=== PATIENT | male | born 1955 | race American Indian/Alaskan Native ===

== ENCOUNTER 2016-09-12 18:36 | Emergency (ER) | payer MEDICARE, OTHER ==
[2016-09-12 20:46] VITALS: BP 147/94
[2016-09-12] MEDS: DUONEB 0.5 MG-3 MG/3 ML SOLN IH ONE (21:17)
[2016-09-12] MEDS: PROVENTIL IH ONE (21:42)
[2016-09-12] MEDS: ATROVENT IH ONE (21:42)
--- NOTE | 2016-09-13 07:15 | ED Elopement Review ---
ED Pt Elopement review - Call Back decision Pt Call Back Decision: Call pt to return to ED [facility] (HR [id number])
== END 2016-09-13 02:39 | disposition left against medical advice (07) ==
LOC: ED 18:36
DX: J45.909 Unspecified asthma, uncomplicated (principal); Z53.21 Procedure and treatment not carried out due to patient leaving prior to being seen by health care provider
CPT/HCPCS: 96372; J2930

== ENCOUNTER 2016-09-21 17:20 | Emergency (ER) | payer MEDICARE, OTHER ==
[2016-09-21] MEDS ORDERED: MAGNESIUM SULFATE 2GM/50ML 2 GM/50 ML BAG IV ONE (18:38)
[2016-09-21] MEDS ORDERED: PROVENTIL IH ONE (18:38)
[2016-09-21] MEDS ORDERED: ATROVENT IH ONE (18:38)
--- NOTE | 2016-09-21 18:38 | Emergency Department Report ---
HPI - General Chief Complaint: Adult Asthma Time Seen by Provider: 09/21/16 18:36 - HPI HPI: This is a 60-year-old male who presents the emergency department with complaint of wheezing, dry cough, shortness of breath that he believes this is asthma that started around 12:30 this afternoon. The patient says that the "wind hit my face and started everything." He tried his inhaler and nebulized treatments without much relief. He took his daily 30 mg of prednisone as well. He does not have a primary care doctor but his sales and leasing agent is Dr. Mayer. He has a significant history of asthma and has been intubated in the past for it. He denies any chest pain, fever or any back pain. No recent travel or sick contacts at home. He denies tobacco or illicit drug use or abuse. ED Past Medical Hx - Past Medical History Hx Hypertension: Yes Hx Heart Attack/AMI: No Hx Congestive Heart Failure: No Hx Diabetes: Yes Hx Liver Disease: No Hx Renal Disease: No Hx Seizures: No Hx Asthma: Yes (intubation) Hx COPD: No Hx HIV: No - Surgical History Additional Surgical History: back surgery x4. Hernia repair 04/20 - Social History Smoking Status: Never Smoker - Medications Home Medications: Home Medications Medication Instructions Recorded Confirmed Last Taken Type Montelukast [Singulair] 10 mg PO BID 08/31/13 10/24/14 10/18/14 History ALBUTEROL NEB's [Proventil 0.083% 2.5 mg IH TID PRN #1 box 12/02/13 10/24/14 Unknown Rx NEBS] Tiotropium [Spiriva] 18 mcg IH QDAY 01/04/14 10/24/14 10/17/14 History glipiZIDE [glipiZIDE XL] 5 mg PO QDAY 04/21/14 10/24/14 10/18/14 History Aspirin EC [Aspirin Enteric Coated 325 mg PO DAILY 04/22/14 10/24/14 10/17/14 History TAB] Budesonide/Formoterol Fumarate 1 puff INHALATION PRN PRN 04/22/14 10/24/1410/18 History [Symbicort 160-4.5 Mcg Inhaler] metFORMIN [Glucophage] 500 mg PO BID 07/02/14 10/24/14 10/18/14 History ALBUTEROL Inhaler [ProAir HFA 2 puff IH QID PRN #1 inha 07/03/14 10/24/14 Rx Inhaler] Fluticasone/Salmeterol [Advair 1 puff IH BID #1 disk.w.dev 10/22/14 10/24/14 Unknown Rx Diskus 250-50 mcg] Prednisone 10 mg PO 4XD #40 day 10/22/14 10/24/14 Unknown Rx Albuterol *Only Ed* [Proventil 2.5 mg IH Q6HRT nebu 10/28/14 Unknown Rx 0.5% NEBS] Arformoterol Nebu [Brovana Nebu] 15 mcg IH Q12HRT ml 10/28/14 Unknown Rx Aspirin EC [Aspirin Enteric Coated 325 mg PO DAILY tablet 10/28/14 Unknown Rx TAB] Budesonide [Pulmicort Respules] 1 mg IH Q12HRT nebu 10/28/14 Unknown Rx Insulin Glulisine [Apidra] 0 units SUB-Q ACHS units 10/28/14 Unknown Rx Montelukast [Singulair] 10 mg PO BID tablet 10/28/14 Unknown Rx Sulfamethoxazole/Trimethoprim 1 each PO BID #20 tablet 10/28/14 Unknown Rx [Bactrim Ds] glipiZIDE XL [Glucotrol Xl] 5 mg PO DAILY@0800 tablet 10/28/14 Unknown Rx predniSONE [Deltasone] 20 mg PO BID #10 tab 09/21/16 Unknown Rx ED Review of Systems ROS: Stated complaint: ASTHMA Other details as noted in HPI Comment: All other systems reviewed and negative Constitutional: denies: chills, fever Eyes: denies: eye pain, eye discharge, vision change ENT: denies: ear pain, throat pain Respiratory: cough, shortness of breath, wheezing Cardiovascular: denies: chest pain, palpitations Gastrointestinal: denies: abdominal pain, nausea, diarrhea Genitourinary: denies: urgency, dysuria Musculoskeletal: denies: back pain, joint swelling, arthralgia Skin: denies: rash, lesions Neurological: denies: headache, weakness, paresthesias Physical Exam - Physical Exam Vital Signs: Vital Signs 09/21/16 18:15 Temperature 98.5 F Pulse Rate 121 H Respiratory 24 Rate Blood Pressure 146/99 O2 Sat by Pulse 92 Oximetry Physical Exam: GENERAL: The patient is well-developed well-nourished. HEENT: Normocephalic. Atraumatic. Extraocular motions are intact. Patient has moist mucous membranes. Pupils equal reactive to light bilaterally. NECK: Supple. Trachea is midline. CHEST/LUNGS: Mild to moderate wheezing throughout the chest. There is tachypnea but no accessory muscle use. No conversational dyspnea. There is no respiratory distress noted. HEART/CARDIOVASCULAR: Regular. There is very mild tachycardia. There is no gallop rub or murmur. ABDOMEN: Abdomen is soft, nontender. Patient has normal bowel sounds. There is no abdominal distention. SKIN: There is no rash. There is no edema. There is no diaphoresis. NEURO: The patient is awake, alert, and oriented. The patient is cooperative. The patient has no focal neurologic deficits. The patient has normal speech. MUSCULOSKELETAL: There is no tenderness or deformity. There is no limitation range of motion. There is no evidence of acute injury. Cap refill less than 2 seconds. ED Course Vital Signs 09/21/16 18:15 Temperature 98.5 F Pulse Rate 121 H Respiratory 24 Rate Blood Pressure 146/99 O2 Sat by Pulse 92 Oximetry ED Medical Decision Making - Lab Data Result diagrams: 09/21/16 18:43 09/21/16 18:43 - Radiology Data Radiology results: image reviewed interpreted by me: Chest x-ray did not show any acute process. Heart is normal shape and size. No effusions. No pneumothorax. No signs of pneumonia seen. - Medical Decision Making 60-year-old male who is a known asthmatic presents with some wheezing, shortness of breath and coughing. Patient's labs did not show any leukocytosis , electrolyte abnormalities, renal insufficiency or significant glucose abnormalities. The patient was given Solu-Medrol, magnesium and breathing treatments and upon reevaluation the patient is feeling much better. His wheezing is now mild and the patient says he feels great. He is asking for discharge home. He says he has enough albuterol inhaler and nebulized treatments at home but will need some steroids. Patient will be encouraged to follow-up with his primary care doctor but will be given a prescription for steroids. He'll return to the ER with any worsening of symptoms or any acute distress. - Differential Diagnosis asthma, bronchitis, COPD, pneumonia Critical Care Time: No Critical care attestation.: If time is entered above; I have spent that time in minutes in the direct care of this critically ill patient, excluding procedure time. ED Disposition Clinical Impression: Shortness of breath, Bronchospasm, Asthma exacerbation Disposition: DISCHARGED TO HOME OR SELFCARE Is pt being admited?: No Condition: Stable Instructions: Asthma (ED), Bronchospasm (ED) Additional Instructions: Please follow-up with your primary care doctor and/or sales and leasing agent. Return to the emergency department with any worsening of your symptoms or any acute distress. Prescriptions: predniSONE [Deltasone] 20 mg PO BID #10 tab Referrals: PRIMARY CARE, [Primary Care Provider] - 3-5 Days Time of Disposition: 21:55
[2016-09-21 19:06] LABS: Eosinophils % (Auto) 8.6 % (0.0-4.3); Hematocrit 43.9 % (35.5-45.6); Hemoglobin 14.5 gm/dl (11.8-15.2); Mean Corpuscular HGB Conc 33 % (32-34); Mean Corpuscular Hemoglobin 27 pg (28-32); Mean Corpuscular Volume 81 fl (84-94); Platelet Count 283 K/mm3 (140-440); Red Blood Count 5.45 M/mm3 (3.65-5.03); Red Cell Distribution Width 13.1 % (13.2-15.2); White Blood Count 8.9 K/mm3 (4.5-11.0)
[2016-09-21 19:18] LABS: Anion Gap 17 mmol/L; Blood Urea Nitrogen 9 mg/dL (9-20); Calcium 8.8 mg/dL (8.4-10.2); Carbon Dioxide 26 mmol/L (22-30); Chloride 101.6 mmol/L (98-107); Glucose 219 mg/dL (75-100); Potassium 4.1 mmol/L (3.6-5.0); Sodium 140 mmol/L (137-145)
[2016-09-21 22:04] VITALS: BP 135/82
--- NOTE | 2016-09-22 07:52 | XRay Report ---
CHEST ONE VIEW INDICATION: Shortness of breath. COMPARISON: 05/19/2015. FINDINGS: Portable, single, frontal chest radiograph demonstrates normal cardiomediastinal silhouette and slightly crowded lung markings, given the inspiration. No focal consolidation, pleural effusions or CHF. Stable bony degenerative changes. CONCLUSION: No acute disease in the chest. Thank you for the opportunity to participate in this patient's care.
== END 2016-09-21 22:04 | disposition home or self-care (01) ==
LOC: ED 17:20
DX: J45.901 Unspecified asthma with (acute) exacerbation (principal); R06.02 Shortness of breath; I10 Essential (primary) hypertension; E11.9 Type 2 diabetes mellitus without complications; Z79.82 Long term (current) use of aspirin; Z79.4 Long term (current) use of insulin
CPT/HCPCS: 36415; 71010; 80048; 85025; 94640; 96365; 96375; 99284; J2930; J3475

== ENCOUNTER 2016-09-26 17:50 | Emergency (ER) | payer OTHER ==
[2016-09-26] MEDS ORDERED: MAGNESIUM SULFATE 2GM/50ML 2 GM/50 ML BAG IV ONE (19:04)
[2016-09-26] MEDS ORDERED: ATROVENT IH ONE (19:04)
[2016-09-26] MEDS ORDERED: XOPENEX IH ONE (19:04)
--- NOTE | 2016-09-26 20:14 | Emergency Department Report ---
ED Shortness of Breath HPI - General Chief Complaint: Dyspnea/Respdistress Stated Complaint: ASTHMA/SAMIA Time Seen by Provider: 09/26/16 18:57 Source: patient Mode of arrival: Ambulatory Limitations: No Limitations - History of Present Illness Initial Comments: 60-year-old male with past medical history of asthma, diabetes, and hypertension presents to the hospital with complaints of shortness of breath today. Patient thinks the pollen count was high causing his exacerbation and he forgot to wear his mask outside today. He used a home nebulizer without improvement. Previous history of multiple intubations. Positive complaints of chest tightness to her shortness of breath episode. Chronic dry cough without fever. Patient states he takes prednisone 40 mg daily reports that he only has 4 tablets left. He did not have his dose today. All Source Intelligence Technician: Dr. Mayer - Related Data Home Medications Medication Instructions Recorded Confirmed Last Taken Montelukast [Singulair] 10 mg PO BID 08/31/13 10/24/14 10/18/14 Tiotropium [Spiriva] 18 mcg IH QDAY 01/04/14 10/24/14 10/17/14 glipiZIDE [glipiZIDE XL] 5 mg PO QDAY 04/21/14 10/24/14 10/18/14 Aspirin EC [Aspirin Enteric Coated 325 mg PO DAILY 04/22/14 10/24/14 10/17/14 TAB] Budesonide/Formoterol Fumarate 1 puff INHALATION PRN PRN 04/22/14 10/24/1410/18 [Symbicort 160-4.5 Mcg Inhaler] metFORMIN [Glucophage] 500 mg PO BID 07/02/14 10/24/14 10/18/14 Previous Rx's Medication Instructions Recorded Last Taken Type ALBUTEROL NEB's [Proventil 0.083% 2.5 mg IH TID PRN #1 box 12/02/13 Unknown Rx NEBS] ALBUTEROL Inhaler [ProAir HFA 2 puff IH QID PRN #1 inha 07/03/14 10/18/14 Rx Inhaler] Fluticasone/Salmeterol [Advair 1 puff IH BID #1 disk.w.dev 10/22/14 Unknown Rx Diskus 250-50 mcg] Prednisone 10 mg PO 4XD #40 day 10/22/14 Unknown Rx Albuterol *Only Ed* [Proventil 2.5 mg IH Q6HRT nebu 10/28/14 Unknown Rx 0.5% NEBS] Arformoterol Nebu [Brovana Nebu] 15 mcg IH Q12HRT ml 10/28/14 Unknown Rx Aspirin EC [Aspirin Enteric Coated 325 mg PO DAILY tablet 10/28/14 Unknown Rx TAB] Budesonide [Pulmicort Respules] 1 mg IH Q12HRT nebu 10/28/14 Unknown Rx Insulin Glulisine [Apidra] 0 units SUB-Q ACHS units 10/28/14 Unknown Rx Montelukast [Singulair] 10 mg PO BID tablet 10/28/14 Unknown Rx Sulfamethoxazole/Trimethoprim 1 each PO BID #20 tablet 10/28/14 Unknown Rx [Bactrim Ds] glipiZIDE XL [Glucotrol Xl] 5 mg PO DAILY@0800 tablet 10/28/14 Unknown Rx predniSONE [Deltasone] 20 mg PO BID #10 tab 09/21/16 Unknown Rx predniSONE [Deltasone] 40 mg PO QDAY #10 tab 09/26/16 Unknown Rx Allergies Allergy/AdvReac Type Severity Reaction Status Date / Time seafood Allergy Shortness Uncoded 04/22/14 06:45 of Breath shrimp Allergy Shortness Uncoded 05/08/14 20:37 of Breath ED Review of Systems ROS: Stated complaint: ASTHMA/SAMIA Other details as noted in HPI Comment: All other systems reviewed and negative Other: Constitutional: No fevers chills Eyes: No eye pain visual changes ENT: No ear pain or throat pain Neck: Denies pain Respiratory: As per HPI Cardiovascular: Denies palpitations, syncope GI: Denies abdominal pain, nausea, vomiting, diarrhea : Denies dysuria, Musculoskeletal: Denies back pain Skin: Denies rash, lesions, erythema Neurologic: Denies headache, numbness, weakness Psychiatric: Denies suicidal ideation, hallucinations ED Past Medical Hx - Past Medical History Previous Medical History?: Yes Hx Hypertension: Yes Hx Heart Attack/AMI: No Hx Congestive Heart Failure: No Hx Diabetes: Yes Hx Liver Disease: No Hx Renal Disease: No Hx Seizures: No Hx Asthma: Yes (intubation) Hx COPD: No Hx HIV: No - Surgical History Past Surgical History?: Yes Additional Surgical History: back surgery x4. Hernia repair 04/20 - Social History Smoking Status: Never Smoker Substance Use Type: None - Medications Home Medications: Home Medications Medication Instructions Recorded Confirmed Last Taken Type Montelukast [Singulair] 10 mg PO BID 08/31/13 10/24/14 10/18/14 History ALBUTEROL NEB's [Proventil 0.083% 2.5 mg IH TID PRN #1 box 12/02/13 10/24/14 Unknown Rx NEBS] Tiotropium [Spiriva] 18 mcg IH QDAY 01/04/14 10/24/14 10/17/14 History glipiZIDE [glipiZIDE XL] 5 mg PO QDAY 04/21/14 10/24/14 10/18/14 History Aspirin EC [Aspirin Enteric Coated 325 mg PO DAILY 04/22/14 10/24/14 10/17/14 History TAB] Budesonide/Formoterol Fumarate 1 puff INHALATION PRN PRN 04/22/14 10/24/1410/18 History [Symbicort 160-4.5 Mcg Inhaler] metFORMIN [Glucophage] 500 mg PO BID 07/02/14 10/24/14 10/18/14 History ALBUTEROL Inhaler [ProAir HFA 2 puff IH QID PRN #1 inha 07/03/14 10/24/14 Rx Inhaler] Fluticasone/Salmeterol [Advair 1 puff IH BID #1 disk.w.dev 10/22/14 10/24/14 Unknown Rx Diskus 250-50 mcg] Prednisone 10 mg PO 4XD #40 day 10/22/14 10/24/14 Unknown Rx Albuterol *Only Ed* [Proventil 2.5 mg IH Q6HRT nebu 10/28/14 Unknown Rx 0.5% NEBS] Arformoterol Nebu [Brovana Nebu] 15 mcg IH Q12HRT ml 10/28/14 Unknown Rx Aspirin EC [Aspirin Enteric Coated 325 mg PO DAILY tablet 10/28/14 Unknown Rx TAB] Budesonide [Pulmicort Respules] 1 mg IH Q12HRT nebu 10/28/14 Unknown Rx Insulin Glulisine [Apidra] 0 units SUB-Q ACHS units 03/24/15 Unknown Rx Montelukast [Singulair] 10 mg PO BID tablet 10/28/14 Unknown Rx Sulfamethoxazole/Trimethoprim 1 each PO BID #20 tablet 10/28/14 Unknown Rx [Bactrim Ds] glipiZIDE XL [Glucotrol Xl] 5 mg PO DAILY@0800 tablet 10/28/14 Unknown Rx predniSONE [Deltasone] 20 mg PO BID #10 tab 09/21/16 Unknown Rx predniSONE [Deltasone] 40 mg PO QDAY #10 tab 09/26/16 Unknown Rx ED Physical Exam - General Limitations: No Limitations - Other Other exam information: General: No limitations, patient is alert in no acute distress Head exam: Atraumatic, normocephalic Eyes exam: Normal appearance, pupils equal reactive to light, extraocular movements intact ENT: Moist mucous membrane, normal oropharynx Neck exam: Normal inspection, full range of motion Respiratory exam: Bilateral expiratory wheezing, mild tachypnea, no accessory muscle use. Cardiovascular: Normal rate and rhythm, normal heart sounds Abdomen: Soft, nondistended, and nontender, with normal bowel sounds, no rebound, or guarding Extremity: Full range of motion normal inspection no deformity no calf tenderness or edema Back: Normal Inspection, full range of motion, no tenderness Neurologic: Alert, oriented x3, cranial nerves intact, no motor or sensory deficit Psychiatric: normal affect, normal mood Skin: Warm, dry, intact ED Course Vital Signs 09/26/16 09/26/16 09/26/16 17:55 19:28 19:50 Temperature 97.7 F Pulse Rate 133 H Pulse Rate [ 105 H 105 H Throughout] Respiratory 24 Rate Respiratory 20 20 Rate [ Throughout] Blood Pressure 149/87 Blood Pressure [Left] O2 Sat by Pulse 91 Oximetry 09/26/16 21:42 Temperature Pulse Rate 91 H Pulse Rate [ Throughout] Respiratory 19 Rate Respiratory Rate [ Throughout] Blood Pressure Blood Pressure 114/69 [Left] O2 Sat by Pulse 92 Oximetry - Reevaluation(s) Reevaluation #1: 09/26/16 20:14 Nebs, Solu-Medrol, and magnesium ordered - Consultations Consultation #1: 09/26/16 23:[address] 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 Suggested peak flow and if the flow is less than half a predictable likely need admission to the hospital. He is also foreign the patient's hypoxia with exertion. ED Medical Decision Making - Lab Data Result diagrams: 09/26/16 20:01 09/26/16 20:01 Lab Results 09/26/16 09/26/16 Range/Units 20:01 20:01 WBC 10.6 (4.5-11.0) K/mm3 RBC 5.64 H (3.65-5.03) M/mm3 Hgb 14.9 (11.8-15.2) gm/dl Hct 45.8 H (35.5-45.6) % MCV 81 L (84-94) fl MCH 26 L (28-32) pg MCHC 33 (32-34) % RDW 12.9 L (13.2-15.2) % Plt Count 308 (140-440) K/mm3 Lymph % (Auto) 13.7 (13.4-35.0) % Pope % (Auto) 10.1 H (0.0-7.3) % Eos % (Auto) 9.6 H (0.0-4.3) % Baso % (Auto) 0.4 (0.0-1.8) % Lymph # 1.4 (1.2-5.4) K/mm3 Pope # 1.1 H (0.0-0.8) K/mm3 Eos # 1.0 H (0.0-0.4) K/mm3 Baso # 0.0 (0.0-0.1) K/mm3 Seg Neutrophils % 66.2 (40.0-70.0) % Seg Neutrophils # 7.0 (1.8-7.7) K/mm3 Sodium 137 (137-145) mmol/L Potassium 3.9 (3.6-5.0) mmol/L Chloride 96.9 L (98-107) mmol/L Carbon Dioxide 26 (22-30) mmol/L Anion Gap 18 mmol/L BUN 11 (9-20) mg/dL Creatinine 0.8 (0.8-1.5) mg/dL Estimated GFR > 60 ml/min BUN/Creatinine Ratio 13.75 % Glucose 189 H (75-100) mg/dL Calcium 8.6 (8.4-10.2) mg/dL - Medical Decision Making Patient feels, sounds, looks better compared to initial presentation however I am concerned because the patient's desaturation and increased heart rate with exertion. Patient's that goes down to 87 heart rate goes to 120s with walking. Patient symptomatically feels okay during these episodes. Peak flow 330 with predicted of 542. I recommended admission to the patient due to continued respiratory symptoms and hypoxia. Patient states he cannot stay and will sign out AMA because he has plans tomorrow. He will see Dr. Mayer on Monday and return if symptoms worsen - Differential Diagnosis COPD exacerbation, bronchitis Critical Care Time: No Critical care attestation.: If time is entered above; I have spent that time in minutes in the direct care of this critically ill patient, excluding procedure time. ED Disposition Clinical Impression: Hypoxia Acute asthma exacerbation Qualifiers: Asthma severity: unspecified severity Qualified Code(s): J45.901 - Unspecified asthma with (acute) exacerbation Disposition: LEFT AGAINST MEDICAL ADVICE Is pt being admited?: No Does the pt Need Aspirin: No Condition: Stable Instructions: Asthma (ED) Additional Instructions: Your leaving the ER against medical underwriter due to my concern of drop in oxygen when you walk and her decreased peak flow measurement. You at risk for worsening respiratory symptoms leading to worsening wheezing, low oxygen, need for intubation, and possible respiratory arrest and . The medication as prescribed and please return if symptoms worsen, follow up with Dr. Mayer as soon as possible Prescriptions: predniSONE [Deltasone] 40 mg PO QDAY #10 tab Referrals: KORY MAYER MD [Staff Physician] - 3-5 Days Forms: AMA Form Time of Disposition: 23:20
[2016-09-26 20:32] LABS: Anion Gap 18 mmol/L; BUN/Creatinine Ratio 13.75; Blood Urea Nitrogen 11 mg/dL (9-20); Calcium 8.6 mg/dL (8.4-10.2); Carbon Dioxide 26 mmol/L (22-30); Chloride 96.9 mmol/L (98-107); Glucose 189 mg/dL (75-100); Potassium 3.9 mmol/L (3.6-5.0); Sodium 137 mmol/L (137-145)
[2016-09-26 20:42] LABS: Basophils % (Auto) 0.4 % (0.0-1.8); Eosinophils % (Auto) 9.6 % (0.0-4.3); Hematocrit 45.8 % (35.5-45.6); Hemoglobin 14.9 gm/dl (11.8-15.2); Mean Corpuscular HGB Conc 33 % (32-34); Mean Corpuscular Hemoglobin 26 pg (28-32); Mean Corpuscular Volume 81 fl (84-94); Platelet Count 308 K/mm3 (140-440); Red Blood Count 5.64 M/mm3 (3.65-5.03); Red Cell Distribution Width 12.9 % (13.2-15.2); White Blood Count 10.6 K/mm3 (4.5-11.0)
[2016-09-26] MEDS ORDERED: DELTASONE PO ONE (21:17)
[2016-09-27 00:07] VITALS: BP 116/61
== END 2016-09-27 00:05 | disposition left against medical advice (07) ==
LOC: ED 17:50
DX: R09.02 Hypoxemia (principal); J45.901 Unspecified asthma with (acute) exacerbation; I10 Essential (primary) hypertension; E11.9 Type 2 diabetes mellitus without complications; Z79.82 Long term (current) use of aspirin; Z91.013 Allergy to seafood
CPT/HCPCS: 36415; 80048; 85025; 94640; 99284; J7512

== ENCOUNTER 2016-10-08 13:56 | Emergency (ER) | payer MEDICARE, OTHER ==
[2016-10-08] MEDS: PROVENTIL IH ONE (14:44)
[2016-10-08] MEDS: ATROVENT IH ONE (14:45)
[2016-10-08] MEDS: DELTASONE PO ONE (16:10)
[2016-10-08] MEDS: DUONEB 0.5 MG-3 MG/3 ML SOLN IH ONE ×2 (16:48→18:19)
[2016-10-08] MEDS: ROBITUSSIN DM PO ONE (16:58)
[2016-10-08] MEDS: PEPCID PO ONE (16:58)
--- NOTE | 2016-10-08 17:04 | Emergency Department Report ---
ED Asthma HPI - General Chief Complaint: Adult Asthma Stated Complaint: ASTHMA Source: patient Mode of arrival: Ambulatory Limitations: No Limitations - History of Present Illness Initial Comments: 60-year-old male past medical history asthma presents with complaint of 2-3 days of wheeziness and shortness of breath. Denies any chest pain no palpitations no nausea no vomiting, does state he has been coughing and it is slightly productive of yellowish sputum. Patient denies being a smoker. Speaking in full sentences and no audible wheezing or stridor on exam. States that he has frequent asthma exacerbations MD Complaint: "asthma attack", shortness of breath, wheezing Onset/Timin -: days(s) Asthma History: history of frequent attac Severity: moderate Associated Symptoms: productive cough Treatments Prior to Arrival: inhaled bronchodilator, inhaled steroid - Related Data Current Asthma Therapy: inhaled bronchodilator, inhaled steroid Home Medications Medication Instructions Recorded Confirmed Last Taken Montelukast [Singulair] 10 mg PO BID 08/31/13 10/24/14 10/18/14 Tiotropium [Spiriva] 18 mcg IH QDAY 01/04/14 10/24/14 10/17/14 glipiZIDE [glipiZIDE XL] 5 mg PO QDAY 04/21/14 10/24/14 10/18/14 Aspirin EC [Aspirin Enteric Coated 325 mg PO DAILY 04/22/14 10/24/14 10/17/14 TAB] Budesonide/Formoterol Fumarate 1 puff INHALATION PRN PRN 04/22/14 10/24/1410/18 [Symbicort 160-4.5 Mcg Inhaler] metFORMIN [Glucophage] 500 mg PO BID 07/02/14 10/24/14 10/18/14 Previous Rx's Medication Instructions Recorded Last Taken Type ALBUTEROL NEB's [Proventil 0.083% 2.5 mg IH TID PRN #1 box 12/02/13 Unknown Rx NEBS] ALBUTEROL Inhaler [ProAir HFA 2 puff IH QID PRN #1 inha 07/03/14 10/18/14 Rx Inhaler] Fluticasone/Salmeterol [Advair 1 puff IH BID #1 disk.w.dev 10/22/14 Unknown Rx Diskus 250-50 mcg] Prednisone 10 mg PO 4XD #40 day 10/22/14 Unknown Rx Albuterol *Only Ed* [Proventil 2.5 mg IH Q6HRT nebu 10/28/14 Unknown Rx 0.5% NEBS] Arformoterol Nebu [Brovana Nebu] 15 mcg IH Q12HRT ml 10/28/14 Unknown Rx Aspirin EC [Aspirin Enteric Coated 325 mg PO DAILY tablet 10/28/14 Unknown Rx TAB] Budesonide [Pulmicort Respules] 1 mg IH Q12HRT nebu 10/28/14 Unknown Rx Insulin Glulisine [Apidra] 0 units SUB-Q ACHS units 10/28/14 Unknown Rx Montelukast [Singulair] 10 mg PO BID tablet 10/28/14 Unknown Rx Sulfamethoxazole/Trimethoprim 1 each PO BID #20 tablet 10/28/14 Unknown Rx [Bactrim Ds] glipiZIDE XL [Glucotrol Xl] 5 mg PO DAILY@0800 tablet 10/28/14 Unknown Rx predniSONE [Deltasone] 20 mg PO BID #10 tab 09/21/16 Unknown Rx predniSONE [Deltasone] 40 mg PO QDAY #10 tab 09/26/16 Unknown Rx Azithromycin [Zithromax Z-AUNG] 250 mg PO QDAY #6 tablet 10/08/16 Unknown Rx predniSONE [Deltasone] 40 mg PO QDAY #10 tablet 10/08/16 Unknown Rx Allergies Allergy/AdvReac Type Severity Reaction Status Date / Time seafood Allergy Shortness Uncoded 04/22/14 06:45 of Breath shrimp Allergy Shortness Uncoded 05/08/14 20:37 of Breath ED Review of Systems ROS: Stated complaint: ASTHMA Other details as noted in HPI Constitutional: denies: chills, fever Eyes: denies: eye pain, eye discharge, vision change ENT: denies: ear pain, throat pain Respiratory: shortness of breath. denies: cough, wheezing Cardiovascular: denies: chest pain, palpitations Endocrine: no symptoms reported Gastrointestinal: denies: abdominal pain, nausea, diarrhea Genitourinary: denies: urgency, dysuria Musculoskeletal: denies: back pain, joint swelling, arthralgia Skin: denies: rash, lesions Neurological: denies: headache, weakness, paresthesias Psychiatric: denies: anxiety, depression Hematological/Lymphatic: denies: easy bleeding, easy bruising ED Past Medical Hx - Past Medical History Previous Medical History?: Yes Hx Hypertension: Yes Hx Heart Attack/AMI: No Hx Congestive Heart Failure: No Hx Diabetes: Yes Hx Liver Disease: No Hx Renal Disease: No Hx Seizures: No Hx Asthma: Yes (intubation) Hx COPD: No Hx HIV: No - Surgical History Past Surgical History?: Yes Additional Surgical History: back surgery x4. Hernia repair 04/20 - Social History Smoking Status: Never Smoker Substance Use Type: Prescribed - Medications Home Medications: Home Medications Medication Instructions Recorded Confirmed Last Taken Type Montelukast [Singulair] 10 mg PO BID 08/31/13 10/24/14 10/18/14 History ALBUTEROL NEB's [Proventil 0.083% 2.5 mg IH TID PRN #1 box 12/02/13 10/24/14 Unknown Rx NEBS] Tiotropium [Spiriva] 18 mcg IH QDAY 01/04/14 10/24/14 10/17/14 History glipiZIDE [glipiZIDE XL] 5 mg PO QDAY 04/21/14 10/24/14 10/18/14 History Aspirin EC [Aspirin Enteric Coated 325 mg PO DAILY 04/22/14 10/24/14 10/17/14 History TAB] Budesonide/Formoterol Fumarate 1 puff INHALATION PRN PRN 04/22/14 10/24/1410/18 History [Symbicort 160-4.5 Mcg Inhaler] metFORMIN [Glucophage] 500 mg PO BID 07/02/14 10/24/14 10/18/14 History ALBUTEROL Inhaler [ProAir HFA 2 puff IH QID PRN #1 inha 07/03/14 10/24/14 Rx Inhaler] Fluticasone/Salmeterol [Advair 1 puff IH BID #1 disk.w.dev 10/22/14 10/24/14 Unknown Rx Diskus 250-50 mcg] Prednisone 10 mg PO 4XD #40 day 10/22/14 10/24/14 Unknown Rx Albuterol *Only Ed* [Proventil 2.5 mg IH Q6HRT nebu 10/28/14 Unknown Rx 0.5% NEBS] Arformoterol Nebu [Brovana Nebu] 15 mcg IH Q12HRT ml 10/28/14 Unknown Rx Aspirin EC [Aspirin Enteric Coated 325 mg PO DAILY tablet 10/28/14 Unknown Rx TAB] Budesonide [Pulmicort Respules] 1 mg IH Q12HRT nebu 10/28/14 Unknown Rx Insulin Glulisine [Apidra] 0 units SUB-Q ACHS units 10/28/14 Unknown Rx Montelukast [Singulair] 10 mg PO BID tablet 10/28/14 Unknown Rx Sulfamethoxazole/Trimethoprim 1 each PO BID #20 tablet 10/28/14 Unknown Rx [Bactrim Ds] glipiZIDE XL [Glucotrol Xl] 5 mg PO DAILY@0800 tablet 10/28/14 Unknown Rx predniSONE [Deltasone] 20 mg PO BID #10 tab 09/21/16 Unknown Rx predniSONE [Deltasone] 40 mg PO QDAY #10 tab 09/26/16 Unknown Rx Azithromycin [Zithromax Z-AUNG] 250 mg PO QDAY #6 tablet 10/08/16 Unknown Rx predniSONE [Deltasone] 40 mg PO QDAY #10 tablet 10/08/16 Unknown Rx ED Physical Exam - General Limitations: No Limitations General appearance: alert, in no apparent distress - Head Head exam: Present: atraumatic, normocephalic - Eye Eye exam: Present: normal appearance, PERRL, EOMI - ENT ENT exam: Present: mucous membranes moist - Neck Neck exam: Present: normal inspection, full ROM - Respiratory Respiratory exam: Present: wheezes (patient has bilateral wheezes). Absent: respiratory distress - Cardiovascular Cardiovascular Exam: Present: regular rate, normal rhythm. Absent: systolic murmur, diastolic murmur, rubs, gallop - GI/Abdominal GI/Abdominal exam: Present: soft, normal bowel sounds - Rectal Rectal exam: Present: deferred - Extremities Exam Extremities exam: Present: normal inspection - Back Exam Back exam: Present: normal inspection - Neurological Exam Neurological exam: Present: alert, oriented X3, CN II-XII intact, normal gait - Psychiatric Psychiatric exam: Present: normal affect, normal mood - Skin Skin exam: Present: warm, dry, intact, normal color. Absent: rash ED Course Vital Signs 10/08/16 10/08/16 10/08/16 14:20 14:47 15:03 Temperature 98.9 F Pulse Rate 119 H Pulse Rate [ 115 H 120 H Bilateral Upper Lobe] Respiratory 22 Rate Respiratory 20 20 Rate [Bilateral Upper Lobe] Blood Pressure 123/92 O2 Sat by Pulse 95 Oximetry 10/08/16 10/08/16 10/08/16 16:50 17:06 18:43 Temperature Pulse Rate 105 H Pulse Rate [ 110 H 112 H Bilateral Upper Lobe] Respiratory 16 Rate Respiratory 18 18 Rate [Bilateral Upper Lobe] Blood Pressure O2 Sat by Pulse 96 Oximetry ED Medical Decision Making - Medical Decision Making A/P: Reactive airway disease, asthma exacerbation, acute bronchitis 1-patient has experienced significant relief in symptoms and wheezing as since coming to the ED, has received 3 nebulizer treatments, now is walking around on room air satting at 96-97% speaking in full sentences states he feels significantly better. 2-wlll give patient short course of prednisone 3-I discussed case with Dr. Allison, patient has no chest x-ray signs of pneumonia but given increased sputum production with history of recurrent asthma will cover empirically for bronchitis with azithromycin pack Critical care attestation.: If time is entered above; I have spent that time in minutes in the direct care of this critically ill patient, excluding procedure time. ED Disposition Clinical Impression: Asthma attack Reactive airway disease Qualifiers: Asthma severity: moderate persistent Asthma complication type: with acute exacerbation Qualified Code(s): J45.41 - Moderate persistent asthma with (acute ) exacerbation Disposition: DISCHARGED TO HOME OR SELFCARE Is pt being admited?: No Does the pt Need Aspirin: No Condition: Stable Instructions: Asthma (ED) Prescriptions: Azithromycin [Zithromax Z-AUNG] 250 mg PO QDAY #6 tablet predniSONE [Deltasone] 40 mg PO QDAY #10 tablet Referrals: BJORN LOVE MD [Staff Physician] - 3-5 Days [facility] [Outside] - 3-5 Days Time of Disposition: 19:10
[2016-10-08 19:47] VITALS: BP 122/77
--- NOTE | 2016-10-09 09:28 | XRay Report ---
ROUTINE CHEST, TWO VIEWS: HISTORY: Worsening cough. The trachea, heart, mediastinal contour, lung nicholson and bony thorax are unremarkable. IMPRESSION: Unremarkable chest x-ray. No significant change since 09/24/16.
== END 2016-10-08 19:47 | disposition home or self-care (01) ==
LOC: ED 13:56
DX: J45.41 Moderate persistent asthma with (acute) exacerbation (principal); I10 Essential (primary) hypertension; E11.9 Type 2 diabetes mellitus without complications; Z79.82 Long term (current) use of aspirin; Z91.013 Allergy to seafood
CPT/HCPCS: 71020; 94640; 99284; J7512

== ENCOUNTER 2016-12-18 05:07 | Emergency (ER) | payer SELFPAY ==
[2016-12-18] MEDS ORDERED: PROVENTIL IH ONE ×2 (05:19→05:32)
[2016-12-18] MEDS ORDERED: ATROVENT IH ONE ×2 (05:20→05:32)
[2016-12-18 05:33] VITALS: BP 152/87
[2016-12-18 06:08] LABS: Basophils % (Auto) 0.8 % (0.0-1.8); Hematocrit 44.2 % (35.5-45.6); Hemoglobin 14.5 gm/dl (11.8-15.2); Mean Corpuscular HGB Conc 33 % (32-34); Mean Corpuscular Hemoglobin 27 pg (28-32); Mean Corpuscular Volume 81 fl (84-94); Platelet Count 281 K/mm3 (140-440); Red Blood Count 5.45 M/mm3 (3.65-5.03); Red Cell Distribution Width 13.3 % (13.2-15.2)
[2016-12-18 06:09] LABS: Anion Gap 18 mmol/L; BUN/Creatinine Ratio 12.22; Blood Urea Nitrogen 11 mg/dL (9-20); Calcium 8.8 mg/dL (8.4-10.2); Carbon Dioxide 23 mmol/L (22-30); Chloride 102.6 mmol/L (98-107); Glucose 188 mg/dL (75-100); Potassium 3.6 mmol/L (3.6-5.0); Sodium 140 mmol/L (137-145)
[2016-12-18 06:18] LABS: Creatine Kinase MB 2.7 ng/mL (0.0-4.0)
--- NOTE | 2016-12-18 09:13 | XRay Report ---
Chest 2 views: History: Shortness of breath. Findings: Normal cardiomediastinal silhouette. Trachea is midline. No consolidation, pneumothorax or pleural effusion. Impression: No acute cardiopulmonary findings.
== END 2016-12-18 05:35 | disposition left against medical advice (07) ==
LOC: ED 05:07
DX: R06.02 Shortness of breath (principal); R05 Cough; Z53.21 Procedure and treatment not carried out due to patient leaving prior to being seen by health care provider
CPT/HCPCS: 36415; 71020; 80048; 82550; 82553; 82805; 83735; 84484; 85025; 94640

== ENCOUNTER 2016-12-18 13:12 | Emergency (ER) | payer SELFPAY ==
[2016-12-18] MEDS ORDERED: DUONEB 0.5 MG-3 MG/3 ML SOLN IH ONE (13:53)
[2016-12-18] MEDS ORDERED: DELTASONE PO ONE (13:53)
--- NOTE | 2016-12-18 14:18 | Emergency Department Report ---
ED Shortness of Breath HPI - General Chief Complaint: Adult Asthma Stated Complaint: ASTHMATIC Time Seen by Provider: 12/18/16 13:47 Source: patient, RN notes reviewed, old records reviewed Mode of arrival: Ambulatory Limitations: No Limitations - History of Present Illness Initial Comments: 60-year-old male presents to the emergency department complaining of difficulty breathing. Patient states he normally takes 30 mg of prednisone daily. He has been doing this for the past 12-13 years. He states he ran out of his prednisone 2 days ago. He began having difficulty breathing this morning at approximately 2 AM. He denies pain. Patient was seen in the emergency department and had labs and x-ray performed. He also received a nebulized treatment, but he left prior to being seen by provider. Patient states he was feeling somewhat better after the nebulizer treatment, but his symptoms got worse once he returned home. There are no other complaints. MD Complaint: shortness of breath -: Sudden, During the night Time: 02:00 Pain Scale: 0 Consistency: intermittent Improves With: bronchodilators Worsens With: nothing Known History Of: asthma Context: medication noncompliance Associated Symptoms: denies other symptoms - Related Data Home Medications Medication Instructions Recorded Confirmed Last Taken Montelukast [Singulair] 10 mg PO BID 08/31/13 10/24/14 10/18/14 Tiotropium [Spiriva] 18 mcg IH QDAY 01/04/14 10/24/14 10/17/14 glipiZIDE [glipiZIDE XL] 5 mg PO QDAY 04/21/14 10/24/14 10/18/14 Aspirin EC [Aspirin Enteric Coated 325 mg PO DAILY 04/22/14 10/24/14 10/17/14 TAB] Budesonide/Formoterol Fumarate 1 puff INHALATION PRN PRN 04/22/14 10/24/1410/18 [Symbicort 160-4.5 Mcg Inhaler] metFORMIN [Glucophage] 500 mg PO BID 07/02/14 10/24/14 10/18/14 Previous Rx's Medication Instructions Recorded Last Taken Type ALBUTEROL NEB's [Proventil 0.083% 2.5 mg IH TID PRN #1 box 12/02/13 Unknown Rx NEBS] ALBUTEROL Inhaler [ProAir HFA 2 puff IH QID PRN #1 inha 07/03/14 10/18/14 Rx Inhaler] Fluticasone/Salmeterol [Advair 1 puff IH BID #1 disk.w.dev 10/22/14 Unknown Rx Diskus 250-50 mcg] Albuterol *Only Ed* [Proventil 2.5 mg IH Q6HRT nebu 10/28/14 Unknown Rx 0.5% NEBS] Arformoterol Nebu [Brovana Nebu] 15 mcg IH Q12HRT ml 10/28/14 Unknown Rx Aspirin EC [Aspirin Enteric Coated 325 mg PO DAILY tablet 10/28/14 Unknown Rx TAB] Budesonide [Pulmicort Respules] 1 mg IH Q12HRT nebu 10/28/14 Unknown Rx Insulin Glulisine [Apidra] 0 units SUB-Q ACHS units 10/28/14 Unknown Rx Montelukast [Singulair] 10 mg PO BID tablet 10/28/14 Unknown Rx Sulfamethoxazole/Trimethoprim 1 each PO BID #20 tablet 10/28/14 Unknown Rx [Bactrim Ds] glipiZIDE XL [Glucotrol Xl] 5 mg PO DAILY@0800 tablet 10/28/14 Unknown Rx Azithromycin [Zithromax Z-AUNG] 250 mg PO QDAY #6 tablet 10/08/16 Unknown Rx predniSONE [Deltasone] 3 tab PO QDAY #90 tab 12/18/16 Unknown Rx Allergies Allergy/AdvReac Type Severity Reaction Status Date / Time seafood Allergy Shortness Uncoded 12/18/16 13:24 of Breath shrimp Allergy Shortness Uncoded 12/18/16 13:24 of Breath ED Review of Systems ROS: Stated complaint: ASTHMATIC Other details as noted in HPI Comment: All other systems reviewed and negative Respiratory: shortness of breath ED Past Medical Hx - Past Medical History Previous Medical History?: Yes Hx Hypertension: Yes Hx Heart Attack/AMI: No Hx Congestive Heart Failure: No Hx Diabetes: Yes Hx Liver Disease: No Hx Renal Disease: No Hx Seizures: No Hx Asthma: Yes (intubation) Hx COPD: No Hx HIV: No - Surgical History Past Surgical History?: Yes Additional Surgical History: back surgery x4. Hernia repair 04/20 - Family History Family history: no significant - Social History Smoking Status: Never Smoker Substance Use Type: None - Medications Home Medications: Home Medications Medication Instructions Recorded Confirmed Last Taken Type Montelukast [Singulair] 10 mg PO BID 08/31/13 10/24/14 10/18/14 History ALBUTEROL NEB's [Proventil 0.083% 2.5 mg IH TID PRN #1 box 12/02/13 10/24/14 Unknown Rx NEBS] Tiotropium [Spiriva] 18 mcg IH QDAY 01/04/14 10/24/14 10/17/14 History glipiZIDE [glipiZIDE XL] 5 mg PO QDAY 04/21/14 10/24/14 10/18/14 History Aspirin EC [Aspirin Enteric Coated 325 mg PO DAILY 04/22/14 10/24/14 10/17/14 History TAB] Budesonide/Formoterol Fumarate 1 puff INHALATION PRN PRN 04/22/14 10/24/1410/18 History [Symbicort 160-4.5 Mcg Inhaler] metFORMIN [Glucophage] 500 mg PO BID 07/02/14 10/24/14 10/18/14 History ALBUTEROL Inhaler [ProAir HFA 2 puff IH QID PRN #1 inha 07/03/14 10/24/14 Rx Inhaler] Fluticasone/Salmeterol [Advair 1 puff IH BID #1 disk.w.dev 10/22/14 10/24/14 Unknown Rx Diskus 250-50 mcg] Albuterol *Only Ed* [Proventil 2.5 mg IH Q6HRT nebu 10/28/14 Unknown Rx 0.5% NEBS] Arformoterol Nebu [Brovana Nebu] 15 mcg IH Q12HRT ml 10/28/14 Unknown Rx Aspirin EC [Aspirin Enteric Coated 325 mg PO DAILY tablet 10/28/14 Unknown Rx TAB] Budesonide [Pulmicort Respules] 1 mg IH Q12HRT nebu 10/28/14 Unknown Rx Insulin Glulisine [Apidra] 0 units SUB-Q ACHS units 10/28/14 Unknown Rx Montelukast [Singulair] 10 mg PO BID tablet 10/28/14 Unknown Rx Sulfamethoxazole/Trimethoprim 1 each PO BID #20 tablet 10/28/14 Unknown Rx [Bactrim Ds] glipiZIDE XL [Glucotrol Xl] 5 mg PO DAILY@0800 tablet 10/28/14 Unknown Rx Azithromycin [Zithromax Z-AUNG] 250 mg PO QDAY #6 tablet 10/08/16 Unknown Rx predniSONE [Deltasone] 3 tab PO QDAY #90 tab 12/18/16 Unknown Rx ED Physical Exam - General Limitations: No Limitations General appearance: alert, in no apparent distress - Head Head exam: Present: atraumatic, normocephalic - Eye Eye exam: Present: normal appearance, PERRL, EOMI - ENT ENT exam: Present: normal exam, normal orophraynx, mucous membranes moist - Neck Neck exam: Present: normal inspection, full ROM. Absent: tenderness - Respiratory Respiratory exam: Present: wheezes (bilateral diffuse posterior). Absent: respiratory distress - Cardiovascular Cardiovascular Exam: Present: regular rate, normal rhythm, normal heart sounds - GI/Abdominal GI/Abdominal exam: Present: soft, normal bowel sounds. Absent: distended, tenderness - Extremities Exam Extremities exam: Present: normal inspection, full ROM. Absent: tenderness - Back Exam Back exam: Present: normal inspection, full ROM. Absent: tenderness - Neurological Exam Neurological exam: Present: alert, oriented X3. Absent: motor sensory deficit - Skin Skin exam: Present: warm, dry, intact ED Course Vital Signs 12/18/16 12/18/16 13:19 14:14 Temperature 98.1 F Pulse Rate 115 H Pulse Rate [ 96 H Anterior Bilateral Throughout] Respiratory 21 Rate Respiratory 18 Rate [Anterior Bilateral Throughout] Blood Pressure 139/80 O2 Sat by Pulse 95 Oximetry ED Medical Decision Making - Medical Decision Making Lab and imaging results reviewed from the previous visit and are unremarkable. Giving oral prednisone and an additional neb treatment. Will reassess. 1510-patient reports his symptoms have resolved with nebulizer treatment and oral prednisone. 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 - Differential Diagnosis asthma exacerbation Critical care attestation.: If time is entered above; I have spent that time in minutes in the direct care of this critically ill patient, excluding procedure time. ED Disposition Clinical Impression: Moderate persistent chronic asthma without complication Disposition: DISCHARGED TO HOME OR SELFCARE Is pt being admited?: No Condition: Stable Instructions: Asthma (ED) Prescriptions: predniSONE [Deltasone] 3 tab PO QDAY #90 tab Referrals: PRIMARY CARE, [Primary Care Provider] - 3-5 Days Time of Disposition: 15:12
[2016-12-18 15:23] VITALS: BP 140/81
== END 2016-12-18 15:22 | disposition home or self-care (01) ==
LOC: ED 13:12
DX: J45.40 Moderate persistent asthma, uncomplicated (principal); I10 Essential (primary) hypertension; E11.9 Type 2 diabetes mellitus without complications; Z79.82 Long term (current) use of aspirin; Z91.013 Allergy to seafood
CPT/HCPCS: 94640; 99283; J7512

== ENCOUNTER 2016-12-23 20:19 | Emergency (ER) | payer SELFPAY ==
[2016-12-23] MEDS ORDERED: DUONEB 0.5 MG-3 MG/3 ML SOLN IH ONE (20:40)
[2016-12-23 21:04] LABS: Hematocrit 44.9 % (35.5-45.6); Hemoglobin 14.3 gm/dl (11.8-15.2); Mean Corpuscular HGB Conc 32 % (32-34); Mean Corpuscular Hemoglobin 26 pg (28-32); Mean Corpuscular Volume 82 fl (84-94); Platelet Count 309 K/mm3 (140-440); Red Blood Count 5.48 M/mm3 (3.65-5.03); Red Cell Distribution Width 13.5 % (13.2-15.2); White Blood Count 11.8 K/mm3 (4.5-11.0)
[2016-12-23 21:16] LABS: Anion Gap 18 mmol/L; Blood Urea Nitrogen 16 mg/dL (9-20); Calcium 9.1 mg/dL (8.4-10.2); Carbon Dioxide 25 mmol/L (22-30); Chloride 101.8 mmol/L (98-107); Glucose 313 mg/dL (75-100); Potassium 4.1 mmol/L (3.6-5.0); Sodium 141 mmol/L (137-145)
[2016-12-23 22:11] LABS: Anisocytosis 1+; Basophils % (Manual) 0 % (0.0-1.8); Blastocytes % (Manual) 0 %; Elliptocytes Few; Eosinophils % (Manual) 0 % (0.0-4.3); Platelet Estimate Consistent w Auto; Total Cells Counted Percent 0
[2016-12-23 22:12] LABS: Diff Status Complete
[2016-12-24] MEDS ORDERED: DUONEB 0.5 MG-3 MG/3 ML SOLN IH ONE (03:18)
--- NOTE | 2016-12-24 04:28 | Emergency Department Report ---
ED Asthma HPI - General Chief Complaint: Adult Asthma Stated Complaint: ASTHMA Time Seen by Provider: 12/24/16 02:49 Source: patient Mode of arrival: Ambulatory Limitations: No Limitations - History of Present Illness Initial Comments: 60 year old male with a past medical history of asthma with previous intubations and frequent hospital visits, diabetes, and hypertension presents to hospital complaining of shortness of breath started today. Patient uses nebulizer at home without improvement. Patient received 1 Duoneb while waiting to be seen and reports significant improvement. Patient had chest tightness earlier but has since resolved since receiving relief via nebulized treatment. Positive dry cough reported. No fever, calf tenderness, or edema. Patient's been compliant with all his medications and takes prednisone 30 tablets daily. 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 Mayer and he has an appointment scheduled for the next 3-4 days. - Related Data Home Medications Medication Instructions Recorded Confirmed Last Taken Montelukast [Singulair] 10 mg PO BID 08/31/13 10/24/14 10/18/14 Tiotropium [Spiriva] 18 mcg IH QDAY 01/04/14 10/24/14 10/17/14 glipiZIDE [glipiZIDE XL] 5 mg PO QDAY 04/21/14 10/24/14 10/18/14 Aspirin EC [Aspirin Enteric Coated 325 mg PO DAILY 04/22/14 10/24/14 10/17/14 TAB] Budesonide/Formoterol Fumarate 1 puff INHALATION PRN PRN 04/22/14 10/24/1410/18 [Symbicort 160-4.5 Mcg Inhaler] metFORMIN [Glucophage] 500 mg PO BID 07/02/14 10/24/14 10/18/14 Previous Rx's Medication Instructions Recorded Last Taken Type ALBUTEROL Inhaler [ProAir HFA 2 puff IH QID PRN #1 inha 07/03/14 10/18/14 Rx Inhaler] Fluticasone/Salmeterol [Advair 1 puff IH BID #1 disk.w.dev 10/22/14 Unknown Rx Diskus 250-50 mcg] Albuterol *Only Ed* [Proventil 2.5 mg IH Q6HRT nebu 10/28/14 Unknown Rx 0.5% NEBS] Arformoterol Nebu [Brovana Nebu] 15 mcg IH Q12HRT ml 10/28/14 Unknown Rx Aspirin EC [Aspirin Enteric Coated 325 mg PO DAILY tablet 10/28/14 Unknown Rx TAB] Budesonide [Pulmicort Respules] 1 mg IH Q12HRT nebu 10/28/14 Unknown Rx Insulin Glulisine [Apidra] 0 units SUB-Q ACHS units 10/28/14 Unknown Rx Montelukast [Singulair] 10 mg PO BID tablet 10/28/14 Unknown Rx Sulfamethoxazole/Trimethoprim 1 each PO BID #20 tablet 10/28/14 Unknown Rx [Bactrim Ds] glipiZIDE XL [Glucotrol Xl] 5 mg PO DAILY@0800 tablet 10/28/14 Unknown Rx Azithromycin [Zithromax Z-AUNG] 250 mg PO QDAY #6 tablet 10/08/16 Unknown Rx predniSONE [Deltasone] 3 tab PO QDAY #90 tab 12/18/16 Unknown Rx ALBUTEROL NEB's [Proventil 0.083% 2.5 mg IH TID PRN #1 box 12/24/16 Unknown Rx NEBS] predniSONE [Deltasone] 1 dose PO QDAY #33 tab 12/24/16 Unknown Rx Allergies Allergy/AdvReac Type Severity Reaction Status Date / Time seafood Allergy Shortness Uncoded 12/18/16 13:24 of Breath shrimp Allergy Shortness Uncoded 12/18/16 13:24 of Breath ED Review of Systems ROS: Stated complaint: ASTHMA Other details as noted in HPI Comment: All other systems reviewed and negative Other: Constitutional: No fevers chills Eyes: No eye pain visual changes ENT: No ear pain or throat pain Neck: Denies pain Respiratory:as per hpi Cardiovascular: Denies palpitations, syncope GI: Denies abdominal pain, nausea, vomiting, diarrhea : Denies dysuria Musculoskeletal: Denies back pain Skin: Denies rash, lesions, erythema Neurologic: Denies headache, numbness, weakness Psychiatric: Denies suicidal ideation, hallucinations ED Past Medical Hx - Past Medical History Previous Medical History?: No Hx Hypertension: Yes Hx CVA: No Hx Heart Attack/AMI: No Hx Congestive Heart Failure: No Hx Diabetes: Yes Hx Deep Vein Thrombosis: No Hx Pulmonary Embolism: No Hx GERD: No Hx Liver Disease: No Hx Renal Disease: No Hx of Cancer: No Hx Sickle Cell Disease: No Hx Arthritis: No Hx Headaches / Migraines: No Hx Seizures: No Hx Kidney Stones: No Hx Psychiatric Treatment: No Hx Asthma: Yes (intubation) Hx COPD: No Hx Tuberculosis: No Hx Dementia: No Hx HIV: No Additional medical history: intabated and bi pap - Surgical History Past Surgical History?: No Hx Coronary Stent: No Hx Open Heart Surgery: No Hx Pacemaker: No Hx Internal Defibrillator: No Hx Cholecystectomy: No Hx Appendectomy: No Hx Breast Surgery: No Additional Surgical History: back surgery x4. Hernia repair 04/20 - Social History Smoking Status: Never Smoker Substance Use Type: None - Medications Home Medications: Home Medications Medication Instructions Recorded Confirmed Last Taken Type Montelukast [Singulair] 10 mg PO BID 08/31/13 10/24/14 10/18/14 History Tiotropium [Spiriva] 18 mcg IH QDAY 01/04/14 10/24/14 10/17/14 History glipiZIDE [glipiZIDE XL] 5 mg PO QDAY 04/21/14 10/24/14 10/18/14 History Aspirin EC [Aspirin Enteric Coated 325 mg PO DAILY 04/22/14 10/24/14 10/17/14 History TAB] Budesonide/Formoterol Fumarate 1 puff INHALATION PRN PRN 04/22/14 10/24/1410/18 History [Symbicort 160-4.5 Mcg Inhaler] metFORMIN [Glucophage] 500 mg PO BID 07/02/14 10/24/14 10/18/14 History ALBUTEROL Inhaler [ProAir HFA 2 puff IH QID PRN #1 inha 07/03/14 10/24/14 Rx Inhaler] Fluticasone/Salmeterol [Advair 1 puff IH BID #1 disk.w.dev 10/22/14 10/24/14 Unknown Rx Diskus 250-50 mcg] Albuterol *Only Ed* [Proventil 2.5 mg IH Q6HRT nebu 10/28/14 Unknown Rx 0.5% NEBS] Arformoterol Nebu [Brovana Nebu] 15 mcg IH Q12HRT ml 10/28/14 Unknown Rx Aspirin EC [Aspirin Enteric Coated 325 mg PO DAILY tablet 10/28/14 Unknown Rx TAB] Budesonide [Pulmicort Respules] 1 mg IH Q12HRT nebu 10/28/14 Unknown Rx Insulin Glulisine [Apidra] 0 units SUB-Q ACHS units 10/28/14 Unknown Rx Montelukast [Singulair] 10 mg PO BID tablet 10/28/14 Unknown Rx Sulfamethoxazole/Trimethoprim 1 each PO BID #20 tablet 10/28/14 Unknown Rx [Bactrim Ds] glipiZIDE XL [Glucotrol Xl] 5 mg PO DAILY@0800 tablet 10/28/14 Unknown Rx Azithromycin [Zithromax Z-AUNG] 250 mg PO QDAY #6 tablet 10/08/16 Unknown Rx predniSONE [Deltasone] 3 tab PO QDAY #90 tab 12/18/16 Unknown Rx ALBUTEROL NEB's [Proventil 0.083% 2.5 mg IH TID PRN #1 box 12/24/16 Unknown Rx NEBS] predniSONE [Deltasone] 1 dose PO QDAY #33 tab 12/24/16 Unknown Rx ED Physical Exam - General Limitations: No Limitations - Other Other exam information: General: No limitations, patient is alert in no acute distress Head exam: Atraumatic, normocephalic Eyes exam: Normal appearance ENT: Moist mucous membrane Neck exam: Normal inspection, full range of motion, no meningismus nontender Respiratory exam: Resting, no tachypnea,muscle use, very minimal expiratory wheezing Cardiovascular: No chest wall tenderness, regular rate and rhythm Abdomen: Soft, nondistended, and nontender, with normal bowel sounds, no rebound, or guarding Extremity: Full range of motion normal inspection no deformity, no calf tenderness or edema Back: Normal Inspection, full range of motion, no tenderness Neurologic: Alert, oriented x3, cranial nerves intact, no motor or sensory deficit Psychiatric: normal affect, normal mood Skin: Warm, dry, intact ED Course Vital Signs 12/23/16 12/23/16 12/23/16 20:32 20:56 21:20 Temperature 97.8 F Pulse Rate 93 H Pulse Rate [ 96 H 101 H Anterior Bilateral Throughout] Respiratory 18 Rate Respiratory 19 18 Rate [Anterior Bilateral Throughout] Blood Pressure 120/84 Blood Pressure [Right] O2 Sat by Pulse 93 Oximetry 12/24/16 12/24/16 12/24/16 00:48 01:19 03:27 Temperature 98.5 F Pulse Rate 81 84 Pulse Rate [ 79 Anterior Bilateral Throughout] Respiratory 18 22 Rate Respiratory 16 Rate [Anterior Bilateral Throughout] Blood Pressure 114/83 Blood Pressure 126/88 [Right] O2 Sat by Pulse 95 96 Oximetry 12/24/16 03:55 Temperature Pulse Rate Pulse Rate [ 82 Anterior Bilateral Throughout] Respiratory Rate Respiratory 15 Rate [Anterior Bilateral Throughout] Blood Pressure Blood Pressure [Right] O2 Sat by Pulse Oximetry ED Medical Decision Making - Lab Data Result diagrams: 12/23/16 20:42 12/23/16 20:42 Lab Results 12/23/16 12/23/16 Range/Units 20:42 20:42 WBC 11.8 H (4.5-11.0) K/mm3 RBC 5.48 H (3.65-5.03) M/mm3 Hgb 14.3 (11.8-15.2) gm/dl Hct 44.9 (35.5-45.6) % MCV 82 L (84-94) fl MCH 26 L (28-32) pg MCHC 32 (32-34) % RDW 13.5 (13.2-15.2) % Plt Count 309 (140-440) K/mm3 Add Manual Diff Complete Total Counted 100 Seg Neutrophils % Product Scientist Seg Neuts % (Manual) 89.0 H (40.0-70.0) % Band Neutrophils % 5.0 % Lymphocytes % (Manual) 6.0 L (13.4-35.0) % Reactive Lymphs % (Man) 0 % Monocytes % (Manual) 0 (0.0-7.3) % Eosinophils % (Manual) 0 (0.0-4.3) % Basophils % (Manual) 0 (0.0-1.8) % Metamyelocytes % 0 % Myelocytes % 0 % Promyelocytes % 0 % Blast Cells % 0 % Nucleated RBC % Not Reportable Seg Neutrophils # Man 10.5 H (1.8-7.7) K/mm3 Band Neutrophils # 0.6 K/mm3 Lymphocytes # (Manual) 0.7 L (1.2-5.4) K/mm3 Abs React Lymphs (Man) 0.0 K/mm3 Monocytes # (Manual) 0.0 (0.0-0.8) K/mm3 Eosinophils # (Manual) 0.0 (0.0-0.4) K/mm3 Basophils # (Manual) 0.0 (0.0-0.1) K/mm3 Metamyelocytes # 0.0 K/mm3 Myelocytes # 0.0 K/mm3 Promyelocytes # 0.0 K/mm3 Blast Cells # 0.0 K/mm3 WBC Morphology Not Reportable Hypersegmented Neuts Not Reportable Hyposegmented Neuts Not Reportable Hypogranular Neuts Not Reportable Smudge Cells Not Reportable Toxic Granulation Not Reportable Toxic Vacuolation Not Reportable Dohle Bodies Not Reportable Pelger-Huet Anomaly Not Reportable Krista Rods Not Reportable Platelet Estimate Consistent w auto Clumped Platelets Not Reportable Plt Clumps, EDTA Not Reportable Large Platelets Not Reportable Giant Platelets Not Reportable Platelet Satelliting Not Reportable Plt Morphology Comment Not Reportable RBC Morphology Not Reportable Dimorphic RBCs Not Reportable Polychromasia Not Reportable Hypochromasia Not Reportable Poikilocytosis Not Reportable Anisocytosis 1+ Microcytosis Not Reportable Macrocytosis Not Reportable Spherocytes Not Reportable Pappenheimer Bodies Not Reportable Sickle Cells Not Reportable Target Cells Not Reportable Tear Drop Cells Not Reportable Ovalocytes Not Reportable Helmet Cells Not Reportable Sen-Lutsen Bodies Not Reportable Comfrey Rings Not Reportable Sammy Cells Not Reportable Bite Cells Not Reportable Crenated Cell Not Reportable Elliptocytes Few Acanthocytes (Spur) Not Reportable Rouleaux Not Reportable Hemoglobin C Crystals Not Reportable Schistocytes Not Reportable Malaria parasites Not Reportable Rafael Bodies Not Reportable Hem Pathologist Commnt No Sodium 141 (137-145) mmol/L Potassium 4.1 (3.6-5.0) mmol/L Chloride 101.8 (98-107) mmol/L Carbon Dioxide 25 (22-30) mmol/L Anion Gap 18 mmol/L BUN 16 (9-20) mg/dL Creatinine 0.8 (0.8-1.5) mg/dL Estimated GFR > 60 ml/min BUN/Creatinine Ratio 20.00 % Glucose 313 H (75-100) mg/dL Calcium 9.1 (8.4-10.2) mg/dL Troponin T < 0.010 (0.00-0.029) ng/mL - EKG Data -: EKG Interpreted by Me (sinus rate [address] elevation LA) - EKG Data When compared to previous EKG there are: no significant change (compared to 09/23) - Radiology Data Radiology results: image reviewed (chest x-ray: No acute finding) - Medical Decision Making Patient received a second nebulized treatment after my evaluation and had further improvement. Saturation 96 and stable with ambulation throughout the ED. Patient already takes prednisone 30 mg daily. He states when he has exacerbations ready to wear department manager with them on a taper starting at 60, 50, 40, and decreases back to 30. I will initiate this taper here in the ED and here he has a scheduled appointment with his ready to wear department manager this upcoming Monday or Monday. He also states he only has a couple of his nebulized treatments left and requesting a refill. Patient received regular insulin during ED stay for hyperglycemia and positive improvement prior to discharge. - Differential Diagnosis CHF, COPD, asthma, pneumonia Critical Care Time: No Critical care attestation.: If time is entered above; I have spent that time in minutes in the direct care of this critically ill patient, excluding procedure time. ED Disposition Clinical Impression: Acute asthma exacerbation, Diabetes Disposition: DISCHARGED TO HOME OR SELFCARE Is pt being admited?: No Does the pt Need Aspirin: No Condition: Stable Instructions: Diabetes Mellitus Type 2 in Adults (ED), Asthma (ED) Additional Instructions: Take the prednisone taper as described. Once this is completed you may resume the prednisone 30 mg daily. Follow-up with your ready to wear department manager as scheduled. Return if symptoms worsen Prescriptions: ALBUTEROL NEB's [Proventil 0.083% NEBS] 2.5 mg IH TID PRN #1 box PRN Reason: Wheezing predniSONE [Deltasone] 1 dose PO QDAY #33 tab Referrals: KORY MAYER MD [Staff Physician] - 2-3 Days Time of Disposition: 04:43
[2016-12-24 04:33] VITALS: BP 141/90
--- NOTE | 2016-12-24 09:50 | XRay Report ---
CHEST TWO VIEWS: 12/23/16 20:19:00 CLINICAL: Shortness of breath. COMPARISON: 12/18/16 FINDINGS: Normal heart and pulmonary vasculature. Lungs are hyperexpanded and hyperlucent. No airspace disease or pleural effusion. The bones and soft tissues are unremarkable. IMPRESSION: No acute cardiopulmonary process.
== END 2016-12-24 05:15 | disposition home or self-care (01) ==
LOC: ED 20:19
DX: J45.901 Unspecified asthma with (acute) exacerbation (principal); E11.9 Type 2 diabetes mellitus without complications; I10 Essential (primary) hypertension
CPT/HCPCS: 36415; 71020; 80048; 82962; 84484; 85007; 85025; 93005; 93010; 94640; 96374; 96375; 99284; J2930; J1815

== ENCOUNTER 2017-02-25 09:03 | Emergency (ER) | payer SELFPAY ==
[2017-02-25 09:41] LABS: Eosinophils % (Auto) 12.8 % (0.0-4.3); Hematocrit 44.4 % (35.5-45.6); Hemoglobin 14.7 gm/dl (11.8-15.2); Mean Corpuscular HGB Conc 33 % (32-34); Mean Corpuscular Hemoglobin 27 pg (28-32); Mean Corpuscular Volume 81 fl (84-94); Platelet Count 257 K/mm3 (140-440); Red Blood Count 5.47 M/mm3 (3.65-5.03); Red Cell Distribution Width 13.2 % (13.2-15.2); White Blood Count 6.3 K/mm3 (4.5-11.0)
[2017-02-25 09:55] LABS: Anion Gap 19 mmol/L; BUN/Creatinine Ratio 15.55; Blood Urea Nitrogen 14 mg/dL (9-20); Calcium 8.7 mg/dL (8.4-10.2); Carbon Dioxide 25 mmol/L (22-30); Glucose 224 mg/dL (75-100); Potassium 4.1 mmol/L (3.6-5.0); Sodium 143 mmol/L (137-145)
--- NOTE | 2017-02-25 11:37 | Emergency Department Report ---
ED General Adult HPI - General Chief complaint: Dizziness Stated complaint: SEVERE DIZZINESS 5+DAYS Time Seen by Provider: 02/25/17 11:35 Source: patient Mode of arrival: Ambulatory Limitations: No Limitations - History of Present Illness Initial comments: The patient states for the past 2 weeks he's been having periodic episodes of dizziness and apparent vertigo. The patient states that it occurs when he turns his head to the right. Sometimes he has some nausea and mild headache. He's had no difficulty with speech gait weakness or numbness. He states the episodes last for about a minute and occur every other day. However, he had an episode yesterday and one this morning and decided to be seen in the emergency department. He is asymptomatic at this time. -: Gradual Location: head (mild headache) Radiation: non-radiation Quality: aching Consistency: now resolved Improves with: none Worsens with: none Associated Symptoms: denies other symptoms Treatments Prior to Arrival: none - Related Data Home Medications Medication Instructions Recorded Confirmed Last Taken Tiotropium [Spiriva] 18 mcg IH QDAY 01/04/14 02/25/17 10/17/14 glipiZIDE [glipiZIDE XL] 5 mg PO QDAY 04/21/14 02/25/17 10/18/14 Budesonide/Formoterol Fumarate 1 puff INHALATION PRN PRN 04/22/14 02/25/1710/18 [Symbicort 160-4.5 Mcg Inhaler] metFORMIN [Glucophage] 500 mg PO BID 07/02/14 02/25/17 10/18/14 predniSONE [Deltasone] 20 dose PO QDAY 02/25/17 02/25/17 Unknown Previous Rx's Medication Instructions Recorded Last Taken Type ALBUTEROL Inhaler [ProAir HFA 2 puff IH QID PRN #1 inha 07/03/14 10/18/14 Rx Inhaler] Fluticasone/Salmeterol [Advair 1 puff IH BID #1 disk.w.dev 10/22/14 Unknown Rx Diskus 250-50 mcg] Albuterol *Only Ed* [Proventil 2.5 mg IH Q6HRT nebu 10/28/14 Unknown Rx 0.5% NEBS] Arformoterol Nebu [Brovana Nebu] 15 mcg IH Q12HRT ml 10/28/14 Unknown Rx Aspirin EC [Aspirin Enteric Coated 325 mg PO DAILY tablet 10/28/14 Unknown Rx TAB] Insulin Glulisine [Apidra] 0 units SUB-Q ACHS units 10/28/14 Unknown Rx Montelukast [Singulair] 10 mg PO BID tablet 10/28/14 Unknown Rx ALBUTEROL NEB's [Proventil 0.083% 2.5 mg IH TID PRN #1 box 12/24/16 Unknown Rx NEBS] Allergies Allergy/AdvReac Type Severity Reaction Status Date / Time seafood Allergy Shortness Uncoded 02/25/17 09:16 of Breath shrimp Allergy Shortness Uncoded 02/25/17 09:16 of Breath ED Review of Systems ROS: Stated complaint: SEVERE DIZZINESS 5+DAYS Other details as noted in HPI Constitutional: denies: chills, fever Eyes: denies: eye pain, eye discharge, vision change ENT: denies: ear pain, throat pain Respiratory: denies: cough, shortness of breath, wheezing Cardiovascular: denies: chest pain, palpitations Endocrine: no symptoms reported Gastrointestinal: denies: abdominal pain, nausea, diarrhea Genitourinary: denies: urgency, dysuria Musculoskeletal: denies: back pain, joint swelling, arthralgia Skin: denies: rash, lesions Neurological: as per HPI, headache, vertigo. denies: weakness, numbness, paresthesias, confusion, abnormal gait Psychiatric: denies: anxiety, depression Hematological/Lymphatic: denies: easy bleeding, easy bruising ED Past Medical Hx - Past Medical History Hx Hypertension: Yes Hx CVA: No Hx Heart Attack/AMI: No Hx Congestive Heart Failure: No Hx Diabetes: Yes Hx Deep Vein Thrombosis: No Hx Pulmonary Embolism: No Hx GERD: No Hx Liver Disease: No Hx Renal Disease: No Hx Sickle Cell Disease: No Hx Arthritis: No Hx Headaches / Migraines: No Hx Seizures: No Hx Kidney Stones: No Hx Psychiatric Treatment: No Hx Asthma: Yes (intubation) Hx COPD: No Hx Tuberculosis: No Hx Dementia: No Hx HIV: No Additional medical history: intabated and bi pap - Surgical History Hx Coronary Stent: No Hx Open Heart Surgery: No Hx Pacemaker: No Hx Internal Defibrillator: No Hx Cholecystectomy: No Hx Appendectomy: No Hx Breast Surgery: No Additional Surgical History: back surgery x4. Hernia repair 04/20 - Social History Smoking Status: Never Smoker Substance Use Type: None - Medications Home Medications: Home Medications Medication Instructions Recorded Confirmed Last Taken Type Tiotropium [Spiriva] 18 mcg IH QDAY 01/04/14 02/25/17 10/17/14 History glipiZIDE [glipiZIDE XL] 5 mg PO QDAY 04/21/14 02/25/17 10/18/14 History Budesonide/Formoterol Fumarate 1 puff INHALATION PRN PRN 04/22/14 02/25/1710/18 History [Symbicort 160-4.5 Mcg Inhaler] metFORMIN [Glucophage] 500 mg PO BID 07/02/14 02/25/17 10/18/14 History ALBUTEROL Inhaler [ProAir HFA 2 puff IH QID PRN #1 inha 07/03/14 02/25/17 Rx Inhaler] Fluticasone/Salmeterol [Advair 1 puff IH BID #1 disk.w.dev 10/22/14 02/25/17 Unknown Rx Diskus 250-50 mcg] Albuterol *Only Ed* [Proventil 2.5 mg IH Q6HRT nebu 10/28/14 02/25/17 Unknown Rx 0.5% NEBS] Arformoterol Nebu [Brovana Nebu] 15 mcg IH Q12HRT ml 10/28/14 02/25/17 Unknown Rx Aspirin EC [Aspirin Enteric Coated 325 mg PO DAILY tablet 10/28/14 02/25/17 Unknown Rx TAB] Insulin Glulisine [Apidra] 0 units SUB-Q ACHS units 10/28/14 02/25/17 Unknown Rx Montelukast [Singulair] 10 mg PO BID tablet 10/28/14 02/25/17 Unknown Rx ALBUTEROL NEB's [Proventil 0.083% 2.5 mg IH TID PRN #1 box 12/24/16 02/25/17 Unknown Rx NEBS] predniSONE [Deltasone] 20 dose PO QDAY 02/25/17 02/25/17 Unknown History ED Physical Exam - General Limitations: No Limitations General appearance: alert, in no apparent distress - Head Head exam: Present: atraumatic, normocephalic - Eye Eye exam: Present: normal appearance, PERRL, EOMI. Absent: scleral icterus - ENT ENT exam: Present: normal orophraynx, mucous membranes moist, TM's normal bilaterally, normal external ear exam - Neck Neck exam: Present: normal inspection, other (no carotid bruit noted). Absent: tenderness, meningismus - Respiratory Respiratory exam: Present: normal lung sounds bilaterally. Absent: respiratory distress - Cardiovascular Cardiovascular Exam: Present: regular rate, normal rhythm. Absent: systolic murmur, diastolic murmur, rubs, gallop - GI/Abdominal GI/Abdominal exam: Present: soft, normal bowel sounds. Absent: distended, tenderness, guarding, rebound, rigid - Rectal Rectal exam: Present: deferred - Extremities Exam Extremities exam: Present: normal inspection - Back Exam Back exam: Present: normal inspection - Neurological Exam Neurological exam: Present: alert, oriented X3, CN II-XII intact, normal gait, other (cerebellar testing was normal). Absent: motor sensory deficit - Psychiatric Psychiatric exam: Present: normal affect, normal mood - Skin Skin exam: Present: warm, dry, intact, normal color. Absent: rash ED Course Vital Signs 02/25/17 02/25/17 02/25/17 09:05 11:46 11:48 Temperature 97.7 F Pulse Rate 86 Respiratory 18 18 Rate Blood Pressure 157/80 O2 Sat by Pulse 97 98 Oximetry 02/25/17 12:00 Temperature Pulse Rate 66 Respiratory 17 Rate Blood Pressure 115/76 O2 Sat by Pulse Oximetry - Reevaluation(s) Reevaluation #1: On reexamination the patient continues to be asymptomatic. He was sleeping and aroused easily. We discussed results. He will be referred to ENT. Primary care follow-up as well as recommended. Further evaluation as an outpatient is appropriate. 02/25/17 13:32 ED Medical Decision Making - Lab Data Result diagrams: 02/25/17 09:23 02/25/17 09:23 Laboratory Results - last 24 hr 02/25/17 02/25/17 02/25/17 09:12 09:23 09:23 WBC 6.3 RBC 5.47 H Hgb 14.7 Hct 44.4 MCV 81 L MCH 27 L MCHC 33 RDW 13.2 Plt Count 257 Lymph % (Auto) 32.2 [place] % (Auto) 11.1 H Eos % (Auto) 12.8 H Baso % (Auto) 1.0 Lymph # 2.0 [place] # 0.7 Eos # 0.8 H Baso # 0.1 Seg Neutrophils % 42.9 Seg Neutrophils # 2.7 Sodium 143 Potassium 4.1 Chloride 103.0 Carbon Dioxide 25 Anion Gap 19 BUN 14 Creatinine 0.9 Estimated GFR > 60 BUN/Creatinine Ratio 15.55 Glucose 224 H POC Glucose 237 H Calcium 8.7 Troponin T < 0.010 - EKG Data -: EKG Interpreted by Me EKG shows normal: sinus rhythm, axis, intervals, QRS complexes, ST-T waves Rate: normal - EKG Data Interpretation: normal EKG - Radiology Data Radiology results: report reviewed interpreted by me: CT the head shows some chronic frontal atrophy but no acute process Critical care attestation.: If time is entered above; I have spent that time in minutes in the direct care of this critically ill patient, excluding procedure time. ED Disposition Clinical Impression: Vertigo Disposition: DC-01 TO HOME OR SELFCARE Is pt being admited?: No Does the pt Need Aspirin: No Condition: Stable Instructions: Vertigo (ED) Additional Instructions: I would recommend a baby aspirin a day. Further evaluation by an ENT doctor ( [place]) and neurologist ([place]) is recommended. Referrals: PRIMARY CARE, [Primary Care Provider] - 3-5 Days RAJWINDER GREER MD [Staff Physician] - 3-5 Days ARMANI PONCE MD [Staff Physician] - 3-5 Days Time of Disposition: 13:34
--- NOTE | 2017-02-25 12:16 | Cat Scan Report ---
CT HEAD WITHOUT CONTRAST: 02/25/17 12:12 CLINICAL: Headache and vertigo. TECHNIQUE: 2.5-mm noncontrast scans. COMPARISON:None FINDINGS: The ventricles are normal size. Mild enlargement of frontal lobe sulci. No abnormal density. No mass or mass effect. No hemorrhage, edema or extra-axial collection. The sinuses are clear. Normal orbits and soft tissues. The calvarium and skull base are intact. IMPRESSION: Mild frontal lobe cortical atrophy but otherwise normal.
[2017-02-25 12:51] VITALS: BP 115/76
== END 2017-02-25 14:06 | disposition home or self-care (01) ==
LOC: ED 09:03
DX: R42 Dizziness and giddiness (principal); I10 Essential (primary) hypertension; E11.9 Type 2 diabetes mellitus without complications; J45.909 Unspecified asthma, uncomplicated; Z79.82 Long term (current) use of aspirin; Z91.013 Allergy to seafood
CPT/HCPCS: 36415; 70450; 80048; 82962; 84484; 85025; 93005; 93010

== ENCOUNTER 2017-05-18 05:38 | Emergency (ER) | payer SELFPAY ==
[2017-05-18] MEDS ORDERED: TETRACAINE 0.5% OU PRN (07:40)
[2017-05-18] MEDS ORDERED: FUL-GLO OP ONE (07:42)
--- NOTE | 2017-05-18 07:48 | Emergency Department Report ---
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 He states that at 3 AM this morning a box flap accidentally hit him in the R eye and since then he states, " it feels like there is a rock in my eye." Pt reports to blurred vision and 5/10 in severity pain at this time. Pt has not taken anything for the pain at this time. He denies any vision loss at this time. No pus, oozing, or drainage of the affected eye. He denies wearing contacts or glasses. Pt denies any fever, chills, CP, or SOB at this time. MD chief complaint: eye pain, eye redness, eye injury, vision change, foreign body -: Sudden (at 3 AM this morning) Onset Description: sudden Location: right eye Place: work If Injury: other (the flap of a cardboard box) Eye Symptoms: burning, redness, pain, foreign body sensation, blurry vision Severity: moderate Severity scale (0 -10): 5 If Pain, Quality: aching, throbbing Consistency: constant Context: trauma, injury Associated Symptoms: denies: headache, neck pain, nausea/vomiting, cough, rhinorrhea, fever, shortness of breath Treatments Prior to Arrival: none - Related Data Patient Tetanus UTD: Yes (4 years ago per patient) Home Medications Medication Instructions Recorded Confirmed Last Taken Tiotropium [Spiriva] 18 mcg IH QDAY 01/04/14 02/25/17 10/17/14 glipiZIDE [glipiZIDE XL] 5 mg PO QDAY 04/21/14 02/25/17 10/18/14 Budesonide/Formoterol Fumarate 1 puff INHALATION PRN PRN 04/22/14 02/25/1710/18 [Symbicort 160-4.5 Mcg Inhaler] metFORMIN [Glucophage] 500 mg PO BID 07/02/14 02/25/17 10/18/14 predniSONE [Deltasone] 20 dose PO QDAY 02/25/17 02/25/17 Unknown Previous Rx's Medication Instructions Recorded Last Taken Type ALBUTEROL Inhaler [ProAir HFA 2 puff IH QID PRN #1 inha 07/03/14 10/18/14 Rx Inhaler] Fluticasone/Salmeterol [Advair 1 puff IH BID #1 disk.w.dev 10/22/14 Unknown Rx Diskus 250-50 mcg] Albuterol *Only Ed* [Proventil 2.5 mg IH Q6HRT nebu 10/28/14 Unknown Rx 0.5% NEBS] Arformoterol Nebu [Brovana Nebu] 15 mcg IH Q12HRT ml 10/28/14 Unknown Rx Aspirin EC [Aspirin Enteric Coated 325 mg PO DAILY tablet 10/28/14 Unknown Rx TAB] Insulin Glulisine [Apidra] 0 units SUB-Q ACHS units 10/28/14 Unknown Rx Montelukast [Singulair] 10 mg PO BID tablet 10/28/14 Unknown Rx ALBUTEROL NEB's [Proventil 0.083% 2.5 mg IH TID PRN #1 box 12/24/16 Unknown Rx NEBS] Allergies Allergy/AdvReac Type Severity Reaction Status Date / Time seafood Allergy Shortness Uncoded 02/25/17 09:16 of Breath shrimp Allergy Shortness Uncoded 02/25/17 09:16 of Breath ED Review of Systems ROS: Stated complaint: RT EYE IRRITATION Other details as noted in HPI Constitutional: denies: chills, fever Eyes: eye pain, vision change (blurried vision, no reported vision loss). denies: eye discharge ENT: denies: ear pain, throat pain Respiratory: denies: cough, shortness of breath, wheezing Cardiovascular: denies: chest pain, palpitations Gastrointestinal: denies: abdominal pain, nausea, diarrhea ED Past Medical Hx - Past Medical History Previous Medical History?: Yes Hx Hypertension: Yes Hx CVA: No Hx Heart Attack/AMI: No Hx Congestive Heart Failure: No Hx Diabetes: Yes Hx Deep Vein Thrombosis: No Hx Pulmonary Embolism: No Hx GERD: No Hx Liver Disease: No Hx Renal Disease: No Hx Sickle Cell Disease: No Hx Arthritis: No Hx Headaches / Migraines: No Hx Seizures: No Hx Kidney Stones: No Hx Psychiatric Treatment: No Hx Asthma: Yes (intubation) Hx COPD: No Hx Tuberculosis: No Hx Dementia: No Hx HIV: No Additional medical history: intabated and bi pap - Surgical History Past Surgical History?: Yes Hx Coronary Stent: No Hx Open Heart Surgery: No Hx Pacemaker: No Hx Internal Defibrillator: No Hx Cholecystectomy: No Hx Appendectomy: No Hx Breast Surgery: No Additional Surgical History: back surgery x4. Hernia repair 04/20 - Social History Smoking Status: Current Every Day Smoker Substance Use Type: None - Medications Home Medications: Home Medications Medication Instructions Recorded Confirmed Last Taken Type Tiotropium [Spiriva] 18 mcg IH QDAY 01/04/14 02/25/17 10/17/14 History glipiZIDE [glipiZIDE XL] 5 mg PO QDAY 04/21/14 02/25/17 10/18/14 History Budesonide/Formoterol Fumarate 1 puff INHALATION PRN PRN 04/22/14 02/25/1710/18 History [Symbicort 160-4.5 Mcg Inhaler] metFORMIN [Glucophage] 500 mg PO BID 07/02/14 02/25/17 10/18/14 History ALBUTEROL Inhaler [ProAir HFA 2 puff IH QID PRN #1 inha 07/03/14 02/25/17 Rx Inhaler] Fluticasone/Salmeterol [Advair 1 puff IH BID #1 disk.w.dev 10/22/14 02/25/17 Unknown Rx Diskus 250-50 mcg] Albuterol *Only Ed* [Proventil 2.5 mg IH Q6HRT nebu 10/28/14 02/25/17 Unknown Rx 0.5% NEBS] Arformoterol Nebu [Brovana Nebu] 15 mcg IH Q12HRT ml 10/28/14 02/25/17 Unknown Rx Aspirin EC [Aspirin Enteric Coated 325 mg PO DAILY tablet 10/28/14 02/25/17 Unknown Rx TAB] Insulin Glulisine [Apidra] 0 units SUB-Q ACHS units 10/28/14 02/25/17 Unknown Rx Montelukast [Singulair] 10 mg PO BID tablet 10/28/14 02/25/17 Unknown Rx ALBUTEROL NEB's [Proventil 0.083% 2.5 mg IH TID PRN #1 box 12/24/16 02/25/17 Unknown Rx NEBS] predniSONE [Deltasone] 20 dose PO QDAY 02/25/17 02/25/17 Unknown History ED Physical Exam - General Limitations: No Limitations General appearance: alert, in no apparent distress - Head Head exam: Present: atraumatic, normocephalic - Eye Eye exam: Present: PERRL, EOMI, conjunctival injection (of the R eye, L eye WNL) , other (R: 20/200, L: 20/50, B: 20/40). Absent: periorbital swelling, periorbital tenderness Pupils: Present: normal accommodation - Expanded Eye Exam Expanded Eyelids: Laceration: Right (there is a small superficial abrasion noted lateral to the R eye) Pupils: Regular, Round: Right, Reactive: Right Sclera/Conjunctival: Injection: Right (the R eye is injected, no foreign body seen, it appears to be a scleral avulsion to the R eye, the globe is intact) - Extremities Exam Extremities exam: Present: normal inspection - Back Exam Back exam: Present: normal inspection - Neurological Exam Neurological exam: Present: alert, oriented X3, CN II-XII intact - Psychiatric Psychiatric exam: Present: normal affect, normal mood - Skin Skin exam: Present: warm, dry, intact, normal color, other (there is a small superficial laceration noted at the lateral aspect of the R eyelid) ED Course Vital Signs 05/18/17 05/18/17 05/18/17 06:50 08:26 09:15 Temperature 97.7 F Pulse Rate 82 Respiratory 18 18 18 Rate Blood Pressure 143/86 Blood Pressure [Right] O2 Sat by Pulse 96 99 Oximetry 05/18/17 10:04 Temperature Pulse Rate 88 Respiratory 18 Rate Blood Pressure Blood Pressure 138/80 [Right] O2 Sat by Pulse 98 Oximetry ED Medical Decision Making - Medical Decision Making Pt was examined by myself and Dr. Hernandez. Dr. Hernandez advised not to do fluroscein staining at this time as it will make the condition worse. Pt has a scleral avulsion, but the globe is intact, PERRLA and EOMI, the R conjunctiva is injected. Pt was given toradol here in the ED and has a follow-up apt with Dr. Stanton OP today at 11 AM for further evaluation. Finger Stick glucose in house was 159. Pt was discharged via [facility] to Dr. Stanton's Opthamology clinic in [place]. Pt was in stable condition, alert and oriented, and in no resp distress. He is hemodynamically and neurovascaulary intact. Critical care attestation.: If time is entered above; I have spent that time in minutes in the direct care of this critically ill patient, excluding procedure time. ED Disposition Clinical Impression: Acute right eye pain Avulsion of right eye Qualifiers: Encounter type: initial encounter Qualified Code(s): S05.71XA - Avulsion of right eye, initial encounter Disposition: TO HOME OR SELFCARE Is pt being admited?: No Does the pt Need Aspirin: No Condition: Stable Instructions: Eye Pain (ED) Additional Instructions: You have what seems to be known as sceleral avulsion. You have been made an apt with Dr. Stanton, Opthamologist at 11 AM [facility]. Please go there now. Please follow-up with him as directed. PCP follow-up within 1 week. Please return to the ER immediately with any acute worsening or progressing of symptoms. Referrals: PRIMARY CAREMD [Primary Care Provider] - 3-5 Days [facility] [Outside] - 3-5 Days [facility] [Outside] - 3-5 Days JOSE ANGEL STANTON MD [Staff Physician] - 3-5 Days Forms: Work/School Release Form(ED)
[2017-05-18] MEDS ORDERED: TORADOL IM ONE (08:46)
[2017-05-18 10:06] VITALS: BP 138/80
== END 2017-05-18 10:06 | disposition home or self-care (01) ==
LOC: ED 05:38
DX: S05.71XA Avulsion of right eye, initial encounter (principal); Z91.013 Allergy to seafood; I10 Essential (primary) hypertension; E11.9 Type 2 diabetes mellitus without complications; J45.909 Unspecified asthma, uncomplicated; F17.200 Nicotine dependence, unspecified, uncomplicated; W22.8XXA Striking against or struck by other objects, initial encounter; Y93.89 Activity, other specified; Y92.89 Other specified places as the place of occurrence of the external cause; Y99.8 Other external cause status
CPT/HCPCS: 82962; 96372; 99283; J1885

== ENCOUNTER 2017-06-24 21:01 | Inpatient (IN) | payer OTHER ==
[2017-06-24] MEDS ORDERED: PROVENTIL IH ONE (21:13)
[2017-06-24] MEDS ORDERED: NACL 0.9% 1000 ML 1,000 ML IV ONE (21:28)
--- NOTE | 2017-06-24 21:28 | Emergency Department Report ---
HPI - General Chief Complaint: Dyspnea/Respdistress Time Seen by Provider: 06/24/17 21:19 - HPI HPI: This is a 61 year-old male presents to the emergency department with complaint of a three-day history of some shortness of breath, wheezing and dry cough that worsened about 3 hours prior to presentation. He has been using his albuterol inhaler much relief. He also has history of diabetes and hypertension. He says that he has been intubated for his asthma about 3 or 4 years ago and has required BiPAP multiple times in the past. He does not have a primary care physician. He says that he is on 30 mg of prednisone daily but has been out of his steroids for the past few months. No recent travel or sick contacts at home. He denies any tobacco or illicit drug use or abuse. ED Past Medical Hx - Past Medical History Hx Hypertension: Yes Hx CVA: No Hx Heart Attack/AMI: No Hx Congestive Heart Failure: No Hx Diabetes: Yes Hx Deep Vein Thrombosis: No Hx Pulmonary Embolism: No Hx GERD: No Hx Liver Disease: No Hx Renal Disease: No Hx Sickle Cell Disease: No Hx Arthritis: No Hx Headaches / Migraines: No Hx Seizures: No Hx Kidney Stones: No Hx Psychiatric Treatment: No Hx Asthma: Yes (intubation) Hx COPD: No Hx Tuberculosis: No Hx Dementia: No Hx HIV: No Additional medical history: intabated and bi pap - Surgical History Hx Coronary Stent: No Hx Open Heart Surgery: No Hx Pacemaker: No Hx Internal Defibrillator: No Hx Cholecystectomy: No Hx Appendectomy: No Hx Breast Surgery: No Additional Surgical History: back surgery x4. Hernia repair 04/20 - Social History Smoking Status: Never Smoker Substance Use Type: None - Medications Home Medications: Home Medications Medication Instructions Recorded Confirmed Last Taken Type Tiotropium [Spiriva] 18 mcg IH QDAY 01/04/14 02/25/17 10/17/14 History glipiZIDE [glipiZIDE XL] 5 mg PO QDAY 04/21/14 02/25/17 10/18/14 History Budesonide/Formoterol Fumarate 1 puff INHALATION PRN PRN 04/22/14 02/25/1710/18 History [Symbicort 160-4.5 Mcg Inhaler] metFORMIN [Glucophage] 500 mg PO BID 07/02/14 02/25/17 10/18/14 History ALBUTEROL Inhaler [ProAir HFA 2 puff IH QID PRN #1 inha 07/03/14 02/25/17 Rx Inhaler] Fluticasone/Salmeterol [Advair 1 puff IH BID #1 disk.w.dev 10/22/14 02/25/17 Unknown Rx Diskus 250-50 mcg] Albuterol *Only Ed* [Proventil 2.5 mg IH Q6HRT nebu 10/28/14 02/25/17 Unknown Rx 0.5% NEBS] Arformoterol Nebu [Brovana Nebu] 15 mcg IH Q12HRT ml 10/28/14 02/25/17 Unknown Rx Aspirin EC [Aspirin Enteric Coated 325 mg PO DAILY tablet 10/28/14 02/25/17 Unknown Rx TAB] Insulin Glulisine [Apidra] 0 units SUB-Q ACHS units 10/28/14 02/25/17 Unknown Rx Montelukast [Singulair] 10 mg PO BID tablet 10/28/14 02/25/17 Unknown Rx ALBUTEROL NEB's [Proventil 0.083% 2.5 mg IH TID PRN #1 box 12/24/16 02/25/17 Unknown Rx NEBS] predniSONE [Deltasone] 20 dose PO QDAY 02/25/17 02/25/17 Unknown History ED Review of Systems ROS: Stated complaint: ASTHMA ATTACK Other details as noted in HPI Comment: All other systems reviewed and negative Constitutional: denies: chills, fever Eyes: denies: eye pain, eye discharge, vision change ENT: denies: ear pain, throat pain Respiratory: cough, shortness of breath, wheezing Cardiovascular: denies: chest pain, edema Gastrointestinal: denies: abdominal pain, nausea, diarrhea Genitourinary: denies: urgency, dysuria Musculoskeletal: denies: back pain, joint swelling, arthralgia Skin: denies: rash, lesions Neurological: denies: headache, weakness, paresthesias Physical Exam - Physical Exam Vital Signs: Vital Signs 06/24/17 21:05 Temperature 97.8 F Pulse Rate 124 H Respiratory 24 Rate Blood Pressure 122/80 O2 Sat by Pulse 92 Oximetry Physical Exam: GENERAL: The patient is well-developed well-nourished. HENT: Normocephalic. Atraumatic. Patient has moist mucous membranes. EYES: Extraocular motions are intact. Pupils equal reactive to light bilaterally. NECK: Supple. Trachea is midline. CHEST/LUNGS: There is moderate bronchospasm and/or wheezing throughout the chest. There is tachypnea but no accessory muscle use. There is some respiratory distress noted. HEART/CARDIOVASCULAR: Regular. There is no tachycardia. There is no gallop rub or murmur. ABDOMEN: Abdomen is soft, nontender. Patient has normal bowel sounds. There is no abdominal distention. SKIN: Skin is warm and dry. NEURO: The patient is awake, alert, and oriented. The patient is cooperative. The patient has no focal neurologic deficits. The patient has normal speech. MUSCULOSKELETAL: There is no tenderness or deformity. There is no limitation range of motion. There is no evidence of acute injury. ED Course Vital Signs 06/24/17 21:05 Temperature 97.8 F Pulse Rate 124 H Respiratory 24 Rate Blood Pressure 122/80 O2 Sat by Pulse 92 Oximetry ED Medical Decision Making - Lab Data Result diagrams: 06/24/17 21:31 06/24/17 21:31 - Radiology Data Radiology results: image reviewed interpreted by me: Chest x-ray does not show any acute process. There are no pleural effusions, obvious pneumonia and there is no pneumothorax. - Medical Decision Making This patient has a significant asthma history including previous intubations and multiple times where he needed BiPAP. He has moderate bronchospasm. There is some tachypnea but no accessory muscle use. Chest x-ray does not show any pneumonia, pleural effusions or any acute process. He was given breathing treatments and Solu-Medrol. Just after the breathing treatment the patient was seen to have hypoxia on pulse ox at 85%. For this reason he was placed on a BiPAP, which did improve the oxygenation and he has no longer in respiratory distress while on the BiPAP machine. However he continues to have the shortness of breath, tachycardia and will require admission for serial steroids and nebulizer treatments. The patient has been accepted for admission by the hospitalist, Dr Don, who asked for the patient to be bridged to the [facility] floor with remote telemetry. - Differential Diagnosis Asthma, COPD, PE, Pneumonia Critical Care Time: No Critical care attestation.: If time is entered above; I have spent that time in minutes in the direct care of this critically ill patient, excluding procedure time. ED Disposition Clinical Impression: Respiratory distress, Hypoxia Status asthmaticus Qualifiers: Asthma severity: unspecified severity Asthma persistence: unspecified Qualified Code(s): J45.902 - Unspecified asthma with status asthmaticus Disposition: OP ADMIT IP TO THIS HOSP Is pt being admited?: Yes Condition: Fair Referrals: PRIMARY CARE, [Primary Care Provider] - 3-5 Days Time of Disposition: 23:30
[2017-06-24 21:45] LABS: Hematocrit 43.1 % (35.5-45.6); Mean Corpuscular HGB Conc 33 % (32-34); Mean Corpuscular Hemoglobin 27 pg (28-32); Mean Corpuscular Volume 82 fl (84-94); Platelet Count 321 K/mm3 (140-440); Red Blood Count 5.25 M/mm3 (3.65-5.03); White Blood Count 9.9 K/mm3 (4.5-11.0)
[2017-06-24 21:56] LABS: INR 0.92 (0.87-1.13)
[2017-06-24 21:57] LABS: Partial Thromboplastin Time 32.9 Sec. (24.2-36.6)
[2017-06-24 22:04] LABS: Anion Gap 19 mmol/L; BUN/Creatinine Ratio 14; Blood Urea Nitrogen 11 mg/dL (9-20); Calcium 8.8 mg/dL (8.4-10.2); Carbon Dioxide 25 mmol/L (22-30); Chloride 99.9 mmol/L (98-107); Glucose 154 mg/dL (75-100); Potassium 3.9 mmol/L (3.6-5.0); Sodium 140 mmol/L (137-145)
--- NOTE | 2017-06-24 22:45 | XRay Report ---
FINAL REPORT PROCEDURE: XR CHEST 1V AP TECHNIQUE: Chest radiograph anteroposterior view. CPT 85248 HISTORY: Shortness of breath COMPARISON: No prior studies are available for comparison. FINDINGS: Heart: Normal. Mediastinum/Vessels: Prominent central vessels. Lungs/Pleural space: No infiltrate, effusion, or pneumothorax is seen. Bony thorax: No acute osseous abnormality. Life support devices: None. IMPRESSION: No radiographic evidence of acute cardiopulmonary abnormality.
[2017-06-24 23:11] LABS: Anisocytosis 1+; Blastocytes % (Manual) 0 %
[2017-06-24 23:12] LABS: Diff Status Complete; Platelet Estimate Consistent w Auto
--- NOTE | 2017-06-24 23:49 | History and Physical Report ---
History of Present Illness Date of examination: 06/24/17 Chief complaint: Shortness of breath History of present illness: 61 year old male with past medical history significant for asthma, diabetes mellitus presented to the emergency department complaining of shortness of breath and dry cough that started this morning. Patient denied any fever or chills. Patient said he ran out of his asthma medication for the last 2 weeks. When he presented to the emergency department his saturation was in the mid 80s and he was put on BiPAP. Chest x-ray is negative. Patient denied chest pain. REVIEW OF SYSTEMS: GENERAL: no weight change, no fatigue, no fever HEAD: no head ache EYES: no blurry vision, no acute visual loss EARS: no hearing loss, no discharge, no earache NOSE: no stuffiness, no sneezing, no discharge MOUTH, THROAT AND NECK: no bleeding gums, no sore throat, no swollen neck CARDIAC: no palpitations, no dyspnea on exertion, no orthopnea, no PND, no edema , no chest pain RESPIRATORY: As stated in the HPI. GI: no decreased appetite, no nausea, no vomiting, no dysphagia, no diarrhea, no constipation, no abdominal pain URINARY: no change in frequency, no urgency, no polyuria, no hematuria, no incontinence MUSCULOSKELETAL: no muscle weakness, no pain, no joint stiffness NEUROLOGIC: no loss of sensation/numbness, no tingling, no tremors, no weakness/ paralysis HEMATOLOGIC: no anemia, no easy bruising SKIN: no rashes ENDOCRINE: no heat/cold intolerance, no polyuria, no polydipsia, no thyroid problems, no diabetes PSYCHIATRIC: no anxiety, no depression, no suicidal ideations Past History Past Medical History: diabetes, other (asthma) Past Surgical History: Other (back surgery) Social history: full code. denies: smoking, alcohol abuse, prescription drug abuse, IV drug use Family history: CAD (grandparents), stroke (grandparents) Medications and Allergies Allergies Allergy/AdvReac Type Severity Reaction Status Date / Time seafood Allergy Shortness Uncoded 06/24/17 21:04 of Breath shrimp Allergy Shortness Uncoded 06/24/17 21:04 of Breath Home Medications Medication Instructions Recorded Confirmed Last Taken Type Tiotropium [Spiriva] 18 mcg IH QDAY 01/04/14 02/25/17 10/17/14 History glipiZIDE [glipiZIDE XL] 5 mg PO QDAY 04/21/14 02/25/17 10/18/14 History Budesonide/Formoterol Fumarate 1 puff INHALATION PRN PRN 04/22/14 02/25/1710/18 History [Symbicort 160-4.5 Mcg Inhaler] metFORMIN [Glucophage] 500 mg PO BID 07/02/14 02/25/17 10/18/14 History ALBUTEROL Inhaler [ProAir HFA 2 puff IH QID PRN #1 inha 07/03/14 02/25/17 Rx Inhaler] Fluticasone/Salmeterol [Advair 1 puff IH BID #1 disk.w.dev 10/22/14 02/25/17 Unknown Rx Diskus 250-50 mcg] Albuterol *Only Ed* [Proventil 2.5 mg IH Q6HRT nebu 10/28/14 02/25/17 Unknown Rx 0.5% NEBS] Arformoterol Nebu [Brovana Nebu] 15 mcg IH Q12HRT ml 10/28/14 02/25/17 Unknown Rx Aspirin EC [Aspirin Enteric Coated 325 mg PO DAILY tablet 10/28/14 02/25/17 Unknown Rx TAB] Insulin Glulisine [Apidra] 0 units SUB-Q ACHS units 10/28/14 02/25/17 Unknown Rx Montelukast [Singulair] 10 mg PO BID tablet 10/28/14 02/25/17 Unknown Rx ALBUTEROL NEB's [Proventil 0.083% 2.5 mg IH TID PRN #1 box 12/24/16 02/25/17 Unknown Rx NEBS] predniSONE [Deltasone] 20 dose PO QDAY 02/25/17 02/25/17 Unknown History Active Meds: Active Medications Albuterol/Ipratropium (Duoneb *Not For Prn Use*) 1 ampul IH QIDRT EMMIE Albuterol/Ipratropium (Duoneb *Not For Prn Use*) 1 ampul IH Q6HRT EMMIE Budesonide (Pulmicort) 0.5 mg IH Q12HRT EMMIE Enoxaparin Sodium (Lovenox) 40 mg SUB-Q QDAY EMMIE Heparin Sodium (Porcine) (Heparin) 5,000 unit SUB-Q Q8HR [facility] Sodium Chloride (Nacl 0.9% 1000 Ml) 1,000 mls @ 125 mls/hr IV ONCE ONE Stop: 06/25/17 05:27 Last Admin: 06/24/17 22:00 Dose: 125 mls/hr Methylprednisolone Sodium Succinate (Solu-Medrol) 60 mg IV TID [facility] Montelukast Sodium (Singulair) 10 mg PO QHS [facility] Exam - Physical Exam Narrative exam: Not in cardiopulmonary distress. The patient appeared well nourished and normally developed. Vital signs as documented. Head exam is unremarkable. No scleral icterus . Neck is without jugular venous distension, thyromegaly, or carotid bruits. Lungs wheezing all over the chest. Cardiac exam reveals regular rate and Rhythm. First and second heart sounds normal. No murmurs, rubs or gallops. Abdominal exam reveals normal bowel sounds, no masses, no organomegaly and no aortic enlargement. Extremities are nonedematous and both femoral and pedal pulses are normal. DIRECTOR SOCIAL SERVICE: Alert and oriented 3. No focal weakness. - Constitutional Vitals: Temp Pulse Resp BP Pulse Ox 97.8 F 114 H 20 151/80 92 06/24/17 21:05 06/24/17 22:20 06/24/17 23:45 06/24/17 22:00 06/24/17 23:45 Results - Labs CBC & Chem 7: 06/24/17 21:31 06/24/17 21:31 Labs: Laboratory Last Values WBC 9.9 K/mm3 (4.5-11.0) 06/24/17 21:31 RBC 5.25 M/mm3 (3.65-5.03) H 06/24/17 21:31 Hgb 14.0 gm/dl (11.8-15.2) 06/24/17 21:31 Hct 43.1 % (35.5-45.6) 06/24/17 21:31 MCV 82 fl (84-94) L 06/24/17 21:31 MCH 27 pg (28-32) L 06/24/17 21:31 MCHC 33 % (32-34) 06/24/17 21:31 RDW 13.0 % (13.2-15.2) L 06/24/17 21:31 Plt Count 321 K/mm3 (140-440) 06/24/17 21:31 Add Manual Diff Complete 06/24/17 21:31 Total Counted 100 06/24/17 21:31 Seg Neuts % (Manual) 60.0 % (40.0-70.0) 06/24/17 21:31 Band Neutrophils % 0 % 06/24/17 21:31 Lymphocytes % (Manual) 16.0 % (13.4-35.0) 06/24/17 21:31 Reactive Lymphs % (Man) 0 % 06/24/17 21:31 Monocytes % (Manual) 9.0 % (0.0-7.3) H 06/24/17 21:31 Eosinophils % (Manual) 14.0 % (0.0-4.3) H 06/24/17 21:31 Basophils % (Manual) 1.0 % (0.0-1.8) 06/24/17 21:31 Metamyelocytes % 0 % 06/24/17 21:31 Myelocytes % 0 % 06/24/17 21:31 Promyelocytes % 0 % 06/24/17 21:31 Blast Cells % 0 % 06/24/17 21:31 Nucleated RBC % Not Reportable 06/24/17 21:31 Seg Neutrophils # Man 5.9 K/mm3 (1.8-7.7) 06/24/17 21:31 Band Neutrophils # 0.0 K/mm3 06/24/17 21:31 Lymphocytes # (Manual) 1.6 K/mm3 (1.2-5.4) 06/24/17 21:31 Abs React Lymphs (Man) 0.0 K/mm3 06/24/17 21:31 Monocytes # (Manual) 0.9 K/mm3 (0.0-0.8) H 06/24/17 21:31 Eosinophils # (Manual) 1.4 K/mm3 (0.0-0.4) H 06/24/17 21:31 Basophils # (Manual) 0.1 K/mm3 (0.0-0.1) 06/24/17 21:31 Metamyelocytes # 0.0 K/mm3 06/24/17 21:31 Myelocytes # 0.0 K/mm3 06/24/17 21:31 Promyelocytes # 0.0 K/mm3 06/24/17 21:31 Blast Cells # 0.0 K/mm3 06/24/17 21:31 WBC Morphology Not Reportable 06/24/17 21:31 Hypersegmented Neuts Not Reportable 06/24/17 21:31 Hyposegmented Neuts Not Reportable 06/24/17 21:31 Hypogranular Neuts Not Reportable 06/24/17 21:31 Smudge Cells Not Reportable 06/24/17 21:31 Toxic Granulation Not Reportable 06/24/17 21:31 Toxic Vacuolation Not Reportable 06/24/17 21:31 Dohle Bodies Not Reportable 06/24/17 21:31 Pelger-Huet Anomaly Not Reportable 06/24/17 21:31 Krista Rods Not Reportable 06/24/17 21:31 Platelet Estimate Consistent w auto 06/24/17 21:31 Clumped Platelets Not Reportable 06/24/17 21:31 Plt Clumps, EDTA Not Reportable 06/24/17 21:31 Large Platelets Not Reportable 06/24/17 21:31 Giant Platelets Not Reportable 06/24/17 21:31 Platelet Satelliting Not Reportable 06/24/17 21:31 Plt Morphology Comment Not Reportable 06/24/17 21:31 RBC Morphology Not Reportable 06/24/17 21:31 Dimorphic RBCs Not Reportable 06/24/17 21:31 Polychromasia Not Reportable 06/24/17 21:31 Hypochromasia Not Reportable 06/24/17 21:31 Poikilocytosis Not Reportable 06/24/17 21:31 Anisocytosis 1+ 06/24/17 21:31 Microcytosis Not Reportable 06/24/17 21:31 Macrocytosis Not Reportable 06/24/17 21:31 Spherocytes Not Reportable 06/24/17 21:31 Pappenheimer Bodies Not Reportable 06/24/17 21:31 Sickle Cells Not Reportable 06/24/17 21:31 Target Cells Not Reportable 06/24/17 21:31 Tear Drop Cells Not Reportable 06/24/17 21:31 Ovalocytes Not Reportable 06/24/17 21:31 Helmet Cells Not Reportable 06/24/17 21:31 Sen-[place] Bodies Not Reportable 06/24/17 21:31 [place] Rings Not Reportable 06/24/17 21:31 Sammy Cells Not Reportable 06/24/17 21:31 Bite Cells Not Reportable 06/24/17 21:31 Crenated Cell Not Reportable 06/24/17 21:31 Elliptocytes Not Reportable 06/24/17 21:31 Acanthocytes (Spur) Not Reportable 06/24/17 21:31 Rouleaux Not Reportable 06/24/17 21:31 Hemoglobin C Crystals Not Reportable 06/24/17 21:31 Schistocytes Not Reportable 06/24/17 21:31 Malaria parasites Not Reportable 06/24/17 21:31 [place] Bodies Not Reportable 06/24/17 21:31 Hem Pathologist Commnt No 06/24/17 21:31 PT 12.8 Sec. (12.2-14.9) 06/24/17 21:31 INR 0.92 (0.87-1.13) 06/24/17 21:31 APTT 32.9 Sec. (24.2-36.6) 06/24/17 21:31 D-Dimer 165.29 ng/mlDDU (0-234) 06/24/17 21:31 Sodium 140 mmol/L (137-145) 06/24/17 21:31 Potassium 3.9 mmol/L (3.6-5.0) 06/24/17 21:31 Chloride 99.9 mmol/L (98-107) 06/24/17 21:31 Carbon Dioxide 25 mmol/L (22-30) 06/24/17 21:31 Anion Gap 19 mmol/L 06/24/17 21:31 BUN 11 mg/dL (9-20) 06/24/17 21:31 Creatinine 0.8 mg/dL (0.8-1.5) 06/24/17 21:31 Estimated GFR > 60 ml/min 06/24/17 21:31 BUN/Creatinine Ratio 14 % 06/24/17 21:31 Glucose 154 mg/dL (75-100) H 06/24/17 21:31 Calcium 8.8 mg/dL (8.4-10.2) 06/24/17 21:31 Magnesium 2.00 mg/dL (1.7-2.3) 06/24/17 21:31 Troponin T < 0.010 ng/mL (0.00-0.029) 06/24/17 21:31 - Imaging and Cardiology Chest x-ray: image reviewed (no acute cardiothoracic abnormality identified) Assessment and Plan Assessment and plan: Acute hypoxic respiratory failure Acute asthma exacerbation Diabetes mellitus type 2 Medication noncompliance - IV Solu-Medrol, DuoNeb's, on BiPAP - Restart appropriate home medications DVT prophylaxis -Lovenox Disposition -Admit to medical floor Advance Directives: Yes VTE prophylaxis?: Chemical Plan of care discussed with patient/family: Yes
[2017-06-25] MEDS: DUONEB *Not for PRN Use IH SCH ×3 (02:00→13:54)
[2017-06-25] MEDS ORDERED: D50W (25GM) Vial IV PRN (02:14)
[2017-06-25 05:40] LABS: Hematocrit 42.1 % (35.5-45.6); Hemoglobin 13.6 gm/dl (11.8-15.2); Mean Corpuscular HGB Conc 32 % (32-34); Mean Corpuscular Hemoglobin 27 pg (28-32); Mean Corpuscular Volume 83 fl (84-94); Platelet Count 312 K/mm3 (140-440); Red Cell Distribution Width 13.2 % (13.2-15.2); White Blood Count 8.9 K/mm3 (4.5-11.0)
[2017-06-25] MEDS ORDERED: HEPARIN SUB-Q SCH (06:00)
[2017-06-25 06:08] LABS: Anion Gap 20 mmol/L; BUN/Creatinine Ratio 17; Blood Urea Nitrogen 12 mg/dL (9-20); Calcium 8.6 mg/dL (8.4-10.2); Carbon Dioxide 24 mmol/L (22-30); Chloride 103.9 mmol/L (98-107); Glucose 234 mg/dL (75-100); Potassium 4.6 mmol/L (3.6-5.0); Sodium 143 mmol/L (137-145)
[2017-06-25 07:00] LABS: Basophils % (Manual) 0 % (0.0-1.8); Blastocytes % (Manual) 0 %; Eosinophils % (Manual) 0 % (0.0-4.3)
[2017-06-25 07:01] LABS: Diff Status Complete; RBC Morphology Normal
[2017-06-25] MEDS ORDERED: BROVANA NEBU IH SCH (08:00)
[2017-06-25] MEDS ORDERED: GLUCOPHAGE PO SCH (08:00)
[2017-06-25] MEDS ORDERED: DUONEB *Not for PRN Use IH SCH (08:00)
[2017-06-25] MEDS ORDERED: PULMICORT IH SCH (08:00)
[2017-06-25] MEDS ORDERED: GLUCOTROL XL PO SCH (08:00)
[2017-06-25] MEDS: NOVOLOG SUB-Q SCH ×2 (08:18→13:08)
[2017-06-25] MEDS ORDERED: NON-FORMULARY (Budesonide/Formoterol Fumarate [Symbicort 160-4.5 Mcg Inhaler] 1 PUFF) INHALATION PRN (08:22)
[2017-06-25] MEDS ORDERED: ECOTRIN PO SCH (10:00)
[2017-06-25] MEDS ORDERED: LOVENOX SUB-Q SCH (10:00)
--- NOTE | 2017-06-25 10:22 | Discharge Summary ---
Providers - Providers Date of Admission: 06/24/17 23:30 Attending physician: MOISE BLACKWELL MD Primary care physician: DROPHAMMER OPERATOR Hospitalization Reason for admission: shortness of breath Condition: Stable Hospital course: 61 year old male with past medical history significant for asthma, diabetes mellitus presented to the emergency department complaining of shortness of breath and dry cough that started this morning. Patient denied any fever or chills. Patient said he ran out of his asthma medication for the last 2 weeks. When he presented to the emergency department his saturation was in the mid 80s and he was put on BiPAP. Chest x-ray is negative. Patient denied chest pain. Patient was started on steroids IV and nebulizer treatments with remarkable improvement. He insisted that he needs to the hospital today as he has a long weighted Social Security appointment have a ferritin the morning. We did have him ambulate the hallway multiple times and check his oxygen on room air it was 94% total with a heart rate of 101. He denies any shortness of breath at this time is stable to discharge medications were renewed counseling was provided about compliance to medication. Acute hypoxic respiratory failure Acute asthma exacerbation Diabetes mellitus type 2 Medication noncompliance Disposition: DC-01 TO HOME OR SELFCARE Time spent for discharge: 35 mins Core Measure Documentation - Palliative Care Palliative Care/ Comfort Measures: Not Applicable - Core Measures Any of the following diagnoses?: none - VTE Discharge Requirements Deep Vein Thrombosis/Pulmonary Embolism Present on Admission: No Exam - Physical Exam Narrative exam: VITAL SIGNS: Reviewed. GENERAL: The patient appeared well nourished and normally developed. Vital signs as documented. HEAD: No signs of head trauma. EYES: Pupils are equal. Extraocular motions intact. EARS: Hearing grossly intact. MOUTH: Oropharynx is normal. NECK: No adenopathy, no JVD. CHEST: Chest with good air entry bilaterally but diminished at the bases . CARDIAC: Regular rate and rhythm. S1 and S2, without murmurs, gallops, or rubs. VASCULAR: No Edema. Peripheral pulses normal and equal in all extremities. ABDOMEN: Soft, without detectable tenderness. No sign of distention. No rebound or guarding, and no masses palpated. Bowel Sounds normal. MUSCULOSKELETAL: Good range of motion of all major joints. Extremities without clubbing, cyanosis or edema. NEUROLOGIC EXAM: Alert and oriented x 3. No focal sensory or strength deficits. Speech normal. Follows commands. PSYCHIATRIC: Mood normal. SKIN: No rash or lesions. - Constitutional Vitals: Temp Pulse Resp BP Pulse Ox 97.7 F 88 22 122/82 96 06/25/17 08:18 06/25/17 08:18 06/25/17 08:18 06/25/17 08:18 06/25/17 08:18 Plan Activity: advance as tolerated, fall precautions Diet: diabetic Special Instructions: record daily BP diary, record blood sugar diary Follow up with: OLIVIA JADE MD [Primary Care Provider] - 3-5 Days CONY GOETZ MD [Staff Physician] - 7 Days Prescriptions: Albuterol *Only Ed* [Proventil 0.5% NEBS] 2.5 mg IH Q6HRT 30 Days nebu Arformoterol Nebu [Brovana Nebu] 15 mcg IH Q12HRT 30 Days ml Fluticasone/Salmeterol [Advair Diskus 250-50 mcg] 1 puff IH BID #1 disk.w.dev glipiZIDE [glipiZIDE XL] 5 mg PO QDAY #30 tab.er.24 Montelukast [Singulair] 10 mg PO BID 30 Days tablet Prednisone [predniSONE 10 mg (6-Day Pack, 21 Tabs)] 10 mg PO .TAPER #1 tab.ds.pk Tiotropium [Spiriva] 18 mcg IH QDAY 30 Days cap
[2017-06-25] MEDS ORDERED: Fluarix Quad 2017-2018(36 MOS+ IM ONE (12:00)
[2017-06-25] MEDS ORDERED: PNEUMOVAX 23 IM ONE (12:00)
[2017-06-25 12:41] VITALS: BP 124/74
[2017-06-25] MEDS ORDERED: SINGULAIR PO SCH (18:00)
== END 2017-06-25 13:25 | disposition home or self-care (01) | DRG 189 ==
LOC: ED 21:01 → 3A 23:30
PROVIDERS: ADMIT Internal Medicine; ATTEND Internal Medicine
PROC: 3E0234Z Introduction of Serum, Toxoid and Vaccine into Muscle, Percutaneous Approach (ICD-10-PCS; principal; 2017-06-24)
PROC: 5A09357 Assistance with Respiratory Ventilation, Less than 24 Consecutive Hours, Continuous Positive Airway Pressure (ICD-10-PCS; 2017-06-24)
DX: J96.01 Acute respiratory failure with hypoxia (principal); J45.902 Unspecified asthma with status asthmaticus; E11.9 Type 2 diabetes mellitus without complications; Z82.3 Family history of stroke; Z83.3 Family history of diabetes mellitus; Z88.8 Allergy status to other drugs, medicaments and biological substances; Z91.018 Allergy to other foods; Z79.2 Long term (current) use of antibiotics; Z79.82 Long term (current) use of aspirin; Z79.899 Other long term (current) drug therapy; Z91.14 Patient's other noncompliance with medication regimen
CPT/HCPCS: 36415; 71010; 80048; 82962; 83735; 84484; 85007; 85025; 85379; 85610; 85730; 90686; 90732; 94640; 96374; J1650; J1815; J2920; J2930; J7030

== ENCOUNTER 2017-07-04 17:19 | Emergency (ER) | payer OTHER ==
[2017-07-04] MEDS ORDERED: DECADRON IM ONE (23:25)
[2017-07-04] MEDS ORDERED: PROVENTIL IH ONE (23:25)
[2017-07-04] MEDS ORDERED: ATROVENT IH ONE (23:27)
[2017-07-04] MEDS ORDERED: DECADRON ONE (23:28)
[2017-07-04] MEDS ORDERED: DECADRON IV ONE (23:50)
--- NOTE | 2017-07-05 00:10 | XRay Report ---
FINAL REPORT EXAM: XR CHEST 1V AP HISTORY: Asthma TECHNIQUE: A portable upright view of the chest was submitted. Comparison is made to the study of 06/24/2017. FINDINGS: The heart size and mediastinum appear normal. The lungs are clear. Pleural fluid is not seen. The bones soft tissues are well maintained. IMPRESSION: No active chest disease.
[2017-07-05 00:45] LABS: Basophils % (Auto) 0.5 % (0.0-1.8); Eosinophils % (Auto) 5.3 % (0.0-4.3); Hematocrit 43.6 % (35.5-45.6); Mean Corpuscular HGB Conc 32 % (32-34); Mean Corpuscular Hemoglobin 27 pg (28-32); Mean Corpuscular Volume 83 fl (84-94); Platelet Count 330 K/mm3 (140-440); Red Blood Count 5.27 M/mm3 (3.65-5.03); White Blood Count 14.8 K/mm3 (4.5-11.0)
[2017-07-05 01:06] LABS: Alanine Aminotransferase 22 units/L (7-56); Albumin 4.3 g/dL (3.9-5); Albumin/Globulin Ratio 1.4 %; Alkaline Phosphatase 100 units/L (35-129); Anion Gap 20 mmol/L; BUN/Creatinine Ratio 13; Blood Urea Nitrogen 10 mg/dL (9-20); Carbon Dioxide 27 mmol/L (22-30); Chloride 98.8 mmol/L (98-107); Glucose 77 mg/dL (75-100); Potassium 3.5 mmol/L (3.6-5.0); Sodium 142 mmol/L (137-145); Total Protein 7.4 g/dL (6.3-8.2)
--- NOTE | 2017-07-05 01:44 | Emergency Department Report ---
ED Asthma HPI - General Chief Complaint: Adult Asthma Stated Complaint: ASTHMA Time Seen by Provider: 07/04/17 23:22 Source: patient Mode of arrival: Ambulatory Limitations: No Limitations - History of Present Illness Initial Comments: Patient had acute onset of asthma attack this AM around 11. He has asthma and ran out of the prednisone he got from the ER several days ago. He has been hospitalized before. MD Complaint: "asthma attack" -: Sudden, hour(s) (12) Asthma History: childhood onset, history of frequent attac Severity: moderate Context: ran out of meds Associated Symptoms: dry cough - Related Data Current Asthma Therapy: recent oral steroid Home Medications Medication Instructions Recorded Confirmed Last Taken metFORMIN [Glucophage] 500 mg PO BID 07/02/14 02/25/17 10/18/14 Previous Rx's Medication Instructions Recorded Last Taken Type Aspirin EC [Aspirin Enteric Coated 325 mg PO DAILY tablet 10/28/14 Unknown Rx TAB] Insulin Glulisine [Apidra] 0 units SUB-Q ACHS units 10/28/14 Unknown Rx Albuterol *Only Ed* [Proventil 2.5 mg IH Q6HRT 30 Days nebu 06/25/17 Unknown Rx 0.5% NEBS] Arformoterol Nebu [Brovana Nebu] 15 mcg IH Q12HRT 30 Days ml 06/25/17 Unknown Rx Fluticasone/Salmeterol [Advair 1 puff IH BID #1 disk.w.dev 06/25/17 Unknown Rx Diskus 250-50 mcg] Montelukast [Singulair] 10 mg PO BID 30 Days tablet 06/25/17 Unknown Rx Prednisone [predniSONE 10 mg 10 mg PO .TAPER #1 tab.ds.pk 06/25/17 Unknown Rx (6-Day Pack, 21 Tabs)] Tiotropium [Spiriva] 18 mcg IH QDAY 30 Days cap 06/25/17 Unknown Rx glipiZIDE [glipiZIDE XL] 5 mg PO QDAY #30 tab.er.24 06/25/17 Unknown Rx ALBUTEROL NEB's [Proventil 0.083% 2.5 mg IH TID PRN #25 neb 07/05/17 Unknown Rx NEBS] predniSONE [Deltasone] 10 mg PO .TAPER #48 tab 07/05/17 Unknown Rx Allergies Allergy/AdvReac Type Severity Reaction Status Date / Time seafood Allergy Shortness Uncoded 07/04/17 17:26 of Breath shrimp Allergy Shortness Uncoded 07/04/17 17:26 of Breath ED Review of Systems ROS: Stated complaint: ASTHMA Other details as noted in HPI Constitutional: denies: chills, fever Eyes: denies: eye pain, eye discharge, vision change ENT: denies: ear pain, throat pain Respiratory: cough, SOB with exertion, SOB at rest. denies: shortness of breath , wheezing Cardiovascular: denies: chest pain, palpitations Endocrine: no symptoms reported Gastrointestinal: denies: abdominal pain, nausea, diarrhea Genitourinary: denies: urgency, dysuria Musculoskeletal: denies: back pain, joint swelling, arthralgia Skin: denies: rash, lesions Neurological: denies: headache, weakness, paresthesias Psychiatric: denies: anxiety, depression Hematological/Lymphatic: denies: easy bleeding, easy bruising ED Past Medical Hx - Past Medical History Hx Hypertension: Yes Hx CVA: No Hx Heart Attack/AMI: No Hx Congestive Heart Failure: No Hx Diabetes: Yes Hx Deep Vein Thrombosis: No Hx Pulmonary Embolism: No Hx GERD: No Hx Liver Disease: No Hx Renal Disease: No Hx Sickle Cell Disease: No Hx Arthritis: No Hx Headaches / Migraines: No Hx Seizures: No Hx Kidney Stones: No Hx Psychiatric Treatment: No Hx Asthma: Yes (intubation) Hx COPD: No Hx Tuberculosis: No Hx Dementia: No Hx HIV: No Additional medical history: intabated and bi pap - Surgical History Hx Coronary Stent: No Hx Open Heart Surgery: No Hx Pacemaker: No Hx Internal Defibrillator: No Hx Cholecystectomy: No Hx Appendectomy: No Hx Breast Surgery: No Additional Surgical History: back surgery x4. Hernia repair 04/20 - Social History Smoking Status: Never Smoker Substance Use Type: None - Medications Home Medications: Home Medications Medication Instructions Recorded Confirmed Last Taken Type metFORMIN [Glucophage] 500 mg PO BID 07/02/14 02/25/17 10/18/14 History Aspirin EC [Aspirin Enteric Coated 325 mg PO DAILY tablet 10/28/14 02/25/17 Unknown Rx TAB] Insulin Glulisine [Apidra] 0 units SUB-Q ACHS units 10/28/14 02/25/17 Unknown Rx Albuterol *Only Ed* [Proventil 2.5 mg IH Q6HRT 30 Days nebu 06/25/17 Unknown Rx 0.5% NEBS] Arformoterol Nebu [Brovana Nebu] 15 mcg IH Q12HRT 30 Days ml 06/25/17 Unknown Rx Fluticasone/Salmeterol [Advair 1 puff IH BID #1 disk.w.dev 06/25/17 Unknown Rx Diskus 250-50 mcg] Montelukast [Singulair] 10 mg PO BID 30 Days tablet 06/25/17 Unknown Rx Prednisone [predniSONE 10 mg 10 mg PO .TAPER #1 tab.ds.pk 06/25/17 Unknown Rx (6-Day Pack, 21 Tabs)] Tiotropium [Spiriva] 18 mcg IH QDAY 30 Days cap 06/25/17 Unknown Rx glipiZIDE [glipiZIDE XL] 5 mg PO QDAY #30 tab.er.24 06/25/17 Unknown Rx ALBUTEROL NEB's [Proventil 0.083% 2.5 mg IH TID PRN #25 neb 07/05/17 Unknown Rx NEBS] predniSONE [Deltasone] 10 mg PO .TAPER #48 tab 07/05/17 Unknown Rx ED Physical Exam - General Limitations: No Limitations General appearance: alert, in no apparent distress - Head Head exam: Present: atraumatic, normocephalic - Eye Eye exam: Present: normal appearance - ENT ENT exam: Present: mucous membranes moist - Neck Neck exam: Present: normal inspection - Respiratory Respiratory exam: Present: normal lung sounds bilaterally, wheezes (Patient with very poor air movement on initial exam and was tachypnic. He did clear up a great deal after steroid shot and hour long treatment.). Absent: respiratory distress - Cardiovascular Cardiovascular Exam: Present: regular rate, normal rhythm, tachycardia. Absent : systolic murmur, diastolic murmur, rubs, gallop - GI/Abdominal GI/Abdominal exam: Present: soft, normal bowel sounds - Rectal Rectal exam: Present: deferred - Extremities Exam Extremities exam: Present: normal inspection - Back Exam Back exam: Present: normal inspection - Neurological Exam Neurological exam: Present: alert, oriented X3 - Psychiatric Psychiatric exam: Present: normal affect, normal mood - Skin Skin exam: Present: warm, dry, intact, normal color. Absent: rash ED Course Vital Signs 11/07/04/17 07/04/17 17:26 23:17 23:21 Temperature 98.3 F Pulse Rate 126 H 119 H 119 H Pulse Rate [ Anterior Bilateral Throughout] Respiratory 20 20 21 Rate Respiratory Rate [Anterior Bilateral Throughout] Blood Pressure 148/62 144/90 Blood Pressure [Right] O2 Sat by Pulse 95 94 Oximetry 07/04/17 07/04/17 07/04/17 23:38 23:39 23:41 Temperature Pulse Rate 114 H Pulse Rate [ 118 H Anterior Bilateral Throughout] Respiratory 26 H 26 H Rate Respiratory 19 Rate [Anterior Bilateral Throughout] Blood Pressure Blood Pressure 151/78 [Right] O2 Sat by Pulse 92 Oximetry 07/05/17 01:19 Temperature Pulse Rate Pulse Rate [ 113 H Anterior Bilateral Throughout] Respiratory Rate Respiratory 20 Rate [Anterior Bilateral Throughout] Blood Pressure Blood Pressure [Right] O2 Sat by Pulse Oximetry ED Medical Decision Making - Lab Data Result diagrams: 07/04/17 23:40 07/04/17 23:40 Unremarkable labs other than low potassium. - Radiology Data Radiology results: report reviewed CXR with no acute changes. - Medical Decision Making Patient with asthma attack that has improved after steroids IV and hour long treatment. He has come here frequently and encouraged to go to various clinics for follow up. I have told him he needs to get into the [place] for future care. If he has acute demise of respiratory status, he is to return here. We will do prednisone 60 mg daily x 5 days and then he is to taper and have follow up with new PCP. He will eat more bananas and strawberries to increase his potassium. Critical care attestation.: If time is entered above; I have spent that time in minutes in the direct care of this critically ill patient, excluding procedure time. ED Disposition Clinical Impression: Hypokalemia Asthma exacerbation Qualifiers: Asthma severity: moderate Asthma persistence: persistent Qualified Code(s): J45.41 - Moderate persistent asthma with (acute) exacerbation Disposition: - TO HOME OR SELFCARE Is pt being admited?: No Does the pt Need Aspirin: No Condition: Good Instructions: Asthma (ED) Prescriptions: ALBUTEROL NEB's [Proventil 0.083% NEBS] 2.5 mg IH TID PRN #25 neb PRN Reason: Wheezing predniSONE [Deltasone] 10 mg PO .TAPER #48 tab Referrals: ABHINAV LINO MD [Staff Physician] - 3-5 Days Time of Disposition: 01:52
[2017-07-05 01:50] VITALS: BP 122/84
== END 2017-07-05 02:10 | disposition home or self-care (01) ==
LOC: ED 17:19
DX: J45.901 Unspecified asthma with (acute) exacerbation (principal); E87.6 Hypokalemia; I10 Essential (primary) hypertension; E11.9 Type 2 diabetes mellitus without complications; Z79.82 Long term (current) use of aspirin; Z91.013 Allergy to seafood
CPT/HCPCS: 36415; 71010; 80053; 85025; 94640; 96374; 99284; J1100

== ENCOUNTER 2017-08-22 16:39 | Emergency (ER) | payer SELFPAY ==
[2017-08-22] MEDS ORDERED: MAGNESIUM SULFATE 2GM/50ML 2 GM/50 ML BAG IV ONE (17:33)
[2017-08-22] MEDS ORDERED: ATROVENT IH ONE (17:37)
[2017-08-22] MEDS ORDERED: XOPENEX IH ONE ×2 (17:37→19:24)
[2017-08-22 18:29] LABS: Basophils # (Auto) 0.1 K/mm3 (0.0-0.1); Basophils % (Auto) 0.7 % (0.0-1.8); Eosinophils # (Auto) 1.2 K/mm3 (0.0-0.4); Eosinophils % (Auto) 12.4 % (0.0-4.3); Hematocrit 40.7 % (35.5-45.6); Hemoglobin 13.3 gm/dl (11.8-15.2); Lymphocytes # (Auto) 2.3 K/mm3 (1.2-5.4); Lymphocytes % (Auto) 24.1 % (13.4-35.0); Mean Corpuscular HGB Conc 33 % (32-34); Mean Corpuscular Hemoglobin 27 pg (28-32); Mean Corpuscular Volume 82 fl (84-94); Monocytes # (Auto) 0.9 K/mm3 (0.0-0.8); Monocytes % (Auto) 9.1 % (0.0-7.3); Platelet Count 307 K/mm3 (140-440); Red Blood Count 4.97 M/mm3 (3.65-5.03); Red Cell Distribution Width 13.9 % (13.2-15.2)
[2017-08-22 18:40] LABS: BUN/Creatinine Ratio 13; Blood Urea Nitrogen 10 mg/dL (9-20); Calcium 8.6 mg/dL (8.4-10.2); Hemolysis Index 2
[2017-08-22] MEDS ORDERED: K-DUR PO ONE (19:25)
--- NOTE | 2017-08-22 19:29 | Emergency Department Report ---
ED Shortness of Breath HPI - General Chief Complaint: Dyspnea/Respdistress Stated Complaint: ASTHMA Time Seen by Provider: 08/22/17 17:33 Source: patient Mode of arrival: Ambulatory Limitations: No Limitations - History of Present Illness Initial Comments: 61 yo male with a past medical history of HTN, asthma, diabetes, and multiple previous intubations presents to the hospital complaints of wheezing and shortness of breath today. Patient ran out of his daily Prednisone 30 mg yesterday. He lost his insurance and was unable to continue his follow with Dr. Mayer but is in the process of getting it reactivated so that he may follow up. Patient complains of cough that is nonproductive, wheezing, shortness of breath with associated chest tightness. No reports of fever, edema , or calf tenderness. - Related Data Home Medications Medication Instructions Recorded Confirmed Last Taken metFORMIN [Glucophage] 500 mg PO BID 07/02/14 02/25/17 10/18/14 Previous Rx's Medication Instructions Recorded Last Taken Type Aspirin EC [Aspirin Enteric Coated 325 mg PO DAILY tablet 10/28/14 Unknown Rx TAB] Insulin Glulisine [Apidra] 0 units SUB-Q ACHS units 10/28/14 Unknown Rx Albuterol *Only Ed* [Proventil 2.5 mg IH Q6HRT 30 Days nebu 06/25/17 Unknown Rx 0.5% NEBS] Arformoterol Nebu [Brovana Nebu] 15 mcg IH Q12HRT 30 Days ml 06/25/17 Unknown Rx Fluticasone/Salmeterol [Advair 1 puff IH BID #1 disk.w.dev 06/25/17 Unknown Rx Diskus 250-50 mcg] Montelukast [Singulair] 10 mg PO BID 30 Days tablet 06/25/17 Unknown Rx Prednisone [predniSONE 10 mg 10 mg PO .TAPER #1 tab.ds.pk 06/25/17 Unknown Rx (6-Day Pack, 21 Tabs)] Tiotropium [Spiriva] 18 mcg IH QDAY 30 Days cap 06/25/17 Unknown Rx glipiZIDE [glipiZIDE XL] 5 mg PO QDAY #30 tab.er.24 06/25/17 Unknown Rx ALBUTEROL NEB's [Proventil 0.083% 2.5 mg IH TID PRN #25 neb 07/05/17 Unknown Rx NEBS] predniSONE [Deltasone] 10 mg PO .TAPER #48 tab 07/05/17 Unknown Rx ALBUTEROL NEB's [Proventil 0.083% 2.5 mg IH TID PRN #30 neb 08/22/17 Unknown Rx NEBS] predniSONE [Deltasone] 20 mg PO QDAY 14 Days tab 08/22/17 Unknown Rx Allergies Allergy/AdvReac Type Severity Reaction Status Date / Time seafood Allergy Shortness Uncoded 08/22/17 16:56 of Breath shrimp Allergy Shortness Uncoded 08/22/17 16:56 of Breath ED Review of Systems ROS: Stated complaint: ASTHMA Other details as noted in HPI Comment: All other systems reviewed and negative Other: Constitutional: No fevers chills Eyes: No eye pain visual changes ENT: No ear pain or throat pain Neck: Denies pain Respiratory: as per hpi Cardiovascular: Denies palpitations, syncope GI: Denies abdominal pain, nausea, vomiting, diarrhea : Denies dysuria Musculoskeletal: Denies back pain Skin: Denies rash, lesions, erythema Neurologic: Denies headache, numbness, weakness Psychiatric: Denies suicidal ideation, hallucinations ED Past Medical Hx - Past Medical History Hx Hypertension: Yes Hx CVA: No Hx Heart Attack/AMI: No Hx Congestive Heart Failure: No Hx Diabetes: Yes Hx Deep Vein Thrombosis: No Hx Pulmonary Embolism: No Hx GERD: No Hx Liver Disease: No Hx Renal Disease: No Hx Sickle Cell Disease: No Hx Arthritis: No Hx Headaches / Migraines: No Hx Seizures: No Hx Kidney Stones: No Hx Psychiatric Treatment: No Hx Asthma: Yes (intubation) Hx COPD: No Hx Tuberculosis: No Hx Dementia: No Hx HIV: No Additional medical history: intabated and bi pap - Surgical History Hx Coronary Stent: No Hx Open Heart Surgery: No Hx Pacemaker: No Hx Internal Defibrillator: No Hx Cholecystectomy: No Hx Appendectomy: No Hx Breast Surgery: No Additional Surgical History: back surgery x4. Hernia repair 04/20 - Social History Smoking Status: Never Smoker - Medications Home Medications: Home Medications Medication Instructions Recorded Confirmed Last Taken Type metFORMIN [Glucophage] 500 mg PO BID 07/02/14 02/25/17 10/18/14 History Aspirin EC [Aspirin Enteric Coated 325 mg PO DAILY tablet 10/28/14 02/25/17 Unknown Rx TAB] Insulin Glulisine [Apidra] 0 units SUB-Q ACHS units 10/28/14 02/25/17 Unknown Rx Albuterol *Only Ed* [Proventil 2.5 mg IH Q6HRT 30 Days nebu 06/25/17 Unknown Rx 0.5% NEBS] Arformoterol Nebu [Brovana Nebu] 15 mcg IH Q12HRT 30 Days ml 06/25/17 Unknown Rx Fluticasone/Salmeterol [Advair 1 puff IH BID #1 disk.w.dev 06/25/17 Unknown Rx Diskus 250-50 mcg] Montelukast [Singulair] 10 mg PO BID 30 Days tablet 06/25/17 Unknown Rx Prednisone [predniSONE 10 mg 10 mg PO .TAPER #1 tab.ds.pk 06/25/17 Unknown Rx (6-Day Pack, 21 Tabs)] Tiotropium [Spiriva] 18 mcg IH QDAY 30 Days cap 06/25/17 Unknown Rx glipiZIDE [glipiZIDE XL] 5 mg PO QDAY #30 tab.er.24 06/25/17 Unknown Rx ALBUTEROL NEB's [Proventil 0.083% 2.5 mg IH TID PRN #25 neb 07/05/17 Unknown Rx NEBS] predniSONE [Deltasone] 10 mg PO .TAPER #48 tab 07/05/17 Unknown Rx ALBUTEROL NEB's [Proventil 0.083% 2.5 mg IH TID PRN #30 neb 08/22/17 Unknown Rx NEBS] predniSONE [Deltasone] 20 mg PO QDAY 14 Days tab 08/22/17 Unknown Rx ED Physical Exam - General Limitations: No Limitations - Other Other exam information: General: No limitations, patient is alert in no acute distress Head exam: Atraumatic, normocephalic Eyes exam: Normal appearance, pupils equal reactive to light, extraocular movements intact ENT: Moist mucous membrane, normal oropharynx Neck exam: Normal inspection, full range of motion, no meningismus nontender Respiratory exam: Mild tachypnea, no accessory muscle use, significant extremity wheezing Cardiovascular: Mild tachycardia, anterior chest wall tenderness Abdomen: Soft, nondistended, and nontender, with normal bowel sounds, no rebound, or guarding Extremity: Full range of motion normal inspection no deformity, no numbness or edema Back: Normal Inspection, full range of motion, no tenderness Neurologic: Alert, oriented x3, cranial nerves intact, no motor or sensory deficit Psychiatric: normal affect, normal mood Skin: Warm, dry, intact ED Course Vital Signs 08/22/17 08/22/17 16:56 19:40 Temperature 97.7 F Pulse Rate 111 H Pulse Rate [ 80 Right Lower Lobe] Respiratory 16 Rate Respiratory 20 Rate [Right Lower Lobe] Blood Pressure 135/77 O2 Sat by Pulse 94 Oximetry - Reevaluation(s) Reevaluation #1: 08/22/17 19:24 pt feeling better after first round of treatment with some residual wheezing. O2 sat 94% on room air with a pulse of 94. Multiple round of additional Nebs ordered Reevaluation #2: 08/22/17 20:30 minimal wheeze after last tx. pt feels well enough to go home ED Medical Decision Making - Lab Data Result diagrams: 08/22/17 17:45 08/22/17 17:45 Lab Results 08/22/17 08/22/17 08/22/17 Range/Units 16:56 17:45 17:45 WBC 9.4 (4.5-11.0) K/mm3 RBC 4.97 (3.65-5.03) M/mm3 Hgb 13.3 (11.8-15.2) gm/dl Hct 40.7 (35.5-45.6) % MCV 82 L (84-94) fl MCH 27 L (28-32) pg MCHC 33 (32-34) % RDW 13.9 (13.2-15.2) % Plt Count 307 (140-440) K/mm3 Lymph % (Auto) 24.1 (13.4-35.0) % [place] % (Auto) 9.1 H (0.0-7.3) % Eos % (Auto) 12.4 H (0.0-4.3) % Baso % (Auto) 0.7 (0.0-1.8) % Lymph # 2.3 (1.2-5.4) K/mm3 [place] # 0.9 H (0.0-0.8) K/mm3 Eos # 1.2 H (0.0-0.4) K/mm3 Baso # 0.1 (0.0-0.1) K/mm3 Seg Neutrophils % 53.7 (40.0-70.0) % Seg Neutrophils # 5.0 (1.8-7.7) K/mm3 Sodium 140 (137-145) mmol/L Potassium 3.3 L (3.6-5.0) mmol/L Chloride 100.3 (98-107) mmol/L Carbon Dioxide 25 (22-30) mmol/L Anion Gap 18 mmol/L BUN 10 (9-20) mg/dL Creatinine 0.8 (0.8-1.5) mg/dL Estimated GFR > 60 ml/min BUN/Creatinine Ratio 13 % Glucose 185 H (75-100) mg/dL POC Glucose 224 H (70-105) Calcium 8.6 (8.4-10.2) mg/dL - Medical Decision Making COPD exacerbation History of frequent visits for the same Exacerbation likely secondary to prednisone noncompliant Agreed to prescribe prednisone 30 mg 14 days stressed importance of follow-up for a refill prior to running out Albuterol refill will be prescribed as requested X-ray not performed since patient does not have fever or significant leukocytosis Vital signs improved after treatment Hypokalemia Can be exacerbated by albuterol By mouth potassium given - Differential Diagnosis COPD, asthma, bronchitis, pneumonia Critical Care Time: No Critical care attestation.: If time is entered above; I have spent that time in minutes in the direct care of this critically ill patient, excluding procedure time. ED Disposition Clinical Impression: Noncompliance with medication regimen, Acute asthma exacerbation, Hypokalemia Disposition: [id number] TO HOME OR SELFCARE Is pt being admited?: No Does the pt Need Aspirin: No Condition: Stable Instructions: Asthma (ED), Hypokalemia (ED) Additional Instructions: Take the medication as prescribed. It is very important that she follow-up with a primary care doctor or manager application for continued prednisone prescriptions as needed. Return if symptoms worsen. Prescriptions: ALBUTEROL NEB's [Proventil 0.083% NEBS] 2.5 mg IH TID PRN #30 neb PRN Reason: Wheezing predniSONE [Deltasone] 20 mg PO QDAY 14 Days tab Referrals: KORY MAYER MD [Staff Physician] - 3-5 Days Time of Disposition: 20:32
[2017-08-22 20:45] VITALS: BP 132/70
== END 2017-08-22 20:46 | disposition home or self-care (01) ==
LOC: ED 16:39
DX: J45.901 Unspecified asthma with (acute) exacerbation (principal); E87.6 Hypokalemia; I10 Essential (primary) hypertension; E11.9 Type 2 diabetes mellitus without complications; Z91.14 Patient's other noncompliance with medication regimen; Z91.013 Allergy to seafood
CPT/HCPCS: 36415; 80048; 82962; 85025; 94640; 96374; 96375; 99283; J2930; J3475

== ENCOUNTER 2017-09-08 15:05 | Inpatient (IN) | payer SELFPAY ==
[2017-09-08] MEDS ORDERED: PROVENTIL IH ONE ×2 (15:19→15:53)
[2017-09-08] MEDS ORDERED: ATROVENT IH ONE (15:19)
[2017-09-08] MEDS ORDERED: TESSALON PERLES PO ONE (15:59)
[2017-09-08 16:13] LABS: Basophils # (Auto) 0.1 K/mm3 (0.0-0.1); Basophils % (Auto) 0.7 % (0.0-1.8); Eosinophils % (Auto) 9.6 % (0.0-4.3); Hemoglobin 14.5 gm/dl (11.8-15.2); Lymphocytes # (Auto) 3.2 K/mm3 (1.2-5.4); Lymphocytes % (Auto) 30.2 % (13.4-35.0); Mean Corpuscular HGB Conc 33 % (32-34); Mean Corpuscular Hemoglobin 28 pg (28-32); Mean Corpuscular Volume 84 fl (84-94); Monocytes # (Auto) 0.9 K/mm3 (0.0-0.8); Monocytes % (Auto) 8.2 % (0.0-7.3); Platelet Count 261 K/mm3 (140-440); Red Blood Count 5.23 M/mm3 (3.65-5.03); Red Cell Distribution Width 14.2 % (13.2-15.2)
[2017-09-08 16:38] LABS: Alanine Aminotransferase 21 units/L (7-56); BUN/Creatinine Ratio 11; Blood Urea Nitrogen 9 mg/dL (9-20); Calcium 8.3 mg/dL (8.4-10.2); Hemolysis Index 19
[2017-09-08] MEDS ORDERED: NACL 0.9% 1000 ML 1,000 ML IV ONE (17:00)
[2017-09-08] MEDS ORDERED: BABY ASPIRIN PO ONE (17:01)
--- NOTE | 2017-09-08 17:01 | Emergency Department Report ---
HPI - General Chief Complaint: Adult Asthma Time Seen by Provider: 09/08/17 15:52 - HPI HPI: The patient is a 61-year-old male with a history of asthma who presents for evaluation of dyspnea. The patient reports constant and severe dyspnea for the past one day, exacerbated with physical activity, improved at rest. He states his dyspnea is consistent with previous episodes of asthma attacks. He does admit to a nonproductive cough. The patient denies fever, chest pain, syncope, hemoptysis, unilateral leg swelling, recent immobilization, trauma to the chest. ED Past Medical Hx - Past Medical History Hx Hypertension: Yes Hx CVA: No Hx Heart Attack/AMI: No Hx Congestive Heart Failure: No Hx Diabetes: Yes Hx Deep Vein Thrombosis: No Hx Pulmonary Embolism: No Hx GERD: No Hx Liver Disease: No Hx Renal Disease: No Hx Sickle Cell Disease: No Hx Arthritis: No Hx Headaches / Migraines: No Hx Seizures: No Hx Kidney Stones: No Hx Psychiatric Treatment: No Hx Asthma: Yes (intubation) Hx COPD: No Hx Tuberculosis: No Hx Dementia: No Hx HIV: No Additional medical history: intabated and bi pap - Surgical History Hx Coronary Stent: No Hx Open Heart Surgery: No Hx Pacemaker: No Hx Internal Defibrillator: No Hx Cholecystectomy: No Hx Appendectomy: No Hx Breast Surgery: No Additional Surgical History: back surgery x4. Hernia repair 04/20 - Social History Smoking Status: Never Smoker - Medications Home Medications: Home Medications Medication Instructions Recorded Confirmed Last Taken Type metFORMIN [Glucophage] 500 mg PO BID 07/02/14 09/08/17 10/18/14 History Aspirin EC [Aspirin Enteric Coated 325 mg PO DAILY tablet 10/28/14 09/08/17 Unknown Rx TAB] Insulin Glulisine [Apidra] 0 units SUB-Q ACHS units 10/28/14 09/08/17 Unknown Rx Albuterol *Only Ed* [Proventil 2.5 mg IH Q6HRT 30 Days nebu 06/25/17 09/08/17 Unknown Rx 0.5% NEBS] Arformoterol Nebu [Brovana Nebu] 15 mcg IH Q12HRT 30 Days ml 06/25/17 09/08/17 Unknown Rx Fluticasone/Salmeterol [Advair 1 puff IH BID #1 disk.w.dev 06/25/17 09/08/17 Unknown Rx Diskus 250-50 mcg] Montelukast [Singulair] 10 mg PO BID 30 Days tablet 06/25/17 09/08/17 Unknown Rx Tiotropium [Spiriva] 18 mcg IH QDAY 30 Days cap 06/25/17 09/08/17 Unknown Rx glipiZIDE [glipiZIDE XL] 5 mg PO QDAY #30 tab.er.24 06/25/17 09/08/17 Unknown Rx ALBUTEROL NEB's [Proventil 0.083% 2.5 mg IH TID PRN #30 neb 08/22/17 09/08/17 Unknown Rx NEBS] predniSONE [Deltasone] 20 mg PO QDAY 14 Days tab 08/22/17 09/08/17 Unknown Rx ED Review of Systems ROS: Stated complaint: ASTHMA Other details as noted in HPI Constitutional: denies: fever ENT: denies: throat or neck pain Respiratory: reports cough, shortness of breath Cardiovascular: denies: chest pain Endocrine: denies unexplained weight loss or gain Gastrointestinal: denies: abdominal pain, nausea Genitourinary: denies: dysuria Musculoskeletal: denies: leg swelling Skin: denies: rash Neurological: denies: headache Hematological/Lymphatic: denies: easy bleeding or easy bruising Psych: denies sadness or hopelessness Physical Exam - Physical Exam Vital Signs: Vital Signs 09/08/17 09/08/17 15:09 15:56 Temperature 97.9 F Pulse Rate 140 H 114 H Respiratory 32 H 20 Rate Blood Pressure 169/84 165/81 O2 Sat by Pulse 89 98 Oximetry Physical Exam: General: well-nourished, well-developed, Head: Normocephalic, atraumatic Eyes: normal sclera ENT: Mucous membranes are pink and moist Neck: trachea midline, neck supple, No neck stiffness, no cervical adenopathy Respiratory: Diminished breath sounds and inspiratory and expiratory wheezing throughout all of his bilaterally, costal retractions present, patient in acute respiratory distress Cardio: S1 and S2 present, no murmurs, rubs, gallops, capillary refill is brisk Abdomen: Normoactive bowel sounds, soft abdomen, no rigidity, no guarding or rebound tenderness Musc: No pitting edema Skin: No rash Neuro: no facial drooping, normal speech Psych: Normal affect ED Course Vital Signs 09/08/17 09/08/17 15:09 15:56 Temperature 97.9 F Pulse Rate 140 H 114 H Respiratory 32 H 20 Rate Blood Pressure 169/84 165/81 O2 Sat by Pulse 89 98 Oximetry ED Medical Decision Making - Lab Data Result diagrams: 09/08/17 16:00 09/08/17 16:00 - Medical Decision Making The patient was seen and examined by myself. The patient is placed on a credit risk associate and continuous pulse ox. On initial evaluation, the patient was found to be in acute respiratory distress. Evaluation orders were placed. The patient is given a continuous albuterol and Atrovent treatment. The patient is reevaluated and found to remain with significant work of breathing. The patient is placed on BiPAP. Multiple bedside assessments were performed to assess patient's responsiveness to BiPAP. An ABG is obtained and exhibits increase PCO2. Lab results exhibited elevated glucose level of 220, and otherwise labs are grossly unrevealing. Influenza screen was obtained as the patient had a history of cough and was found to have unstable vital signs on eval. Influenza screen is pending. The on-call hospitalist service was contacted. They agreed to admit the patient for further treatment and close monitoring. The ED admit order was placed. The patient was admitted in guarded condition. Critical Care Time: Yes Critical care time in (mins) excluding proc time.: 35 Critical care attestation.: Due to the critical nature of this patients presentation, which necessitated multiple bedside assessments, manipulation and supportive measures to prevent further life threatening deterioration, I would like to bill for a total of 35 minutes of critical care time. This was exclusive of any separately billable procedures. Critical Care Time: 35 min ED Disposition Clinical Impression: Acute hyperglycemia Acute respiratory failure Qualifiers: Respiratory failure complication: hypercapnia Qualified Code(s): J96.02 - Acute respiratory failure with hypercapnia Status asthmaticus Qualifiers: Asthma severity: severe Asthma persistence: persistent Qualified Code(s): J45.52 - Severe persistent asthma with status asthmaticus Disposition: OP ADMIT IP TO THIS HOSP Is pt being admited?: Yes Does the pt Need Aspirin: Yes Condition: Critical Referrals: PRIMARY CARE, [Primary Care Provider] - 3-5 Days Time of Disposition: 17:00
[2017-09-08] MEDS ORDERED: MAGNESIUM SULFATE 2GM/50ML 2 GM/50 ML BAG IV ONE (17:18)
[2017-09-08 19:43] LABS: Bacteria,Urine 1+ /HPF (Negative); Bilirubin,Urine NEG (Negative); Blood,Urine NEG (Negative); Color,Urine Yellow (Yellow); Mucus,Urine FEW /HPF; Nitrite,Urine NEG (Negative); Protein,Urine <15 mg/dL mg/dL (Negative); Urobilinogen,Urine < 2.0 mg/dL (<2.0); WBC,Urine < 1.0 /HPF (0.0-6.0)
--- NOTE | 2017-09-08 19:51 | History and Physical Report ---
History of Present Illness Chief complaint: Im short of breath, I cant breathe History of present illness: 61 YO Male with Asthma, HTN, DM presents to ED for evaluation. Pt states that he has experienced shortness of breath for the past 2 days with worsening symptoms over the past day. Pt states that his symptoms are not responsive to his breathing treatments. Pt acknowledges nonproductive cough, but denies fever , chills, chest pain, palpitations, NVD, syncope, hemoptysis, unilateral leg swelling, recent prolonged travel/immobilization, individual/family history of DVT/PE, trauma to the chest, exposure to known asthma triggers, or recent ill contacts. Pt seen and evaluated in ED and found to have Status asthmaticus complicated by acute hypoxemic respiratory failure. Pt placed on NNIPPV, and treated with multiple nebulizer treatments. Pt admitted to medical floor. Past History Past Medical History: diabetes, hypertension, other (asthma) Past Surgical History: hernia repair, Other (Back surgery) Social history: single. denies: smoking, alcohol abuse, prescription drug abuse Family history: CAD, hypertension Medications and Allergies Allergies Allergy/AdvReac Type Severity Reaction Status Date / Time seafood Allergy Shortness Uncoded 09/08/17 15:09 of Breath shrimp Allergy Shortness Uncoded 09/08/17 15:09 of Breath Home Medications Medication Instructions Recorded Confirmed Last Taken Type metFORMIN [Glucophage] 500 mg PO BID 07/02/14 09/08/17 10/18/14 History Aspirin EC [Aspirin Enteric Coated 325 mg PO DAILY tablet 10/28/14 09/08/17 Unknown Rx TAB] Insulin Glulisine [Apidra] 0 units SUB-Q ACHS units 10/28/14 09/08/17 Unknown Rx Albuterol *Only Ed* [Proventil 2.5 mg IH Q6HRT 30 Days nebu 06/25/17 09/08/17 Unknown Rx 0.5% NEBS] Arformoterol Nebu [Brovana Nebu] 15 mcg IH Q12HRT 30 Days ml 06/25/17 09/08/17 Unknown Rx Fluticasone/Salmeterol [Advair 1 puff IH BID #1 disk.w.dev 06/25/17 09/08/17 Unknown Rx Diskus 250-50 mcg] Montelukast [Singulair] 10 mg PO BID 30 Days tablet 06/25/17 09/08/17 Unknown Rx Tiotropium [Spiriva] 18 mcg IH QDAY 30 Days cap 06/25/17 09/08/17 Unknown Rx glipiZIDE [glipiZIDE XL] 5 mg PO QDAY #30 tab.er.24 06/25/17 09/08/17 Unknown Rx ALBUTEROL NEB's [Proventil 0.083% 2.5 mg IH TID PRN #30 neb 08/22/17 09/08/17 Unknown Rx NEBS] predniSONE [Deltasone] 20 mg PO QDAY 14 Days tab 08/22/17 09/08/17 Unknown Rx Review of Systems Constitutional: no weight loss, no weight gain, no fever, no chills Ears, nose, mouth and throat: no ear pain, no ear discharge, no tinnitis, no decreased hearing, no nose pain Cardiovascular: no chest pain, no orthopnea, no palpitations, no rapid/ irregular heart beat, no edema, no syncope Respiratory: cough, shortness of breath, wheezing, no cough with sputum, no excessive sputum, no hemoptysis Gastrointestinal: no abdominal pain, no nausea, no vomiting, no diarrhea, no constipation Genitourinary Male: no hematuria, no flank pain, no discharge, no urinary frequency, no urinary hesitancy Rectal: no pain, no incontinence, no bleeding Musculoskeletal: no neck stiffness, no neck pain, no shooting arm pain, no arm numbness/tingling, no low back pain Integumentary: no rash, no pruritis, no redness, no sores, no wounds Neurological: no transient paralysis, no paralysis, no weakness, no parathesias , no numbness, no tingling Psychiatric: no memory loss, no change in sleep habits, no sleep disturbances, no insomnia, no hypersomnia, no change in appetite Endocrine: no cold intolerance, no heat intolerance, no polyphagia, no excessive thirst, no polydipsia, no polyuria Hematologic/Lymphatic: no easy bruising, no easy bleeding Allergic/Immunologic: no urticaria, no allergic rhinitis, no wheezing Exam - Constitutional Vitals: Temp Pulse Resp BP Pulse Ox 97.9 F 118 H 20 144/87 97 09/08/17 15:09 09/08/17 19:45 09/08/17 19:45 09/08/17 19:45 09/08/17 19:45 General appearance: Present: mild distress - EENT Eyes: Present: PERRL ENT: hearing intact, clear oral mucosa - Neck Neck: Present: supple, normal ROM - Respiratory Respiratory effort: labored Respiratory: bilateral: diminished, wheezing - Cardiovascular Heart Sounds: Present: S1 & S2. Absent: rub, click - Extremities Extremities: pulses symmetrical, No edema Peripheral Pulses: within normal limits - Abdominal General gastrointestinal: Present: soft, non-tender, non-distended, normal bowel sounds Male genitourinary: Present: normal - Integumentary Integumentary: Present: clear, warm, dry - Musculoskeletal Musculoskeletal: gait normal, strength equal bilaterally - Psychiatric Psychiatric: appropriate mood/affect, intact judgment & insight - Neurologic Neurologic: CNII-XII intact, moves all extremities Results - Labs CBC & Chem 7: 09/08/17 16:00 09/08/17 16:00 Labs: Abnormal lab results 09/08/17 09/08/17 09/08/17 Range/Units 16:00 16:00 16:04 RBC 5.23 H (3.65-5.03) M/mm3 [place] % (Auto) 8.2 H (0.0-7.3) % Eos % (Auto) 9.6 H (0.0-4.3) % [place] # 0.9 H (0.0-0.8) K/mm3 Eos # 1.0 H (0.0-0.4) K/mm3 POC ABG pH (7.35-7.45) POC ABG pCO2 (35-45) POC ABG pO2 (80-105) Glucose 229 H (75-100) mg/dL Lactic Acid 2.50 H* (0.7-2.0) mmol/L Calcium 8.3 L (8.4-10.2) mg/dL 09/08/17 Range/Units 16:18 RBC (3.65-5.03) M/mm3 [place] % (Auto) (0.0-7.3) % Eos % (Auto) (0.0-4.3) % [place] # (0.0-0.8) K/mm3 Eos # (0.0-0.4) K/mm3 POC ABG pH 7.305 L (7.35-7.45) POC ABG pCO2 53.7 H (35-45) POC ABG pO2 124 H (80-105) Glucose (75-100) mg/dL Lactic Acid (0.7-2.0) mmol/L Calcium (8.4-10.2) mg/dL Assessment and Plan - Patient Problems (1) Acute respiratory failure with hypoxia Current Visit: No Status: Acute Plan to address problem: Supplemental oxygen, nebulizer therapy, NIPPV, supportive care. (2) Status asthmaticus Current Visit: Yes Status: Acute Qualifiers: Asthma severity: severe Asthma persistence: persistent Qualified Code(s) : J45.52 - Severe persistent asthma with status asthmaticus Plan to address problem: supplemental oxygen, nebulizer therapy, magnesium, IV steroid therapy. Chest X ray, supportive care. (3) Accelerated essential hypertension Current Visit: Yes Status: Acute Plan to address problem: Monitor BP q shift, IV hydralazine prn, continue medical management. (4) Diabetes Current Visit: Yes Status: Acute Plan to address problem: ADA diet, insulin, accu check (5) DVT prophylaxis Current Visit: No Status: Acute
[2017-09-08] MEDS ORDERED: MILK OF MAGNESIA PO PRN (19:52)
[2017-09-08] MEDS ORDERED: ZOFRAN IV PRN (19:52)
[2017-09-08] MEDS ORDERED: PROVENTIL IH PRN ×2 (19:52→19:54)
[2017-09-08] MEDS ORDERED: DULCOLAX PR PRN (19:52)
[2017-09-08] MEDS ORDERED: TYLENOL PO PRN (19:52)
[2017-09-08] MEDS ORDERED: BROVANA NEBU IH SCH (20:00)
--- NOTE | 2017-09-08 21:52 | XRay Report ---
FINAL REPORT EXAM: XR CHEST 1V AP HISTORY: dyspnea TECHNIQUE: AP portable view of the chest PRIORS: CXR 07/04/2017 FINDINGS: Lines, tubes, and devices: N/A Lungs and pleura: Trachea is normal in position. Lungs are clear of infiltrate, pleural effusion, vascular congestion, or pneumothorax. No change. Cardiomediastinal silhouette: Cardiac and mediastinal silhouettes are unremarkable. Other: Bony structures are intact. IMPRESSION: No acute cardiopulmonary process seen. No change.
[2017-09-08] MEDS ORDERED: NON-FORMULARY (Fluticasone/Salmeterol [Advair Diskus 250-50 Mcg] 1 PUFF) IH SCH (22:00)
[2017-09-08] MEDS ORDERED: PEPCID ONE (22:46)
[2017-09-08] MEDS: PEPCID PO SCH (22:53)
[2017-09-08] MEDS: SINGULAIR PO SCH (22:53)
[2017-09-09] MEDS: BROVANA NEBU IH SCH ×3 (07:53→20:05)
[2017-09-09] MEDS: PULMICORT IH SCH ×3 (07:53→20:05)
[2017-09-09] MEDS: PEPCID PO SCH ×2 (09:45→21:44)
--- NOTE | 2017-09-09 11:51 | Progress Note ---
Assessment and Plan Assessment and plan: Patient is a 61-year-old man with history of hypertension, type 2 diabetes mellitus, and asthma who presents to [facility] emergency department with shortness of breath failing home nebulizer treatments. Patient is taking to trigger was cold weather. Patient has been intubated for asthma in the past. He was put on BiPAP in the emergency department with hypoxia which improved his symptoms. Patient admits to taking his last dose of oral steroids prior to her arrival. He denies COPD/Smoking. Portable chest x-ray reported as no acute findings -Acute hypoxic respiratory failure: Continue to wean off oxygen, -Acute exacerbation of asthma: Treat with IV steroids, nebulizer treatments -SIRS, present on admission, noninfectious: Continue treat asthma exacerbation -Status asthmaticus treated with BiPAP, resolved, patient was close to being intubated -Uncontrolled type 2 diabetes mellitus with hyperglycemia due to steroids: Add sliding scale insulin, ADA diet -DVT/GI prophylaxis reviewed Full code Disposition: Hopefully discharge in 1-2 days History Interval history: Patient was seen and examined. Follow-up on current diagnosis of shortness of breath which is still present but improved. Overnight uneventful. Patient denies any chest pain, nausea/vomiting or severe headaches. Imaging, nursing note, chart, labs and old chart reviewed. Discussed with patient. Hospitalist Physical - Physical exam Narrative exam: GEN: WDWN, NAD, AWAKE, ALERT, ORIENTATED 3 HEENT: NCAT, EOMI, PERRL, OP Clear NECK: supple, no adenopathy, no thyromegaly, no JVD CVS/HEART: RRR, NORMAL S1S2, NO JVD, pulses present bilaterally CHEST/LUNGS: Bilateral rhonchi/wheezing Symmetrical chest expansion, good air entry bilaterally GI/Abdomen: soft, NTND, good bowel sounds, no guarding or rebound /Bladder: no suprapubic tenderness, no CVA or paraspinal tenderness EXT/Skin: no c/c/e, no obvious rash MSK: FROM x 4 Neuro: CN 2-12 grossly intact, no new focal deficits Psych: calm - Constitutional Vitals: Temp Pulse Resp BP Pulse Ox 98.4 F 88 20 114/73 100 09/09/17 07:33 09/09/17 08:05 09/09/17 08:05 09/09/17 07:33 09/09/17 07:55 Results - Labs CBC & Chem 7: 09/08/17 16:00 09/08/17 16:00 Labs: Laboratory Last Values WBC 10.6 K/mm3 (4.5-11.0) 09/08/17 16:00 RBC 5.23 M/mm3 (3.65-5.03) H 09/08/17 16:00 Hgb 14.5 gm/dl (11.8-15.2) 09/08/17 16:00 Hct 44.0 % (35.5-45.6) 09/08/17 16:00 MCV 84 fl (84-94) 09/08/17 16:00 MCH 28 pg (28-32) 09/08/17 16:00 MCHC 33 % (32-34) 09/08/17 16:00 RDW 14.2 % (13.2-15.2) 09/08/17 16:00 Plt Count 261 K/mm3 (140-440) 09/08/17 16:00 Lymph % (Auto) 30.2 % (13.4-35.0) 09/08/17 16:00 Evangeline % (Auto) 8.2 % (0.0-7.3) H 09/08/17 16:00 Eos % (Auto) 9.6 % (0.0-4.3) H 09/08/17 16:00 Baso % (Auto) 0.7 % (0.0-1.8) 09/08/17 16:00 Lymph # 3.2 K/mm3 (1.2-5.4) 09/08/17 16:00 Evangeline # 0.9 K/mm3 (0.0-0.8) H 09/08/17 16:00 Eos # 1.0 K/mm3 (0.0-0.4) H 09/08/17 16:00 Baso # 0.1 K/mm3 (0.0-0.1) 09/08/17 16:00 Seg Neutrophils % 51.3 % (40.0-70.0) 09/08/17 16:00 Seg Neutrophils # 5.4 K/mm3 (1.8-7.7) 09/08/17 16:00 POC ABG pH 7.305 (7.35-7.45) L 09/08/17 16:18 POC ABG pCO2 53.7 (35-45) H 09/08/17 16:18 POC ABG pO2 124 (80-105) H 09/08/17 16:18 POC ABG HCO3 26.7 09/08/17 16:18 POC ABG Total CO2 28 09/08/17 16:18 POC ABG O2 Sat 98 09/08/17 16:18 POC ABG Base Excess 0 09/08/17 16:18 FiO2 40 % 09/08/17 16:18 Sodium 138 mmol/L (137-145) 09/08/17 16:00 Potassium 3.9 mmol/L (3.6-5.0) 09/08/17 16:00 Chloride 98.2 mmol/L (98-107) 09/08/17 16:00 Carbon Dioxide 25 mmol/L (22-30) 09/08/17 16:00 Anion Gap 19 mmol/L 09/08/17 16:00 BUN 9 mg/dL (9-20) 09/08/17 16:00 Creatinine 0.8 mg/dL (0.8-1.5) 09/08/17 16:00 Estimated GFR > 60 ml/min 09/08/17 16:00 BUN/Creatinine Ratio 11 % 09/08/17 16:00 Glucose 229 mg/dL (75-100) H 09/08/17 16:00 Lactic Acid 1.80 mmol/L (0.7-2.0) 09/08/17 18:06 Calcium 8.3 mg/dL (8.4-10.2) L 09/08/17 16:00 Total Bilirubin 0.30 mg/dL (0.1-1.2) 09/08/17 16:00 AST 16 units/L (5-40) 09/08/17 16:00 ALT 21 units/L (7-56) 09/08/17 16:00 Alkaline Phosphatase 95 units/L (35-129) 09/08/17 16:00 NT-Pro-B Natriuret Pep 21.82 pg/mL (0-900) 09/08/17 16:00 Total Protein 6.5 g/dL (6.3-8.2) 09/08/17 16:00 Albumin 4.0 g/dL (3.9-5) 09/08/17 16:00 Albumin/Globulin Ratio 1.6 % 09/08/17 16:00 Urine Color Yellow (Yellow) 09/08/17 19: Urine Turbidity Clear (Clear) 09/08/17 19: Urine pH 5.0 (5.0-7.0) 09/08/17 19: Ur Specific [place] 1.018 (1.003-1.030) 09/08/17 19: Urine Protein <15 mg/dl mg/dL (Negative) 09/08/17: Urine Glucose (UA) 150 mg/dL (Negative) 09/08/17 19: Urine Ketones Neg mg/dL (Negative) 09/08/17: Urine Blood Neg (Negative) 09/08/17: Urine Nitrite Neg (Negative) 09/08/17: Urine Bilirubin Neg (Negative) 09/08/17: Urine Urobilinogen < 2.0 mg/dL (<2.0) 09/08/17 19: Ur Leukocyte Esterase Neg (Negative) 09/08/17 19: Urine WBC (Auto) < 1.0 /HPF (0.0-6.0) 09/08/17: Urine RBC (Auto) 3.0 /HPF (0.0-6.0) 09/08/17: Urine Bacteria (Auto) 1+ /HPF (Negative) 09/08/17 19: Urine Mucus Few /HPF 09/08/17 19:22
[2017-09-09] MEDS: SPIRIVA IH SCH (16:38)
[2017-09-09] MEDS: SINGULAIR PO SCH (21:44)
[2017-09-10 06:25] LABS: Hematocrit 42.4 % (35.5-45.6); Hemoglobin 13.8 gm/dl (11.8-15.2); Mean Corpuscular HGB Conc 32 % (32-34); Mean Corpuscular Hemoglobin 27 pg (28-32); Mean Corpuscular Volume 84 fl (84-94); Platelet Count 283 K/mm3 (140-440); Red Blood Count 5.07 M/mm3 (3.65-5.03); Red Cell Distribution Width 13.9 % (13.2-15.2)
[2017-09-10 06:43] LABS: BUN/Creatinine Ratio 24; Blood Urea Nitrogen 17 mg/dL (9-20); Calcium 8.7 mg/dL (8.4-10.2); Hemolysis Index 6
[2017-09-10] MEDS: PULMICORT IH SCH (08:03)
[2017-09-10] MEDS: BROVANA NEBU IH SCH (08:03)
[2017-09-10] MEDS: PEPCID PO SCH (09:07)
[2017-09-10 09:16] VITALS: BP 121/74
[2017-09-10] MEDS ORDERED: HEPARIN SUB-Q SCH (11:52)
--- NOTE | 2017-09-10 12:47 | Discharge Summary ---
Providers - Providers Date of Admission: 09/08/17 19:52 Date of discharge: 09/10/17 Attending physician: SREE CHERRY Primary care physician: RELL HERRERA Hospitalization Condition: Stable Hospital course: Patient is a 61-year-old man with history of hypertension, type 2 diabetes mellitus, and asthma who presents to [facility] emergency department with shortness of breath failing home nebulizer treatments. Patient is taking to trigger was cold weather. Patient has been intubated for asthma in the past. He was put on BiPAP in the emergency department with hypoxia which improved his symptoms. Patient admits to taking his last dose of oral steroids prior to her arrival. He denies COPD/Smoking. Portable chest x-ray reported as no acute findings -Acute hypoxic respiratory failure: Continue to wean off oxygen, -Acute exacerbation of asthma: Treat with IV steroids, nebulizer treatments -SIRS, present on admission, noninfectious: Continue treat asthma exacerbation -Status asthmaticus treated with BiPAP, resolved, patient was close to being intubated -Uncontrolled type 2 diabetes mellitus with hyperglycemia due to steroids: Add sliding scale insulin, ADA diet -DVT/GI prophylaxis reviewed Full code Disposition: Hopefully discharge He needs refills on his prednisone, Dr. Mayer, payloader machine operator has him on 30mg/ daily on steroids and he needs albuterol inhaler, he feels back to his baseline Disposition: DC-01 TO HOME OR SELFCARE Time spent for discharge: 35 minutes Core Measure Documentation - Palliative Care Palliative Care/ Comfort Measures: Not Applicable - Core Measures Any of the following diagnoses?: none - VTE Discharge Requirements Deep Vein Thrombosis/Pulmonary Embolism Present on Admission: No Has pt received <5 days of overlap therapy or INR<2.0: No Anticoagulant overlap therapy prescribed at discharge: No Contraindication No Overlap Therapy order at DC: Not Indicated Exam - Physical Exam Narrative exam: GEN: WDWN, NAD, AWAKE, ALERT, ORIENTATED 3 HEENT: NCAT, EOMI, PERRL, OP Clear NECK: supple, no adenopathy, no thyromegaly, no JVD CVS/HEART: RRR, NORMAL S1S2, NO JVD, pulses present bilaterally CHEST/LUNGS: Bilateral rhonchi/wheezing much better, Symmetrical chest expansion , good air entry bilaterally GI/Abdomen: soft, NTND, good bowel sounds, no guarding or rebound /Bladder: no suprapubic tenderness, no CVA or paraspinal tenderness EXT/Skin: no c/c/e, no obvious rash MSK: FROM x 4 Neuro: CN 2-12 grossly intact, no new focal deficits Psych: calm - Constitutional Vitals: Temp Pulse Resp BP Pulse Ox 97.5 F L 92 H 18 121/74 96 09/10/17 07:35 09/10/17 07:35 09/10/17 07:35 09/10/17 07:35 09/10/17 07:35 Plan Activity: other (no strenous activity until cleared by pcp) Diet: low salt, diabetic Special Instructions: record blood sugar diary (3 times a day) Follow up with: PRIMARY CAREMD [Referring] - 3-5 Days KORY MAYER MD [Staff Physician] - 7 Days Prescriptions: ALBUTEROL Inhaler [ProAir HFA Inhaler] 2 puff IH QID PRN #1 inhalation PRN Reason: Shortness Of Breath predniSONE [Deltasone] 1 dose PO DAILY 30 Days #1 mo
[2017-09-10] MEDS: SPIRIVA IH SCH (14:49)
== END 2017-09-10 16:45 | disposition home or self-care (01) | DRG 189 ==
LOC: ED 15:05 → 3A 19:52
PROVIDERS: ADMIT Internal Medicine; ATTEND Internal Medicine
PROC: 4A033R1 Measurement of Arterial Saturation, Peripheral, Percutaneous Approach (ICD-10-PCS; principal; 2017-09-08)
PROC: 5A09357 Assistance with Respiratory Ventilation, Less than 24 Consecutive Hours, Continuous Positive Airway Pressure (ICD-10-PCS; 2017-09-10)
DX: J96.01 Acute respiratory failure with hypoxia (principal); J45.902 Unspecified asthma with status asthmaticus; R65.10 Systemic inflammatory response syndrome (SIRS) of non-infectious origin without acute organ dysfunction; Z91.013 Allergy to seafood; I10 Essential (primary) hypertension; Z79.4 Long term (current) use of insulin; E11.65 Type 2 diabetes mellitus with hyperglycemia; Z82.49 Family history of ischemic heart disease and other diseases of the circulatory system; T38.0X5A Adverse effect of glucocorticoids and synthetic analogues, initial encounter
CPT/HCPCS: 36415; 71045; 80048; 80053; 81001; 82140; 82803; 83880; 85025; 85027; 87400; 94640; 94760; 96374; 96375; J1644; J2920; J3475; J7030

== ENCOUNTER 2018-08-15 08:51 | Emergency (ER) | payer MEDICARE, OTHER ==
--- NOTE | 2018-08-15 09:47 | Emergency Department Report ---
ED General Adult HPI - General Chief complaint: Skin Rash Stated complaint: RASH Time Seen by Provider: 08/15/18 09:25 Source: patient Mode of arrival: Ambulatory Limitations: No Limitations - History of Present Illness Initial comments: Patient presents to the emergency department with a chief complaint of a rash that started approximately 2 weeks ago at a family reunion. Patient states that the rash looks like was an IV was initially getting better with calamine lotion and alcohol but has since started to spread again. Patient denies fever, or any drainage from the rash. -: Sudden Severity scale (0 -10): 0 Quality: burning Consistency: constant Improves with: none Worsens with: none Associated Symptoms: denies other symptoms Treatments Prior to Arrival: none - Related Data Home Medications Medication Instructions Recorded Confirmed Last Taken metFORMIN [Glucophage] 500 mg PO BID 07/02/14 09/08/17 10/18/14 Previous Rx's Medication Instructions Recorded Last Taken Type Aspirin EC [Aspirin Enteric Coated 325 mg PO DAILY tablet 10/28/14 Unknown Rx TAB] Insulin Glulisine [Apidra] 0 units SUB-Q ACHS units 10/28/14 Unknown Rx Albuterol *Only Ed* [Proventil 2.5 mg IH Q6HRT 30 Days nebu 06/25/17 Unknown Rx 0.5% NEBS] Arformoterol Nebu [Brovana Nebu] 15 mcg IH Q12HRT 30 Days ml 06/25/17 Unknown Rx Fluticasone/Salmeterol [Advair 1 puff IH BID #1 disk.w.dev 06/25/17 Unknown Rx Diskus 250-50 mcg] Montelukast [Singulair] 10 mg PO BID 30 Days tablet 06/25/17 Unknown Rx Tiotropium [Spiriva] 18 mcg IH QDAY 30 Days cap 06/25/17 Unknown Rx glipiZIDE [glipiZIDE XL] 5 mg PO QDAY #30 tab.er.24 06/25/17 Unknown Rx ALBUTEROL NEB's [Proventil 0.083% 2.5 mg IH TID PRN #30 neb 08/22/17 Unknown Rx NEBS] ALBUTEROL Inhaler (OR & NICU) 2 puff IH QID PRN #1 inhalation 09/10/17 Unknown Rx [ProAir HFA Inhaler] predniSONE [Deltasone] 1 dose PO DAILY 30 Days #1 mo 09/10/17 Unknown Rx Hydrocortisone 2.5% [Hytone 2.5% 1 applicatio TP TID #1 tube 08/15/18 Unknown Rx CREAM] Prednisone [predniSONE 10 mg 10 mg PO .TAPER #1 tab.ds.pk 08/15/18 Unknown Rx (6-Day Pack, 21 Tabs)] Allergies Allergy/AdvReac Type Severity Reaction Status Date / Time seafood Allergy Shortness Uncoded 09/08/17 15:09 of Breath shrimp Allergy Shortness Uncoded 09/08/17 15:09 of Breath ED Review of Systems ROS: Stated complaint: RASH Other details as noted in HPI Comment: All other systems reviewed and negative Constitutional: denies: chills, fever Eyes: denies: eye pain, eye discharge, vision change ENT: denies: ear pain, throat pain Respiratory: denies: cough, shortness of breath, wheezing Cardiovascular: denies: chest pain, palpitations Endocrine: no symptoms reported Gastrointestinal: denies: abdominal pain, nausea, diarrhea Genitourinary: denies: urgency, dysuria Musculoskeletal: denies: back pain, joint swelling, arthralgia Skin: rash. denies: lesions Neurological: denies: headache, weakness, paresthesias Psychiatric: denies: anxiety, depression Hematological/Lymphatic: denies: easy bleeding, easy bruising ED Past Medical Hx - Past Medical History Hx Hypertension: Yes Hx CVA: No Hx Heart Attack/AMI: No Hx Congestive Heart Failure: No Hx Diabetes: Yes Hx Deep Vein Thrombosis: No Hx Pulmonary Embolism: No Hx GERD: No Hx Liver Disease: No Hx Renal Disease: No Hx Sickle Cell Disease: No Hx Arthritis: No Hx Headaches / Migraines: No Hx Seizures: No Hx Kidney Stones: No Hx Psychiatric Treatment: No Hx Asthma: Yes (intubation) Hx COPD: No Hx Tuberculosis: No Hx Dementia: No Hx HIV: No Additional medical history: intabated and bi pap - Surgical History Hx Coronary Stent: No Hx Open Heart Surgery: No Hx Pacemaker: No Hx Internal Defibrillator: No Hx Cholecystectomy: No Hx Appendectomy: No Hx Breast Surgery: No Additional Surgical History: back surgery x4. Hernia repair 04/20 - Social History Smoking Status: Never Smoker Substance Use Type: None - Medications Home Medications: Home Medications Medication Instructions Recorded Confirmed Last Taken Type metFORMIN [Glucophage] 500 mg PO BID 07/02/14 09/08/17 10/18/14 History Aspirin EC [Aspirin Enteric Coated 325 mg PO DAILY tablet 10/28/14 09/08/17 Unknown Rx TAB] Insulin Glulisine [Apidra] 0 units SUB-Q ACHS units 10/28/14 09/08/17 Unknown Rx Albuterol *Only Ed* [Proventil 2.5 mg IH Q6HRT 30 Days nebu 06/25/17 09/08/17 Unknown Rx 0.5% NEBS] Arformoterol Nebu [Brovana Nebu] 15 mcg IH Q12HRT 30 Days ml 06/25/17 09/08/17 Unknown Rx Fluticasone/Salmeterol [Advair 1 puff IH BID #1 disk.w.dev 06/25/17 09/08/17 Unknown Rx Diskus 250-50 mcg] Montelukast [Singulair] 10 mg PO BID 30 Days tablet 06/25/17 09/08/17 Unknown Rx Tiotropium [Spiriva] 18 mcg IH QDAY 30 Days cap 06/25/17 09/08/17 Unknown Rx glipiZIDE [glipiZIDE XL] 5 mg PO QDAY #30 tab.er.24 06/25/17 09/08/17 Unknown Rx ALBUTEROL NEB's [Proventil 0.083% 2.5 mg IH TID PRN #30 neb 08/22/17 09/08/17 Unknown Rx NEBS] ALBUTEROL Inhaler (OR & NICU) 2 puff IH QID PRN #1 inhalation 09/10/17 Unknown Rx [ProAir HFA Inhaler] predniSONE [Deltasone] 1 dose PO DAILY 30 Days #1 mo 09/10/17 Unknown Rx Hydrocortisone 2.5% [Hytone 2.5% 1 applicatio TP TID #1 tube 08/15/18 Unknown Rx CREAM] Prednisone [predniSONE 10 mg 10 mg PO .TAPER #1 tab.ds.pk 08/15/18 Unknown Rx (6-Day Pack, 21 Tabs)] ED Physical Exam - General Limitations: No Limitations General appearance: alert, in no apparent distress - Head Head exam: Present: atraumatic, normocephalic - Eye Eye exam: Present: normal appearance, PERRL, EOMI - ENT ENT exam: Present: normal exam - Neurological Exam Neurological exam: Present: alert, altered, oriented X3, CN II-XII intact. Absent: motor sensory deficit - Skin Skin exam: Present: other (S consistent with contact dermatitis of the extremities) ED Course Vital Signs 08/15/18 08:58 Temperature 97.7 F Pulse Rate 76 Respiratory 18 Rate Blood Pressure 139/83 O2 Sat by Pulse 97 Oximetry ED Medical Decision Making - Medical Decision Making Discussed plan of care with patient Critical care attestation.: If time is entered above; I have spent that time in minutes in the direct care of this critically ill patient, excluding procedure time. ED Disposition Clinical Impression: Contact dermatitis Disposition: - TO HOME OR SELFCARE Is pt being admited?: No Does the pt Need Aspirin: No Condition: Stable Instructions: Contact Dermatitis (ED) Additional Instructions: Return if worse Prescriptions: Hydrocortisone 2.5% [Hytone 2.5% CREAM] 1 applicatio TP TID #1 tube Prednisone [predniSONE 10 mg (6-Day Pack, 21 Tabs)] 10 mg PO .TAPER #1 tab.ds.pk Referrals: PRIMARY CARE, [Primary Care Provider] - 3-5 Days [facility] [Provider Group] - 3-5 Days [facility] [Provider Group] - 3-5 Days Time of Disposition: 09:47
[2018-08-15 10:04] VITALS: BP 132/65
== END 2018-08-15 10:00 | disposition home or self-care (01) ==
LOC: ED 08:51
DX: L25.9 Unspecified contact dermatitis, unspecified cause (principal); I10 Essential (primary) hypertension; E11.9 Type 2 diabetes mellitus without complications; J45.909 Unspecified asthma, uncomplicated; Z79.82 Long term (current) use of aspirin; Z79.4 Long term (current) use of insulin; Z91.013 Allergy to seafood
CPT/HCPCS: 99282

== ENCOUNTER 2018-09-01 16:53 | Emergency (ER) | payer MEDICARE, OTHER ==
[2018-09-01 17:05] VITALS: BP 129/79
[2018-09-01] MEDS ORDERED: PEPCID PO ONE (18:23)
[2018-09-01] MEDS ORDERED: KEFLEX PO ONE (18:23)
[2018-09-01] MEDS ORDERED: DECADRON IM ONE (18:23)
[2018-09-01] MEDS ORDERED: SOLU-Medrol IM ONE (18:23)
--- NOTE | 2018-09-01 18:28 | Emergency Department Report ---
ED Rash HPI - HPI Chief Complaint: Skin Rash Stated Complaint: rash Time Seen by Provider: 09/01/18 18:17 Duration: 5 Days Location: Lower Extremities Suspected Cause: Unknown Rash Symptoms: Yes Itching, No Facial Swelling, No Tongue/Oral Swelling, No Breathing Difficulties, No Choking Sensation, No Wheezing/Dyspnea, No Peeling, No Blistering, No Fever, No Lightheaded, No Malaise, No Myalgias Severity: moderate Other History: 62 yo white male who returns to ER with worsening rash. topical steroids have made worse. ED Review of Systems ROS: Stated complaint: RASH SPREADED/PAIN Other details as noted in HPI Comment: no systemic symptoms Constitutional: denies: see HPI ENT: denies: throat pain Respiratory: denies: cough Endocrine: denies: excessive sweating Gastrointestinal: denies: vomiting Genitourinary: denies: urgency Musculoskeletal: denies: back pain Skin: as per HPI, rash, lesions Neurological: denies: headache Psychiatric: denies: anxiety Hematological/Lymphatic: denies: easy bleeding ED Past Medical Hx - Past Medical History Hx Hypertension: Yes Hx CVA: No Hx Heart Attack/AMI: No Hx Congestive Heart Failure: No Hx Diabetes: Yes Hx Deep Vein Thrombosis: No Hx Pulmonary Embolism: No Hx GERD: No Hx Liver Disease: No Hx Renal Disease: No Hx Sickle Cell Disease: No Hx Arthritis: No Hx Headaches / Migraines: No Hx Seizures: No Hx Kidney Stones: No Hx Psychiatric Treatment: No Hx Asthma: Yes (intubation) Hx COPD: No Hx Tuberculosis: No Hx Dementia: No Hx HIV: No Additional medical history: intabated and bi pap - Surgical History Hx Coronary Stent: No Hx Open Heart Surgery: No Hx Pacemaker: No Hx Internal Defibrillator: No Hx Cholecystectomy: No Hx Appendectomy: No Hx Breast Surgery: No Additional Surgical History: back surgery x4. Hernia repair 04/20 - Family History Family history: no significant - Social History Smoking Status: Never Smoker Substance Use Type: Prescribed - Medications Home Medications: Home Medications Medication Instructions Recorded Confirmed Last Taken Type RX: metFORMIN [Glucophage] 500 mg PO BID 07/02/14 09/08/17 10/18/14 History RX: Aspirin EC [Aspirin Enteric 325 mg PO DAILY tablet 10/28/14 09/08/17 Unknown Rx Coated TAB] RX: Insulin Glulisine [Apidra] 0 units SUB-Q ACHS units 10/28/14 09/08/17 Unknown Rx RX: Arformoterol Nebu [Brovana 15 mcg IH Q12HRT 30 Days ml 06/25/17 09/08/17 Unknown Rx Nebu] RX: Fluticasone/Salmeterol [Advair 1 puff IH BID #1 disk.w.dev 06/25/17 09/08/17 Unknown Rx Diskus 250-50 mcg] RX: Montelukast [Singulair] 10 mg PO BID 30 Days tablet 06/25/17 09/08/17 Unknown Rx RX: Tiotropium [Spiriva] 18 mcg IH QDAY 30 Days cap 06/25/17 09/08/17 Unknown Rx RX: glipiZIDE [glipiZIDE XL] 5 mg PO QDAY #30 tab.er.24 06/25/17 09/08/17 Unknown Rx RX: ALBUTEROL NEB's [Proventil 2.5 mg IH TID PRN #30 neb 08/22/17 09/08/17 Unknown Rx 0.083% NEBS] RX: ALBUTEROL Inhaler (OR & NICU) 2 puff IH QID PRN #1 inhalation 09/10/17 Unknown Rx [ProAir HFA Inhaler] RX: predniSONE [Deltasone] 1 dose PO DAILY 30 Days #1 mo 09/10/17 Unknown Rx Famotidine [Pepcid] 40 mg PO DAILY #10 tablet 09/01/18 Unknown Rx cephALEXin [Keflex] 500 mg PO Q12HR #14 cap 09/01/18 Unknown Rx hydrOXYzine PAMOATE [Vistaril] 25 mg PO Q8H PRN #12 capsule 09/01/18 Unknown Rx Rash Exam - Exam General: Vital signs noted. No distress. Alert and acting appropriately. HEENT: No Periorbital Edema, No Conjuctival Injection, No Chemosis, No Perioral Edema, No Tongue Edema, No Uvular Edema, No Compromised Airway, No Drooling Lungs: Yes Good Air Exchange, No Wheezes, No Ronchi, No Stridor, No Cough, No Labored Respirations, No Retractions, No Use of Accessory Muscles, No Other Abnormal Lung Sounds Heart: Yes Regular, No Murmur Skin: Yes Excoriations, Yes Erythema, Yes Encrustations, No Urticarial Rash, No Maculopapular Rash, No Morbilliform rash, No Bulla(e), No Weeping, No Tenderness, No Edema Other: Positive: Abdomen Normal, Neurologic Normal, Musculoskeletal Normal ED Course Vital Signs 09/01/18 17:00 Temperature 97.5 F L Pulse Rate 92 H Respiratory 16 Rate Blood Pressure 129/79 O2 Sat by Pulse 97 Oximetry ED Medical Decision Making - Medical Decision Making FOLLOW UP WILL TREAT FOR SECONDARY INFECTION DISCUSSED WITH PT THAT HE NEEDS TO SEE DERM FOR FOLLOW UP - Differential Diagnosis rash Critical care attestation.: If time is entered above; I have spent that time in minutes in the direct care of this critically ill patient, excluding procedure time. ED Disposition Clinical Impression: Rash, Secondary infection Disposition: TO HOME OR SELFCARE Is pt being admited?: No Does the pt Need Aspirin: No Condition: Stable Instructions: Acute Rash (ED) Additional Instructions: STOP USING CREAM WASH SKIN WITH SOAP AND WATER NO ALCOHOL NO PEROXIDE HYDRATE YOUR SKIN- MAKE SURE NOT DRY COOL MIST HUMIDIFIER IN HOME HYDRATE WELL WITH WATER YOUR BLOOD SUGAR MAY BE SLIGHTLY HIGHER OVER NEXT FEW DAYS TREAT PER ROUTINE DIABETIC DIET ACTIVITY TOLERATED MEDS ORDERED TONIGHT FOLLOW UP WITH DERM IF THIS PERSISTS THEY CAN LOOK UNDER A MICROSCOPE AND DETERMINE EXACT CAUSE Prescriptions: cephALEXin [Keflex] 500 mg PO Q12HR #14 cap Famotidine [Pepcid] 40 mg PO DAILY #10 tablet hydrOXYzine PAMOATE [Vistaril] 25 mg PO Q8H PRN #12 capsule PRN Reason: Itching Referrals: SATINDER BROTHERS MD [Referring] - 3-5 Days Time of Disposition: 18:24
[2018-09-01] MEDS ORDERED: VISTARIL IM ONE (19:00)
== END 2018-09-01 19:25 | disposition home or self-care (01) ==
LOC: ED 16:53
DX: B99.9 Unspecified infectious disease (principal); I10 Essential (primary) hypertension; E11.9 Type 2 diabetes mellitus without complications; J45.909 Unspecified asthma, uncomplicated; Z91.013 Allergy to seafood
CPT/HCPCS: 96372; 99282; J1100; J2920; J3410

== ENCOUNTER 2018-10-27 16:36 | Emergency (ER) | payer OTHER ==
[2018-10-27] MEDS ORDERED: DELTASONE PO STA (16:58)
[2018-10-27] MEDS ORDERED: PROVENTIL IH STA (16:58)
--- NOTE | 2018-10-27 17:02 | Emergency Department Report ---
Blank Doc - Documentation Documentation: 62 y/o female presents to ED c/o of asthma flare for the last couple days and home medications not helping. also rash to left lower leg not clearing with use of prescribed creams.
[2018-10-27] MEDS ORDERED: ATROVENT IH ONE (17:08)
[2018-10-27] MEDS ORDERED: SOLU-Medrol IV ONE (17:08)
[2018-10-27] MEDS ORDERED: PROVENTIL IH ONE (17:08)
[2018-10-27 17:29] LABS: Basophils # (Auto) 0.1 K/mm3 (0.0-0.1); Basophils % (Auto) 0.5 % (0.0-1.8); Eosinophils # (Auto) 0.6 K/mm3 (0.0-0.4); Eosinophils % (Auto) 6.5 % (0.0-4.3); Hematocrit 43.3 % (35.5-45.6); Hemoglobin 14.7 gm/dl (11.8-15.2); Lymphocytes # (Auto) 2.2 K/mm3 (1.2-5.4); Lymphocytes % (Auto) 22.6 % (13.4-35.0); Mean Corpuscular HGB Conc 34 % (32-34); Mean Corpuscular Volume 82 fl (84-94); Monocytes # (Auto) 0.6 K/mm3 (0.0-0.8); Monocytes % (Auto) 6.5 % (0.0-7.3); Platelet Count 281 K/mm3 (140-440); Red Blood Count 5.31 M/mm3 (3.65-5.03); Red Cell Distribution Width 13.5 % (13.2-15.2)
[2018-10-27 17:52] LABS: BUN/Creatinine Ratio 16; Blood Urea Nitrogen 13 mg/dL (9-20); Calcium 8.5 mg/dL (8.4-10.2); Hemolysis Index 21
[2018-10-27] MEDS ORDERED: NACL 0.9% 1000 ML 1,000 ML IV ONE (17:54)
[2018-10-27] MEDS ORDERED: HumuLIN R IV ONE (17:54)
--- NOTE | 2018-10-27 18:01 | Emergency Department Report ---
<BRITTNI CRUM - Last Filed: 10/27/18 17:58> ED Shortness of Breath HPI - General Chief Complaint: Adult Asthma Stated Complaint: ASTHMA/RASH Time Seen by Provider: 10/27/18 16:57 Source: patient Mode of arrival: Ambulatory Limitations: No Limitations - History of Present Illness Initial Comments: Patient is a 62-year-old black male who is complaining of shortness of breath. Patient has COPD and has been using his nebulizer machine at home. Patient takes approximate 5 mg of albuterol several times daily. Patient states that his symptoms started worsening about 2 days ago when he ran out of his prednisone. Patient takes prednisone daily. Patient has a dry cough and denies fevers chills nausea vomiting diarrhea. Patient also has continued to have a rash on his anterior shins bilaterally. Patient states that the prednisone therapy is not helping the rash. - Related Data Home Medications Medication Instructions Recorded Confirmed Last Taken metFORMIN [Glucophage] 500 mg PO BID 07/02/14 09/08/17 10/18/14 Previous Rx's Medication Instructions Recorded Last Taken Type Aspirin EC [Aspirin Enteric Coated 325 mg PO DAILY tablet 10/28/14 Unknown Rx TAB] Insulin Glulisine [Apidra] 0 units SUB-Q ACHS units 10/28/14 Unknown Rx Arformoterol Nebu [Brovana Nebu] 15 mcg IH Q12HRT 30 Days ml 06/25/17 Unknown Rx Fluticasone/Salmeterol [Advair 1 puff IH BID #1 disk.w.dev 06/25/17 Unknown Rx Diskus 250-50 mcg] Montelukast [Singulair] 10 mg PO BID 30 Days tablet 06/25/17 Unknown Rx Tiotropium [Spiriva] 18 mcg IH QDAY 30 Days cap 06/25/17 Unknown Rx glipiZIDE [glipiZIDE XL] 5 mg PO QDAY #30 tab.er.24 06/25/17 Unknown Rx ALBUTEROL NEB's [Proventil 0.083% 2.5 mg IH TID PRN #30 neb 08/22/17 Unknown Rx NEBS] ALBUTEROL Inhaler (OR & NICU) 2 puff IH QID PRN #1 inhalation 09/10/17 Unknown Rx [ProAir HFA Inhaler] predniSONE [Deltasone] 1 dose PO DAILY 30 Days #1 mo 09/10/17 Unknown Rx Famotidine [Pepcid] 40 mg PO DAILY #10 tablet 09/01/18 Unknown Rx cephALEXin [Keflex] 500 mg PO Q12HR #14 cap 09/01/18 Unknown Rx hydrOXYzine PAMOATE [Vistaril] 25 mg PO Q8H PRN #12 capsule 09/01/18 Unknown Rx predniSONE [Deltasone] 20 mg PO QDAY #14 tab 10/27/18 Unknown Rx Allergies Allergy/AdvReac Type Severity Reaction Status Date / Time seafood Allergy Shortness Uncoded 10/27/18 16:37 of Breath shrimp Allergy Shortness Uncoded 10/27/18 16:37 of Breath ED Review of Systems Comment: All other systems reviewed and negative ED Past Medical Hx - Past Medical History Hx Hypertension: Yes Hx CVA: No Hx Heart Attack/AMI: No Hx Congestive Heart Failure: No Hx Diabetes: Yes Hx Deep Vein Thrombosis: No Hx Pulmonary Embolism: No Hx GERD: No Hx Liver Disease: No Hx Renal Disease: No Hx Sickle Cell Disease: No Hx Arthritis: No Hx Headaches / Migraines: No Hx Seizures: No Hx Kidney Stones: No Hx Psychiatric Treatment: No Hx Asthma: Yes (intubation) Hx COPD: No Hx Tuberculosis: No Hx Dementia: No Hx HIV: No Additional medical history: intabated and bi pap - Surgical History Hx Coronary Stent: No Hx Open Heart Surgery: No Hx Pacemaker: No Hx Internal Defibrillator: No Hx Cholecystectomy: No Hx Appendectomy: No Hx Breast Surgery: No Additional Surgical History: back surgery x4. Hernia repair 04/20 - Social History Smoking Status: Never Smoker Substance Use Type: None - Medications Home Medications: Home Medications Medication Instructions Recorded Confirmed Last Taken Type metFORMIN [Glucophage] 500 mg PO BID 07/02/14 09/08/17 10/18/14 History Aspirin EC [Aspirin Enteric Coated 325 mg PO DAILY tablet 10/28/14 09/08/17 Unknown Rx TAB] Insulin Glulisine [Apidra] 0 units SUB-Q ACHS units 10/28/14 09/08/17 Unknown Rx Arformoterol Nebu [Brovana Nebu] 15 mcg IH Q12HRT 30 Days ml 06/25/17 09/08/17 Unknown Rx Fluticasone/Salmeterol [Advair 1 puff IH BID #1 disk.w.dev 06/25/17 09/08/17 Unknown Rx Diskus 250-50 mcg] Montelukast [Singulair] 10 mg PO BID 30 Days tablet 06/25/17 09/08/17 Unknown Rx Tiotropium [Spiriva] 18 mcg IH QDAY 30 Days cap 06/25/17 09/08/17 Unknown Rx glipiZIDE [glipiZIDE XL] 5 mg PO QDAY #30 tab.er.24 06/25/17 09/08/17 Unknown Rx ALBUTEROL NEB's [Proventil 0.083% 2.5 mg IH TID PRN #30 neb 08/22/17 09/08/17 Unknown Rx NEBS] ALBUTEROL Inhaler (OR & NICU) 2 puff IH QID PRN #1 inhalation 09/10/17 Unknown Rx [ProAir HFA Inhaler] predniSONE [Deltasone] 1 dose PO DAILY 30 Days #1 mo 09/10/17 Unknown Rx Famotidine [Pepcid] 40 mg PO DAILY #10 tablet 09/01/18 Unknown Rx cephALEXin [Keflex] 500 mg PO Q12HR #14 cap 09/01/18 Unknown Rx hydrOXYzine PAMOATE [Vistaril] 25 mg PO Q8H PRN #12 capsule 09/01/18 Unknown Rx predniSONE [Deltasone] 20 mg PO QDAY #14 tab 10/27/18 Unknown Rx ED Physical Exam - General Limitations: No Limitations General appearance: alert, in no apparent distress - Head Head exam: Present: atraumatic, normocephalic - Eye Eye exam: Present: normal appearance - ENT ENT exam: Present: mucous membranes moist - Neck Neck exam: Present: normal inspection - Respiratory Respiratory exam: Present: wheezes. Absent: respiratory distress, rales, rhonchi, accessory muscle use - Cardiovascular Cardiovascular Exam: Present: regular rate, normal rhythm. Absent: systolic murmur, diastolic murmur, rubs, gallop - GI/Abdominal GI/Abdominal exam: Present: soft, normal bowel sounds. Absent: distended, tenderness, guarding, rebound - Rectal Rectal exam: Present: deferred - Extremities Exam Extremities exam: Present: normal inspection - Back Exam Back exam: Present: normal inspection - Neurological Exam Neurological exam: Present: alert, oriented X3 - Psychiatric Psychiatric exam: Present: normal affect, normal mood - Skin Skin exam: Present: warm, dry, intact, normal color, rash (patient with a erythematous patchy rash on the anterior shins.) ED Course - Reevaluation(s) Reevaluation #1: 10/27/18 18:00 Patient receiving albuterol Atrovent treatment. Patient given a dose of IV steroids. Patient's blood sugar is elevated. Patient is a insulin-dependent diabetic as well. Patient given 5 mg of IV insulin as well as a liter of IV fluids. Patient will be reassessed. ED Medical Decision Making - Lab Data Result diagrams: 10/27/18 17:22 10/27/18 17:22 ED Disposition Clinical Impression: COPD (chronic obstructive pulmonary disease), Dermatitis Disposition: - TO HOME OR SELFCARE Condition: Stable Instructions: Chronic Obstructive Pulmonary Disease (ED) Additional Instructions: Please follow up to her doctors to get your refill of your prednisone 20 mg as we discussed. Prescription for a 2 week supply has been provided syllogistic and continue your normal home dosage Prescriptions: predniSONE [Deltasone] 20 mg PO QDAY #14 tab Referrals: BELLA HERNADEZ MD [Staff Physician] - 3-5 Days CINTHYA CAMPOS MD [Staff Physician] - 3-5 Days WAYNE HUMPHREY PA [Referring] - 3-5 Days <JULES HARRELL - Last Filed: 10/27/18 19:19> ED Review of Systems ROS: Stated complaint: ASTHMA/RASH Other details as noted in HPI ED Course Vital Signs 10/27/18 10/27/18 10/27/18 16:57 17:15 17:32 Temperature 97.4 F L Pulse Rate 112 H Pulse Rate [ 115 H 120 H Bilateral Upper Lobe] Respiratory 16 Rate Respiratory 20 20 Rate [Bilateral Upper Lobe] Blood Pressure 136/80 [Left] O2 Sat by Pulse 95 Oximetry ED Medical Decision Making - Lab Data Result diagrams: 10/27/18 17:22 10/27/18 17:22 - Medical Decision Making 62-year-old male COPD, asthma exacerbation, ran out of his prednisone was treated with sterile it's and along albuterol nebulizer treatment. Reports a significant improvement in his breathing. Plan is to follow with primary care for medications refill. Follow-up with dermatology for reevaluation of his leg. If he isn't as he's been taking oral sterilizing utilizing various creams with no improvement. He does understand the need for follow-up for definitive management. Critical care attestation.: If time is entered above; I have spent that time in minutes in the direct care of this critically ill patient, excluding procedure time. ED Disposition Is pt being admited?: No Does the pt Need Aspirin: No
[2018-10-27 19:35] VITALS: BP 141/72
== END 2018-10-27 19:20 | disposition home or self-care (01) ==
LOC: ED 16:36
DX: J44.9 Chronic obstructive pulmonary disease, unspecified (principal); L30.9 Dermatitis, unspecified; I10 Essential (primary) hypertension; E11.9 Type 2 diabetes mellitus without complications; J45.909 Unspecified asthma, uncomplicated; Z79.899 Other long term (current) drug therapy; Z91.013 Allergy to seafood
CPT/HCPCS: 36415; 80048; 82962; 85025; 94640; 96374; 96375; 99283; J2930; J7030; J1815

== ENCOUNTER 2018-11-02 21:27 | Emergency (ER) | payer SELFPAY | END 2018-11-03 17:46 | disposition left against medical advice (07) | LOC: ED 21:27 | DX: R06.00 Dyspnea, unspecified (principal); Z53.21 Procedure and treatment not carried out due to patient leaving prior to being seen by health care provider ==

== ENCOUNTER 2018-11-19 20:07 | Inpatient (IN) | payer MEDICARE, OTHER ==
[2018-11-19] MEDS ORDERED: PROVENTIL IH ONE ×2 (20:13→21:16)
[2018-11-19] MEDS ORDERED: ATROVENT IH ONE (20:13)
[2018-11-19] MEDS ORDERED: DECADRON IM ONE (20:15)
[2018-11-19] MEDS ORDERED: MAGNESIUM SULFATE 2GM/50ML 2 GM/50 ML BAG IV ONE (20:26)
[2018-11-19] MEDS ORDERED: SOLU-Medrol IV ONE (20:26)
[2018-11-19] MEDS ORDERED: CATAPRES PO ONE (20:27)
[2018-11-19 20:51] LABS: Basophils % (Auto) 0.4 % (0.0-1.8); Eosinophils # (Auto) 0.6 K/mm3 (0.0-0.4); Eosinophils % (Auto) 6.1 % (0.0-4.3); Hematocrit 44.7 % (35.5-45.6); Hemoglobin 14.7 gm/dl (11.8-15.2); Lymphocytes # (Auto) 1.8 K/mm3 (1.2-5.4); Lymphocytes % (Auto) 16.6 % (13.4-35.0); Mean Corpuscular HGB Conc 33 % (32-34); Mean Corpuscular Volume 84 fl (84-94); Monocytes # (Auto) 0.7 K/mm3 (0.0-0.8); Monocytes % (Auto) 6.5 % (0.0-7.3); Platelet Count 265 K/mm3 (140-440); Red Blood Count 5.35 M/mm3 (3.65-5.03); Red Cell Distribution Width 13.7 % (13.2-15.2)
[2018-11-19 21:07] LABS: BUN/Creatinine Ratio 13; Blood Urea Nitrogen 10 mg/dL (9-20); Calcium 8.5 mg/dL (8.4-10.2); Hemolysis Index 40
--- NOTE | 2018-11-19 21:25 | Emergency Department Report ---
ED Shortness of Breath HPI - General Chief Complaint: Dyspnea/Respdistress Stated Complaint: ASTHMA Time Seen by Provider: 11/19/18 20:12 Source: patient Mode of arrival: Ambulatory Limitations: No Limitations - History of Present Illness Initial Comments: 62-year-old male with a past medical history asthma with multiple previous intubations and hospitalization, diabetes, and hypertension as it also shows about since yesterday. Patient thinks that his symptoms were triggered someone cutting grass. He denies home oxygen use or current smoking history. He drove himself to the hospital. Complains of chest tightness related to wheezing and shortness of breath. He also presents with elevated blood pressure and a did not take his blood pressure medicine this morning. He took a last dose of prednisone earlier today. He does not have a primary care doctor, and does not have a [employer]. - Related Data Home Medications Medication Instructions Recorded Confirmed Last Taken metFORMIN [Glucophage] 500 mg PO BID 07/02/14 09/08/17 10/18/14 Previous Rx's Medication Instructions Recorded Last Taken Type Aspirin EC [Aspirin Enteric Coated 325 mg PO DAILY tablet 10/28/14 Unknown Rx TAB] Insulin Glulisine [Apidra] 0 units SUB-Q ACHS units 10/28/14 Unknown Rx Arformoterol Nebu [Brovana Nebu] 15 mcg IH Q12HRT 30 Days ml 06/25/17 Unknown Rx Fluticasone/Salmeterol [Advair 1 puff IH BID #1 disk.w.dev 06/25/17 Unknown Rx Diskus 250-50 mcg] Montelukast [Singulair] 10 mg PO BID 30 Days tablet 06/25/17 Unknown Rx Tiotropium [Spiriva] 18 mcg IH QDAY 30 Days cap 06/25/17 Unknown Rx glipiZIDE [glipiZIDE XL] 5 mg PO QDAY #30 tab.er.24 06/25/17 Unknown Rx ALBUTEROL NEB's [Proventil 0.083% 2.5 mg IH TID PRN #30 neb 08/22/17 Unknown Rx NEBS] ALBUTEROL Inhaler (OR & NICU) 2 puff IH QID PRN #1 inhalation 09/10/17 Unknown Rx [ProAir HFA Inhaler] predniSONE [Deltasone] 1 dose PO DAILY 30 Days #1 mo 09/10/17 Unknown Rx Famotidine [Pepcid] 40 mg PO DAILY #10 tablet 09/01/18 Unknown Rx cephALEXin [Keflex] 500 mg PO Q12HR #14 cap 09/01/18 Unknown Rx hydrOXYzine PAMOATE [Vistaril] 25 mg PO Q8H PRN #12 capsule 09/01/18 Unknown Rx predniSONE [Deltasone] 20 mg PO QDAY #14 tab 10/27/18 Unknown Rx Allergies Allergy/AdvReac Type Severity Reaction Status Date / Time seafood Allergy Shortness Uncoded 10/27/18 16:37 of Breath shrimp Allergy Shortness Uncoded 10/27/18 16:37 of Breath ED Review of Systems ROS: Stated complaint: ASTHMA Other details as noted in HPI ED Past Medical Hx - Past Medical History Hx Hypertension: Yes Hx CVA: No Hx Heart Attack/AMI: No Hx Congestive Heart Failure: No Hx Diabetes: Yes Hx Deep Vein Thrombosis: No Hx Pulmonary Embolism: No Hx GERD: No Hx Liver Disease: No Hx Renal Disease: No Hx Sickle Cell Disease: No Hx Arthritis: No Hx Headaches / Migraines: No Hx Seizures: No Hx Kidney Stones: No Hx Psychiatric Treatment: No Hx Asthma: Yes (intubation) Hx COPD: No Hx Tuberculosis: No Hx Dementia: No Hx HIV: No Additional medical history: intabated and bi pap - Surgical History Hx Coronary Stent: No Hx Open Heart Surgery: No Hx Pacemaker: No Hx Internal Defibrillator: No Hx Cholecystectomy: No Hx Appendectomy: No Hx Breast Surgery: No Additional Surgical History: back surgery x4. Hernia repair 04/20 - Social History Smoking Status: Never Smoker Substance Use Type: None - Medications Home Medications: Home Medications Medication Instructions Recorded Confirmed Last Taken Type metFORMIN [Glucophage] 500 mg PO BID 07/02/14 09/08/17 10/18/14 History Aspirin EC [Aspirin Enteric Coated 325 mg PO DAILY tablet 10/28/14 09/08/17 Unknown Rx TAB] Insulin Glulisine [Apidra] 0 units SUB-Q ACHS units 10/28/14 09/08/17 Unknown Rx Arformoterol Nebu [Brovana Nebu] 15 mcg IH Q12HRT 30 Days ml 06/25/17 09/08/17 Unknown Rx Fluticasone/Salmeterol [Advair 1 puff IH BID #1 disk.w.dev 06/25/17 09/08/17 Unknown Rx Diskus 250-50 mcg] Montelukast [Singulair] 10 mg PO BID 30 Days tablet 06/25/17 09/08/17 Unknown Rx Tiotropium [Spiriva] 18 mcg IH QDAY 30 Days cap 06/25/17 09/08/17 Unknown Rx glipiZIDE [glipiZIDE XL] 5 mg PO QDAY #30 tab.er.24 06/25/17 09/08/17 Unknown Rx ALBUTEROL NEB's [Proventil 0.083% 2.5 mg IH TID PRN #30 neb 08/22/17 09/08/17 Unknown Rx NEBS] ALBUTEROL Inhaler (OR & NICU) 2 puff IH QID PRN #1 inhalation 09/10/17 Unknown Rx [ProAir HFA Inhaler] predniSONE [Deltasone] 1 dose PO DAILY 30 Days #1 mo 09/10/17 Unknown Rx Famotidine [Pepcid] 40 mg PO DAILY #10 tablet 09/01/18 Unknown Rx cephALEXin [Keflex] 500 mg PO Q12HR #14 cap 09/01/18 Unknown Rx hydrOXYzine PAMOATE [Vistaril] 25 mg PO Q8H PRN #12 capsule 09/01/18 Unknown Rx predniSONE [Deltasone] 20 mg PO QDAY #14 tab 10/27/18 Unknown Rx ED Physical Exam - General Limitations: No Limitations ED Course Vital Signs 11/19/18 11/19/18 11/19/18 20:14 20:22 20:30 Temperature 98 F Pulse Rate 126 H 133 H 125 H Pulse Rate [ Bilateral Throughout] Respiratory 24 30 H 24 Rate Respiratory Rate [Bilateral Throughout] Blood Pressure 174/82 163/104 O2 Sat by Pulse 92 90 Oximetry 11/19/18 11/19/18 11/19/18 21:00 21:14 21:16 Temperature Pulse Rate 134 H 133 H Pulse Rate [ 136 H Bilateral Throughout] Respiratory 20 20 Rate Respiratory 24 Rate [Bilateral Throughout] Blood Pressure 166/77 166/77 O2 Sat by Pulse 100 95 Oximetry 11/19/18 11/19/18 11/19/18 21:30 21:46 21:55 Temperature Pulse Rate 140 H 118 H 120 H Pulse Rate [ Bilateral Throughout] Respiratory 32 H 21 22 Rate Respiratory Rate [Bilateral Throughout] Blood Pressure 158/98 158/95 158/95 O2 Sat by Pulse 99 99 99 Oximetry 11/19/18 11/19/18 22:16 22:30 Temperature Pulse Rate 111 H 116 H Pulse Rate [ 116 H Bilateral Throughout] Respiratory 19 19 Rate Respiratory 22 Rate [Bilateral Throughout] Blood Pressure 141/69 125/73 O2 Sat by Pulse 96 98 Oximetry ED Medical Decision Making - Lab Data Result diagrams: 11/19/18 20:40 11/19/18 20:40 Lab Results 11/19/18 11/19/18 Range/Units 20:40 20:40 WBC 10.5 (4.5-11.0) K/mm3 RBC 5.35 H (3.65-5.03) M/mm3 Hgb 14.7 (11.8-15.2) gm/dl Hct 44.7 (35.5-45.6) % MCV 84 (84-94) fl MCH 27 L (28-32) pg MCHC 33 (32-34) % RDW 13.7 (13.2-15.2) % Plt Count 265 (140-440) K/mm3 Lymph % (Auto) 16.6 (13.4-35.0) % [place] % (Auto) 6.5 (0.0-7.3) % Eos % (Auto) 6.1 H (0.0-4.3) % Baso % (Auto) 0.4 (0.0-1.8) % Lymph # 1.8 (1.2-5.4) K/mm3 [place] # 0.7 (0.0-0.8) K/mm3 Eos # 0.6 H (0.0-0.4) K/mm3 Baso # 0.0 (0.0-0.1) K/mm3 Seg Neutrophils % 70.4 H (40.0-70.0) % Seg Neutrophils # 7.4 (1.8-7.7) K/mm3 Sodium 138 (137-145) mmol/L Potassium 4.0 (3.6-5.0) mmol/L Chloride 103.4 (98-107) mmol/L Carbon Dioxide 24 (22-30) mmol/L Anion Gap 15 mmol/L BUN 10 (9-20) mg/dL Creatinine 0.8 (0.8-1.5) mg/dL Estimated GFR > 60 ml/min BUN/Creatinine Ratio 13 % Glucose 329 H (75-100) mg/dL Calcium 8.5 (8.4-10.2) mg/dL - EKG Data -: EKG Interpreted by Me EKG shows normal: sinus rhythm, axis (qrs 50), QRS complexes (qrsd 83), ST-T waves (no stemi/t inv) Rate: tachycardia (126) - Radiology Data Radiology results: image reviewed (cxr: copd, hyperinflated, no infiltrate (read by me, offical report pending)) - Medical Decision Making Despite home steroid use patient returns to the hospital with significant wheezing and dyspnea. After a hour of continuous nebs, Solu-Medrol, and magnesium, BiPAP was initiated for persistent wheezing and shortness of breath. Patient will be admitted to the hospital for further treatment - Differential Diagnosis COPD, asthma, pneumonia, bronchitis, pneumothorax Critical Care Time: No Critical care attestation.: If time is entered above; I have spent that time in minutes in the direct care of this critically ill patient, excluding procedure time. ED Disposition Clinical Impression: Acute asthma exacerbation, Uncontrolled hypertension, Diabetes mellitus with hyperglycemia Disposition: OP ADMIT IP TO THIS HOSP Is pt being admited?: Yes Condition: Stable Time of Disposition: 21:26 (Michelle Landrum)
[2018-11-19] MEDS ORDERED: TYLENOL PO PRN (21:45)
[2018-11-19] MEDS ORDERED: SODIUM CHLORIDE FLUSH SYRINGE 10 ML IV PRN (21:45)
[2018-11-19] MEDS ORDERED: ZOFRAN IV PRN (21:45)
[2018-11-19] MEDS ORDERED: ATROVENT IH PRN (21:45)
[2018-11-19] MEDS ORDERED: D50W (25GM) Syringe IV PRN (21:45)
--- NOTE | 2018-11-19 22:03 | History and Physical Report ---
History of Present Illness Date of examination: 11/19/18 History of present illness: 62-year-old man with a history of hypertension, diabetes, comes to the emergency room with complaints of shortness of breath. He states his neighbor was cutting grass today, he went outside, he smelled grass and shortly he started having shortness of breath. He took 30 mg of prednisone, he is usually maintained on 20 mg a day, also uses stabilizer treatments without any improvement. He arrived in the emergency room in respiratory distress, he was given Decadron, nebulizer treatments and placed on BiPAP. Patient has a history of multiple intubations Review of systems Constitutional: no weight loss, chills, fever Ears, eyes, nose, mouth and throat: no nasal congestion, no nasal discharge, no sinus pressure, no vision change, no red eye. Neck: No neck pain or rigidity. Cardiovascular: no palpitations, chest pain Respiratory: no cough, +shortness of breath Gastrointestinal: no hematochezia, abdominal pain Genitourinary : no frequency , no hematuria Musculoskeletal: no joint swelling or muscle ache Integumentary: no rash, no pruritis Neurological: no parathesias, no focal weakness Endocrine: no cold or heat intolerance, no polyuria or polydipsia Hematologic/Lymphatic: no easy bruising, no easy bleeding, no gland swelling Allergic/Immunologic: no urticaria, no angioedema. PAST MEDICAL HISTORY:hypertension, diabetes, asthma PAST SURGICAL HISTORY: Back surgery 4, hernia SOCIAL HISTORY: Denies alcohol, drugs, tobacco FAMILY HISTORY: Hypertension Medications and Allergies Allergies Allergy/AdvReac Type Severity Reaction Status Date / Time seafood Allergy Shortness Uncoded 10/27/18 16:37 of Breath shrimp Allergy Shortness Uncoded 10/27/18 16:37 of Breath Home Medications Medication Instructions Recorded Confirmed Last Taken Type metFORMIN [Glucophage] 500 mg PO BID 07/02/14 09/08/17 10/18/14 History Aspirin EC [Aspirin Enteric Coated 325 mg PO DAILY tablet 10/28/14 09/08/17 Unknown Rx TAB] Arformoterol Nebu [Brovana Nebu] 15 mcg IH Q12HRT 30 Days ml 06/25/17 09/08/17 Unknown Rx Fluticasone/Salmeterol [Advair 1 puff IH BID #1 disk.w.dev 06/25/17 09/08/17 Unknown Rx Diskus 250-50 mcg] Montelukast [Singulair] 10 mg PO BID 30 Days tablet 06/25/17 09/08/17 Unknown Rx Tiotropium [Spiriva] 18 mcg IH QDAY 30 Days cap 06/25/17 09/08/17 Unknown Rx glipiZIDE [glipiZIDE XL] 5 mg PO QDAY #30 tab.er.24 06/25/17 09/08/17 Unknown Rx ALBUTEROL NEB's [Proventil 0.083% 2.5 mg IH TID PRN #30 neb 08/22/17 09/08/17 Unknown Rx NEBS] ALBUTEROL Inhaler (OR & NICU) 2 puff IH QID PRN #1 inhalation 09/10/17 Unknown Rx [ProAir HFA Inhaler] Famotidine [Pepcid] 40 mg PO DAILY #10 tablet 09/01/18 Unknown Rx hydrOXYzine PAMOATE [Vistaril] 25 mg PO Q8H PRN #12 capsule 09/01/18 Unknown Rx predniSONE [Deltasone] 40 mg PO QDAY #20 tab 11/20/18 Unknown Rx Active Meds: Active Medications Acetaminophen (Tylenol) 650 mg PO Q4H PRN PRN Reason: Pain MILD(1-3)/Fever >100.5/GARCIA Dextrose (D50w (25gm) Syringe) 50 ml IV PRN PRN PRN Reason: Hypoglycemia Enoxaparin Sodium (Lovenox) 30 mg SUB-Q QDAY EMMIE Ipratropium [place] (Atrovent) 0.5 mg IH Q4H PRN PRN Reason: Wheezing Methylprednisolone Sodium Succinate (Solu-Medrol) 125 mg IV Q6H EMMIE Ondansetron HCl (Zofran) 4 mg IV Q8H PRN PRN Reason: Nausea And Vomiting Sodium Chloride (Sodium Chloride Flush Syringe 10 Ml) 10 ml IV BID EMMIE Sodium Chloride (Sodium Chloride Flush Syringe 10 Ml) 10 ml IV PRN PRN PRN Reason: LINE FLUSH Exam - Physical Exam Narrative exam: General Apperance: The patient lying in bed, breathing comfortable on BiPAP HEENT: Normocephalic, atraumatic. Pupils equally round and reactive to light, EOMI, no sclericterus or JVD or thyromegaly or nodule. , no carotid bruit, mucous membranes moist, no exudate or erythema Heart: S1-S2, regular is rhythm Lungs: Wheezing bilaterally, breathing comfortable Abdomen: Positive bowel sounds, soft, nontender, nondistended, no organomegaly Extremities: No edema cyanosis clubbing Skin: no rash, nodule, warm and dry Neuro: cranial nerves 2-12 intact, speech is fluent, motor/sensory intact - Constitutional Vitals: Temp Pulse Resp BP Pulse Ox 98 F 120 H 22 158/95 99 11/19/18 20:14 11/19/18 21:55 11/19/18 21:55 11/19/18 21:55 11/19/18 21:55 Results - Labs CBC & Chem 7: 11/20/18 04:14 11/20/18 04:14 Labs: Abnormal lab results 11/19/18 11/19/18 Range/Units 20:40 20:40 RBC 5.35 H (3.65-5.03) M/mm3 MCH 27 L (28-32) pg Eos % (Auto) 6.1 H (0.0-4.3) % Eos # 0.6 H (0.0-0.4) K/mm3 Seg Neutrophils % 70.4 H (40.0-70.0) % Glucose 329 H (75-100) mg/dL - Imaging and Cardiology EKG: image reviewed Chest x-ray: pending Assessment and Plan Assessment Acute respiratory failure COPD exacerbation Diabetes2 uncontrolled Hypertension Obesity Plan Admit to medicine Continue BIPAP, start breathing treatment, high-dose steroids Obtain ABG, Check fingersticks and initiate insulin sliding scale DVT prophylaxis Follow-up medication reconciliation
--- NOTE | 2018-11-19 23:27 | XRay Report ---
PROCEDURE: XR CHEST 1V AP TECHNIQUE: Portable upright AP view of the chest was obtained HISTORY: sob, chest tightness COMPARISONS: Prior chest x-ray 09/08/2017 FINDINGS: Heart size and pulmonary vasculature appear normal. Lungs are clear, no evidence of pulmonary edema p leural effusion infiltrate or mass. No acute bone abnormalities are seen. IMPRESSION: Negative exam. No acute abnormalities identified.. This document is electronically signed by Thai Adorno MD., November 19 2018 11:25:56 PM ET
[2018-11-19] MEDS: SODIUM CHLORIDE FLUSH SYRINGE 10 ML IV SCH (23:33)
[2018-11-20] MEDS: HumaLOG SUB-Q SCH ×3 (00:51→12:39)
[2018-11-20] MEDS: SOLU-Medrol IV SCH ×2 (01:13→09:12)
[2018-11-20 05:28] LABS: Hematocrit 42.9 % (35.5-45.6); Mean Corpuscular HGB Conc 33 % (32-34); Mean Corpuscular Volume 84 fl (84-94); Platelet Count 250 K/mm3 (140-440); Red Blood Count 5.14 M/mm3 (3.65-5.03); Red Cell Distribution Width 13.8 % (13.2-15.2)
[2018-11-20 05:50] LABS: BUN/Creatinine Ratio 18; Blood Urea Nitrogen 14 mg/dL (9-20); Calcium 8.6 mg/dL (8.4-10.2); Hemolysis Index 6
[2018-11-20 06:12] LABS: Basophils % (Manual) 0 % (0.0-1.8); Eosinophils % (Manual) 0 % (0.0-4.3); Monocytes % (Manual) 0 % (0.0-7.3); Total Cells Counted 100
[2018-11-20 06:13] LABS: Anisocytosis 1+; Platelet Estimate Consistent w Auto
[2018-11-20] MEDS: SODIUM CHLORIDE FLUSH SYRINGE 10 ML IV SCH (09:15)
[2018-11-20] MEDS: DUONEB *Not for PRN Use IH SCH ×3 (09:36→13:02)
[2018-11-20] MEDS ORDERED: LOVENOX SUB-Q SCH ×2 (10:00)
--- NOTE | 2018-11-20 13:04 | Discharge Summary ---
Providers - Providers Date of Admission: 11/19/18 21:45 Date of discharge: 11/20/18 Attending physician: JOSETTE ABREU [facility] Hospitalization Condition: Stable Pertinent studies: CXR Hospital course: 62-year-old man with a history of hypertension, diabetes, asthma with previous multiple intubations came to the emergency room with complaints of shortness of breath. He stated that his neighbor was cutting grass, he went outside, he smelled grass and shortly he started having shortness of breath. He took 30 mg of prednisone, also used stabilizer treatments without any improvement. He arrived in the emergency room in respiratory distress, he was given Decadron, nebulizer treatments and placed on BiPAP. His CXT showed no infiltrates. Patient's symptom improved by next day and wanted to go home with outpt follow up. He was discharged home in stable condition. Discharge diagnosis: Acute respiratory failure, due to asthma exacerbation Acute asthma exacerbation Diabetes2 uncontrolled due to steroid use Hypertension Obesity Disposition: DC- TO HOME OR SELFCARE Time spent for discharge: 34 minutes Core Measure Documentation - Palliative Care Palliative Care/ Comfort Measures: Not Applicable - Core Measures Any of the following diagnoses?: none Exam - Constitutional Vitals: Temp Pulse Resp BP Pulse Ox 97.8 F 92 H 15 125/79 92 11/20/18 12:00 11/20/18 09:37 11/20/18 09:37 11/20/18 06:00 11/20/18 10:20 General appearance: Present: no acute distress, well-nourished - EENT Eyes: Present: PERRL ENT: hearing intact, clear oral mucosa - Neck Neck: Present: supple, normal ROM - Respiratory Respiratory effort: normal Respiratory: bilateral: CTA - Cardiovascular Heart Sounds: Present: S1 & S2. Absent: rub, click - Extremities Extremities: pulses symmetrical, No edema Peripheral Pulses: within normal limits - Abdominal General gastrointestinal: Present: soft, non-tender, non-distended, normal bowel sounds - Integumentary Integumentary: Present: clear, warm, dry - Musculoskeletal Musculoskeletal: gait normal, strength equal bilaterally - Psychiatric Psychiatric: appropriate mood/affect, intact judgment & insight - Neurologic Neurologic: CNII-XII intact, moves all extremities Plan Activity: advance as tolerated Weight Bearing Status: Weight Bear as Tolerated Diet: diabetic [facility] - 3-5 Days Prescriptions: predniSONE [Deltasone] 40 mg PO QDAY #20 tab
[2018-11-20] MEDS ORDERED: ECOTRIN PO SCH (14:00)
[2018-11-20 19:39] VITALS: BP 119/79
[2018-11-20] MEDS ORDERED: BROVANA NEBU IH SCH (20:00)
[2018-11-20] MEDS ORDERED: PULMICORT IH SCH (20:00)
[2018-11-20] MEDS ORDERED: SINGULAIR PO SCH (22:00)
[2018-11-20] MEDS ORDERED: NON-FORMULARY (Fluticasone/Salmeterol [Advair Diskus 250-50 Mcg] 1 PUFF) IH SCH (22:00)
[2018-11-21] MEDS ORDERED: PEPCID PO SCH (10:00)
[2018-11-21] MEDS ORDERED: NON-FORMULARY (Famotidine [Pepcid] 40 MG) PO SCH (10:00)
== END 2018-11-20 16:02 | disposition home or self-care (01) | DRG 189 ==
LOC: ED 20:07 → IMCU 21:45
PROVIDERS: ADMIT Internal Medicine; ATTEND Internal Medicine
PROC: 5A09357 Assistance with Respiratory Ventilation, Less than 24 Consecutive Hours, Continuous Positive Airway Pressure (ICD-10-PCS; principal; 2018-11-19)
DX: J96.00 Acute respiratory failure, unspecified whether with hypoxia or hypercapnia (principal); J45.901 Unspecified asthma with (acute) exacerbation; E09.9 Drug or chemical induced diabetes mellitus without complications; T38.0X5A Adverse effect of glucocorticoids and synthetic analogues, initial encounter; I10 Essential (primary) hypertension; E66.9 Obesity, unspecified; Z68.27 Body mass index [BMI] 27.0-27.9, adult; Z82.49 Family history of ischemic heart disease and other diseases of the circulatory system; Z91.013 Allergy to seafood; Y92.89 Other specified places as the place of occurrence of the external cause; Z79.82 Long term (current) use of aspirin; Z79.4 Long term (current) use of insulin; Z79.899 Other long term (current) drug therapy
CPT/HCPCS: 36415; 71045; 80048; 82803; 82962; 85007; 85025; 93005; 93010; 94640; 94644; 96365; 96375; G0378; J1650; J1815; J2930; J3475

== ENCOUNTER 2019-04-13 20:00 | Emergency (ER) | payer SELFPAY ==
--- NOTE | 2019-04-13 20:19 | Event Note ---
ED Screening Note Date of service: 04/13/19 Time: 20:18 ED Screening Note: 63 y o male with a hx of asthma presents with sob states he is out of his pred 30mg daily This initial assessment/diagnostic orders/clinical plan/treatment(s) is/are subject to change based on patients health status, clinical progression and re- assessment by fellow clinical providers in the ED. Further treatment and workup at subsequent clinical providers discretion. Patient/guardian urged not to elope from the ED as their condition may be serious if not clinically assessed and managed. Initial orders include: duoneb prednison xray
[2019-04-13] MEDS ORDERED: DELTASONE PO ONE (20:37)
[2019-04-13] MEDS ORDERED: PROVENTIL IH ONE ×2 (20:37→20:43)
[2019-04-13] MEDS ORDERED: ATROVENT IH ONE (20:43)
[2019-04-13 20:57] LABS: Basophils # (Auto) 0.1 K/mm3 (0.0-0.1); Basophils % (Auto) 0.9 % (0.0-1.8); Eosinophils # (Auto) 0.7 K/mm3 (0.0-0.4); Eosinophils % (Auto) 6.7 % (0.0-4.3); Hematocrit 43.2 % (35.5-45.6); Hemoglobin 14.4 gm/dl (11.8-15.2); Lymphocytes # (Auto) 1.1 K/mm3 (1.2-5.4); Lymphocytes % (Auto) 11.6 % (13.4-35.0); Mean Corpuscular HGB Conc 33 % (32-34); Mean Corpuscular Volume 83 fl (84-94); Monocytes # (Auto) 0.4 K/mm3 (0.0-0.8); Monocytes % (Auto) 3.7 % (0.0-7.3); Platelet Count 295 K/mm3 (140-440); Red Blood Count 5.22 M/mm3 (3.65-5.03); Red Cell Distribution Width 13.2 % (13.2-15.2)
--- NOTE | 2019-04-13 21:14 | Emergency Department Report ---
ED Asthma HPI - General Chief Complaint: Dyspnea/Respdistress Stated Complaint: SAMIA,SOB Time Seen by Provider: 04/13/19 20:17 Source: patient Mode of arrival: Ambulatory Limitations: No Limitations - History of Present Illness Initial Comments: Mr. Cochran is a 63-year-old male with history of "chronic asthma" for the past 13 years, hypertension, diabetes mellitus and previous multiple intubations whoe presents with shortness of breath wheezing and chest tightness. Without access to health care due to lack of health insurance, he is unable to obtain his daily dose of prednisone. He has been steroid dependent for the past several years. His current dose is now 30 mg of prednisone. He ran out of prednisone. He does not have a physician to provide medications. He denies fever. Has nonproductive cough. At this time he explains that he just needs his chest open up so that he can breathe. According to electronic record, Mr. Venegas and has had an numerous ER visits for asthma exacerbation. He has had multiple hospitalizations for asthma. MD Complaint: "asthma attack", shortness of breath, wheezing -: Gradual, days(s) (3) Asthma History: adult onset, history of frequent attac, previously intubated Severity: mild, similar to prior Context: ran out of meds Associated Symptoms: dry cough Treatments Prior to Arrival: inhaled bronchodilator - Related Data Home Medications Medication Instructions Recorded Confirmed Last Taken metFORMIN [Glucophage] 500 mg PO BID 07/02/14 09/08/17 10/18/14 Previous Rx's Medication Instructions Recorded Last Taken Type Aspirin EC 325 mg PO DAILY tablet 10/28/14 Unknown Rx Arformoterol Nebu [Brovana Nebu] 15 mcg IH Q12HRT 30 Days ml 06/25/17 Unknown Rx Fluticasone/Salmeterol [Advair 1 puff IH BID #1 disk.w.dev 06/25/17 Unknown Rx Diskus 250-50 mcg] Montelukast [Singulair] 10 mg PO BID 30 Days tablet 06/25/17 Unknown Rx Tiotropium [Spiriva] 18 mcg IH QDAY 30 Days cap 06/25/17 Unknown Rx glipiZIDE [glipiZIDE XL] 5 mg PO QDAY #30 tab.er.24 06/25/17 Unknown Rx ALBUTEROL NEB's [Proventil 0.083% 2.5 mg IH TID PRN #30 neb 08/22/17 Unknown Rx NEBS] ALBUTEROL Inhaler (OR & NICU) 2 puff IH QID PRN #1 inhalation 09/10/17 Unknown Rx [ProAir HFA Inhaler] Famotidine [Pepcid] 40 mg PO DAILY #10 tablet 09/01/18 Unknown Rx hydrOXYzine PAMOATE [Vistaril] 25 mg PO Q8H PRN #12 capsule 09/01/18 Unknown Rx predniSONE [Deltasone] 40 mg PO QDAY #20 tab 11/20/18 Unknown Rx predniSONE [Deltasone] 3 tab PO QDAY 14 Days #42 tab 04/13/19 Unknown Rx Allergies Allergy/AdvReac Type Severity Reaction Status Date / Time seafood Allergy Shortness Uncoded 10/27/18 16:37 of Breath shrimp Allergy Shortness Uncoded 10/27/18 16:37 of Breath ED Review of Systems ROS: Stated complaint: SAMIA,SOB Other details as noted in HPI Comment: All other systems reviewed and negative Constitutional: denies: fever, malaise Respiratory: cough, shortness of breath, wheezing Cardiovascular: denies: chest pain Gastrointestinal: denies: abdominal pain, nausea, vomiting ED Past Medical Hx - Past Medical History Previous Medical History?: Yes Hx Hypertension: Yes Hx CVA: No Hx Heart Attack/AMI: No Hx Congestive Heart Failure: No Hx Diabetes: Yes Hx Deep Vein Thrombosis: No Hx Pulmonary Embolism: No Hx GERD: No Hx Liver Disease: No Hx Renal Disease: No Hx Sickle Cell Disease: No Hx Arthritis: No Hx Headaches / Migraines: No Hx Seizures: No Hx Kidney Stones: No Hx Psychiatric Treatment: No Hx Asthma: Yes (intubation) Hx COPD: No Hx Tuberculosis: No Hx Dementia: No Hx HIV: No Additional medical history: intabated and bi pap - Surgical History Hx Coronary Stent: No Hx Open Heart Surgery: No Hx Pacemaker: No Hx Internal Defibrillator: No Hx Cholecystectomy: No Hx Appendectomy: No Hx Breast Surgery: No Additional Surgical History: back surgery x4. Hernia repair 04/20 - Social History Smoking Status: Never Smoker Substance Use Type: None - Medications Home Medications: Home Medications Medication Instructions Recorded Confirmed Last Taken Type metFORMIN [Glucophage] 500 mg PO BID 07/02/14 09/08/17 10/18/14 History Aspirin EC 325 mg PO DAILY tablet 10/28/14 09/08/17 Unknown Rx Arformoterol Nebu [Brovana Nebu] 15 mcg IH Q12HRT 30 Days ml 06/25/17 09/08/17 Unknown Rx Fluticasone/Salmeterol [Advair 1 puff IH BID #1 disk.w.dev 06/25/17 09/08/17 Unknown Rx Diskus 250-50 mcg] Montelukast [Singulair] 10 mg PO BID 30 Days tablet 06/25/17 09/08/17 Unknown Rx Tiotropium [Spiriva] 18 mcg IH QDAY 30 Days cap 06/25/17 09/08/17 Unknown Rx glipiZIDE [glipiZIDE XL] 5 mg PO QDAY #30 tab.er.24 06/25/17 09/08/17 Unknown Rx ALBUTEROL NEB's [Proventil 0.083% 2.5 mg IH TID PRN #30 neb 08/22/17 09/08/17 Unknown Rx NEBS] ALBUTEROL Inhaler (OR & NICU) 2 puff IH QID PRN #1 inhalation 09/10/17 Unknown Rx [ProAir HFA Inhaler] Famotidine [Pepcid] 40 mg PO DAILY #10 tablet 09/01/18 Unknown Rx hydrOXYzine PAMOATE [Vistaril] 25 mg PO Q8H PRN #12 capsule 09/01/18 Unknown Rx predniSONE [Deltasone] 40 mg PO QDAY #20 tab 11/20/18 Unknown Rx predniSONE [Deltasone] 3 tab PO QDAY 14 Days #42 tab 04/13/19 Unknown Rx ED Physical Exam - General Limitations: No Limitations General appearance: alert, other (speaking full word sentences with mild work of breathing) - Head Head exam: Present: atraumatic, normocephalic - Eye Eye exam: Present: normal appearance - ENT ENT exam: Present: mucous membranes moist - Neck Neck exam: Present: normal inspection, full ROM - Respiratory Respiratory exam: Present: wheezes, prolonged expiratory. Absent: rales, rhonchi, stridor, chest wall tenderness, accessory muscle use - Cardiovascular Cardiovascular Exam: Present: regular rate, normal rhythm, normal heart sounds. Absent: systolic murmur, diastolic murmur, rubs, gallop - GI/Abdominal GI/Abdominal exam: Present: soft, normal bowel sounds. Absent: distended, tenderness, guarding, rebound - Rectal Rectal exam: Present: deferred - Extremities Exam Extremities exam: Present: normal inspection - Neurological Exam Neurological exam: Present: alert, oriented X3 - Psychiatric Psychiatric exam: Present: normal affect, normal mood - Skin Skin exam: Present: warm, dry, intact, normal color. Absent: rash ED Course Vital Signs 04/13/19 04/13/19 04/13/19 20:20 20:49 21:00 Temperature 98.3 F 98.5 F Pulse Rate 118 H 113 H 103 H Pulse Rate [ Anterior Throughout] Respiratory 18 24 21 Rate Respiratory Rate [Anterior Throughout] Blood Pressure 149/76 115/75 Blood Pressure 121/75 115/75 [Left] O2 Sat by Pulse 92 92 92 Oximetry 04/13/19 04/13/19 04/13/19 21:01 21:02 22:00 Temperature Pulse Rate 100 H Pulse Rate [ 88 Anterior Throughout] Respiratory 16 19 Rate Respiratory 18 Rate [Anterior Throughout] Blood Pressure 108/73 Blood Pressure [Left] O2 Sat by Pulse 94 95 Oximetry ED Medical Decision Making - Lab Data Result diagrams: 04/13/19 20:49 04/13/19 20:46 - Radiology Data Radiology results: report reviewed AP portable chest one view no acute process according to radiology report - Medical Decision Making Mr. Cochran presents with acute asthma exacerbation. He feels much better after receiving albuterol and Atrovent continuous nebulizer therapy as well as pred nisone. Chest x-ray revealed no acute process. Repeat oxygen saturation 95% on room air. He is speaking ful word sentences with ease. He is comfortable. He desires to be discharged home. I have prescribed 14 days of prednisone 30 mg dose according to Mr. Kiran's request CBC within normal limits, chemistry noted for hyperglycemia 329 Critical care attestation.: If time is entered above; I have spent that time in minutes in the direct care of this critically ill patient, excluding procedure time. ED Disposition Clinical Impression: Acute asthma exacerbation Disposition: DC-01 TO HOME OR SELFCARE Is pt being admited?: No Does the pt Need Aspirin: No Condition: Stable Instructions: Asthma (ED) Prescriptions: predniSONE [Deltasone] 3 tab PO QDAY 14 Days #42 tab Referrals: [facility] [Outside] - MICHEL
[2019-04-13 21:17] LABS: BUN/Creatinine Ratio 14; Blood Urea Nitrogen 10 mg/dL (9-20); Calcium 8.9 mg/dL (8.4-10.2); Hemolysis Index 17
--- NOTE | 2019-04-13 21:33 | XRay Report ---
CHEST 1 VIEW, 04/13/2019 8:38 PM INDICATION: Shortness of breath COMPARISON: Chest radiograph, 11/19/2018 FINDINGS: SUPPORT DEVICES: None HEART: The cardiac silhouette is normal in size. LUNGS/PLEURA: There is no evidence of focal airspace disease or significant pleural effusion. ADDITIONAL FINDINGS: No additional acute findings. IMPRESSION: 1. No evidence of acute cardiopulmonary process. Signer Name: Magdalena Her MD Signed: 04/13/2019 9:28 PM Workstation Name: [id number]
[2019-04-14 00:06] VITALS: BP 115/68
== END 2019-04-14 00:09 | disposition home or self-care (01) ==
LOC: ED 20:00
DX: J45.901 Unspecified asthma with (acute) exacerbation (principal); I10 Essential (primary) hypertension; E11.9 Type 2 diabetes mellitus without complications; Z91.013 Allergy to seafood; Z79.84 Long term (current) use of oral hypoglycemic drugs; Z79.82 Long term (current) use of aspirin; Z79.899 Other long term (current) drug therapy; Z98.890 Other specified postprocedural states
CPT/HCPCS: 36415; 71045; 80048; 85025; 94644; 99284; J7512

== ENCOUNTER 2019-07-07 05:43 | Emergency (ER) | payer MEDICARE, OTHER ==
[2019-07-07] MEDS ORDERED: ASPIRIN 325 MG TAB PO ONE (06:01)
[2019-07-07 06:19] LABS: Basophils % (Auto) 0.8 % (0.0-1.8); Eosinophils # (Auto) 0.5 K/mm3 (0.0-0.4); Hematocrit 41.8 % (35.5-45.6); Hemoglobin 13.6 gm/dl (11.8-15.2); Lymphocytes # (Auto) 2.2 K/mm3 (1.2-5.4); Lymphocytes % (Auto) 34.7 % (13.4-35.0); Mean Corpuscular HGB Conc 33 % (32-34); Mean Corpuscular Volume 83 fl (84-94); Monocytes # (Auto) 0.6 K/mm3 (0.0-0.8); Monocytes % (Auto) 10.1 % (0.0-7.3); Platelet Count 259 K/mm3 (140-440); Red Blood Count 5.04 M/mm3 (3.65-5.03); Red Cell Distribution Width 12.9 % (13.2-15.2)
[2019-07-07 06:32] LABS: BUN/Creatinine Ratio 17; Blood Urea Nitrogen 15 mg/dL (9-20); Calcium 8.5 mg/dL (8.4-10.2); Hemolysis Index 3
--- NOTE | 2019-07-07 06:45 | XRay Report ---
CHEST 1 VIEW INDICATION / CLINICAL INFORMATION: Chest Pain. COMPARISON: None available. FINDINGS: SUPPORT DEVICES: None. HEART / MEDIASTINUM: No significant abnormality. LUNGS / PLEURA: No significant pulmonary or pleural abnormality. No pneumothorax. ADDITIONAL FINDINGS: No significant additional findings. IMPRESSION: 1. No acute findings. Signer Name: Anish Ribera MD Signed: 07/07/2019 6:41 AM Workstation Name: [id number]
[2019-07-07] MEDS ORDERED: IPRATROPIUM 0.02% NEBU 2.5 ML IH ONE (11:15)
[2019-07-07] MEDS ORDERED: ALBUTEROL 2.5 MG/3 ML NEBU IH ONE (11:15)
[2019-07-07] MEDS ORDERED: INSULIN REGULAR, HUMAN 100 UNITS/1 ML IV ONE (11:16)
[2019-07-07] MEDS ORDERED: methylPREDNISolone Sod Succinate 125 MG/2 ML INJ IV ONE (11:16)
[2019-07-07] MEDS ORDERED: ASPIRIN 325 MG TAB ONE (11:30)
--- NOTE | 2019-07-07 12:09 | Emergency Department Report ---
ED Chest Pain HPI - General Chief Complaint: Chest Pain Stated Complaint: CHEST PAIN Time Seen by Provider: 07/07/19 11:08 Source: patient Mode of arrival: Ambulatory Limitations: No Limitations - History of Present Illness Initial Comments: 63-year-old male with a past medical history asthma with previous intubations, diabetes, and hypertension presents to the hospital with complaints of left- sided chest pain 1 month. Pain is on the whole left chest and described as aching. It is rated 6/10 in intensity. It is constant without aggravating or alleviating factors. Patient states he has occasional nausea without vomiting. He has mild shortness of breath intermittently secondary to wheezing with asthma. He denies cough, fever, leg edema, calf tenderness, recent travel, or history of PE/DVT. States that he had his last stress test closed a long time ago". As per medical record here he had a cardiac cath in April 2017 showed near normal coronary arteries. Positive family history CAD this is a 65. Patient takes prednisone 00 mg daily for his chronic asthma patient has been on daily steroids for 10 years. He has been trying to wean his steroids dose down without the guidance of a physician. He does not have a primary care doctor or a sapphire stylus grinder. He's also been noncompliant with aspirin times one month. He did not take his diabetes medication this morning but is otherwise compliant. - Related Data Home Medications Medication Instructions Recorded Confirmed Last Taken metFORMIN [Glucophage] 500 mg PO BID 07/02/14 09/08/17 10/18/14 Previous Rx's Medication Instructions Recorded Last Taken Type Aspirin EC 325 mg PO DAILY tablet 10/28/14 Unknown Rx Arformoterol Nebu [Brovana Nebu] 15 mcg IH Q12HRT 30 Days ml 06/25/17 Unknown Rx Fluticasone/Salmeterol [Advair 1 puff IH BID #1 disk.w.dev 06/25/17 Unknown Rx Diskus 250-50 mcg] Montelukast [Singulair] 10 mg PO BID 30 Days tablet 06/25/17 Unknown Rx Tiotropium [Spiriva] 18 mcg IH QDAY 30 Days cap 06/25/17 Unknown Rx glipiZIDE [glipiZIDE XL] 5 mg PO QDAY #30 tab.er.24 06/25/17 Unknown Rx ALBUTEROL NEB's [Proventil 0.083% 2.5 mg IH TID PRN #30 neb 08/22/17 Unknown Rx NEBS] ALBUTEROL Inhaler (OR & NICU) 2 puff IH QID PRN #1 inhalation 09/10/17 Unknown Rx [ProAir HFA Inhaler] Famotidine [Pepcid] 40 mg PO DAILY #10 tablet 09/01/18 Unknown Rx hydrOXYzine PAMOATE [Vistaril] 25 mg PO Q8H PRN #12 capsule 09/01/18 Unknown Rx predniSONE [Deltasone] 40 mg PO QDAY #20 tab 11/20/18 Unknown Rx predniSONE [Deltasone] 3 tab PO QDAY 14 Days #42 tab 04/13/19 Unknown Rx predniSONE [Deltasone] 20 mg PO QDAY #20 tab 07/07/19 Unknown Rx traMADoL [Ultram 50 MG tab] 50 mg PO Q6HR PRN #20 tablet 07/07/19 Unknown Rx Allergies Allergy/AdvReac Type Severity Reaction Status Date / Time seafood Allergy Shortness Uncoded 10/27/18 16:37 of Breath shrimp Allergy Shortness Uncoded 10/27/18 16:37 of Breath Heart Score - HEART Score History: Slightly suspicious EKG: Normal Age: 45-65 Risk factors: > 3 risk factors or hx of atherosclerotic disease Troponin: < normal limit HEART Score: 3 ED Review of Systems ROS: Stated complaint: CHEST PAIN Other details as noted in HPI Comment: All other systems reviewed and negative ED Past Medical Hx - Past Medical History Hx Hypertension: Yes Hx CVA: No Hx Heart Attack/AMI: No Hx Congestive Heart Failure: No Hx Diabetes: Yes Hx Deep Vein Thrombosis: No Hx Pulmonary Embolism: No Hx GERD: No Hx Liver Disease: No Hx Renal Disease: No Hx Sickle Cell Disease: No Hx Arthritis: No Hx Headaches / Migraines: No Hx Seizures: No Hx Kidney Stones: No Hx Psychiatric Treatment: No Hx Asthma: Yes (intubation) Hx COPD: No Hx Tuberculosis: No Hx Dementia: No Hx HIV: No Additional medical history: intabated and bi pap - Surgical History Past Surgical History?: Yes Hx Coronary Stent: No Hx Open Heart Surgery: No Hx Pacemaker: No Hx Internal Defibrillator: No Hx Cholecystectomy: No Hx Appendectomy: No Hx Breast Surgery: No Additional Surgical History: back surgery x4. Hernia repair 04/20 - Social History Smoking Status: Never Smoker Substance Use Type: None - Medications Home Medications: Home Medications Medication Instructions Recorded Confirmed Last Taken Type metFORMIN [Glucophage] 500 mg PO BID 07/02/14 09/08/17 10/18/14 History Aspirin EC 325 mg PO DAILY tablet 10/28/14 09/08/17 Unknown Rx Arformoterol Nebu [Brovana Nebu] 15 mcg IH Q12HRT 30 Days ml 06/25/17 09/08/17 Unknown Rx Fluticasone/Salmeterol [Advair 1 puff IH BID #1 disk.w.dev 06/25/17 09/08/17 Unknown Rx Diskus 250-50 mcg] Montelukast [Singulair] 10 mg PO BID 30 Days tablet 06/25/17 09/08/17 Unknown Rx Tiotropium [Spiriva] 18 mcg IH QDAY 30 Days cap 06/25/17 09/08/17 Unknown Rx glipiZIDE [glipiZIDE XL] 5 mg PO QDAY #30 tab.er.24 06/25/17 09/08/17 Unknown Rx ALBUTEROL NEB's [Proventil 0.083% 2.5 mg IH TID PRN #30 neb 08/22/17 09/08/17 Unknown Rx NEBS] ALBUTEROL Inhaler (OR & NICU) 2 puff IH QID PRN #1 inhalation 09/10/17 Unknown Rx [ProAir HFA Inhaler] Famotidine [Pepcid] 40 mg PO DAILY #10 tablet 09/01/18 Unknown Rx hydrOXYzine PAMOATE [Vistaril] 25 mg PO Q8H PRN #12 capsule 09/01/18 Unknown Rx predniSONE [Deltasone] 40 mg PO QDAY #20 tab 11/20/18 Unknown Rx predniSONE [Deltasone] 3 tab PO QDAY 14 Days #42 tab 04/13/19 Unknown Rx predniSONE [Deltasone] 20 mg PO QDAY #20 tab 07/07/19 Unknown Rx traMADoL [Ultram 50 MG tab] 50 mg PO Q6HR PRN #20 tablet 07/07/19 Unknown Rx ED Physical Exam - General Limitations: No Limitations - Other Other exam information: General: No acute distress Head: Atraumatic Eyes: normal appearance ENT: Moist mucous membranes Neck: Normal appearance, no midline tenderness Chest: Clear to auscultation bilaterally bilateral wheezing, no accessory muscle use or tachypnea. Mild left-sided chest wall tenderness CV: Regular rate and rhythm Abdomen: Soft, normal bowel sounds, nontender, nondistended, no rebound or guarding Back: Normal inspection Extremity: Normal inspection infection, full range of motion, no calf tenderness or leg edema Neuro: Alert O x 3, no facial asymmetry, speech clear, no gross motor sensory deficit Psych: Appropriate behavior Skin: No rash ED Course Vital Signs 07/07/19 07/07/19 07/07/19 05:45 12:09 12:22 Temperature 98.0 F Pulse Rate 96 H 74 Pulse Rate [ 64 Bilateral Bases ] Pulse Rate [ 84 Bilateral Lower Lobe] Respiratory 18 18 Rate Respiratory 18 Rate [Bilateral Bases] Respiratory 18 Rate [Bilateral Lower Lobe] Blood Pressure 149/97 Blood Pressure 126/78 [Left] O2 Sat by Pulse 95 96 Oximetry 07/07/19 12:42 Temperature Pulse Rate 85 Pulse Rate [ Bilateral Bases ] Pulse Rate [ Bilateral Lower Lobe] Respiratory 17 Rate Respiratory Rate [Bilateral Bases] Respiratory Rate [Bilateral Lower Lobe] Blood Pressure Blood Pressure 116/76 [Left] O2 Sat by Pulse 100 Oximetry - Reevaluation(s) Reevaluation #1: 07/07/19 13:51 pt feeling better with ed tx KOFFI score - Koffi Score Age > 65: (0) No Aspirin use within the Past 7 Days: (1) Yes 3 or more CAD Risk Factors: (0) No 2 or more Angina events in past 24 hrs: (0) No Known CAD with more than 50% Stenosis: (0) No Elevated Cardiac Markers: (0) No ST Deviation Greater than 0.5mm: (0) No KOFFI Score: 1 ED Medical Decision Making - Lab Data Result diagrams: 07/07/19 06:04 07/07/19 06:04 Lab Results 07/07/19 07/07/19 07/07/19 Range/Units 06:04 06:04 08:59 WBC 6.3 (4.5-11.0) K/mm3 RBC 5.04 H (3.65-5.03) M/mm3 Hgb 13.6 (11.8-15.2) gm/dl Hct 41.8 (35.5-45.6) % MCV 83 L (84-94) fl MCH 27 L (28-32) pg MCHC 33 (32-34) % RDW 12.9 L (13.2-15.2) % Plt Count 259 (140-440) K/mm3 Lymph % (Auto) 34.7 (13.4-35.0) % Schleicher % (Auto) 10.1 H (0.0-7.3) % Eos % (Auto) 8.0 H (0.0-4.3) % Baso % (Auto) 0.8 (0.0-1.8) % Lymph # 2.2 (1.2-5.4) K/mm3 Schleicher # 0.6 (0.0-0.8) K/mm3 Eos # 0.5 H (0.0-0.4) K/mm3 Baso # 0.0 (0.0-0.1) K/mm3 Seg Neutrophils % 46.4 (40.0-70.0) % Seg Neutrophils # 2.9 (1.8-7.7) K/mm3 Sodium 138 (137-145) mmol/L Potassium 3.6 (3.6-5.0) mmol/L Chloride 103.3 (98-107) mmol/L Carbon Dioxide 23 (22-30) mmol/L Anion Gap 15 mmol/L BUN 15 (9-20) mg/dL Creatinine 0.9 (0.8-1.5) mg/dL Estimated GFR > 60 ml/min BUN/Creatinine Ratio 17 % Glucose 362 H (75-100) mg/dL POC Glucose (70-105) Calcium 8.5 (8.4-10.2) mg/dL Troponin T < 0.010 < 0.010 (0.00-0.029) ng/mL 07/07/19 07/07/19 07/07/19 Range/Units 12:48 12:55 13:38 WBC (4.5-11.0) K/mm3 RBC (3.65-5.03) M/mm3 Hgb (11.8-15.2) gm/dl Hct (35.5-45.6) % MCV (84-94) fl MCH (28-32) pg MCHC (32-34) % RDW (13.2-15.2) % Plt Count (140-440) K/mm3 Lymph % (Auto) (13.4-35.0) % Schleicher % (Auto) (0.0-7.3) % Eos % (Auto) (0.0-4.3) % Baso % (Auto) (0.0-1.8) % Lymph # (1.2-5.4) K/mm3 Schleicher # (0.0-0.8) K/mm3 Eos # (0.0-0.4) K/mm3 Baso # (0.0-0.1) K/mm3 Seg Neutrophils % (40.0-70.0) % Seg Neutrophils # (1.8-7.7) K/mm3 Sodium (137-145) mmol/L Potassium (3.6-5.0) mmol/L Chloride (98-107) mmol/L Carbon Dioxide (22-30) mmol/L Anion Gap mmol/L BUN (9-20) mg/dL Creatinine (0.8-1.5) mg/dL Estimated GFR ml/min BUN/Creatinine Ratio % Glucose (75-100) mg/dL POC Glucose 135 H 225 H (70-105) Calcium (8.4-10.2) mg/dL Troponin T < 0.010 (0.00-0.029) ng/mL - EKG Data -: EKG Interpreted by [place] EKG shows normal: sinus rhythm, ST-T waves Rate: normal - Radiology Data Radiology results: report reviewed CHEST 1 VIEW INDICATION / CLINICAL INFORMATION: Chest Pain. COMPARISON: None available. FINDINGS: SUPPORT DEVICES: None. HEART / MEDIASTINUM: No significant abnormality. LUNGS / PLEURA: No significant pulmonary or pleural abnormality. No pneumothorax. ADDITIONAL FINDINGS: No significant additional findings. IMPRESSION: 1. No acute findings. - Medical Decision Making Treated with albuterol, Atrovent, Solu-Medrol, tramadol, and aspirin with improvement in symptoms Patient has troponin negative 3 resolution of chest pain heart score 3 No suspicion for pulmonary it was sent to the lack of risk factors, DVT or PE symptoms. plan to d/c home with meds and f/u card, pulm, and pmd chest pain referral for outpt stress testing will be provided. - Differential Diagnosis copd, costochondritis, mi, atypical chest pain Critical Care Time: No Critical care attestation.: If time is entered above; I have spent that time in minutes in the direct care o f this critically ill patient, excluding procedure time. ED Disposition Clinical Impression: Atypical chest pain, COPD exacerbation Disposition: DC-01 TO HOME OR SELFCARE Is pt being admited?: No Does the pt Need Aspirin: No Condition: Stable Instructions: Chest Pain (ED), Chronic Obstructive Pulmonary Disease (ED) Additional Instructions: Take the medication as prescribed. Follow-up with your doctor or doctor/clinic provided. Return if symptoms worsen as indicated by your discharge instructions. Prescriptions: predniSONE [Deltasone] 20 mg PO QDAY #20 tab traMADoL [Ultram 50 MG tab] 50 mg PO Q6HR PRN #20 tablet PRN Reason: Pain Referrals: SWATI SHEPPARD MD [Staff Physician] - 3-5 Days (primary care doctor ) NEHA CASTAÑEDA MD [Staff Physician] - 3-5 Days (Data Entry Supervisor) [facility] [Provider Group] - 3-5 Days (Crime Scene Photographer) Time of Disposition: 14:01
[2019-07-07] MEDS ORDERED: traMADol 50 MG TAB PO ONE (13:00)
[2019-07-07 14:55] VITALS: BP 132/72
== END 2019-07-07 14:55 | disposition home or self-care (01) ==
LOC: ED 05:43
DX: J44.1 Chronic obstructive pulmonary disease with (acute) exacerbation (principal); R07.89 Other chest pain; I10 Essential (primary) hypertension; E11.9 Type 2 diabetes mellitus without complications; J45.909 Unspecified asthma, uncomplicated; Z98.890 Other specified postprocedural states; Z79.899 Other long term (current) drug therapy; Z91.013 Allergy to seafood
CPT/HCPCS: 36415; 71045; 80048; 82962; 84484; 85025; 93005; 93010; 94640; 96374; 96375; 99285; J2930; 94644; J1815

== ENCOUNTER 2019-08-22 17:11 | Emergency (ER) | payer MEDICARE ==
--- NOTE | 2019-08-22 17:41 | Emergency Department Report ---
Blank Doc - Documentation Documentation: 63-year-old male that presents with dizziness and chest pains with SOB. This initial assessment/diagnostic orders/clinical plan/treatment(s) is/are subject to change based on patient's health status, clinical progression and re- assessment by fellow clinical providers in the ED. Further treatment and workup at subsequent clinical providers discretion. Patient/guardians urged not to elope from the ED as their condition may be serious if not clinically assessed and managed. Initial orders include: 1- Patient sent to MAIN ED for further evaluation and treatment 2- labs 3- EKG 4- CXR
[2019-08-22 18:12] LABS: Basophils # (Auto) 0.1 K/mm3 (0.0-0.1); Basophils % (Auto) 0.8 % (0.0-1.8); Eosinophils # (Auto) 0.7 K/mm3 (0.0-0.4); Eosinophils % (Auto) 9.6 % (0.0-4.3); Hemoglobin 14.8 gm/dl (11.8-15.2); Lymphocytes # (Auto) 1.9 K/mm3 (1.2-5.4); Lymphocytes % (Auto) 24.5 % (13.4-35.0); Mean Corpuscular HGB Conc 34 % (32-34); Mean Corpuscular Volume 82 fl (84-94); Monocytes # (Auto) 0.7 K/mm3 (0.0-0.8); Monocytes % (Auto) 8.5 % (0.0-7.3); Platelet Count 310 K/mm3 (140-440); Red Blood Count 5.36 M/mm3 (3.65-5.03); Red Cell Distribution Width 12.7 % (13.2-15.2)
[2019-08-22 18:31] LABS: INR 0.9 (0.87-1.13)
[2019-08-22 18:32] LABS: Partial Thromboplastin Time 29.8 Sec. (24.2-36.6)
[2019-08-22 18:39] LABS: Alanine Aminotransferase 22 units/L (7-56); Albumin 3.9 g/dL (3.9-5); BUN/Creatinine Ratio 9; Blood Urea Nitrogen 7 mg/dL (9-20); Hemolysis Index 36
--- NOTE | 2019-08-22 18:48 | XRay Report ---
CHEST PA AND LATERAL VIEWS INDICATION: Chest Pain. COMPARISON: 07/07/2019 FINDINGS: Support devices: None. Heart: Within normal limits. Lungs/Pleura: No acute pulmonary or pleural findings. IMPRESSION: 1. No acute findings. Signer Name: Inderjit Silvestre MD Signed: 08/22/2019 6:44 PM Workstation Name: [id number]
[2019-08-22 21:04] LABS: Bilirubin,Urine NEG (Negative); Blood,Urine NEG (Negative); Color,Urine Yellow (Yellow); Mucus,Urine FEW /HPF; Protein,Urine <15 mg/dL mg/dL (Negative); Urobilinogen,Urine < 2.0 mg/dL (<2.0)
[2019-08-22 21:05] LABS: WBC,Urine < 1.0 /HPF (0.0-6.0)
--- NOTE | 2019-08-22 22:10 | Emergency Department Report ---
ED General Adult HPI - General Chief complaint: Chest Pain Stated complaint: LFT SIDE PAIN/DIZZY Time Seen by Provider: 08/22/19 17:40 Source: patient Mode of arrival: Ambulatory Limitations: No Limitations - History of Present Illness Initial comments: Patient is a 63-year-old [place] male past medical history of asthma as well as diabetes who is presenting with epigastric and center left chest pain he states approximate 2 months. Patient states occasionally it will be nauseous however he's had no episodes of vomiting. Has no change in the caliber of the discomfort with eating or drinking or exertion but he does state these worse at night when is lying flat. Patient states it starts in the epigastrium and radiates up into the center left chest. Denies cough cold congestion fevers or chills. She is at its worst the pain is 7 out of 10. - Related Data Home Medications Medication Instructions Recorded Confirmed Last Taken metFORMIN [Glucophage] 500 mg PO BID 07/02/14 09/08/17 10/18/14 Previous Rx's Medication Instructions Recorded Last Taken Type Aspirin EC 325 mg PO DAILY tablet 10/28/14 Unknown Rx Arformoterol Nebu [Brovana Nebu] 15 mcg IH Q12HRT 30 Days ml 06/25/17 Unknown Rx Fluticasone/Salmeterol [Advair 1 puff IH BID #1 disk.w.dev 06/25/17 Unknown Rx Diskus 250-50 mcg] Montelukast [Singulair] 10 mg PO BID 30 Days tablet 06/25/17 Unknown Rx Tiotropium [Spiriva] 18 mcg IH QDAY 30 Days cap 06/25/17 Unknown Rx glipiZIDE [glipiZIDE XL] 5 mg PO QDAY #30 tab.er.24 06/25/17 Unknown Rx ALBUTEROL NEB's [Proventil 0.083% 2.5 mg IH TID PRN #30 neb 08/22/17 Unknown Rx NEBS] Albuterol INH(or & Nicu Only) 2 puff IH QID PRN #1 inhalation 09/10/17 Unknown Rx [ProAir HFA Inhaler] Famotidine [Pepcid] 40 mg PO DAILY #10 tablet 09/01/18 Unknown Rx hydrOXYzine PAMOATE [Vistaril] 25 mg PO Q8H PRN #12 capsule 09/01/18 Unknown Rx predniSONE [Deltasone] 40 mg PO QDAY #20 tab 11/20/18 Unknown Rx predniSONE [Deltasone] 3 tab PO QDAY 14 Days #42 tab 04/13/19 Unknown Rx predniSONE [Deltasone] 20 mg PO QDAY #20 tab 07/07/19 Unknown Rx traMADoL [Ultram 50 MG tab] 50 mg PO Q6HR PRN #20 tablet 07/07/19 Unknown Rx Dicyclomine [Bentyl] 20 mg PO QID #10 tablet 08/22/19 Unknown Rx Ondansetron [Zofran Odt] 4 mg PO Q8HR #10 tab.rapdis 08/22/19 Unknown Rx Pantoprazole [Protonix] 40 mg PO QDAY #30 tablet 08/22/19 Unknown Rx Allergies Allergy/AdvReac Type Severity Reaction Status Date / Time seafood Allergy Shortness Uncoded 10/27/18 16:37 of Breath shrimp Allergy Shortness Uncoded 10/27/18 16:37 of Breath ED Review of Systems ROS: Stated complaint: LFT SIDE PAIN/DIZZY Other details as noted in HPI Comment: All other systems reviewed and negative ED Past Medical Hx - Past Medical History Hx Hypertension: Yes Hx CVA: No Hx Heart Attack/AMI: No Hx Congestive Heart Failure: No Hx Diabetes: Yes Hx Deep Vein Thrombosis: No Hx Pulmonary Embolism: No Hx GERD: No Hx Liver Disease: No Hx Renal Disease: No Hx Sickle Cell Disease: No Hx Arthritis: No Hx Headaches / Migraines: No Hx Seizures: No Hx Kidney Stones: No Hx Psychiatric Treatment: No Hx Asthma: Yes (intubation) Hx COPD: No Hx Tuberculosis: No Hx Dementia: No Hx HIV: No Additional medical history: intabated and bi pap - Surgical History Hx Coronary Stent: No Hx Open Heart Surgery: No Hx Pacemaker: No Hx Internal Defibrillator: No Hx Cholecystectomy: No Hx Appendectomy: No Hx Breast Surgery: No Additional Surgical History: back surgery x4. Hernia repair 04/20 - Social History Smoking Status: Never Smoker Substance Use Type: None - Medications Home Medications: Home Medications Medication Instructions Recorded Confirmed Last Taken Type metFORMIN [Glucophage] 500 mg PO BID 07/02/14 09/08/17 10/18/14 History Aspirin EC 325 mg PO DAILY tablet 10/28/14 09/08/17 Unknown Rx Arformoterol Nebu [Brovana Nebu] 15 mcg IH Q12HRT 30 Days ml 06/25/17 09/08/17 Unknown Rx Fluticasone/Salmeterol [Advair 1 puff IH BID #1 disk.w.dev 06/25/17 09/08/17 Unknown Rx Diskus 250-50 mcg] Montelukast [Singulair] 10 mg PO BID 30 Days tablet 06/25/17 09/08/17 Unknown Rx Tiotropium [Spiriva] 18 mcg IH QDAY 30 Days cap 06/25/17 09/08/17 Unknown Rx glipiZIDE [glipiZIDE XL] 5 mg PO QDAY #30 tab.er.24 06/25/17 09/08/17 Unknown Rx ALBUTEROL NEB's [Proventil 0.083% 2.5 mg IH TID PRN #30 neb 08/22/17 09/08/17 Unknown Rx NEBS] Albuterol INH(or & Nicu Only) 2 puff IH QID PRN #1 inhalation 09/10/17 Unknown Rx [ProAir HFA Inhaler] Famotidine [Pepcid] 40 mg PO DAILY #10 tablet 09/01/18 Unknown Rx hydrOXYzine PAMOATE [Vistaril] 25 mg PO Q8H PRN #12 capsule 09/01/18 Unknown Rx predniSONE [Deltasone] 40 mg PO QDAY #20 tab 11/20/18 Unknown Rx predniSONE [Deltasone] 3 tab PO QDAY 14 Days #42 tab 04/13/19 Unknown Rx predniSONE [Deltasone] 20 mg PO QDAY #20 tab 07/07/19 Unknown Rx traMADoL [Ultram 50 MG tab] 50 mg PO Q6HR PRN #20 tablet 07/07/19 Unknown Rx Dicyclomine [Bentyl] 20 mg PO QID #10 tablet 08/22/19 Unknown Rx Ondansetron [Zofran Odt] 4 mg PO Q8HR #10 tab.rapdis 08/22/19 Unknown Rx Pantoprazole [Protonix] 40 mg PO QDAY #30 tablet 08/22/19 Unknown Rx ED Physical Exam - General Limitations: No Limitations General appearance: alert, in no apparent distress - Head Head exam: Present: atraumatic, normocephalic - Eye Eye exam: Present: normal appearance, PERRL, EOMI - ENT ENT exam: Present: mucous membranes moist - Neck Neck exam: Present: normal inspection - Respiratory Respiratory exam: Present: normal lung sounds bilaterally. Absent: respiratory distress, wheezes, rales, rhonchi - Cardiovascular Cardiovascular Exam: Present: regular rate, normal rhythm, normal heart sounds. Absent: systolic murmur, diastolic murmur, rubs, gallop - GI/Abdominal GI/Abdominal exam: Present: soft, tenderness (mild epigastric tenderness to palpation), normal bowel sounds. Absent: distended, guarding, rebound - Rectal Rectal exam: Present: deferred - Extremities Exam Extremities exam: Present: normal inspection - Back Exam Back exam: Present: normal inspection - Neurological Exam Neurological exam: Present: alert, oriented X3 - Psychiatric Psychiatric exam: Present: normal affect, normal mood - Skin Skin exam: Present: warm, dry, intact, normal color. Absent: rash ED Course Vital Signs 08/22/19 08/22/19 17:33 17:39 Temperature 98.3 F 98.3 F Pulse Rate 101 H 91 H Respiratory 16 16 Rate Blood Pressure 116/76 116/76 O2 Sat by Pulse 97 98 Oximetry ED Medical Decision Making - Lab Data Result diagrams: 08/22/19 17:55 08/22/19 17:55 Lab Results 08/22/19 08/22/19 08/22/19 Range/Units 17:55 17:55 17:55 WBC 7.7 (4.5-11.0) K/mm3 RBC 5.36 H (3.65-5.03) M/mm3 Hgb 14.8 (11.8-15.2) gm/dl Hct 44.0 (35.5-45.6) % MCV 82 L (84-94) fl MCH 28 (28-32) pg MCHC 34 (32-34) % RDW 12.7 L (13.2-15.2) % Plt Count 310 (140-440) K/mm3 Lymph % (Auto) 24.5 (13.4-35.0) % [place] % (Auto) 8.5 H (0.0-7.3) % Eos % (Auto) 9.6 H (0.0-4.3) % Baso % (Auto) 0.8 (0.0-1.8) % Lymph # 1.9 (1.2-5.4) K/mm3 [place] # 0.7 (0.0-0.8) K/mm3 Eos # 0.7 H (0.0-0.4) K/mm3 Baso # 0.1 (0.0-0.1) K/mm3 Seg Neutrophils % 56.6 (40.0-70.0) % Seg Neutrophils # 4.4 (1.8-7.7) K/mm3 PT 12.2 (12.2-14.9) Sec. INR 0.90 (0.87-1.13) APTT 29.8 (24.2-36.6) Sec. Sodium 140 (137-145) mmol/L Potassium 4.4 (3.6-5.0) mmol/L Chloride 105.7 (98-107) mmol/L Carbon Dioxide 21 L (22-30) mmol/L Anion Gap 18 mmol/L BUN 7 L (9-20) mg/dL Creatinine 0.8 (0.8-1.5) mg/dL Estimated GFR > 60 ml/min BUN/Creatinine Ratio 9 % Glucose 256 H (75-100) mg/dL Calcium 9.0 (8.4-10.2) mg/dL Total Bilirubin 0.20 (0.1-1.2) mg/dL AST 23 (5-40) units/L ALT 22 (7-56) units/L Alkaline Phosphatase 91 (35-129) units/L Troponin T < 0.010 (0.00-0.029) ng/mL Total Protein 6.8 (6.3-8.2) g/dL Albumin 3.9 (3.9-5) g/dL Albumin/Globulin Ratio 1.3 % Urine Color (Yellow) Urine Turbidity (Clear) Urine pH (5.0-7.0) Ur Specific [place] (1.003-1.030) Urine Protein (Negative) mg/dL Urine Glucose (UA) (Negative) mg/dL Urine Ketones (Negative) mg/dL Urine Blood (Negative) Urine Nitrite (Negative) Urine Bilirubin (Negative) Urine Urobilinogen (<2.0) mg/dL Ur Leukocyte Esterase (Negative) Urine WBC (Auto) (0.0-6.0) /HPF Urine RBC (Auto) (0.0-6.0) /HPF Urine Mucus /HPF 08/22/19 Range/Units 20:50 WBC (4.5-11.0) K/mm3 RBC (3.65-5.03) M/mm3 Hgb (11.8-15.2) gm/dl Hct (35.5-45.6) % MCV (84-94) fl MCH (28-32) pg MCHC (32-34) % RDW (13.2-15.2) % Plt Count (140-440) K/mm3 Lymph % (Auto) (13.4-35.0) % [place] % (Auto) (0.0-7.3) % Eos % (Auto) (0.0-4.3) % Baso % (Auto) (0.0-1.8) % Lymph # (1.2-5.4) K/mm3 [place] # (0.0-0.8) K/mm3 Eos # (0.0-0.4) K/mm3 Baso # (0.0-0.1) K/mm3 Seg Neutrophils % (40.0-70.0) % Seg Neutrophils # (1.8-7.7) K/mm3 PT (12.2-14.9) Sec. INR (0.87-1.13) APTT (24.2-36.6) Sec. Sodium (137-145) mmol/L Potassium (3.6-5.0) mmol/L Chloride (98-107) mmol/L Carbon Dioxide (22-30) mmol/L Anion Gap mmol/L BUN (9-20) mg/dL Creatinine (0.8-1.5) mg/dL Estimated GFR ml/min BUN/Creatinine Ratio % Glucose (75-100) mg/dL Calcium (8.4-10.2) mg/dL Total Bilirubin (0.1-1.2) mg/dL AST (5-40) units/L ALT (7-56) units/L Alkaline Phosphatase (35-129) units/L Troponin T (0.00-0.029) ng/mL Total Protein (6.3-8.2) g/dL Albumin (3.9-5) g/dL Albumin/Globulin Ratio % Urine Color Yellow (Yellow) Urine Turbidity Clear (Clear) Urine pH 6.0 (5.0-7.0) Ur Specific [place] 1.020 (1.003-1.030) Urine Protein <15 mg/dl (Negative) mg/dL Urine Glucose (UA) >=500 (Negative) mg/dL Urine Ketones Neg (Negative) mg/dL Urine Blood Neg (Negative) Urine Nitrite Neg (Negative) Urine Bilirubin Neg (Negative) Urine Urobilinogen < 2.0 (<2.0) mg/dL Ur Leukocyte Esterase Neg (Negative) Urine WBC (Auto) < 1.0 (0.0-6.0) /HPF Urine RBC (Auto) 3.0 (0.0-6.0) /HPF Urine Mucus Few /HPF - EKG Data -: EKG Interpreted by [facility] EKG shows normal: sinus rhythm, axis, intervals, QRS complexes, ST-T waves Rate: normal - EKG Data Interpretation: normal EKG - Radiology Data CHEST PA AND LATERAL VIEWS INDICATION: Chest Pain. COMPARISON: 07/07/2019 FINDINGS: Support devices: None. Heart: Within normal limits. Lungs/Pleura: No acute pulmonary or pleural findings. IMPRESSION: 1. No acute findings. Signer Name: Inderjit Silvestre MD Signed: 08/22/2019 6:44 PM Workstation Name: [id number] Transcribed By: ABDI Dictated By: Inderjit Silvestre MD Electronically Authenticated By: Inderjit Silvestre MD Signed Date/Time: 08/22/19 0995 - Medical Decision Making Patient is a 63-year-old [place] male with a past medical history of diabetes and asthma who is presenting with some epigastric discomfort. The patient is has a negative first troponin. Patient states pain has been going on for approximately 2 months making acute coronary syndrome much less likely. Patient also has a normal EKG and his symptoms are very atypical for acute coronary syndrome. Patient's symptoms are mostly in the epigastrium radiating to the chest and is worse when he lies flat. Patient's symptoms are most consistent with GERD. I do agree with the cardiac workup that was done from triage however because of the patient's history of diabetes. Patient ruled out for acute coronary syndrome at this time. I be placed on medications for acid reflux and peptic ulcer disease and will be discharged home with follow-up with [facility] primary care physician but also GI. Critical care attestation.: If time is entered above; I have spent that time in minutes in the direct care of this critically ill patient, excluding procedure time. ED Disposition Clinical Impression: Atypical chest pain Diabetes Qualifiers: Diabetes mellitus type: type 2 Diabetes mellitus intermediate designer insulin use: unspecified intermediate designer insulin use status Diabetes mellitus complication status: without complication Qualified Code(s): E11.9 - Type 2 diabetes mellitus without complications GERD (gastroesophageal reflux disease) Qualifiers: Esophagitis presence: without esophagitis Qualified Code(s): K21.9 - Gastro- esophageal reflux disease without esophagitis Disposition: TO HOME OR SELFCARE Is pt being admited?: No Does the pt Need Aspirin: No Condition: Stable Instructions: Chest Pain (ED), Diabetes Mellitus Type 2 in Adults (ED), Diet for Ulcers and Gastritis (ED), Gastroesophageal Reflux Disease (ED) Referrals: PRIMARY CARE, [Primary Care Provider] - 3-5 Days Time of Disposition: 22:11
[2019-08-22 22:43] VITALS: BP 113/86
== END 2019-08-22 22:44 | disposition home or self-care (01) ==
LOC: ED 17:11
DX: R07.89 Other chest pain (principal); K21.9 Gastro-esophageal reflux disease without esophagitis; E11.9 Type 2 diabetes mellitus without complications; J45.909 Unspecified asthma, uncomplicated; Z98.890 Other specified postprocedural states; Z79.899 Other long term (current) drug therapy; Z91.013 Allergy to seafood
CPT/HCPCS: 36415; 71046; 80053; 81001; 84484; 85025; 85610; 85730; 93005; 93010

== ENCOUNTER 2019-11-25 08:14 | Emergency (ER) | payer OTHER, SELFPAY ==
[2019-11-25] MEDS ORDERED: ALBUTEROL 2.5 MG/3 ML NEBU IH ONE ×2 (08:30→13:49)
[2019-11-25] MEDS ORDERED: MAGNESIUM SULFATE 2 GM/50 ML BAG IV ONE (08:31)
[2019-11-25] MEDS ORDERED: methylPREDNISolone Sod Succinate 125 MG/2 ML INJ IV ONE (08:31)
--- NOTE | 2019-11-25 08:34 | Emergency Department Report ---
ED Shortness of Breath HPI - General Chief Complaint: Adult Asthma Stated Complaint: ASTHMA Time Seen by Provider: 11/25/19 08:23 Source: patient Mode of arrival: Ambulatory Limitations: No Limitations - History of Present Illness Initial Comments: He is out of his home medications. Patient patient is a 63-year-old - [place] male who is well-known to us in the ER. He comes to the emergency room today wheezing. Patient is seen frequently in the ER and has required numerous intubations. He comes in today, during allergy season in [place], with wheezing. He denies fever. He denies chills. He denies cough. He denies purulent sputum. Patient is ambulatory to the ER arriving via private vehicle. -: Gradual, days(s) Known History Of: COPD, asthma Treatments Prior to Arrival: none - Related Data Home Oxygen Therapy: No Home Medications Medication Instructions Recorded Confirmed Last Taken metFORMIN [Glucophage] 500 mg PO BID 07/02/14 11/13/19 10/18/14 Previous Rx's Medication Instructions Recorded Last Taken Type Aspirin EC [Ecotrin] 325 mg PO DAILY tablet 10/28/14 Unknown Rx Arformoterol Nebu [Brovana Nebu] 15 mcg IH Q12HRT 30 Days ml 06/25/17 Unknown Rx Fluticasone/Salmeterol [Advair 1 puff IH BID #1 disk.w.dev 06/25/17 Unknown Rx Diskus 250-50 mcg] glipiZIDE [glipiZIDE XL] 5 mg PO QDAY #30 tab.er.24 06/25/17 Unknown Rx Famotidine [Pepcid] 40 mg PO DAILY #10 tablet 09/01/18 Unknown Rx Pantoprazole [Protonix] 40 mg PO QDAY #30 tablet 08/22/19 Unknown Rx ALBUTEROL NEB's [Proventil 0.083% 2.5 mg IH TID PRN #30 neb 11/25/19 Unknown Rx NEBS] Albuterol INH(or & Nicu Only) 2 puff IH QID PRN #1 inhalation 11/25/19 Unknown Rx [ProAir HFA Inhaler] Azithromycin [Zithromax Z-AUNG] 250 mg PO DAILY #6 tablet 11/25/19 Unknown Rx Cetirizine HCl [ZyrTEC] 10 mg PO DAILY #30 capsule 11/25/19 Unknown Rx Fluticasone [Flonase] 1 spray NS QDAY #1 bottle 11/25/19 Unknown Rx Tiotropium [Spiriva] 18 mcg IH QDAY 30 Days cap 11/25/19 Unknown Rx predniSONE [Deltasone] 20 mg PO DAILY #5 tablet 11/25/19 Unknown Rx Allergies Allergy/AdvReac Type Severity Reaction Status Date / Time seafood Allergy Shortness Uncoded 10/27/18 16:37 of Breath shrimp Allergy Shortness Uncoded 10/27/18 16:37 of Breath ED Review of Systems ROS: Stated complaint: ASTHMA Other details as noted in HPI Comment: All other systems reviewed and negative ED Past Medical Hx - Past Medical History Previous Medical History?: Yes Hx Hypertension: Yes Hx CVA: No Hx Heart Attack/AMI: No Hx Congestive Heart Failure: No Hx Diabetes: Yes Hx Deep Vein Thrombosis: No Hx Pulmonary Embolism: No Hx GERD: No Hx Liver Disease: No Hx Renal Disease: No Hx of Cancer: No Hx Sickle Cell Disease: No Hx Arthritis: No Hx Headaches / Migraines: No Hx Seizures: No Hx Kidney Stones: No Hx Psychiatric Treatment: No Hx Asthma: Yes (intubation) Hx COPD: No Hx Tuberculosis: No Hx Dementia: No Hx HIV: No Additional medical history: intabated and bi pap - Surgical History Past Surgical History?: Yes Additional Surgical History: back surgery x4. Hernia repair 04/20 - Family History Family history: no significant - Social History Smoking Status: Never Smoker Substance Use Type: None - Medications Home Medications: Home Medications Medication Instructions Recorded Confirmed Last Taken Type metFORMIN [Glucophage] 500 mg PO BID 07/02/14 11/13/19 10/18/14 History Aspirin EC [Ecotrin] 325 mg PO DAILY tablet 10/28/14 11/13/19 Unknown Rx Arformoterol Nebu [Brovana Nebu] 15 mcg IH Q12HRT 30 Days ml 06/25/17 11/13/19 Unknown Rx Fluticasone/Salmeterol [Advair 1 puff IH BID #1 disk.w.dev 06/25/17 11/13/19 Unknown Rx Diskus 250-50 mcg] glipiZIDE [glipiZIDE XL] 5 mg PO QDAY #30 tab.er.24 06/25/17 11/13/19 Unknown Rx Famotidine [Pepcid] 40 mg PO DAILY #10 tablet 09/01/18 11/13/19 Unknown Rx Pantoprazole [Protonix] 40 mg PO QDAY #30 tablet 08/22/19 11/13/19 Unknown Rx ALBUTEROL NEB's [Proventil 0.083% 2.5 mg IH TID PRN #30 neb 11/25/19 Unknown Rx NEBS] Albuterol INH(or & Nicu Only) 2 puff IH QID PRN #1 inhalation 11/25/19 Unknown Rx [ProAir HFA Inhaler] Azithromycin [Zithromax Z-AUNG] 250 mg PO DAILY #6 tablet 11/25/19 Unknown Rx Cetirizine HCl [ZyrTEC] 10 mg PO DAILY #30 capsule 11/25/19 Unknown Rx Fluticasone [Flonase] 1 spray NS QDAY #1 bottle 11/25/19 Unknown Rx Tiotropium [Spiriva] 18 mcg IH QDAY 30 Days cap 11/25/19 Unknown Rx predniSONE [Deltasone] 20 mg PO DAILY #5 tablet 11/25/19 Unknown Rx ED Physical Exam - General Limitations: No Limitations General appearance: alert, in no apparent distress - Head Head exam: Present: atraumatic, normocephalic - Eye Eye exam: Present: normal appearance - ENT ENT exam: Present: mucous membranes moist - Neck Neck exam: Present: normal inspection - Respiratory Respiratory exam: Present: normal lung sounds bilaterally, wheezes. Absent: respiratory distress - Cardiovascular Cardiovascular Exam: Present: regular rate, normal rhythm. Absent: systolic murmur, diastolic murmur, rubs, gallop - GI/Abdominal GI/Abdominal exam: Present: soft, normal bowel sounds - Rectal Rectal exam: Present: deferred - Extremities Exam Extremities exam: Present: normal inspection - Back Exam Back exam: Present: normal inspection - Neurological Exam Neurological exam: Present: alert, oriented X3 - Psychiatric Psychiatric exam: Present: normal affect, normal mood - Skin Skin exam: Present: warm, dry, intact, normal color. Absent: rash ED Course Vital Signs 11/25/19 11/25/19 11/25/19 08:18 08:30 14:23 Temperature 99 F Pulse Rate 121 H Pulse Rate [ 119 H Anterior Bilateral Throughout] Pulse Rate [ 121 H Anterior Bilateral] Respiratory 24 Rate Respiratory 22 Rate [Anterior Bilateral Throughout] Respiratory 22 Rate [Anterior Bilateral] O2 Sat by Pulse 94 Oximetry ED Medical Decision Making - Lab Data Result diagrams: 11/25/19 08:56 11/25/19 08:56 - Radiology Data Radiology results: report reviewed, image reviewed - Medical Decision Making Labs 11/25/19 11/25/19 11/25/19 08:56 08:56 10:52 WBC 8.2 RBC 5.31 H Hgb 14.3 Hct 43.4 MCV 82 L MCH 27 L MCHC 33 RDW 13.3 Plt Count 281 Lymph % (Auto) 13.2 L [place] % (Auto) 4.6 Eos % (Auto) 5.6 H Baso % (Auto) 0.9 Lymph # 1.1 L [place] # 0.4 Eos # 0.5 H Baso # 0.1 Seg Neutrophils % 75.7 H Seg Neutrophils # 6.2 D-Dimer Sodium 138 Potassium 3.6 Chloride 100.2 Carbon Dioxide 20 L Anion Gap 21 BUN 8 L Creatinine 0.8 Estimated GFR > 60 BUN/Creatinine Ratio 10 Glucose 352 H Calcium 9.0 Ferritin 108.7 Total Bilirubin 0.40 AST 18 ALT 24 Alkaline Phosphatase 84 Lactate Dehydrogenase C-Reactive Protein Total Protein 6.6 Albumin 4.0 Albumin/Globulin Ratio 1.5 Procalcitonin 11/25/19 11/25/19 11/25/19 10:52 10:52 10:52 WBC RBC Hgb Hct MCV MCH MCHC RDW Plt Count Lymph % (Auto) [place] % (Auto) Eos % (Auto) Baso % (Auto) Lymph # [place] # Eos # Baso # Seg Neutrophils % Seg Neutrophils # D-Dimer < 135.00 Sodium Potassium Chloride Carbon Dioxide Anion Gap BUN Creatinine Estimated GFR BUN/Creatinine Ratio Glucose Calcium Ferritin Total Bilirubin AST ALT Alkaline Phosphatase Lactate Dehydrogenase 171 C-Reactive Protein 0.50 Total Protein Albumin Albumin/Globulin Ratio Procalcitonin < 0.05 Vital Signs 11/25/19 11/25/19 08:18 08:30 Temperature 99 F Pulse Rate 121 H Respiratory 24 Rate O2 Sat by Pulse 94 Oximetry LABS NOTED XRAY NOTED COVID NOT AVAILABLE BECAUSE PT DOES NOT NEED ADMITTED AT THIS TIME. ALBUTEROL/SOLUMEDROL/MG ON ARRIVAL BUT PT CONTINUED TO WHEEZE HOUR LONG DUONEB AND AZITHRO AND PT IMPROVED- WHEEZING GREATLY DEC. NO SOB. NO CP. AMBULATORY WITHOUT DIFFICULTY. SAT 100 ON ROOM AIR. TAKING PO DC HOME WITH RX AND PCP FOLLOW UP. PT VERBALIZES UNDERSTANDING OF NEED TO TAKE HIS MEDS AND SEE PCP. - Differential Diagnosis RO PNA/ASTHMA AE W OR WO INFECTION/COVID Critical care attestation.: If time is entered above; I have spent that time in minutes in the direct care of this critically ill patient, excluding procedure time. ED Disposition Clinical Impression: Acute asthma exacerbation, History of diabetes mellitus Disposition: DC-01 TO HOME OR SELFCARE Is pt being admited?: No Does the pt Need Aspirin: No Condition: Stable Instructions: Asthma (ED) Prescriptions: predniSONE [Deltasone] 20 mg PO DAILY #5 tablet Fluticasone [Flonase] 1 spray NS QDAY #1 bottle Albuterol INH(or & Nicu Only) [ProAir HFA Inhaler] 2 puff IH QID PRN #1 inhalation PRN Reason: Shortness Of Breath ALBUTEROL NEB's [Proventil 0.083% NEBS] 2.5 mg IH TID PRN #30 neb PRN Reason: Wheezing Tiotropium [Spiriva] 18 mcg IH QDAY 30 Days cap Azithromycin [Zithromax Z-AUNG] 250 mg PO DAILY #6 tablet Cetirizine HCl [ZyrTEC] 10 mg PO DAILY #30 capsule Referrals: SWATI SHEPPARD MD [Staff Physician] - 3-5 Days Time of Disposition: 13:44
[2019-11-25] MEDS ORDERED: AZITHROMYCIN 500 MG in SODIUM CHLORIDE 0.9% 250ML 250 ML IV ONE (09:00)
[2019-11-25 09:52] LABS: Basophils # (Auto) 0.1 K/mm3 (0.0-0.1); Basophils % (Auto) 0.9 % (0.0-1.8); Eosinophils # (Auto) 0.5 K/mm3 (0.0-0.4); Eosinophils % (Auto) 5.6 % (0.0-4.3); Hematocrit 43.4 % (35.5-45.6); Hemoglobin 14.3 gm/dl (11.8-15.2); Lymphocytes # (Auto) 1.1 K/mm3 (1.2-5.4); Lymphocytes % (Auto) 13.2 % (13.4-35.0); Mean Corpuscular HGB Conc 33 % (32-34); Mean Corpuscular Volume 82 fl (84-94); Monocytes # (Auto) 0.4 K/mm3 (0.0-0.8); Monocytes % (Auto) 4.6 % (0.0-7.3); Platelet Count 281 K/mm3 (140-440); Red Blood Count 5.31 M/mm3 (3.65-5.03); Red Cell Distribution Width 13.3 % (13.2-15.2)
--- NOTE | 2019-11-25 09:53 | XRay Report ---
CHEST 2 VIEWS INDICATION: sob, asthma, wheezing. COMPARISON: 11/13/2019 FINDINGS: Support devices: None. Heart: Within normal limits. Lungs/pleura: No acute air space or interstitial disease. No pneumothorax. Additional findings: None. IMPRESSION: 1. No acute findings. Signer Name: Miguelito Carr MD Signed: 11/25/2019 9:48 AM Workstation Name: [id number]
[2019-11-25 10:17] LABS: Alanine Aminotransferase 24 units/L (7-56); BUN/Creatinine Ratio 10; Blood Urea Nitrogen 8 mg/dL (9-20); Hemolysis Index 18
[2019-11-25 11:41] LABS: C-Reactive Protein 0.5 mg/dL (0.00-1.30)
[2019-11-25] MEDS ORDERED: IPRATROPIUM 0.02% NEBU 2.5 ML IH ONE (13:48)
== END 2019-11-25 16:05 | disposition home or self-care (01) ==
LOC: ED 08:14
DX: J45.901 Unspecified asthma with (acute) exacerbation (principal); E11.9 Type 2 diabetes mellitus without complications; I10 Essential (primary) hypertension; Z79.899 Other long term (current) drug therapy; Z79.82 Long term (current) use of aspirin; Z91.013 Allergy to seafood; Z88.8 Allergy status to other drugs, medicaments and biological substances; Z98.890 Other specified postprocedural states
CPT/HCPCS: 36415; 71046; 80053; 82728; 83615; 84145; 85025; 85379; 86140; 94640; 96365; 96366; 96367; 96375; 99284; J0456; J2930; J3475; J7050; 94644

== ENCOUNTER 2020-06-13 19:07 | Emergency (ER) | payer MEDICARE ==
[2020-06-13] MEDS ORDERED: methylPREDNISolone Sod Succinate 125 MG/2 ML INJ IV ONE (19:35)
[2020-06-13] MEDS ORDERED: IPRATROPIUM/ALBUTEROL SULFATE 3 ML AMPUL.NEB IH ONE (19:35)
[2020-06-13] MEDS ORDERED: MAGNESIUM SULFATE 2 GM/50 ML BAG IV ONE (19:35)
[2020-06-13] MEDS ORDERED: ALBUTEROL 2.5 MG/3 ML NEBU IH ONE (19:36)
[2020-06-13] MEDS ORDERED: IPRATROPIUM 0.02% NEBU 2.5 ML IH ONE ×2 (19:50→19:57)
--- NOTE | 2020-06-13 20:02 | XRay Report ---
CHEST 1 VIEW INDICATION / CLINICAL INFORMATION: cough, dyspnea. COMPARISON: Chest radiograph 03/02/2020 FINDINGS: SUPPORT DEVICES: None. HEART / MEDIASTINUM: No significant abnormality. LUNGS / PLEURA: No significant pulmonary or pleural abnormality. No pneumothorax. ADDITIONAL FINDINGS: No significant additional findings. IMPRESSION: 1. No acute findings. Signer Name: Marie Vann MD Signed: 06/13/2020 7:58 PM Workstation Name: [id number]
[2020-06-13 20:03] LABS: Basophils # (Auto) 0.1 K/mm3 (0.0-0.1); Basophils % (Auto) 0.6 % (0.0-1.8); Eosinophils # (Auto) 1.4 K/mm3 (0.0-0.4); Hemoglobin 14.2 gm/dl (11.8-15.2); Lymphocytes # (Auto) 2.3 K/mm3 (1.2-5.4); Lymphocytes % (Auto) 23.1 % (13.4-35.0); Mean Corpuscular HGB Conc 33 % (32-34); Mean Corpuscular Volume 83 fl (84-94); Monocytes # (Auto) 0.9 K/mm3 (0.0-0.8); Monocytes % (Auto) 9.3 % (0.0-7.3); Platelet Count 289 K/mm3 (140-440); Red Blood Count 5.18 M/mm3 (3.65-5.03)
[2020-06-13 20:27] LABS: Alanine Aminotransferase 21 units/L (7-56); Albumin 4.3 g/dL (3.9-5); BUN/Creatinine Ratio 15; Blood Urea Nitrogen 12 mg/dL (9-20); Calcium 9.2 mg/dL (8.4-10.2); Hemolysis Index 6
[2020-06-13 21:42] VITALS: BP 125/73
--- NOTE | 2020-06-13 21:46 | Emergency Department Report ---
ED Shortness of Breath HPI - General Chief Complaint: Adult Asthma Stated Complaint: ASTHMA Source: patient Mode of arrival: Ambulatory Limitations: No Limitations - History of Present Illness Initial Comments: Patient is a 64-year-old -Citizen Of [place] male with a history of hypertension, gto-vnutozj-tvbwebbhp diabetes, chronic back pain and asthma who presents to the ED with complaint of acute onset persistent shortness of breath, wheezing, persistent dry cough with nasal congestion for the last 3 hours. Patient states that he tried to use his albuterol nebulizers at home as well as inhalers at home with no relief. Patient states that he realized that his inhaler was r unning out and he decided to come to the ED for evaluation given the fact that he had previously had severe asthma attack resulting in him being intubated in the hospital. Patient states that the shortness of breath has been persistent since onset. Patient denies dizziness, syncope, chest pain, abdominal pain, nausea and vomiting, diarrhea, diaphoresis, headache, fever, chills, sore throat, and palpitations. MD Complaint: shortness of breath, cough, "asthma attack" -: Sudden, hour(s) (3) Severity: severe Pain Scale: 7 Quality: dull Consistency: constant Improves With: bronchodilators Worsens With: nothing Known History Of: asthma Context: allergen exposure Associated Symptoms: denies other symptoms, cough Treatments Prior to Arrival: bronchodilator - Related Data Home Oxygen Therapy: No Home Medications Medication Instructions Recorded Confirmed Last Taken metFORMIN [Glucophage] 500 mg PO BID 07/02/14 11/13/19 10/18/14 Previous Rx's Medication Instructions Recorded Last Taken Type Aspirin EC [Ecotrin] 325 mg PO DAILY tablet 10/28/14 Unknown Rx Arformoterol Nebu [Brovana Nebu] 15 mcg IH Q12HRT 30 Days ml 06/25/17 Unknown Rx glipiZIDE [glipiZIDE XL] 5 mg PO QDAY #30 tab.er.24 06/25/17 Unknown Rx Famotidine [Pepcid] 40 mg PO DAILY #10 tablet 09/01/18 Unknown Rx Pantoprazole [Protonix] 40 mg PO QDAY #30 tablet 08/22/19 Unknown Rx Cetirizine HCl [ZyrTEC] 10 mg PO DAILY #30 capsule 11/25/19 Unknown Rx Fluticasone [Flonase] 1 spray NS QDAY #1 bottle 11/25/19 Unknown Rx Tiotropium [Spiriva] 18 mcg IH QDAY 30 Days cap 11/25/19 Unknown Rx ALBUTEROL NEB's [Proventil 0.083% 2.5 mg IH TID PRN #30 neb 01/28/20 Unknown Rx NEBS] Albuterol Mdi (or & Nicu Only) 2 puff IH QID PRN #1 inhalation 01/28/20 Unknown Rx [ProAir HFA Inhaler] Azithromycin [Zithromax Z-AUNG] 250 mg PO DAILY #6 tablet 01/28/20 Unknown Rx Fluticasone/Salmeterol [Advair 1 puff IH BID #1 disk.w.dev 01/28/20 Unknown Rx Diskus 250-50 mcg] predniSONE [Deltasone] 20 mg PO DAILY #5 tablet 01/28/20 Unknown Rx Meclizine [Antivert] 25 mg PO TID PRN #20 tablet 04/26/20 Unknown Rx Albuterol Sulfate [Proventil Hfa] 1 - 2 puff IH Q6H PRN #1 hfa.aer.ad 06/13/20 Unknown Rx Benzonatate [Tessalon Perles] 100 mg PO Q8HR #30 capsule 06/13/20 Unknown Rx predniSONE [Deltasone] 40 mg PO QDAY #12 tab 06/13/20 Unknown Rx Allergies Allergy/AdvReac Type Severity Reaction Status Date / Time seafood Allergy Shortness Uncoded 04/26/20 08:16 of Breath shrimp Allergy Shortness Uncoded 04/26/20 08:16 of Breath ED Review of Systems ROS: Stated complaint: ASTHMA Other details as noted in HPI Constitutional: denies: chills, fever Eyes: denies: eye pain, eye discharge, vision change ENT: congestion. denies: ear pain, throat pain Respiratory: cough, shortness of breath, wheezing Cardiovascular: denies: chest pain, palpitations Endocrine: no symptoms reported Gastrointestinal: denies: abdominal pain, nausea, diarrhea Genitourinary: denies: urgency, dysuria Musculoskeletal: denies: back pain, joint swelling, arthralgia Skin: denies: rash, lesions Neurological: denies: headache, weakness, paresthesias Psychiatric: denies: anxiety, depression Hematological/Lymphatic: denies: easy bleeding, easy bruising ED Past Medical Hx - Past Medical History Previous Medical History?: Yes Hx Hypertension: Yes Hx CVA: No Hx Heart Attack/AMI: No Hx Congestive Heart Failure: No Hx Diabetes: Yes Hx Deep Vein Thrombosis: No Hx Pulmonary Embolism: No Hx GERD: No Hx Liver Disease: No Hx Renal Disease: No Hx Sickle Cell Disease: No Hx Arthritis: No Hx Headaches / Migraines: No Hx Seizures: No Hx Kidney Stones: No Hx Psychiatric Treatment: No Hx Asthma: Yes (intubation) Hx COPD: No Hx Tuberculosis: No Hx Dementia: No Hx HIV: No Additional medical history: intabated and bi pap - Surgical History Past Surgical History?: Yes Additional Surgical History: back surgery x4. Hernia repair 04/20 - Social History Smoking Status: Never Smoker Substance Use Type: None - Medications Home Medications: Home Medications Medication Instructions Recorded Confirmed Last Taken Type metFORMIN [Glucophage] 500 mg PO BID 07/02/14 11/13/19 10/18/14 History Aspirin EC [Ecotrin] 325 mg PO DAILY tablet 10/28/14 11/13/19 Unknown Rx Arformoterol Nebu [Brovana Nebu] 15 mcg IH Q12HRT 30 Days ml 06/25/17 11/13/19 Unknown Rx glipiZIDE [glipiZIDE XL] 5 mg PO QDAY #30 tab.er.24 06/25/17 11/13/19 Unknown Rx Famotidine [Pepcid] 40 mg PO DAILY #10 tablet 09/01/18 11/13/19 Unknown Rx Pantoprazole [Protonix] 40 mg PO QDAY #30 tablet 08/22/19 11/13/19 Unknown Rx Cetirizine HCl [ZyrTEC] 10 mg PO DAILY #30 capsule 11/25/19 Unknown Rx Fluticasone [Flonase] 1 spray NS QDAY #1 bottle 11/25/19 Unknown Rx Tiotropium [Spiriva] 18 mcg IH QDAY 30 Days cap 11/25/19 Unknown Rx ALBUTEROL NEB's [Proventil 0.083% 2.5 mg IH TID PRN #30 neb 01/28/20 Unknown Rx NEBS] Albuterol Mdi (or & Nicu Only) 2 puff IH QID PRN #1 inhalation 01/28/20 Unknown Rx [ProAir HFA Inhaler] Azithromycin [Zithromax Z-AUNG] 250 mg PO DAILY #6 tablet 01/28/20 Unknown Rx Fluticasone/Salmeterol [Advair 1 puff IH BID #1 disk.w.dev 01/28/20 Unknown Rx Diskus 250-50 mcg] predniSONE [Deltasone] 20 mg PO DAILY #5 tablet 01/28/20 Unknown Rx Meclizine [Antivert] 25 mg PO TID PRN #20 tablet 04/26/20 Unknown Rx Albuterol Sulfate [Proventil Hfa] 1 - 2 puff IH Q6H PRN #1 hfa.aer.ad 06/13/20 Unknown Rx Benzonatate [Tessalon Perles] 100 mg PO Q8HR #30 capsule 06/13/20 Unknown Rx predniSONE [Deltasone] 40 mg PO QDAY #12 tab 06/13/20 Unknown Rx ED Physical Exam - General Limitations: No Limitations General appearance: alert, in no apparent distress - Head Head exam: Present: atraumatic, normocephalic, normal inspection - Eye Eye exam: Present: normal appearance, PERRL, EOMI Pupils: Present: normal accommodation - ENT ENT exam: Present: normal orophraynx, mucous membranes moist, TM's normal bilaterally, normal external ear exam, other (Grossly congested nasal passages) - Neck Neck exam: Present: normal inspection, full ROM - Respiratory Respiratory exam: Present: wheezes (Moderately diffuse coarse wheezes throughout). Absent: respiratory distress, rales, rhonchi, chest wall tenderness, accessory muscle use, decreased breath sounds, prolonged expiratory - Cardiovascular Cardiovascular Exam: Present: normal rhythm, tachycardia, normal heart sounds. Absent: systolic murmur, diastolic murmur, rubs, gallop - GI/Abdominal GI/Abdominal exam: Present: soft, normal bowel sounds. Absent: distended, tenderness, guarding, rebound, hyperactive bowel sounds, hypoactive bowel sounds, organomegaly - Extremities Exam Extremities exam: Present: normal inspection, full ROM, normal capillary refill - Back Exam Back exam: Present: normal inspection, full ROM. Absent: tenderness, CVA tenderness (R), CVA tenderness (L), muscle spasm, paraspinal tenderness, vertebral tenderness - Neurological Exam Neurological exam: Present: alert, oriented X3, CN II-XII intact, normal gait, reflexes normal - Psychiatric Psychiatric exam: Present: normal affect, normal mood - Skin Skin exam: Present: warm, dry, intact, normal color. Absent: rash ED Course Vital Signs 06/13/20 06/13/20 19:22 19:58 Temperature 97.9 F Pulse Rate 120 H Pulse Rate [ 105 H Bilateral Throughout] Respiratory 24 Rate Respiratory 20 Rate [Bilateral Throughout] Blood Pressure 124/84 O2 Sat by Pulse 93 Oximetry ED Medical Decision Making - Lab Data Result diagrams: 06/13/20 19:50 06/13/20 19:50 - Radiology Data Radiology results: report reviewed, image reviewed Findings [facility] [address] [place] [address] XRay Report Signed Patient: JONY PERSAUD MR#: [id number] : 1955 Acct:[id number] Age/Sex: 64 / M ADM Date: 06/13/20 Loc: ED Attending Dr: Ordering Physician: JORI HERRERA Date of Service: 06/13/20 Procedure(s): XR chest 1V ap Accession Number(s): [id number] cc: JORI HERRERA Fluoro Time In Minutes: CHEST 1 VIEW INDICATION / CLINICAL INFORMATION: cough, dyspnea. COMPARISON: Chest radiograph 03/02/2020 FINDINGS: SUPPORT DEVICES: None. HEART / MEDIASTINUM: No significant abnormality. LUNGS / PLEURA: No significant pulmonary or pleural abnormality. No pneumothorax. ADDITIONAL FINDINGS: No significant additional findings. IMPRESSION: 1. No acute findings. Signer Name: Marie Vann MD Signed: 06/13/2020 7:58 PM Workstation Name: [id number] Transcribed By: [facility] Dictated By: Marie Vann MD Electronically Authenticated By: Marie Vann MD Signed Date/Time: 06/13/201957 DD/ 56 TD/TT: - Medical Decision Making This is a 64-year-old -Citizen Of [place] male with a history of hypertension, kth-gmlmsty-wwmjizvso diabetes, chronic back pain and asthma who presents to the ED with complaint of acute onset persistent shortness of breath, wheezing, persistent dry cough with nasal congestion for the last 3 hours. Patient states that he tried to use his albuterol nebulizers at home as well as inhalers at home with no relief. Patient states that he realized that his inhaler was running out and he decided to come to the ED for evaluation given the fact that he had previously had severe asthma attack resulting in him being intubated in the hospital. Patient states that the shortness of breath has been persistent since onset. In the ED, patient is alert and oriented x3 and is not in any distress. Patient received DuoNeb treatment and albuterol nebulizer treatment in the ED and also received Solu-Medrol 125 mg IV x1 and magnesium sulfate 2 mg IV x1. Chest x-ray shows no acute cardiopulmonary abnormalities or pneumonitis. On reevaluation, patient felt better, wheezing resolved and tachycardia also resolved after treatment. Patient's oxygen saturation also improved significantly. Patient was discharged home on medications including a refill of his albuterol inhaler and oral prednisone. Patient was advised to follow-up with his primary care physician in 3 to 5 days for reevaluation or return to the ED immediately if symptoms get worse. - Differential Diagnosis Asthma; Pneumonia; Bronchitis; URI; Critical care attestation.: If time is entered above; I have spent that time in minutes in the direct care of this critically ill patient, excluding procedure time. ED Disposition Clinical Impression: Shortness of breath Asthmatic bronchitis with acute exacerbation Qualifiers: Asthma severity: mild Asthma persistence: intermittent Qualified Code(s): J45.21 - Mild intermittent asthma with (acute) exacerbation Disposition: DC-01 TO HOME OR SELFCARE Is pt being admited?: No Does the pt Need Aspirin: No Condition: Stable Instructions: Shortness of Breath, Adult, Vnzv-qb-Wbxx, Asthma, Adult, Cqko-ij-Jlko, How to Use a Nebulizer, Adult, Cough, Adult, [id number]-[id number] Additional Instructions: Chest x-ray shows no acute cardiopulmonary abnormalities or pneumonitis. Therefore take medications with food, drink plenty of fluids and follow-up with your primary care physician in 3 to 5 days for reevaluation or return to the ED immediately if symptoms get worse. Prescriptions: predniSONE [Deltasone] 40 mg PO QDAY #12 tab Albuterol Sulfate [Proventil Hfa] 1 - 2 puff IH Q6H PRN #1 hfa.aer.ad PRN Reason: Dyspnea Benzonatate [Tessalon Perles] 100 mg PO Q8HR #30 capsule Referrals: [facility] [Provider Group] - 3-5 Days Time of Disposition: 21:48 Print Language: HUNGARIAN
== END 2020-06-13 22:00 | disposition home or self-care (01) ==
LOC: ED 19:07
DX: J45.901 Unspecified asthma with (acute) exacerbation (principal); I10 Essential (primary) hypertension; E11.9 Type 2 diabetes mellitus without complications; Z98.890 Other specified postprocedural states; Z91.013 Allergy to seafood; Z79.899 Other long term (current) drug therapy
CPT/HCPCS: 36415; 71045; 80053; 85025; 94640; 96365; 96375; 99284; J2930; J3475; 94644

== ENCOUNTER 2020-06-18 08:27 | Emergency (ER) | payer MEDICARE ==
[2020-06-18] MEDS ORDERED: IPRATROPIUM 0.02% NEBU 2.5 ML IH ONE ×2 (08:42→08:50)
[2020-06-18] MEDS ORDERED: ALBUTEROL 2.5 MG/3 ML NEBU IH ONE ×2 (08:42→08:50)
[2020-06-18] MEDS ORDERED: methylPREDNISolone Sod Succinate 125 MG/2 ML INJ IV ONE (08:49)
[2020-06-18] MEDS ORDERED: MAGNESIUM SULFATE 2 GM/50 ML BAG IV ONE (08:49)
--- NOTE | 2020-06-18 08:56 | Emergency Department Report ---
HPI - General Chief Complaint: Adult Asthma Time Seen by Provider: 06/18/20 08:43 - HPI HPI: This is a 64-year-old male who presents to the emergency department from home through triage with a complaint of shortness of breath, dry cough and wheezing that started around 3 AM this morning. This patient is well-known to both myself and this emergency department. He has a past medical history of asthma and hypertension. He has tried his home albuterol and breathing treatments without any relief. The patient has been admitted and intubated multiple times secondary to asthma. The patient was here for similar symptoms about 5 days ago but did get some relief or resolution after being seen and treated here. He does not have a primary care physician but follows with Dr. Mayer for pulmonology. No recent travel or sick contacts at home. He denies any fever, chest pain, nausea, vomiting, back pain or diaphoresis. ED Past Medical Hx - Past Medical History Previous Medical History?: Yes Hx Hypertension: Yes Hx CVA: No Hx Heart Attack/AMI: No Hx Congestive Heart Failure: No Hx Diabetes: Yes Hx Deep Vein Thrombosis: No Hx Pulmonary Embolism: No Hx GERD: No Hx Liver Disease: No Hx Renal Disease: No Hx Sickle Cell Disease: No Hx Arthritis: No Hx Headaches / Migraines: No Hx Seizures: No Hx Kidney Stones: No Hx Psychiatric Treatment: No Hx Asthma: Yes (intubation) Hx COPD: No Hx Tuberculosis: No Hx Dementia: No Hx HIV: No Additional medical history: intabated x 20. bi pap - Surgical History Past Surgical History?: Yes Additional Surgical History: back surgery x4. Hernia repair 04/20 - Social History Smoking Status: Never Smoker Substance Use Type: None - Medications Home Medications: Home Medications Medication Instructions Recorded Confirmed Last Taken Type metFORMIN [Glucophage] 500 mg PO BID 07/02/14 11/13/19 10/18/14 History Aspirin EC [Ecotrin] 325 mg PO DAILY tablet 10/28/14 11/13/19 Unknown Rx Arformoterol Nebu [Brovana Nebu] 15 mcg IH Q12HRT 30 Days ml 06/25/17 11/13/19 Unknown Rx glipiZIDE [glipiZIDE XL] 5 mg PO QDAY #30 tab.er.24 06/25/17 11/13/19 Unknown Rx Famotidine [Pepcid] 40 mg PO DAILY #10 tablet 09/01/18 11/13/19 Unknown Rx Pantoprazole [Protonix] 40 mg PO QDAY #30 tablet 08/22/19 11/13/19 Unknown Rx Cetirizine HCl [ZyrTEC] 10 mg PO DAILY #30 capsule 11/25/19 Unknown Rx Fluticasone [Flonase] 1 spray NS QDAY #1 bottle 11/25/19 Unknown Rx Tiotropium [Spiriva] 18 mcg IH QDAY 30 Days cap 11/25/19 Unknown Rx ALBUTEROL NEB's [Proventil 0.083% 2.5 mg IH TID PRN #30 neb 01/28/20 Unknown Rx NEBS] Azithromycin [Zithromax Z-AUNG] 250 mg PO DAILY #6 tablet 01/28/20 Unknown Rx Fluticasone/Salmeterol [Advair 1 puff IH BID #1 disk.w.dev 01/28/20 Unknown Rx Diskus 250-50 mcg] Meclizine [Antivert] 25 mg PO TID PRN #20 tablet 04/26/20 Unknown Rx Albuterol Sulfate [Proventil Hfa] 1 - 2 puff IH Q6H PRN #1 hfa.aer.ad 06/13/20 Unknown Rx Benzonatate [Tessalon Perles] 100 mg PO Q8HR #30 capsule 06/13/20 Unknown Rx predniSONE [Deltasone] 40 mg PO QDAY #12 tab 06/13/20 Unknown Rx Albuterol Mdi (or & Nicu Only) 2 puff IH QID PRN #1 inhalation 06/18/20 Unknown Rx [ProAir HFA Inhaler] predniSONE [Deltasone] 20 mg PO DAILY #5 tablet 06/18/20 Unknown Rx ED Review of Systems ROS: Stated complaint: asthma Other details as noted in HPI Comment: All other systems reviewed and negative Constitutional: denies: chills, fever Eyes: denies: eye pain, vision change ENT: denies: ear pain, throat pain Respiratory: cough, shortness of breath, wheezing Cardiovascular: denies: chest pain, palpitations Gastrointestinal: denies: abdominal pain, vomiting Genitourinary: denies: dysuria, discharge Musculoskeletal: denies: back pain, arthralgia Skin: denies: rash, lesions Neurological: denies: headache, weakness Physical Exam - Physical Exam Vital Signs: Vital Signs 06/18/20 06/18/20 08:33 08:48 Temperature 97.7 F Pulse Rate 104 H Pulse Rate [ 111 H Anterior Bilateral Throughout] Respiratory 26 H Rate Respiratory 22 Rate [Anterior Bilateral Throughout] Blood Pressure 113/83 O2 Sat by Pulse 95 Oximetry Physical Exam: GENERAL: The patient is well-developed well-nourished. HENT: Normocephalic. Atraumatic. Patient has moist mucous membranes. EYES: Extraocular motions are intact. NECK: Supple. Trachea is midline. CHEST/LUNGS: Moderate wheezing.the chest. A dry cough heard during examination. No tachypnea or accessory muscle use. noted. HEART/CARDIOVASCULAR: Regular. There is no tachycardia. ABDOMEN: Abdomen is soft, nontender. Patient has normal bowel sounds. SKIN: Skin is warm and dry. NEURO: The patient is awake, alert, and oriented. The patient is cooperative. The patient has no focal neurologic deficits. Normal speech. MUSCULOSKELETAL: There is no tenderness or deformity. There is no limitation range of motion. ED Course Vital Signs 06/18/20 06/18/20 08:33 08:48 Temperature 97.7 F Pulse Rate 104 H Pulse Rate [ 111 H Anterior Bilateral Throughout] Respiratory 26 H Rate Respiratory 22 Rate [Anterior Bilateral Throughout] Blood Pressure 113/83 O2 Sat by Pulse 95 Oximetry - Reevaluation(s) Reevaluation #1: 06/18/20 14:34 Lab Results 06/18/20 06/18/20 Range/Units 09:34 09:34 WBC 6.9 (4.5-11.0) K/mm3 RBC 5.51 H (3.65-5.03) M/mm3 Hgb 14.8 (11.8-15.2) gm/dl Hct 45.9 H (35.5-45.6) % MCV 83 L (84-94) fl MCH 27 L (28-32) pg MCHC 32 (32-34) % RDW 12.9 L (13.2-15.2) % Plt Count 290 (140-440) K/mm3 Eos % (Auto) Logging Rafter Laborer Add Manual Diff Complete Total Counted 100 Seg Neuts % (Manual) 49.0 (40.0-70.0) % Band Neutrophils % 0 % Lymphocytes % (Manual) 28.0 (13.4-35.0) % Reactive Lymphs % (Man) 0 % Monocytes % (Manual) 7.0 (0.0-7.3) % Eosinophils % (Manual) 16.0 H (0.0-4.3) % Basophils % (Manual) 0 (0.0-1.8) % Metamyelocytes % 0 % Myelocytes % 0 % Promyelocytes % 0 % Blast Cells % 0 % Nucleated RBC % Not Reportable Seg Neutrophils # Man 3.4 (1.8-7.7) K/mm3 Band Neutrophils # 0.0 K/mm3 Lymphocytes # (Manual) 1.9 (1.2-5.4) K/mm3 Abs React Lymphs (Man) 0.0 K/mm3 Monocytes # (Manual) 0.5 (0.0-0.8) K/mm3 Eosinophils # (Manual) 1.1 H (0.0-0.4) K/mm3 Basophils # (Manual) 0.0 (0.0-0.1) K/mm3 Metamyelocytes # 0.0 K/mm3 Myelocytes # 0.0 K/mm3 Promyelocytes # 0.0 K/mm3 Blast Cells # 0.0 K/mm3 WBC Morphology Not Reportable Hypersegmented Neuts Not Reportable Hyposegmented Neuts Not Reportable Hypogranular Neuts Not Reportable Smudge Cells Not Reportable Toxic Granulation Not Reportable Toxic Vacuolation Not Reportable Dohle Bodies Not Reportable Pelger-Huet Anomaly Not Reportable Krista Rods Not Reportable Platelet Estimate Consistent w auto Clumped Platelets Not Reportable Plt Clumps, EDTA Not Reportable Large Platelets Not Reportable Giant Platelets Not Reportable Platelet Satelliting Not Reportable Plt Morphology Comment Not Reportable RBC Morphology Normal Dimorphic RBCs Not Reportable Polychromasia Not Reportable Hypochromasia Not Reportable Poikilocytosis Not Reportable Anisocytosis Not Reportable Microcytosis Not Reportable Macrocytosis Not Reportable Spherocytes Not Reportable Pappenheimer Bodies Not Reportable Sickle Cells Not Reportable Target Cells Not Reportable Tear Drop Cells Not Reportable Ovalocytes Not Reportable Helmet Cells Not Reportable Sen-Hinckley Bodies Not Reportable Sebastian Rings Not Reportable Sammy Cells Not Reportable Bite Cells Not Reportable Crenated Cell Not Reportable Elliptocytes Not Reportable Acanthocytes (Spur) Not Reportable Rouleaux Not Reportable Hemoglobin C Crystals Not Reportable Schistocytes Not Reportable Malaria parasites Not Reportable Rafael Bodies Not Reportable Hem Pathologist Commnt No Sodium 138 (137-145) mmol/L Potassium 3.5 L (3.6-5.0) mmol/L Chloride 102.3 (98-107) mmol/L Carbon Dioxide 28 (22-30) mmol/L Anion Gap 11 mmol/L BUN 11 (9-20) mg/dL Creatinine 0.8 (0.8-1.3) mg/dL Estimated GFR > 60 ml/min BUN/Creatinine Ratio 14 % Glucose 225 H (75-100) mg/dL Calcium 8.7 (8.4-10.2) mg/dL ED Medical Decision Making - Lab Data Result diagrams: 06/18/20 09:34 06/18/20 09:34 - Radiology Data Radiology results: image reviewed interpreted by me: Chest x-ray does not show any acute process. There are no pleural effusions, obvious pneumonia and there is no pneumothorax. No significant cardiomegaly. - Medical Decision Making This patient presents with shortness of breath, wheezing, dry cough and a history of persistent asthma. He has moderate bronchospasm but does not appear in any respiratory distress. He was given breathing treatments, steroids, magnesium. Upon reevaluation he is feeling greatly improved and he only has mild expiratory wheezing on examination. 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 Mayer. Vital signs have been reassuring throughout his ED course including being afebrile. He was given a prescription refill of his albuterol inhaler and a course of steroids. He will return to the emergency department with any worsening of his symptoms or with any acute distress. Critical Care Time: No Critical care attestation.: If time is entered above; I have spent that time in minutes in the direct care of this critically ill patient, excluding procedure time. ED Disposition Clinical Impression: Acute asthma exacerbation Qualifiers: Asthma severity: unspecified severity Asthma persistence: unspecified Qualified Code(s): J45.901 - Unspecified asthma with (acute) exacerbation Disposition: DC- TO HOME OR SELFCARE Is pt being admited?: No Condition: Stable Instructions: Asthma, Adult Additional Instructions: Please follow-up with a primary care physician and your recruiting intern in the next few days. Return to the emergency department with any worsening of your symptoms, new or concerning symptoms not addressed during this current emergency department visit, or with any acute distress. Prescriptions: predniSONE [Deltasone] 20 mg PO DAILY #5 tablet Albuterol Mdi (or & Nicu Only) [ProAir HFA Inhaler] 2 puff IH QID PRN #1 inhalation PRN Reason: Shortness Of Breath Referrals: PRIMARY CARE, [Primary Care Provider] - 3-5 Days KORY MAYER MD [Staff Physician] - 3-5 Days Time of Disposition: 11:23
--- NOTE | 2020-06-18 10:02 | XRay Report ---
CHEST 1 VIEW INDICATION: SOB. COMPARISON: 06/13/2020 FINDINGS: Support devices: None. Heart: Within normal limits. Lungs/Pleura: No acute air space or interstitial disease. Additional findings: None. IMPRESSION: No acute findings. Signer Name: Aleksey Castillo Jr, MD Signed: 06/18/2020 9:57 AM Workstation Name: [id number]
[2020-06-18 10:12] LABS: Hematocrit 45.9 % (35.5-45.6); Hemoglobin 14.8 gm/dl (11.8-15.2); Mean Corpuscular HGB Conc 32 % (32-34); Mean Corpuscular Volume 83 fl (84-94); Platelet Count 290 K/mm3 (140-440); Red Blood Count 5.51 M/mm3 (3.65-5.03); Red Cell Distribution Width 12.9 % (13.2-15.2)
[2020-06-18 10:26] LABS: BUN/Creatinine Ratio 14; Blood Urea Nitrogen 11 mg/dL (9-20); Calcium 8.7 mg/dL (8.4-10.2); Hemolysis Index 5
[2020-06-18 11:34] LABS: Basophils % (Manual) 0 % (0.0-1.8); Platelet Estimate Consistent w Auto; RBC Morphology Normal; Total Cells Counted 100
[2020-06-18 11:36] VITALS: BP 137/71
== END 2020-06-18 11:47 | disposition home or self-care (01) ==
LOC: ED 08:27
DX: J45.901 Unspecified asthma with (acute) exacerbation (principal); I10 Essential (primary) hypertension; E11.9 Type 2 diabetes mellitus without complications; Z98.890 Other specified postprocedural states; Z79.2 Long term (current) use of antibiotics; Z79.84 Long term (current) use of oral hypoglycemic drugs; Z79.899 Other long term (current) drug therapy; Z91.013 Allergy to seafood
CPT/HCPCS: 36415; 71045; 80048; 85007; 85025; 94640; 96365; 96375; 99284; J2930; J3475; 94644

== ENCOUNTER 2020-06-26 23:07 | Emergency (ER) | payer MEDICARE | END 2020-06-26 23:10 | disposition left against medical advice (07) | LOC: ED 23:07 | DX: J45.909 Unspecified asthma, uncomplicated (principal); Z53.21 Procedure and treatment not carried out due to patient leaving prior to being seen by health care provider ==

== ENCOUNTER 2020-07-10 20:17 | Observation (INO) | payer MEDICARE ==
[2020-07-10] MEDS ORDERED: dexAMETHasone 20 MG/5 ML VIAL IV ONE (20:30)
[2020-07-10] MEDS ORDERED: IPRATROPIUM 0.02% NEBU 2.5 ML IH ONE (20:30)
[2020-07-10] MEDS ORDERED: ALBUTEROL 2.5 MG/3 ML NEBU IH ONE (20:30)
--- NOTE | 2020-07-10 20:34 | Event Note ---
ED Screening Note Date of service: 07/10/20 Time: 20:33 ED Screening Note: Patient complains of asthma exacerbation x2 hours States he has used for nebulizer treatments without improvement in his symptoms History of many intubations per patient Patient tachycardic with pulse ox of 92% on room air Respiratory notified @2032 This initial assessment/diagnostic orders/clinical plan/treatment(s) is/are subject to change based on patients health status, clinical progression and re- assessment by fellow clinical providers in the ED. Further treatment and workup at subsequent clinical providers discretion. Patient/guardian urged not to elope from the ED as their condition may be serious if not clinically assessed and managed. Initial orders include: cxr continuous neb
[2020-07-10] MEDS ORDERED: MAGNESIUM SULFATE 2 GM/50 ML BAG IV ONE (20:57)
--- NOTE | 2020-07-10 21:00 | Emergency Department Report ---
ED Asthma HPI - General Chief Complaint: Adult Asthma Stated Complaint: ASTHMA PUI?: No Time Seen by Provider: 07/10/20 20:45 Source: patient Mode of arrival: Ambulatory Limitations: No Limitations - History of Present Illness Initial Comments: Patient is a 64-year-old male that presents emergency room with complaints of asthmatic sounds, asthmatic breathing, shortness of breath and wheezing. Patient states his symptoms started 2 hours ago. Patient states that he initially had this problem 2 weeks ago and he came to this emergency room and was treated and discharged home. Patient states that his symptoms improved but once he stopped the prednisone his symptoms returned but worse. Patient states his symptoms are worsening. Patient states his shortness of breath is better with rest and worse with exertion. Patient denies recent travel. Patient denies recent international travel. Patient denies exposure to the novel coronavirus. Patient denies sick contacts. Patient denies fever and chills. . Patient denies diarrhea. Patient denies coming in contact with anybody with symptoms of the novel coronavirus. MD Complaint: "asthma attack" - Related Data Home Medications Medication Instructions Recorded Confirmed Last Taken metFORMIN [Glucophage] 500 mg PO BID 07/02/14 11/13/19 10/18/14 Previous Rx's Medication Instructions Recorded Last Taken Type Aspirin EC [Ecotrin] 325 mg PO DAILY tablet 10/28/14 Unknown Rx Arformoterol Nebu [Brovana Nebu] 15 mcg IH Q12HRT 30 Days ml 06/25/17 Unknown Rx glipiZIDE [glipiZIDE XL] 5 mg PO QDAY #30 tab.er.24 06/25/17 Unknown Rx Famotidine [Pepcid] 40 mg PO DAILY #10 tablet 09/01/18 Unknown Rx Pantoprazole [Protonix] 40 mg PO QDAY #30 tablet 08/22/19 Unknown Rx Cetirizine HCl [ZyrTEC] 10 mg PO DAILY #30 capsule 11/25/19 Unknown Rx Fluticasone [Flonase] 1 spray NS QDAY #1 bottle 11/25/19 Unknown Rx Tiotropium [Spiriva] 18 mcg IH QDAY 30 Days cap 11/25/19 Unknown Rx ALBUTEROL NEB's [Proventil 0.083% 2.5 mg IH TID PRN #30 neb 01/28/20 Unknown Rx NEBS] Azithromycin [Zithromax Z-AUNG] 250 mg PO DAILY #6 tablet 01/28/20 Unknown Rx Fluticasone/Salmeterol [Advair 1 puff IH BID #1 disk.w.dev 01/28/20 Unknown Rx Diskus 250-50 mcg] Meclizine [Antivert] 25 mg PO TID PRN #20 tablet 04/26/20 Unknown Rx Albuterol Sulfate [Proventil Hfa] 1 - 2 puff IH Q6H PRN #1 hfa.aer.ad 06/13/20 Unknown Rx Benzonatate [Tessalon Perles] 100 mg PO Q8HR #30 capsule 06/13/20 Unknown Rx predniSONE [Deltasone] 40 mg PO QDAY #12 tab 06/13/20 Unknown Rx Albuterol Mdi (or & Nicu Only) 2 puff IH QID PRN #1 inhalation 06/18/20 Unknown Rx [ProAir HFA Inhaler] predniSONE [Deltasone] 20 mg PO DAILY #5 tablet 06/18/20 Unknown Rx Allergies Allergy/AdvReac Type Severity Reaction Status Date / Time seafood Allergy Shortness Uncoded 04/26/20 08:16 of Breath shrimp Allergy Shortness Uncoded 04/26/20 08:16 of Breath ED Review of Systems ROS: Stated complaint: ASTHMA Other details as noted in HPI Constitutional: denies: chills, fever Eyes: denies: eye pain, eye discharge, vision change ENT: denies: ear pain, throat pain Respiratory: see HPI, cough, shortness of breath, SOB with exertion, SOB at rest, wheezing Cardiovascular: denies: chest pain, palpitations Endocrine: no symptoms reported Gastrointestinal: denies: abdominal pain, nausea, diarrhea Genitourinary: denies: urgency, dysuria Musculoskeletal: denies: back pain, joint swelling, arthralgia Skin: denies: rash, lesions Neurological: denies: headache, weakness, paresthesias Psychiatric: denies: anxiety, depression Hematological/Lymphatic: denies: easy bleeding, easy bruising ED Past Medical Hx - Past Medical History Previous Medical History?: Yes Hx Hypertension: Yes Hx CVA: No Hx Heart Attack/AMI: No Hx Congestive Heart Failure: No Hx Diabetes: Yes Hx Deep Vein Thrombosis: No Hx Pulmonary Embolism: No Hx GERD: No Hx Liver Disease: No Hx Renal Disease: No Hx Sickle Cell Disease: No Hx Arthritis: No Hx Headaches / Migraines: No Hx Seizures: No Hx Kidney Stones: No Hx Psychiatric Treatment: No Hx Asthma: Yes (intubation) Hx COPD: No Hx Tuberculosis: No Hx Dementia: No Hx HIV: No Additional medical history: intabated x 20. bi pap - Surgical History Past Surgical History?: Yes Additional Surgical History: back surgery x4. Hernia repair 04/20 - Family History Family history: no significant - Social History Smoking Status: Never Smoker Substance Use Type: None - Medications Home Medications: Home Medications Medication Instructions Recorded Confirmed Last Taken Type metFORMIN [Glucophage] 500 mg PO BID 07/02/14 11/13/19 10/18/14 History Aspirin EC [Ecotrin] 325 mg PO DAILY tablet 10/28/14 11/13/19 Unknown Rx Arformoterol Nebu [Brovana Nebu] 15 mcg IH Q12HRT 30 Days ml 06/25/17 11/13/19 Unknown Rx glipiZIDE [glipiZIDE XL] 5 mg PO QDAY #30 tab.er.24 06/25/17 11/13/19 Unknown Rx Famotidine [Pepcid] 40 mg PO DAILY #10 tablet 09/01/18 11/13/19 Unknown Rx Pantoprazole [Protonix] 40 mg PO QDAY #30 tablet 08/22/19 11/13/19 Unknown Rx Cetirizine HCl [ZyrTEC] 10 mg PO DAILY #30 capsule 11/25/19 Unknown Rx Fluticasone [Flonase] 1 spray NS QDAY #1 bottle 11/25/19 Unknown Rx Tiotropium [Spiriva] 18 mcg IH QDAY 30 Days cap 11/25/19 Unknown Rx ALBUTEROL NEB's [Proventil 0.083% 2.5 mg IH TID PRN #30 neb 01/28/20 Unknown Rx NEBS] Azithromycin [Zithromax Z-AUNG] 250 mg PO DAILY #6 tablet 01/28/20 Unknown Rx Fluticasone/Salmeterol [Advair 1 puff IH BID #1 disk.w.dev 01/28/20 Unknown Rx Diskus 250-50 mcg] Meclizine [Antivert] 25 mg PO TID PRN #20 tablet 04/26/20 Unknown Rx Albuterol Sulfate [Proventil Hfa] 1 - 2 puff IH Q6H PRN #1 hfa.aer.ad 06/13/20 Unknown Rx Benzonatate [Tessalon Perles] 100 mg PO Q8HR #30 capsule 06/13/20 Unknown Rx predniSONE [Deltasone] 40 mg PO QDAY #12 tab 06/13/20 Unknown Rx Albuterol Mdi (or & Nicu Only) 2 puff IH QID PRN #1 inhalation 06/18/20 Unknown Rx [ProAir HFA Inhaler] predniSONE [Deltasone] 20 mg PO DAILY #5 tablet 06/18/20 Unknown Rx ED Physical Exam - General Limitations: No Limitations General appearance: alert, in distress - Head Head exam: Present: atraumatic, normocephalic - Eye Eye exam: Present: normal appearance - ENT ENT exam: Present: mucous membranes moist - Neck Neck exam: Present: normal inspection - Respiratory Respiratory exam: Present: respiratory distress, wheezes, accessory muscle use, decreased breath sounds - Cardiovascular Cardiovascular Exam: Present: regular rate, normal rhythm. Absent: systolic murmur, diastolic murmur, rubs, gallop - GI/Abdominal GI/Abdominal exam: Present: soft, normal bowel sounds - Rectal Rectal exam: Present: deferred - Extremities Exam Extremities exam: Present: normal inspection - Back Exam Back exam: Present: normal inspection - Neurological Exam Neurological exam: Present: alert, oriented X3 - Psychiatric Psychiatric exam: Present: normal affect, normal mood - Skin Skin exam: Present: warm, dry, intact, normal color. Absent: rash ED Course Vital Signs 07/10/20 07/10/20 20:33 20:44 Temperature 98.2 F Pulse Rate 113 H Pulse Rate [ 121 H Bilateral Throughout] Respiratory 18 Rate Respiratory 20 Rate [Bilateral Throughout] Blood Pressure 116/80 [Left] O2 Sat by Pulse 92 Oximetry - Reevaluation(s) Reevaluation #1: Initial evaluation done. Patient is on a breathing treatment and is still has a oxygen saturation of 92%. Patient has increased work to breathe. Patient having wheezing throughout. Patient will be given magnesium and Decadron. 07/10/20 20:45 Reevaluation #2: Patient's oxygen still remains low without support. Patient states he is feeling a little bit better. I discussed all results with patient. I discussed plan of care with patient. Patient agrees with plan of care and admission. Patient to be admitted to the hospitalist service. 07/10/20 22:14 - Consultations Consultation #1: Hospitalist consulted for admission. Hospitalist to admit patient. 07/10/20 22:14 ED Medical Decision Making - Lab Data Result diagrams: 07/10/20 21:03 07/10/20 21:30 - Radiology Data Radiology results: report reviewed, image reviewed interpreted by me: Chest x-ray: No pneumonia, no pneumothorax, no foreign body, no osseous findings, no acute findings CHEST 1 VIEW 8:32 PM INDICATION / CLINICAL INFORMATION: Shortness of breath. Wheezing and difficulty breathing for 2 hours. COMPARISON: 06/18/20. FINDINGS: SUPPORT DEVICES: None. HEART / MEDIASTINUM: The heart size and pulmonary vasculature are normal. LUNGS / PLEURA: No significant pulmonary or pleural abnormality. No pneumothorax. ADDITIONAL FINDINGS: No significant additional findings. IMPRESSION: No acute abnormality or significant change. - Medical Decision Making Patient is a 64-year-old male who presents emergency room with complaints of shortness of breath and asthmatic sounds. Patient found to be hypoxic on initia l evaluation. Patient given duo nebs, magnesium, Decadron after initial evaluation. Patient required oxygen support in order to maintain his saturation level. Patient had labs done to include a Covid panel. Patient's labs are essentially unremarkable. Patient chest x-ray is negative. Patient admitted to the hospital service for further evaluation treatment. - Differential Diagnosis Covid, status asthmaticus, shortness of breath, hypoxia, respiratory failur Critical Care Time: Yes Critical care time in (mins) excluding proc time.: 35 Critical care attestation.: If time is entered above; I have spent that time in minutes in the direct care of this critically ill patient, excluding procedure time. Critical Care Time: 35 minutes ED Disposition Clinical Impression: Shortness of breath, Respiratory distress, Hypoxia, Acute respiratory failure with hypoxia Status asthmaticus Qualifiers: Asthma severity: severe Asthma persistence: persistent Qualified Code(s): J45.52 - Severe persistent asthma with status asthmaticus Acute respiratory failure Qualifiers: Respiratory failure complication: hypoxia Qualified Code(s): J96.01 - Acute respiratory failure with hypoxia Disposition: DC-09 OP ADMIT IP TO THIS HOSP Is pt being admited?: Yes Does the pt Need Aspirin: No Condition: Critical Time of Disposition: 22:17
--- NOTE | 2020-07-10 21:10 | XRay Report ---
CHEST 1 VIEW 8:32 PM INDICATION / CLINICAL INFORMATION: Shortness of breath. Wheezing and difficulty breathing for 2 hours. COMPARISON: 06/18/20. FINDINGS: SUPPORT DEVICES: None. HEART / MEDIASTINUM: The heart size and pulmonary vasculature are normal. LUNGS / PLEURA: No significant pulmonary or pleural abnormality. No pneumothorax. ADDITIONAL FINDINGS: No significant additional findings. IMPRESSION: No acute abnormality or significant change. Signer Name: Vinh Britt MD Signed: 07/10/2020 9:05 PM Workstation Name: [id number]
[2020-07-10 21:33] LABS: Basophils % (Auto) 0.4 % (0.0-1.8); Eosinophils # (Auto) 0.2 K/mm3 (0.0-0.4); Eosinophils % (Auto) 2.3 % (0.0-4.3); Hematocrit 43.1 % (35.5-45.6); Hemoglobin 14.4 gm/dl (11.8-15.2); Lymphocytes # (Auto) 0.8 K/mm3 (1.2-5.4); Lymphocytes % (Auto) 7.5 % (13.4-35.0); Mean Corpuscular HGB Conc 33 % (32-34); Mean Corpuscular Volume 83 fl (84-94); Monocytes # (Auto) 0.3 K/mm3 (0.0-0.8); Platelet Count 254 K/mm3 (140-440); Red Blood Count 5.22 M/mm3 (3.65-5.03); Red Cell Distribution Width 13.2 % (13.2-15.2)
[2020-07-10 21:41] LABS: Alanine Aminotransferase 22 units/L (7-56); Albumin 4.1 g/dL (3.9-5); BUN/Creatinine Ratio 20; Blood Urea Nitrogen 18 mg/dL (9-20); Calcium 8.9 mg/dL (8.4-10.2); Hemolysis Index 5
[2020-07-10] MEDS ORDERED: ACETAMINOPHEN 325 MG TAB PO PRN (22:01)
[2020-07-10] MEDS ORDERED: MAGNESIUM HYDROXIDE (MOM) ORAL LIQD UDC PO PRN (22:01)
[2020-07-10] MEDS ORDERED: MORPHINE 2 MG/1 ML INJ IV PRN (22:01)
[2020-07-10] MEDS ORDERED: ONDANSETRON 4 MG/2 ML INJ IV PRN (22:01)
[2020-07-10 22:09] LABS: C-Reactive Protein 0.5 mg/dL (0.00-1.30)
--- NOTE | 2020-07-10 22:11 | History and Physical Report ---
History of Present Illness Date of examination: 07/10/20 Date of admission: 07/10/2020 Chief complaint: Shortness of Breath History of present illness: 64-year-old male with known history of asthma, hypertension and diabetes presenting to the emergency room today complaining of shortness of breath and wheezing. Symptoms were stated to have started about 2 hours prior to reporting to the emergency room. He was seen with similar symptoms about 2 weeks ago in the emergency room during which she was treated and sent home. Shortness of breath is said to be worse on minimal exertion. Patient denies any fever or chills, no nausea vomiting, no chest pain, no head ache or dizziness. Chest x-ray did not reveal any acute abnormality. He was given nebulizing treatments and steroids in the emergency room with some improvement. Patient being admitted for asthma exacerbation. Past History Past Medical History: diabetes, hypertension, other (Asthma with intubations X2 in the past) Past Surgical History: Other (Back surgery) Social history: no significant social history Family history: no significant family history Medications and Allergies Allergies Allergy/AdvReac Type Severity Reaction Status Date / Time seafood Allergy Shortness Uncoded 04/26/20 08:16 of Breath shrimp Allergy Shortness Uncoded 04/26/20 08:16 of Breath Home Medications Medication Instructions Recorded Confirmed Last Taken Type metFORMIN [Glucophage] 500 mg PO BID 07/02/14 11/13/19 10/18/14 History Aspirin EC [Ecotrin] 325 mg PO DAILY tablet 10/28/14 11/13/19 Unknown Rx Arformoterol Nebu [Brovana Nebu] 15 mcg IH Q12HRT 30 Days ml 06/25/17 11/13/19 Unknown Rx glipiZIDE [glipiZIDE XL] 5 mg PO QDAY #30 tab.er.24 06/25/17 11/13/19 Unknown Rx Famotidine [Pepcid] 40 mg PO DAILY #10 tablet 09/01/18 11/13/19 Unknown Rx Pantoprazole [Protonix] 40 mg PO QDAY #30 tablet 08/22/19 11/13/19 Unknown Rx Cetirizine HCl [ZyrTEC] 10 mg PO DAILY #30 capsule 11/25/19 07/10/20 Unknown Rx Fluticasone [Flonase] 1 spray NS QDAY #1 bottle 11/25/19 Unknown Rx Tiotropium [Spiriva] 18 mcg IH QDAY 30 Days cap 11/25/19 Unknown Rx ALBUTEROL NEB's [Proventil 0.083% 2.5 mg IH TID PRN #30 neb 01/28/20 07/10/20 Unknown Rx NEBS] Azithromycin [Zithromax Z-AUNG] 250 mg PO DAILY #6 tablet 01/28/20 Unknown Rx Fluticasone/Salmeterol [Advair 1 puff IH BID #1 disk.w.dev 01/28/20 Unknown Rx Diskus 250-50 mcg] Meclizine [Antivert] 25 mg PO TID PRN #20 tablet 04/26/20 Unknown Rx Albuterol Sulfate [Proventil Hfa] 1 - 2 puff IH Q6H PRN #1 hfa.aer.ad 06/13/20 07/10/20 07/10/20 15:00 Rx Benzonatate [Tessalon Perles] 100 mg PO Q8HR #30 capsule 06/13/20 Unknown Rx predniSONE [Deltasone] 40 mg PO QDAY #12 tab 06/13/20 Unknown Rx Albuterol Mdi (or & Nicu Only) 2 puff IH QID PRN #1 inhalation 06/18/20 07/10/20 07/10/20 18:00 Rx [ProAir HFA Inhaler] predniSONE [Deltasone] 20 mg PO DAILY #5 tablet 06/18/20 Unknown Rx Review of Systems Constitutional: no fever, no chills Ears, nose, mouth and throat: no nasal congestion, no sore throat Cardiovascular: no chest pain, no palpitations Respiratory: cough, shortness of breath, wheezing Gastrointestinal: no abdominal pain, no nausea, no vomiting, no diarrhea Genitourinary Male: no dysuria, no hematuria, no flank pain Musculoskeletal: no neck pain, no low back pain Integumentary: no rash, no pruritis Neurological: no headaches, no confusion Psychiatric: no anxiety, no depression Exam - Constitutional Vitals: Temp Pulse Resp BP Pulse Ox 98.2 F 121 H 20 116/80 92 07/10/20 20:33 07/10/20 20:44 07/10/20 20:44 07/10/20 20:33 07/10/20 20:33 General appearance: Present: no acute distress, well-nourished - EENT Eyes: Present: PERRL, EOM intact. Absent: scleral icterus ENT: hearing intact, clear oral mucosa, dentition normal - Neck Neck: Present: supple, normal ROM - Respiratory Respiratory effort: normal Respiratory: bilateral: wheezing - Cardiovascular Rhythm: regular Heart Sounds: Present: S1 & S2. Absent: gallop, systolic murmur, diastolic murmur, rub - Extremities Extremities: no ischemia, pulses intact, pulses symmetrical, No edema, normal temperature, normal color, Full ROM Peripheral Pulses: within normal limits - Abdominal General gastrointestinal: Present: soft, non-tender, non-distended, normal bowel sounds. Absent: mass - Integumentary Integumentary: Present: clear, warm, dry. Absent: rash - Musculoskeletal Musculoskeletal: strength equal bilaterally - Psychiatric Psychiatric: appropriate mood/affect, intact judgment & insight, memory intact, cooperative - Neurologic Neurologic: CNII-XII intact, no focal deficits, moves all extremities Results - Labs CBC & Chem 7: 07/11/20 04:42 07/11/20 04:42 Labs: Abnormal lab results 07/10/20 07/10/20 Range/Units 21:03 21:03 RBC 5.22 H (3.65-5.03) M/mm3 MCV 83 L (84-94) fl Lymph % (Auto) 7.5 L (13.4-35.0) % Lymph # (Auto) 0.8 L (1.2-5.4) K/mm3 Seg Neutrophils % 86.8 H (40.0-70.0) % Seg Neutrophils # 8.7 H (1.8-7.7) K/mm3 Glucose 314 H (75-100) mg/dL Assessment and Plan - Patient Problems (1) Acute asthma exacerbation Current Visit: No Status: Acute Qualifiers: Asthma severity: unspecified severity Asthma persistence: unspecified Qualified Code(s): J45.901 - Unspecified asthma with (acute) exacerbation Plan to address problem: Patient placed on nebulizing treatments and IV steroid. (2) Acute respiratory failure with hypoxia Current Visit: Yes Status: Acute Plan to address problem: We will keep O2 saturation greater or equal to 94%. 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 (4) DVT prophylaxis Current Visit: No Status: Acute Plan to address problem: Patient placed on subcutaneous heparin. (5) Full code status Current Visit: No Status: Acute
[2020-07-11] MEDS: IPRATROPIUM/ALBUTEROL SULFATE 3 ML AMPUL.NEB IH SCH ×3 (02:20→15:45)
[2020-07-11] MEDS: methylPREDNISolone Sod Succinate 40 MG/1 ML INJ IV SCH ×2 (05:03→13:10)
[2020-07-11] MEDS: HEPARIN 5,000 UNIT/1 ML VIAL SUB-Q SCH ×2 (05:06→13:00)
[2020-07-11 06:38] LABS: Hematocrit 41.5 % (35.5-45.6); Hemoglobin 13.8 gm/dl (11.8-15.2); Mean Corpuscular HGB Conc 33 % (32-34); Mean Corpuscular Volume 84 fl (84-94); Platelet Count 249 K/mm3 (140-440); Red Blood Count 4.98 M/mm3 (3.65-5.03); Red Cell Distribution Width 13.2 % (13.2-15.2)
[2020-07-11 06:45] LABS: INR 1.03 (0.87-1.13)
[2020-07-11 07:08] LABS: BUN/Creatinine Ratio 21; Blood Urea Nitrogen 17 mg/dL (9-20); Calcium 8.9 mg/dL (8.4-10.2); Hemolysis Index 0
[2020-07-11 08:18] LABS: Basophils % (Manual) 0 % (0.0-1.8); Eosinophils % (Manual) 0 % (0.0-4.3); Monocytes % (Manual) 0 % (0.0-7.3); Total Cells Counted 100
[2020-07-11 08:19] LABS: Platelet Estimate Consistent w Auto; RBC Morphology Normal
[2020-07-11] MEDS ORDERED: PNEUMOCOCCAL 23 Valent 0.5 ML VIAL IM ONE (12:00)
[2020-07-11] MEDS ORDERED: FLU VACC QUAD 2020-2021 (6 months +)/PF 60 0.5 ML SYRINGE IM ONE (12:00)
--- NOTE | 2020-07-11 12:21 | Progress Note ---
Assessment and Plan Assessment and plan: --PUI ; high suspicion for COVID-19 Current Visit: No Status: Acute Plan to address problem: Jj PCR test requested Contact and droplet isolation Check inflammatory markers ID consult if needed -- Acute asthma exacerbation Current Visit: No Status: Acute Plan to address problem: Patient placed on nebulizing treatments and IV steroid. Closely monitor and adjust as needed -- Acute respiratory failure with hypoxia Current Visit: Yes Status: Acute Plan to address problem: Oxygen titrate O2 sats to more than 90% Continue nebulizers and IV steroids Home oxygen evaluation at discharge --Type II diabetes mellitus Current Visit: No Status: Acute Plan to address problem: Accu-Chek sliding scale coverage ADA diet and insulin as needed Check A1c if not done in 6 months --DVT prophylaxis Current Visit: No Status: Acute Plan to address problem: Patient placed on subcutaneous heparin. --Full code status Current Visit: No Status: Acute Hospitalist Physical - Constitutional Vitals: Temp Pulse Resp BP Pulse Ox 98.0 F 99 H 18 115/76 93 07/11/20 04:40 07/11/20 04:40 07/11/20 04:40 07/11/20 04:40 07/11/20 04:40 General appearance: Present: no acute distress, well-nourished Results - Labs CBC & Chem 7: 07/11/20 04:42 07/11/20 04:42 Labs: Laboratory Last Values WBC 8.9 K/mm3 (4.5-11.0) 07/11/20 04:42 RBC 4.98 M/mm3 (3.65-5.03) 07/11/20 04:42 Hgb 13.8 gm/dl (11.8-15.2) 07/11/20 04:42 Hct 41.5 % (35.5-45.6) 07/11/20 04:42 MCV 84 fl (84-94) 07/11/20 04:42 MCH 28 pg (28-32) 07/11/20 04:42 MCHC 33 % (32-34) 07/11/20 04:42 RDW 13.2 % (13.2-15.2) 07/11/20 04:42 Plt Count 249 K/mm3 (140-440) 07/11/20 04:42 Lymph % (Auto) 7.5 % (13.4-35.0) L 07/10/20 21:03 [place] % (Auto) 3.0 % (0.0-7.3) 07/10/20 21:03 Eos % (Auto) 2.3 % (0.0-4.3) 07/10/20 21:03 Baso % (Auto) 0.4 % (0.0-1.8) 07/10/20 21:03 Lymph # (Auto) 0.8 K/mm3 (1.2-5.4) L 07/10/20 21:03 [place] # (Auto) 0.3 K/mm3 (0.0-0.8) 07/10/20 21:03 Eos # (Auto) 0.2 K/mm3 (0.0-0.4) 07/10/20 21:03 Baso # (Auto) 0.0 K/mm3 (0.0-0.1) 07/10/20 21:03 Add Manual Diff Complete 07/11/20 04:42 Total Counted 100 07/11/20 04:42 Seg Neutrophils % Application Processor 07/11/20 04:42 Seg Neuts % (Manual) 95.0 % (40.0-70.0) H 07/11/20 04:42 Band Neutrophils % 0 % 07/11/20 04:42 Lymphocytes % (Manual) 5.0 % (13.4-35.0) L 07/11/20 04:42 Reactive Lymphs % (Man) 0 % 07/11/20 04:42 Monocytes % (Manual) 0 % (0.0-7.3) 07/11/20 04:42 Eosinophils % (Manual) 0 % (0.0-4.3) 07/11/20 04:42 Basophils % (Manual) 0 % (0.0-1.8) 07/11/20 04:42 Metamyelocytes % 0 % 07/11/20 04:42 Myelocytes % 0 % 07/11/20 04:42 Promyelocytes % 0 % 07/11/20 04:42 Blast Cells % 0 % 07/11/20 04:42 Nucleated RBC % Not Reportable 07/11/20 04:42 Seg Neutrophils # 8.7 K/mm3 (1.8-7.7) H 07/10/20 21:03 Seg Neutrophils # Man 8.5 K/mm3 (1.8-7.7) H 07/11/20 04:42 Band Neutrophils # 0.0 K/mm3 07/11/20 04:42 Lymphocytes # (Manual) 0.4 K/mm3 (1.2-5.4) L 07/11/20 04:42 Abs React Lymphs (Man) 0.0 K/mm3 07/11/20 04:42 Monocytes # (Manual) 0.0 K/mm3 (0.0-0.8) 07/11/20 04:42 Eosinophils # (Manual) 0.0 K/mm3 (0.0-0.4) 07/11/20 04:42 Basophils # (Manual) 0.0 K/mm3 (0.0-0.1) 07/11/20 04:42 Metamyelocytes # 0.0 K/mm3 07/11/20 04:42 Myelocytes # 0.0 K/mm3 07/11/20 04:42 Promyelocytes # 0.0 K/mm3 07/11/20 04:42 Blast Cells # 0.0 K/mm3 07/11/20 04:42 WBC Morphology Not Reportable 07/11/20 04:42 Hypersegmented Neuts Not Reportable 07/11/20 04:42 Hyposegmented Neuts Not Reportable 07/11/20 04:42 Hypogranular Neuts Not Reportable 07/11/20 04:42 Smudge Cells Not Reportable 07/11/20 04:42 Toxic Granulation Not Reportable 07/11/20 04:42 Toxic Vacuolation Not Reportable 07/11/20 04:42 Dohle Bodies Not Reportable 07/11/20 04:42 Pelger-Huet Anomaly Not Reportable 07/11/20 04:42 Krista Rods Not Reportable 07/11/20 04:42 Platelet Estimate Consistent w auto 07/11/20 04:42 Clumped Platelets Not Reportable 07/11/20 04:42 Plt Clumps, EDTA Not Reportable 07/11/20 04:42 Large Platelets Not Reportable 07/11/20 04:42 Giant Platelets Not Reportable 07/11/20 04:42 Platelet Satelliting Not Reportable 07/11/20 04:42 Plt Morphology Comment Not Reportable 07/11/20 04:42 RBC Morphology Normal 07/11/20 04:42 Dimorphic RBCs Not Reportable 07/11/20 04:42 Polychromasia Not Reportable 07/11/20 04:42 Hypochromasia Not Reportable 07/11/20 04:42 Poikilocytosis Not Reportable 07/11/20 04:42 Anisocytosis Not Reportable 07/11/20 04:42 Microcytosis Not Reportable 07/11/20 04:42 Macrocytosis Not Reportable 07/11/20 04:42 Spherocytes Not Reportable 07/11/20 04:42 Pappenheimer Bodies Not Reportable 07/11/20 04:42 Sickle Cells Not Reportable 07/11/20 04:42 Target Cells Not Reportable 07/11/20 04:42 Tear Drop Cells Not Reportable 07/11/20 04:42 Ovalocytes Not Reportable 07/11/20 04:42 Helmet Cells Not Reportable 07/11/20 04:42 Sen[facility] [facility] [place] Bodies Not Reportable 07/11/20 04:42 Dilley Rings Not Reportable 07/11/20 04:42 Sammy Cells Not Reportable 07/11/20 04:42 Bite Cells Not Reportable 07/11/20 04:42 Crenated Cell Not Reportable 07/11/20 04:42 Elliptocytes Not Reportable 07/11/20 04:42 Acanthocytes (Spur) Not Reportable 07/11/20 04:42 Rouleaux Not Reportable 07/11/20 04:42 Hemoglobin C Crystals Not Reportable 07/11/20 04:42 Schistocytes Not Reportable 07/11/20 04:42 Malaria parasites Not Reportable 07/11/20 04:42 Rafael Bodies Not Reportable 07/11/20 04:42 Hem Pathologist Commnt No 07/11/20 04:42 PT 13.4 Sec. (12.2-14.9) 07/11/20 04:42 INR 1.03 (0.87-1.13) 07/11/20 04:42 D-Dimer < 135.00 ng/mlDDU (0-234) 07/10/20 21:30 Sodium 139 mmol/L (137-145) 07/11/20 04:42 Potassium 4.6 mmol/L (3.6-5.0) 07/11/20 04:42 Chloride 101.5 mmol/L (98-107) 07/11/20 04:42 Carbon Dioxide 20 mmol/L (22-30) L D 07/11/20 04:42 Anion Gap 22 mmol/L 07/11/20 04:42 BUN 17 mg/dL (9-20) 07/11/20 04:42 Creatinine 0.8 mg/dL (0.8-1.3) 07/11/20 04:42 Estimated GFR > 60 ml/min 07/11/20 04:42 BUN/Creatinine Ratio 21 % 07/11/20 04:42 Glucose 371 mg/dL (75-100) H 07/11/20 04:42 Calcium 8.9 mg/dL (8.4-10.2) 07/11/20 04:42 Ferritin 102.8 ng/mL (30.0-300.0) 07/10/20 21:30 Total Bilirubin 0.60 mg/dL (0.1-1.2) 07/10/20 21:03 AST 21 units/L (5-40) 07/10/20 21:03 ALT 22 units/L (7-56) 07/10/20 21:03 Alkaline Phosphatase 90 units/L (35-129) 07/10/20 21:03 Lactate Dehydrogenase 201 units/L (91-180) H 07/10/20 21:30 C-Reactive Protein 0.50 mg/dL (0.00-1.30) 07/10/20 21:30 Total Protein 6.7 g/dL (6.3-8.2) 07/10/20 21:03 Albumin 4.1 g/dL (3.9-5) 07/10/20 21:03 Albumin/Globulin Ratio 1.6 % 07/10/20 21:03 Almendarez/IV: Voiding Method Toilet IV Catheter Type [Right Distal INT / Saline Lock Port Antecubital] Active Medications - Current Medications Current Medications: Generic Name Dose Route Start Last Admin Trade Name Freq PRN Reason Stop Dose Admin Acetaminophen 650 mg 07/10/20 22:01 Tylenol PO Q4H PRN Pain MILD(1-3)/Fever >100.5/GARCIA Albuterol/Ipratropium 1 ampul 07/11/20 02:00 07/11/20 09:38 Duoneb *Not For Prn Use* IH 1 ampul Q6HRT [facility] Administration Heparin Sodium (Porcine) 5,000 unit 07/11/20 06:00 07/11/20 05:06 Heparin SUB-Q 5,000 unit Q8HR EMMIE Administration Magnesium Hydroxide 30 ml 07/10/20 22:01 Milk Of Magnesia PO Q4H PRN Constipation Methylprednisolone Sodium Succinate 40 mg 07/11/20 06:00 07/11/20 05:03 Solu-Medrol IV 40 mg Q8HR EMMIE Administration Morphine Sulfate 2 mg 07/10/20 22:01 Morphine IV Q4H PRN Pain, Moderate (4-6) Ondansetron HCl 4 mg 07/10/20 22:01 Zofran IV Q8H PRN Nausea And Vomiting Sodium Chloride 10 ml 07/11/20 10:00 Sodium Chloride Flush Syringe 10 Ml IV BID EMMIE Sodium Chloride 10 ml 07/10/20 22:01 Sodium Chloride Flush Syringe 10 Ml IV PRN PRN LINE FLUSH
[2020-07-11] MEDS ORDERED: MECLIZINE 25 MG TAB PO PRN (12:25)
[2020-07-11] MEDS: BENZONATATE 100 MG CAP PO SCH ×2 (12:54→15:40)
--- NOTE | 2020-07-11 16:24 | Discharge Summary ---
Providers - Providers Date of Admission: 07/10/20 22:01 Date of discharge: 07/11/20 Attending physician: BARON GERMAIN Primary care physician: COST ENGINEER Hospitalization Reason for admission: Acute hypoxic respiratory failure/acute asthma exacerbation Condition: Fair Pertinent studies: Chest x-ray; no acute abnormality Hospital course: Very pleasant 64-year-old male patient with significant past medical history of bronchial asthma, hypertension was admitted through the emergency room with worsening shortness of breath and wheezing of 1 day duration Initial work-up is consistent with acute exacerbation of bronchial asthma and acute hypoxic respiratory failure Patient is also considered as PUI placed in isolation and requested PCR carmona PCR test which was negative Patient was managed appropriately with oxygen titrating O2 sats to more than 90% High dose of IV steroids nebulizers and inhalation steroids Patient symptoms slowly but gradually improved Today patient is comfortable no new complaints vital signs stable Physical examination is unremarkable, Patient is being discharged on tapering dose of steroids and his home medications Advised to follow PMD and neurologist per schedule, patient is stable at discharge Discharge diagnosis and treatment --PUI ; high suspicion for COVID-19/test negative Current Visit: No Status: Acute Plan to address problem: [place] PCR test - negative 07/11/2020 -- Acute asthma exacerbation Current Visit: No Status: Acute Plan to address problem: Mild improvement, DC on tapering dose of steroids. Follow gas appliance repairer -- Acute respiratory failure with hypoxia Current Visit: Yes Status: Acute Plan to address problem: Significantly improved --Type II diabetes mellitus Current Visit: No Status: Acute Plan to address problem: Continue current oral hypo glycemic's, ADA diet --DVT prophylaxis Current Visit: No Status: Acute Plan to address problem: Patient received subcutaneous heparin. During hospital stay --Full code status Current Visit: No Status: Acute Patient is stable for discharge Disposition: DC-01 TO HOME OR SELFCARE Time spent for discharge: 35 min Core Measure Documentation - Palliative Care Palliative Care/ Comfort Measures: Not Applicable - Core Measures Any of the following diagnoses?: none Exam - Constitutional Vitals: Temp Pulse Resp BP Pulse Ox 98.0 F 99 H 18 115/76 98 07/11/20 04:40 07/11/20 04:40 07/11/20 13:00 07/11/20 04:40 07/11/20 13:00 General appearance: Present: no acute distress, well-nourished - EENT Eyes: Present: PERRL, EOM intact - Neck Neck: Present: supple, normal ROM - Respiratory Respiratory effort: normal Respiratory: bilateral: diminished, negative: rales, rhonchi, wheezing - Cardiovascular Rhythm: regular Heart Sounds: Present: S1 & S2 - Extremities Extremities: no ischemia, No edema - Abdominal General gastrointestinal: Present: soft, non-tender, non-distended, normal bowel sounds - Integumentary Integumentary: Present: clear, warm - Musculoskeletal Musculoskeletal: strength equal bilaterally - Psychiatric Psychiatric: appropriate mood/affect, cooperative - Neurologic Neurologic: moves all extremities Plan Activity: advance as tolerated Diet: diabetic Additional Instructions: Advised to follow with PMD and private gas appliance repairer per schedule. If you have worsening symptoms contact MD or go to emergency room Follow up with: PRIMARY CARE,MD [Primary Care Provider] - 3-5 Days KORY GUZMAN MD [Staff Physician] - 7 Days Prescriptions: Prednisone [predniSONE 10 mg (6-Day Pack, 21 Tabs)] 10 mg PO .TAPER #1 tab.ds.pk
[2020-07-11] MEDS ORDERED: metFORMIN 500 MG TAB PO SCH (17:00)
[2020-07-11 18:16] VITALS: BP 130/60
[2020-07-11] MEDS ORDERED: ARFORMOTEROL 15 MCG/2 ML NEBU IH SCH (20:00)
[2020-07-12] MEDS ORDERED: PANTOPRAZOLE 40 MG TAB PO SCH (07:30)
[2020-07-12] MEDS ORDERED: NON-FORMULARY EACH (Cetirizine Hcl [Zyrtec 10mg Cap] 10 MG) PO SCH (10:00)
[2020-07-12] MEDS ORDERED: CETIRIZINE 10 MG TAB PO SCH (10:00)
[2020-07-12] MEDS ORDERED: ASPIRIN EC 325 MG TAB PO SCH (10:00)
[2020-07-12] MEDS ORDERED: FLUTICASONE PROPIONATE NASAL SPRAY 16 GM NS SCH (10:00)
== END 2020-07-11 18:14 | disposition home or self-care (01) ==
LOC: ED 20:17 → 3A 22:01
PROVIDERS: ADMIT Internal Medicine Geriatric Medicine; ATTEND Internal Medicine
DX: J45.901 Unspecified asthma with (acute) exacerbation (principal); Z20.828 Contact with and (suspected) exposure to other viral communicable diseases; J45.52 Severe persistent asthma with status asthmaticus; J96.01 Acute respiratory failure with hypoxia; E11.9 Type 2 diabetes mellitus without complications; I10 Essential (primary) hypertension; Z23 Encounter for immunization; Z79.51 Long term (current) use of inhaled steroids; Z79.82 Long term (current) use of aspirin; Z79.899 Other long term (current) drug therapy; Z91.013 Allergy to seafood
CPT/HCPCS: 36415; 71045; 80048; 80053; 82728; 82947; 83615; 84145; 85025; 85379; 85610; 86140; 90686; 90732; 94640; 96365; 96372; 96375; 96376; 99291; G0008; G0009; G0378; J1100; J1644; J2920; J3475; U0003; 85007; 90471; 94644

== ENCOUNTER 2020-09-01 08:48 | Emergency (ER) | payer MEDICARE ==
[2020-09-01] MEDS ORDERED: predniSONE 20 MG TAB PO ONE (08:59)
[2020-09-01] MEDS ORDERED: IPRATROPIUM/ALBUTEROL SULFATE 3 ML AMPUL.NEB IH ONE (08:59)
[2020-09-01 09:00] VITALS: BP 143/87
--- NOTE | 2020-09-01 09:06 | Emergency Department Report ---
Minor Respiratory - HPI Chief Complaint: Dyspnea/Respdistress Stated Complaint: ASTHMA Time Seen by Provider: 09/01/20 08:58 Duration: Today Pain Location: Chest Severity: moderate Minor Respiratory: Yes Able to Tolerate Fluids, Yes Cough, Yes Shortness of Breath, No Rhinorrhea, No Sore Throat, No Ear Pain, No Sick Contacts, No Hemoptysis, No Chest Pain, No Fever Other History: Patient is a 64-year-old male well-known to us in the ER. He presents with wheezing. He is asthmatic. He states he ran out of his prednisone yesterday. He denies fever or chills. He is not coughing. He does have bilateral upper and lower airway wheezing on arrival to triage. He has no hypoxia. No hypotension. Patient has tachycardia on arrival to triage: He states he has been using his inhaler often. Oxygen saturation on room air is 95% in triage. Patient denies chest pain. Patient denies any Covid exposures that he knows of. He states that this is his usual asthma exacerbation. Patient has required intubation in the past. He has required admission to the hospital in the past. I suspect there is a component of noncompliance with follow-up to his primary care. Patient is nontoxic and [id number] today on arrival to the ER. ED Review of Systems ROS: Stated complaint: ASTHMA Other details as noted in HPI Comment: All other systems reviewed and negative ED Past Medical Hx - Past Medical History Previous Medical History?: Yes Hx Hypertension: Yes Hx CVA: No Hx Heart Attack/AMI: No Hx Congestive Heart Failure: No Hx Diabetes: Yes Hx Deep Vein Thrombosis: No Hx Pulmonary Embolism: No Hx GERD: No Hx Liver Disease: No Hx Renal Disease: No Hx Sickle Cell Disease: No Hx Arthritis: No Hx Headaches / Migraines: No Hx Seizures: No Hx Kidney Stones: No Hx Psychiatric Treatment: No Hx Asthma: Yes (intubation) Hx COPD: No Hx Tuberculosis: No Hx Dementia: No Hx HIV: No Additional medical history: intabated x 20. bi pap - Surgical History Past Surgical History?: Yes Additional Surgical History: back surgery x4. Hernia repair 04/20 - Family History Family history: no significant - Social History Smoking Status: Never Smoker Substance Use Type: None - Medications Home Medications: Home Medications Medication Instructions Recorded Confirmed Last Taken Type metFORMIN [Glucophage] 500 mg PO BID 07/02/14 11/13/19 10/18/14 History Aspirin EC [Ecotrin] 325 mg PO DAILY tablet 10/28/14 11/13/19 Unknown Rx Arformoterol Nebu [Brovana Nebu] 15 mcg IH Q12HRT 30 Days ml 06/25/17 11/13/19 Unknown Rx glipiZIDE [glipiZIDE XL] 5 mg PO QDAY #30 tab.er.24 06/25/17 11/13/19 Unknown Rx Famotidine [Pepcid] 40 mg PO DAILY #10 tablet 09/01/18 11/13/19 Unknown Rx Pantoprazole [Protonix TAB] 40 mg PO QDAY #30 tablet 08/22/19 11/13/19 Unknown Rx ALBUTEROL NEB's [Proventil 0.083% 2.5 mg IH TID PRN #30 neb 01/28/20 07/10/20 Unknown Rx NEBS] Fluticasone/Salmeterol [Advair 1 puff IH BID #1 disk.w.dev 01/28/20 Unknown Rx Diskus 250-50 mcg] Meclizine [Antivert] 25 mg PO TID PRN #20 tablet 04/26/20 Unknown Rx Albuterol Sulfate [Proventil Hfa] 1 - 2 puff IH Q6H PRN #1 hfa.aer.ad 06/13/20 07/10/20 07/10/20 15:00 Rx Albuterol Mdi (or & Nicu Only) 2 puff IH QID PRN #1 inhalation 06/18/20 07/10/20 07/10/20 18:00 Rx [ProAir HFA Inhaler] ALBUTEROL NEB's [Proventil 0.083% 2.5 mg IH TID PRN #1 box 09/01/20 Unknown Rx NEBS] Albuterol Mdi (or & Nicu Only) 2 puff IH QID PRN #1 inhalation 09/01/20 Unknown Rx [ProAir HFA Inhaler] Azithromycin [Zithromax Z-AUNG] 250 mg PO DAILY #6 tablet 09/01/20 Unknown Rx Cetirizine HCl [ZyrTEC 10mg cap] 10 mg PO DAILY #30 capsule 09/01/20 Unknown Rx Cetirizine HCl [ZyrTEC] 10 mg PO DAILY #30 capsule 09/01/20 Unknown Rx Fluticasone [Flonase] 1 spray NS QDAY #1 bottle 09/01/20 Unknown Rx Tiotropium [Spiriva] 18 mcg IH QDAY 30 Days cap 09/01/20 Unknown Rx predniSONE [Deltasone] 20 mg PO DAILY #5 tablet 09/01/20 Unknown Rx Minor Respiratory Exam - Exam General: Vital signs noted. No distress. Alert and acting appropriately. HEENT: Yes Moist Mucous Membranes, No Pharyngeal Erythema, No Pharyngeal Exudates, No Rhinorrhea, No Conjuctival Injection, No Frontal Tenderness, No Maxillary Tenderness Ear: Neither TM Bulge, Neither TM Erythema, Neither EAC Pain, Neither EAC Discharge Neck: Yes Supple, No Adenopathy Lungs: Yes Good Air Exchange, Yes Wheezes, No Ronchi, No Stridor, No Cough, No Labored Respirations, No Retractions, No Use of Accessory Muscles, No Other Abnormal Lung Sounds Heart: Yes Regular (100 bpm), No Murmur Abdomen: Yes Normal Bowel Sounds, No Tenderness, No Peritoneal Signs Skin: No Rash, No Edema Neurologic: Alert and oriented, no deficits. Musculoskeletal: Unremarkable. ED Course Vital Signs 09/01/20 08:57 Temperature 98.4 F Pulse Rate 114 H Respiratory 20 Rate Blood Pressure 143/87 O2 Sat by Pulse 95 Oximetry ED Medical Decision Making - Radiology Data Radiology results: report reviewed, image reviewed No acute process - Medical Decision Making Patient given a DuoNeb and started on prednisone in the ER. I discussed with patient the importance of getting his medications filled and seeing his primary care. Per the patient is well-known to us in the ER. X-ray with no acute process. No infiltrate suggestive of Covid. No infiltrate or consolidation suggestive of pneumonia. Patient being discharged home with discharge instructions including diet, activity follow-up and medications. Patient verbalizes understanding of discharge plan of care Vital Signs 09/01/20 08:57 Temperature 98.4 F Pulse Rate 114 H Respiratory 20 Rate Blood Pressure 143/87 O2 Sat by Pulse 95 Oximetry - Differential Diagnosis Asthma exacerbation with or without infection Critical care attestation.: If time is entered above; I have spent that time in minutes in the direct care of this critically ill patient, excluding procedure time. ED Disposition Clinical Impression: Acute asthma exacerbation Disposition: - TO HOME OR SELFCARE Is pt being admited?: No Does the pt Need Aspirin: No Condition: Stable Instructions: Asthma, Adult, [id number] Additional Instructions: meds as ordered follow up with pcp luke referral below Prescriptions: predniSONE [Deltasone] 20 mg PO DAILY #5 tablet Fluticasone [Flonase] 1 spray NS QDAY #1 bottle Albuterol Mdi (or & Nicu Only) [ProAir HFA Inhaler] 2 puff IH QID PRN #1 inhalation PRN Reason: Shortness Of Breath ALBUTEROL NEB's [Proventil 0.083% NEBS] 2.5 mg IH TID PRN #1 box PRN Reason: Wheezing Tiotropium [Spiriva] 18 mcg IH QDAY 30 Days cap Azithromycin [Zithromax Z-AUNG] 250 mg PO DAILY #6 tablet Cetirizine HCl [ZyrTEC 10mg cap] 10 mg PO DAILY #30 capsule Cetirizine HCl [ZyrTEC] 10 mg PO DAILY #30 capsule Referrals: SWATI SHEPPARD MD [Staff Physician] - 3-5 Days Time of Disposition: 09:32
--- NOTE | 2020-09-01 09:26 | XRay Report ---
XR chest routine 2V INDICATION / CLINICAL INFORMATION: asthma sob COMPARISON: 07/10/2020 FINDINGS: SUPPORT DEVICES: None. HEART / MEDIASTINUM: No significant abnormality. LUNGS / PLEURA: Lungs are clear. Costophrenic sulci are sharp. No pneumothorax. ADDITIONAL FINDINGS: No significant additional findings. IMPRESSION: 1. No acute findings. Signer Name: Andrew Carrillo MD Signed: 09/01/2020 9:21 AM Workstation Name: [id number]
== END 2020-09-01 10:27 | disposition home or self-care (01) ==
LOC: ED 08:48
DX: J45.901 Unspecified asthma with (acute) exacerbation (principal); I10 Essential (primary) hypertension; E11.9 Type 2 diabetes mellitus without complications; Z79.82 Long term (current) use of aspirin; Z79.899 Other long term (current) drug therapy; Z91.013 Allergy to seafood
CPT/HCPCS: 71046; 94640; 99283; J7512; 94644

== ENCOUNTER 2020-09-03 22:28 | Observation (INO) | payer MEDICARE ==
[2020-09-04] MEDS ORDERED: IPRATROPIUM/ALBUTEROL SULFATE 3 ML AMPUL.NEB IH ONE (01:46)
[2020-09-04] MEDS ORDERED: methylPREDNISolone Sod Succinate 125 MG/2 ML INJ IM ONE (01:47)
[2020-09-04] MEDS ORDERED: ALBUTEROL 2.5 MG/3 ML NEBU IH ONE (01:47)
[2020-09-04] MEDS ORDERED: IPRATROPIUM 0.02% NEBU 2.5 ML IH ONE ×2 (01:52→01:58)
--- NOTE | 2020-09-04 01:54 | Emergency Department Report ---
ED Shortness of Breath HPI - General Chief Complaint: Adult Asthma Stated Complaint: ASTHMA Time Seen by Provider: 09/04/20 01:52 Source: patient Mode of arrival: Ambulatory Limitations: No Limitations - History of Present Illness Initial Comments: Patient is a 64-year-old male that presents emergency room with complaints of shortness of breath, wheezing, cough and right rib pain. Patient states his symptoms started yesterday at 3 PM. Patient states that he needs inhalers but they are not working. He states he has history of asthma. Patient states his symptoms are worsening. Patient dates his shortness of breath is better with rest and worse with exertion. Patient denies chest pain. Patient denies fever. Patient denies chills. Patient denies nausea vomiting. Patient states that the right rib pain is a 6 out of 10. Patient states the rib pain is better with rest and worse with movement and palpation. Patient denies recent travel. Patient denies recent international travel. Patient denies exposure to the novel coronavirus. Patient denies sick contacts. Patient denies fever and chills. Patient denies diarrhea. Patient denies coming in contact with anybody with symptoms of the novel coronavirus. MD Complaint: shortness of breath, cough -: Sudden Pain Scale: 6 Quality: throbbing Consistency: constant Improves With: rest, upright position Worsens With: lying flat, exertion Known History Of: asthma Associated Symptoms: denies other symptoms Treatments Prior to Arrival: bronchodilator - Related Data Home Oxygen Therapy: No Home Medications Medication Instructions Recorded Confirmed Last Taken metFORMIN [Glucophage] 500 mg PO BID 07/02/14 11/13/19 10/18/14 Previous Rx's Medication Instructions Recorded Last Taken Type Aspirin EC [Ecotrin] 325 mg PO DAILY tablet 10/28/14 Unknown Rx Arformoterol Nebu [Brovana Nebu] 15 mcg IH Q12HRT 30 Days ml 06/25/17 Unknown Rx glipiZIDE [glipiZIDE XL] 5 mg PO QDAY #30 tab.er.24 06/25/17 Unknown Rx Famotidine [Pepcid] 40 mg PO DAILY #10 tablet 09/01/18 Unknown Rx Pantoprazole [Protonix TAB] 40 mg PO QDAY #30 tablet 08/22/19 Unknown Rx ALBUTEROL NEB's [Proventil 0.083% 2.5 mg IH TID PRN #30 neb 01/28/20 Unknown Rx NEBS] Fluticasone/Salmeterol [Advair 1 puff IH BID #1 disk.w.dev 01/28/20 Unknown Rx Diskus 250-50 mcg] Meclizine [Antivert] 25 mg PO TID PRN #20 tablet 04/26/20 Unknown Rx Albuterol Sulfate [Proventil Hfa] 1 - 2 puff IH Q6H PRN #1 hfa.aer.ad 06/13/20 07/10/20 15:00 Rx Albuterol Mdi (or & Nicu Only) 2 puff IH QID PRN #1 inhalation 06/18/20 07/10/20 18:00 Rx [ProAir HFA Inhaler] ALBUTEROL NEB's [Proventil 0.083% 2.5 mg IH TID PRN #1 box 09/01/20 Unknown Rx NEBS] Albuterol Mdi (or & Nicu Only) 2 puff IH QID PRN #1 inhalation 09/01/20 Unknown Rx [ProAir HFA Inhaler] Azithromycin [Zithromax Z-AUNG] 250 mg PO DAILY #6 tablet 09/01/20 Unknown Rx Cetirizine HCl [ZyrTEC 10mg cap] 10 mg PO DAILY #30 capsule 09/01/20 Unknown Rx Cetirizine HCl [ZyrTEC] 10 mg PO DAILY #30 capsule 09/01/20 Unknown Rx Fluticasone [Flonase] 1 spray NS QDAY #1 bottle 09/01/20 Unknown Rx Tiotropium [Spiriva] 18 mcg IH QDAY 30 Days cap 09/01/20 Unknown Rx predniSONE [Deltasone] 20 mg PO DAILY #5 tablet 09/01/20 Unknown Rx Allergies Allergy/AdvReac Type Severity Reaction Status Date / Time seafood Allergy Shortness Uncoded 04/26/20 08:16 of Breath shrimp Allergy Shortness Uncoded 04/26/20 08:16 of Breath ED Review of Systems ROS: Stated complaint: ASTHMA Other details as noted in HPI Constitutional: denies: chills, fever Eyes: denies: eye pain, eye discharge, vision change ENT: denies: ear pain, throat pain Respiratory: see HPI, cough, shortness of breath, SOB with exertion, SOB at rest, wheezing Cardiovascular: denies: chest pain, palpitations Endocrine: no symptoms reported Gastrointestinal: denies: abdominal pain, nausea, diarrhea Genitourinary: denies: urgency, dysuria Musculoskeletal: denies: back pain, joint swelling, arthralgia Skin: denies: rash, lesions Neurological: denies: headache, weakness, paresthesias Psychiatric: denies: anxiety, depression Hematological/Lymphatic: denies: easy bleeding, easy bruising ED Past Medical Hx - Past Medical History Previous Medical History?: Yes Hx Hypertension: Yes Hx CVA: No Hx Heart Attack/AMI: No Hx Congestive Heart Failure: No Hx Diabetes: Yes Hx Deep Vein Thrombosis: No Hx Pulmonary Embolism: No Hx GERD: No Hx Liver Disease: No Hx Renal Disease: No Hx Sickle Cell Disease: No Hx Arthritis: No Hx Headaches / Migraines: No Hx Seizures: No Hx Kidney Stones: No Hx Psychiatric Treatment: No Hx Asthma: Yes (intubation) Hx COPD: No Hx Tuberculosis: No Hx Dementia: No Hx HIV: No Additional medical history: intabated x 20. bi pap - Surgical History Past Surgical History?: Yes Additional Surgical History: back surgery x4. Hernia repair 04/20 - Family History Family history: no significant - Social History Smoking Status: Never Smoker Substance Use Type: None - Medications Home Medications: Home Medications Medication Instructions Recorded Confirmed Last Taken Type metFORMIN [Glucophage] 500 mg PO BID 07/02/14 11/13/19 10/18/14 History Aspirin EC [Ecotrin] 325 mg PO DAILY tablet 10/28/14 11/13/19 Unknown Rx Arformoterol Nebu [Brovana Nebu] 15 mcg IH Q12HRT 30 Days ml 06/25/17 11/13/19 Unknown Rx glipiZIDE [glipiZIDE XL] 5 mg PO QDAY #30 tab.er.24 06/25/17 11/13/19 Unknown Rx Famotidine [Pepcid] 40 mg PO DAILY #10 tablet 09/01/18 11/13/19 Unknown Rx Pantoprazole [Protonix TAB] 40 mg PO QDAY #30 tablet 08/22/19 11/13/19 Unknown Rx ALBUTEROL NEB's [Proventil 0.083% 2.5 mg IH TID PRN #30 neb 01/28/20 07/10/20 Unknown Rx NEBS] Fluticasone/Salmeterol [Advair 1 puff IH BID #1 disk.w.dev 01/28/20 Unknown Rx Diskus 250-50 mcg] Meclizine [Antivert] 25 mg PO TID PRN #20 tablet 04/26/20 Unknown Rx Albuterol Sulfate [Proventil Hfa] 1 - 2 puff IH Q6H PRN #1 hfa.aer.ad 06/13/20 07/10/20 07/10/20 15:00 Rx Albuterol Mdi (or & Nicu Only) 2 puff IH QID PRN #1 inhalation 06/18/20 07/10/20 07/10/20 18:00 Rx [ProAir HFA Inhaler] ALBUTEROL NEB's [Proventil 0.083% 2.5 mg IH TID PRN #1 box 09/01/20 Unknown Rx NEBS] Albuterol Mdi (or & Nicu Only) 2 puff IH QID PRN #1 inhalation 09/01/20 Unknown Rx [ProAir HFA Inhaler] Azithromycin [Zithromax Z-AUNG] 250 mg PO DAILY #6 tablet 09/01/20 Unknown Rx Cetirizine HCl [ZyrTEC 10mg cap] 10 mg PO DAILY #30 capsule 09/01/20 Unknown Rx Cetirizine HCl [ZyrTEC] 10 mg PO DAILY #30 capsule 09/01/20 Unknown Rx Fluticasone [Flonase] 1 spray NS QDAY #1 bottle 09/01/20 Unknown Rx Tiotropium [Spiriva] 18 mcg IH QDAY 30 Days cap 09/01/20 Unknown Rx predniSONE [Deltasone] 20 mg PO DAILY #5 tablet 09/01/20 Unknown Rx ED Physical Exam - General Limitations: No Limitations General appearance: alert, in distress - Head Head exam: Present: atraumatic, normocephalic - Eye Eye exam: Present: normal appearance - ENT ENT exam: Present: mucous membranes moist - Neck Neck exam: Present: normal inspection. Absent: meningismus - Respiratory Respiratory exam: Present: respiratory distress, wheezes, accessory muscle use, decreased breath sounds - Cardiovascular Cardiovascular Exam: Present: regular rate, normal rhythm. Absent: systolic murmur, diastolic murmur, rubs, gallop - GI/Abdominal GI/Abdominal exam: Present: soft, normal bowel sounds - Rectal Rectal exam: Present: deferred - Extremities Exam Extremities exam: Present: normal inspection - Back Exam Back exam: Present: normal inspection - Neurological Exam Neurological exam: Present: alert, oriented X3 - Psychiatric Psychiatric exam: Present: normal affect, normal mood - Skin Skin exam: Present: warm, dry, intact, normal color. Absent: rash ED Course Vital Signs 09/04/20 09/04/20 09/04/20 01:37 03:53 04:48 Temperature 98.6 F Pulse Rate 118 H 110 H Pulse Rate [ 110 H Bilateral Throughout] Respiratory 20 21 Rate Respiratory 16 Rate [Bilateral Throughout] Blood Pressure 138/94 Blood Pressure 126/79 [right arm] O2 Sat by Pulse 96 97 Oximetry - Reevaluation(s) Reevaluation #1: Initial evaluation done, patient found to be hypoxic. Patient will receive medications and albuterol and patient was placed on 2 L of oxygen. 09/04/20 01:52 Patient is to have increased work to breathe. patient on albuterol and has received Solu-Medrol. 09/04/20 02:05 Reevaluation #2: Patient's work to breathe has improved. Patient states he is feeling little bit better. Patient still having wheezing throughout. Patient has received Solu- Medrol and magnesium. Patient is still receiving a DuoNeb. 09/04/20 02:25 Reevaluation #3: Patient is still hypoxic on room air. Patient was placed back on 2 L. I discussed all results with patient. I discussed plan of care with patient. Patient agrees with plan of care and admission. Patient to be admitted to the hospitalist service. 09/04/20 04:06 - Consultations Consultation #1: Hospitalist consulted for admission. Hospitalist to admit patient. 09/04/20 04:06 ED Medical Decision Making - Lab Data Result diagrams: 09/04/20 03:01 09/04/20 03:01 - Radiology Data Radiology results: report reviewed, image reviewed interpreted by me: Chest x-ray: No pneumonia, no pneumothorax, no foreign body, no osseous findings, no acute findings CHEST 1 VIEW 09/04/2020 2:04 AM INDICATION / CLINICAL INFORMATION: sob. COMPARISON: 09/01/2020 FINDINGS: SUPPORT DEVICES: None. HEART / MEDIASTINUM: No significant abnormality. LUNGS / PLEURA: No significant pulmonary or pleural abnormality. No pneumothorax. ADDITIONAL FINDINGS: No significant additional findings. IMPRESSION: 1. No significant change. - Medical Decision Making Patient is a 64-year-old male that presents emergency room with a status asthmaticus and asthma exacerbation with complaints of shortness of breath, cou gh and difficulty breathing. Patient's inhalers were not working at home. Patient given an hour-long albuterol treatment with ipratropium and Solu-Medrol and magnesium. Patient after treatment continue to wheeze but the work to breathe did improve. Patient was also found to be hypoxic and remained dependent upon oxygen while in ER. Patient's labs were essentially unremarkable. Patient's chest x-ray was negative. Patient admitted to the hospital service for further evaluation and treatment and observation. - Differential Diagnosis Status asthmaticus, shortness of breath, cough, COPD Critical Care Time: Yes Critical care time in (mins) excluding proc time.: 35 Critical care attestation.: If time is entered above; I have spent that time in minutes in the direct care of this critically ill patient, excluding procedure time. Critical Care Time: 35 minutes ED Disposition Clinical Impression: Shortness of breath, Acute respiratory failure with hypoxia, Respiratory distress, Hypoxia Acute asthma exacerbation Qualifiers: Asthma severity: severe Asthma persistence: persistent Qualified Code(s): J45.51 - Severe persistent asthma with (acute) exacerbation Status asthmaticus Qualifiers: Asthma severity: severe Asthma persistence: persistent Qualified Code(s): J45.52 - Severe persistent asthma with status asthmaticus Disposition: 09 OP ADMIT IP TO THIS HOSP Is pt being admited?: Yes Does the pt Need Aspirin: No Condition: Critical Time of Disposition: 04:06
[2020-09-04] MEDS ORDERED: MAGNESIUM SULFATE 2 GM/50 ML BAG IV ONE (01:55)
--- NOTE | 2020-09-04 02:14 | XRay Report ---
CHEST 1 VIEW 09/04/2020 2:04 AM INDICATION / CLINICAL INFORMATION: sob. COMPARISON: 09/01/2020 FINDINGS: SUPPORT DEVICES: None. HEART / MEDIASTINUM: No significant abnormality. LUNGS / PLEURA: No significant pulmonary or pleural abnormality. No pneumothorax. ADDITIONAL FINDINGS: No significant additional findings. IMPRESSION: 1. No significant change. Signer Name: Khris Grover MD Signed: 09/04/2020 2:09 AM Workstation Name: [id number]
--- NOTE | 2020-09-04 03:00 | History and Physical Report ---
History of Present Illness Date of examination: 09/04/20 Chief complaint: Shortness of breath Acute asthma exacerbation History of present illness: 64-year-old male with history of asthma was brought to the emergency room with complaints of shortness of breath, wheezing, cough and right rib pain since yesterday at 3 PM. Patient states that he needs inhalers but they are not working. Patient states his symptoms are worsening. shortness of breath is better with rest and worse with exertion. Patient denies chest pain. Patient denies fever. Patient denies chills. Patient denies nausea vomiting. Patient states that the right rib pain is a 6 out of 10. In the emergency room patient is found to have acute asthma exacerbation Medications and Allergies Allergies Allergy/AdvReac Type Severity Reaction Status Date / Time seafood Allergy Shortness Uncoded 04/26/20 08:16 of Breath shrimp Allergy Shortness Uncoded 04/26/20 08:16 of Breath Home Medications Medication Instructions Recorded Confirmed Last Taken Type metFORMIN [Glucophage] 500 mg PO BID 07/02/14 11/13/19 10/18/14 History Aspirin EC [Ecotrin] 325 mg PO DAILY tablet 10/28/14 11/13/19 Unknown Rx Arformoterol Nebu [Brovana Nebu] 15 mcg IH Q12HRT 30 Days ml 06/25/17 11/13/19 Unknown Rx glipiZIDE [glipiZIDE XL] 5 mg PO QDAY #30 tab.er.24 06/25/17 11/13/19 Unknown Rx Famotidine [Pepcid] 40 mg PO DAILY #10 tablet 09/01/18 11/13/19 Unknown Rx Pantoprazole [Protonix TAB] 40 mg PO QDAY #30 tablet 08/22/19 11/13/19 Unknown Rx ALBUTEROL NEB's [Proventil 0.083% 2.5 mg IH TID PRN #30 neb 01/28/20 07/10/20 Unknown Rx NEBS] Fluticasone/Salmeterol [Advair 1 puff IH BID #1 disk.w.dev 01/28/20 Unknown Rx Diskus 250-50 mcg] Meclizine [Antivert] 25 mg PO TID PRN #20 tablet 04/26/20 Unknown Rx Albuterol Sulfate [Proventil Hfa] 1 - 2 puff IH Q6H PRN #1 hfa.aer.ad 06/13/20 07/10/20 07/10/20 15:00 Rx Albuterol Mdi (or & Nicu Only) 2 puff IH QID PRN #1 inhalation 06/18/20 07/10/20 07/10/20 18:00 Rx [ProAir HFA Inhaler] ALBUTEROL NEB's [Proventil 0.083% 2.5 mg IH TID PRN #1 box 09/01/20 Unknown Rx NEBS] Albuterol Mdi (or & Nicu Only) 2 puff IH QID PRN #1 inhalation 09/01/20 Unknown Rx [ProAir HFA Inhaler] Azithromycin [Zithromax Z-AUNG] 250 mg PO DAILY #6 tablet 09/01/20 Unknown Rx Cetirizine HCl [ZyrTEC 10mg cap] 10 mg PO DAILY #30 capsule 09/01/20 Unknown Rx Cetirizine HCl [ZyrTEC] 10 mg PO DAILY #30 capsule 09/01/20 Unknown Rx Fluticasone [Flonase] 1 spray NS QDAY #1 bottle 09/01/20 Unknown Rx Tiotropium [Spiriva] 18 mcg IH QDAY 30 Days cap 09/01/20 Unknown Rx predniSONE [Deltasone] 20 mg PO DAILY #5 tablet 09/01/20 Unknown Rx Review of Systems Respiratory: cough, shortness of breath, wheezing Exam - Constitutional Vitals: Temp Pulse Resp BP Pulse Ox 98.6 F 118 H 20 138/94 96 09/04/20 01:37 09/04/20 01:37 09/04/20 01:37 09/04/20 01:37 09/04/20 01:37 General appearance: Present: no acute distress, well-nourished - EENT Eyes: Present: PERRL ENT: hearing intact, clear oral mucosa - Neck Neck: Present: supple, normal ROM - Respiratory Respiratory effort: normal Respiratory: bilateral: wheezing - Cardiovascular Heart Sounds: Present: S1 & S2. Absent: rub, click - Extremities Extremities: pulses symmetrical, No edema Peripheral Pulses: within normal limits - Abdominal General gastrointestinal: Present: soft, non-tender, non-distended, normal bowel sounds Male genitourinary: Present: normal - Integumentary Integumentary: Present: clear, warm, dry - Musculoskeletal Musculoskeletal: gait normal, strength equal bilaterally - Psychiatric Psychiatric: appropriate mood/affect, intact judgment & insight - Neurologic Neurologic: CNII-XII intact, moves all extremities Results - Labs CBC & Chem 7: 09/04/20 03:01 09/04/20 03:01 - Imaging and Cardiology Chest x-ray: image reviewed Assessment and Plan - Patient Problems (1) Acute asthma exacerbation Current Visit: Yes Status: Acute Qualifiers: Asthma severity: severe Asthma persistence: persistent Qualified Code(s): J45.51 - Severe persistent asthma with (acute) exacerbation Plan to address problem: Admit the patient to the medical telemetry. Cardiac diet. Oxygen per nasal cannula 3 L/min. DuoNeb per nebulizer every 4 hours as needed. Solu-Medrol 40 mg IV every 6 hours. Singular 10 mg p.o. daily. Zithromax 250 mg p.o. daily. We we will do blood cultures sputum culture. Recheck CBC BMP in the morning. Heparin 5000 units subcu every 8 hours for DVT prophylaxis and Protonix 40 mg p.o. daily for GI prophylaxis. (2) Shortness of breath Current Visit: Yes Status: Acute Plan to address problem: Oxygen per nasal cannula 3 L/min. DuoNeb per nebulizer every 4 hours as needed. Solu-Medrol 40 mg IV every 6 hours. Singular 10 mg p.o. daily. Zithromax 250 mg p.o. daily. We we will do blood cultures sputum culture. Recheck CBC BMP in the morning. Heparin 5000 units subcu every 8 hours for DVT prophylaxis and Protonix 40 mg p.o. daily for GI prophylaxis.
[2020-09-04 03:20] LABS: Basophils # (Auto) 0.1 K/mm3 (0.0-0.1); Basophils % (Auto) 0.8 % (0.0-1.8); Eosinophils % (Auto) 10.1 % (0.0-4.3); Hematocrit 44.7 % (35.5-45.6); Hemoglobin 14.8 gm/dl (11.8-15.2); Lymphocytes # (Auto) 1.6 K/mm3 (1.2-5.4); Lymphocytes % (Auto) 15.8 % (13.4-35.0); Mean Corpuscular HGB Conc 33 % (32-34); Mean Corpuscular Volume 83 fl (84-94); Monocytes % (Auto) 10.3 % (0.0-7.3); Platelet Count 262 K/mm3 (140-440); Red Blood Count 5.36 M/mm3 (3.65-5.03); Red Cell Distribution Width 13.2 % (13.2-15.2)
[2020-09-04 03:37] LABS: Alanine Aminotransferase 19 units/L (7-56); Albumin 4.2 g/dL (3.9-5); BUN/Creatinine Ratio 14; Blood Urea Nitrogen 11 mg/dL (9-20); Calcium 9.3 mg/dL (8.4-10.2); Hemolysis Index 6
[2020-09-04 05:15] VITALS: BP 126/79
[2020-09-04] MEDS ORDERED: methylPREDNISolone Sod Succinate 40 MG/1 ML INJ IV SCH (06:00)
[2020-09-04] MEDS ORDERED: HEPARIN 5,000 UNIT/1 ML VIAL SUB-Q SCH (06:00)
[2020-09-04] MEDS ORDERED: PANTOPRAZOLE 40 MG TAB PO SCH (07:30)
[2020-09-04] MEDS ORDERED: AZITHROMYCIN 250 MG TAB PO SCH (10:00)
--- NOTE | 2020-09-04 16:36 | Discharge Summary ---
Providers - Providers Date of Admission: 09/04/20 04:05 Date of discharge: 09/04/20 Attending physician: JACK LIMON MD Primary care physician: [employer] Hospitalization Reason for admission: Dyspnea Condition: Critical Hospital course: 64-year-old male with history of asthma who came to the emergency department due to acute asthma exacerbation. Patient failed outpatient treatment of his asthma, was placed on steroids and breathing treatments. However patient did not stay long at the hospital, decided to leave AMA. The patient was not seen by me since the patient left before my shift began, nursing notes noted. Disposition: [id number] LEFT AGAINST MED ADVICE Time spent for discharge: 15 - Discharge Diagnoses (1) Acute asthma exacerbation Status: Acute Qualifiers: Asthma severity: severe Asthma persistence: persistent Qualified Code(s): J45.51 - Severe persistent asthma with (acute) exacerbation (2) Acute respiratory failure with hypoxia Status: Acute Core Measure Documentation - Palliative Care Palliative Care/ Comfort Measures: Not Applicable - Core Measures Any of the following diagnoses?: none Exam - Physical Exam Narrative exam: Patient was not examined, left AMA - Constitutional Vitals: Temp Pulse Resp BP Pulse Ox 98.6 F 110 H 21 126/79 97 09/04/20 01:37 09/04/20 04:48 09/04/20 04:48 09/04/20 04:48 09/04/20 04:48 Plan Activity: no restrictions Forms: AMA Form
[2020-09-04] MEDS ORDERED: MONTELUKAST 10 MG TAB PO SCH (22:00)
== END 2020-09-04 06:45 | disposition left against medical advice (07) ==
LOC: ED 22:28 → 4A 09-04 04:05
PROVIDERS: ADMIT Hospitalist; ATTEND Family Medicine
DX: J96.01 Acute respiratory failure with hypoxia (principal); J45.51 Severe persistent asthma with (acute) exacerbation; J45.52 Severe persistent asthma with status asthmaticus; E11.9 Type 2 diabetes mellitus without complications; Z79.84 Long term (current) use of oral hypoglycemic drugs; Z79.82 Long term (current) use of aspirin; Z98.890 Other specified postprocedural states; Z79.899 Other long term (current) drug therapy
CPT/HCPCS: 36415; 71045; 80053; 85025; 94644; 96372; 96374; 99291; G0378; J2930; J3475

== ENCOUNTER 2020-11-26 18:31 | Emergency (ER) | payer MEDICARE ==
[2020-11-26] MEDS ORDERED: dexAMETHasone 20 MG/5 ML VIAL IV ONE (18:56)
[2020-11-26] MEDS ORDERED: IPRATROPIUM 0.02% NEBU 2.5 ML IH ONE (18:56)
[2020-11-26] MEDS ORDERED: MAGNESIUM SULFATE 2 GM/50 ML BAG IV ONE (18:56)
[2020-11-26] MEDS ORDERED: ALBUTEROL 2.5 MG/3 ML NEBU IH ONE (18:56)
--- NOTE | 2020-11-26 18:58 | Emergency Department Report ---
ED Asthma HPI - General Chief Complaint: Adult Asthma Stated Complaint: ASTHMA Time Seen by Provider: 11/26/20 18:53 Source: patient Mode of arrival: Ambulatory Limitations: No Limitations - History of Present Illness Initial Comments: Patient is a 64-year-old F Mongolian male with a past medical history of asthma who is presenting with an asthma attack. Patient states this morning was helping someone with their yard and states the wind blew and pollen got his face. He states he made a mistake for wiping his eyes and taking his mask off which made his symptoms worse. Patient has had shortness of breath with wheezing since this morning when this occurred. He denies any recent fevers cough cold congestion nausea vomiting or body aches. Patient try to use his nebulizer machine but states he did not feel like it was working. Patient came to the emergency department for further evaluation. - Related Data Home Medications Medication Instructions Recorded Confirmed Last Taken metFORMIN [Glucophage] 500 mg PO BID 07/02/14 09/09/20 10/18/14 Previous Rx's Medication Instructions Recorded Last Taken Type Aspirin EC [Ecotrin] 325 mg PO DAILY tablet 10/28/14 Unknown Rx Arformoterol Nebu [Brovana Nebu] 15 mcg IH Q12HRT 30 Days ml 06/25/17 Unknown Rx glipiZIDE [glipiZIDE XL] 5 mg PO QDAY #30 tab.er.24 06/25/17 Unknown Rx Famotidine [Pepcid] 40 mg PO DAILY #10 tablet 09/01/18 Unknown Rx Pantoprazole [Protonix TAB] 40 mg PO QDAY #30 tablet 08/22/19 Unknown Rx ALBUTEROL NEB's [Proventil 0.083% 2.5 mg IH TID PRN #30 neb 01/28/20 Unknown Rx NEBS] Fluticasone/Salmeterol [Advair 1 puff IH BID #1 disk.w.dev 01/28/20 Unknown Rx Diskus 250-50 mcg] Albuterol Mdi (or & Nicu Only) 2 puff IH QID PRN #1 inhalation 06/18/20 07/10/20 18:00 Rx [ProAir HFA Inhaler] Cetirizine HCl [ZyrTEC 10mg cap] 10 mg PO DAILY #30 capsule 09/01/20 Unknown Rx Fluticasone [Flonase] 1 spray NS QDAY #1 bottle 09/01/20 Unknown Rx Tiotropium [Spiriva] 18 mcg IH QDAY 30 Days cap 09/01/20 Unknown Rx Azithromycin [Zithromax TAB] 500 mg PO Q24H #3 tablet 09/10/20 Unknown Rx Prednisone [predniSONE 5 mg (6-Day 5 mg PO .TAPER #1 tab.ds.pk 09/10/20 Unknown Rx Pack, 21 Tabs)] ALBUTEROL NEB's [Proventil 0.083% 5 - 7.5 mg IH TID PRN #30 neb 11/26/20 Unknown Rx NEBS] Fluticasone [Flonase] 1 spray NS QDAY #1 bottle 11/26/20 Unknown Rx predniSONE [Deltasone] 20 mg PO QDAY #5 tab 11/26/20 Unknown Rx Allergies Allergy/AdvReac Type Severity Reaction Status Date / Time seafood Allergy Shortness Uncoded 11/26/20 18:33 of Breath shrimp Allergy Shortness Uncoded 11/26/20 18:33 of Breath ED Review of Systems ROS: Stated complaint: ASTHMA Other details as noted in HPI Comment: All other systems reviewed and negative ED Past Medical Hx - Past Medical History Hx Hypertension: Yes Hx CVA: No Hx Heart Attack/AMI: No Hx Congestive Heart Failure: No Hx Diabetes: Yes Hx Deep Vein Thrombosis: No Hx Pulmonary Embolism: No Hx GERD: No Hx Liver Disease: No Hx Renal Disease: No Hx Sickle Cell Disease: No Hx Arthritis: No Hx Headaches / Migraines: No Hx Seizures: No Hx Kidney Stones: No Hx Psychiatric Treatment: No Hx Asthma: Yes (intubation) Hx COPD: No Hx Tuberculosis: No Hx Dementia: No Hx HIV: No Additional medical history: intabated x 20. bi pap - Surgical History Additional Surgical History: back surgery x4. Hernia repair 04/20 - Social History Smoking Status: Never Smoker Substance Use Type: None - Medications Home Medications: Home Medications Medication Instructions Recorded Confirmed Last Taken Type metFORMIN [Glucophage] 500 mg PO BID 07/02/14 09/09/20 10/18/14 History Aspirin EC [Ecotrin] 325 mg PO DAILY tablet 10/28/14 09/09/20 Unknown Rx Arformoterol Nebu [Brovana Nebu] 15 mcg IH Q12HRT 30 Days ml 06/25/17 09/09/20 Unknown Rx glipiZIDE [glipiZIDE XL] 5 mg PO QDAY #30 tab.er.24 06/25/17 09/09/20 Unknown Rx Famotidine [Pepcid] 40 mg PO DAILY #10 tablet 09/01/18 09/09/20 Unknown Rx Pantoprazole [Protonix TAB] 40 mg PO QDAY #30 tablet 08/22/19 09/09/20 Unknown Rx ALBUTEROL NEB's [Proventil 0.083% 2.5 mg IH TID PRN #30 neb 01/28/20 09/09/20 Un known Rx NEBS] Fluticasone/Salmeterol [Advair 1 puff IH BID #1 disk.w.dev 01/28/20 09/09/20 Unknown Rx Diskus 250-50 mcg] Albuterol Mdi (or & Nicu Only) 2 puff IH QID PRN #1 inhalation 06/18/20 09/09/20 07/10/20 18:00 Rx [ProAir HFA Inhaler] Cetirizine HCl [ZyrTEC 10mg cap] 10 mg PO DAILY #30 capsule 09/01/20 09/09/20 Unknown Rx Fluticasone [Flonase] 1 spray NS QDAY #1 bottle 09/01/20 09/09/20 Unknown Rx Tiotropium [Spiriva] 18 mcg IH QDAY 30 Days cap 09/01/20 09/09/20 Unknown Rx Azithromycin [Zithromax TAB] 500 mg PO Q24H #3 tablet 09/10/20 Unknown Rx Prednisone [predniSONE 5 mg (6-Day 5 mg PO .TAPER #1 tab.ds.pk 09/10/20 Unknown Rx Pack, 21 Tabs)] ALBUTEROL NEB's [Proventil 0.083% 5 - 7.5 mg IH TID PRN #30 neb 11/26/20 Unknown Rx NEBS] Fluticasone [Flonase] 1 spray NS QDAY #1 bottle 11/26/20 Unknown Rx predniSONE [Deltasone] 20 mg PO QDAY #5 tab 11/26/20 Unknown Rx ED Physical Exam - General Limitations: No Limitations General appearance: alert, in no apparent distress, other (talking in full sentenses) - Head Head exam: Present: atraumatic, normocephalic - Eye Eye exam: Present: normal appearance - ENT ENT exam: Present: mucous membranes moist - Neck Neck exam: Present: normal inspection - Respiratory Respiratory exam: Present: respiratory distress, wheezes. Absent: normal lung sounds bilaterally, rales, rhonchi, stridor - Cardiovascular Cardiovascular Exam: Present: normal rhythm, tachycardia. Absent: systolic murmur, diastolic murmur, rubs, gallop - GI/Abdominal GI/Abdominal exam: Present: soft, normal bowel sounds. Absent: distended, tenderness, guarding, rebound - Rectal Rectal exam: Present: deferred - Extremities Exam Extremities exam: Present: normal inspection - Back Exam Back exam: Present: normal inspection - Neurological Exam Neurological exam: Present: alert, oriented X3 - Psychiatric Psychiatric exam: Present: normal affect, normal mood - Skin Skin exam: Present: warm, dry, intact, normal color. Absent: rash ED Course Vital Signs 11/26/20 11/26/20 11/26/20 18:34 18:37 20:12 Temperature 98 F Pulse Rate 127 H Pulse Rate [ 128 H Anterior Bilateral Upper Lobe] Respiratory 24 Rate Respiratory 16 Rate [Anterior Bilateral Upper Lobe] Blood Pressure 139/86 O2 Sat by Pulse 89 Oximetry ED Medical Decision Making - Lab Data Result diagrams: 11/26/20 19:05 11/26/20 19:05 - Medical Decision Making Patient states he feels much improved after the hour-long neb treatment. Patient's O2 sats at rest when I walked into the room to reevaluate the patient were in the mid 80s. Patient states he is normally in the low 90s at baseline. He states with deep breathing his oxygen levels always go up and he feels back to his baseline. Patient did some deep breathing and actually walked in the room and ambulated in front of me without have any respiratory distress O2 sats pop to 94% on room air. Patient be discharged home. Critical care attestation.: If time is entered above; I have spent that time in minutes in the direct care of this critically ill patient, excluding procedure time. ED Disposition Clinical Impression: Asthma exacerbation, Hypoxia Disposition: - TO HOME OR SELFCARE Is pt being admited?: No Does the pt Need Aspirin: No Condition: Stable Instructions: Hypoxia, Asthma Attack Referrals: RAMIREZ CHAHAL MD [Staff Physician] - 3-5 Days Time of Disposition: 20:42
[2020-11-26 19:16] LABS: Basophils # (Auto) 0.1 K/mm3 (0.0-0.1); Basophils % (Auto) 0.5 % (0.0-1.8); Eosinophils # (Auto) 0.8 K/mm3 (0.0-0.4); Eosinophils % (Auto) 8.2 % (0.0-4.3); Hematocrit 43.1 % (35.5-45.6); Hemoglobin 14.7 gm/dl (11.8-15.2); Lymphocytes # (Auto) 1.5 K/mm3 (1.2-5.4); Lymphocytes % (Auto) 14.8 % (13.4-35.0); Mean Corpuscular HGB Conc 34 % (32-34); Mean Corpuscular Volume 82 fl (84-94); Monocytes # (Auto) 0.8 K/mm3 (0.0-0.8); Platelet Count 295 K/mm3 (140-440); Red Blood Count 5.24 M/mm3 (3.65-5.03); Red Cell Distribution Width 13.2 % (13.2-15.2)
[2020-11-26 19:36] LABS: BUN/Creatinine Ratio 12; Blood Urea Nitrogen 13 mg/dL (9-20); Calcium 9.5 mg/dL (8.4-10.2)
[2020-11-26 21:10] VITALS: BP 144/83
== END 2020-11-26 21:17 | disposition home or self-care (01) ==
LOC: ED 18:31
DX: J45.901 Unspecified asthma with (acute) exacerbation (principal); R09.02 Hypoxemia; I10 Essential (primary) hypertension; E11.9 Type 2 diabetes mellitus without complications; Z98.890 Other specified postprocedural states; Z79.84 Long term (current) use of oral hypoglycemic drugs; Z79.899 Other long term (current) drug therapy; Z91.013 Allergy to seafood
CPT/HCPCS: 36415; 80048; 85025; 94644; 96365; 96375; 99283; J1100; J3475

== ENCOUNTER 2020-11-29 17:09 | Emergency (ER) | payer MEDICARE ==
[2020-11-29] MEDS ORDERED: ALBUTEROL 2.5 MG/3 ML NEBU IH ONE (17:42)
[2020-11-29] MEDS ORDERED: predniSONE 50 MG TAB PO STA (17:42)
[2020-11-29] MEDS ORDERED: IPRATROPIUM 0.02% NEBU 2.5 ML IH ONE (17:43)
--- NOTE | 2020-11-29 17:46 | Emergency Department Report ---
ED Asthma HPI - General Chief Complaint: Adult Asthma Stated Complaint: ASTHMA Source: patient Mode of arrival: Ambulatory Limitations: No Limitations - History of Present Illness Initial Comments: 64-year-old -Finnish male presents emerge department complaining of an asthma flareup due to the weather change in the rain causing him to have wheezing run out of his prednisone at home and inhaler. MD Complaint: "asthma attack", shortness of breath, wheezing -: Gradual, Sudden, days(s) Severity: mild, moderate Context: ran out of meds Associated Symptoms: none Treatments Prior to Arrival: inhaled bronchodilator - Related Data Current Asthma Therapy: none Home Medications Medication Instructions Recorded Confirmed Last Taken metFORMIN [Glucophage] 500 mg PO BID 07/02/14 09/09/20 10/18/14 Previous Rx's Medication Instructions Recorded Last Taken Type Aspirin EC [Ecotrin] 325 mg PO DAILY tablet 10/28/14 Unknown Rx Arformoterol Nebu [Brovana Nebu] 15 mcg IH Q12HRT 30 Days ml 06/25/17 Unknown Rx glipiZIDE [glipiZIDE XL] 5 mg PO QDAY #30 tab.er.24 06/25/17 Unknown Rx Famotidine [Pepcid] 40 mg PO DAILY #10 tablet 09/01/18 Unknown Rx Pantoprazole [Protonix TAB] 40 mg PO QDAY #30 tablet 08/22/19 Unknown Rx ALBUTEROL NEB's [Proventil 0.083% 2.5 mg IH TID PRN #30 neb 01/28/20 Unknown Rx NEBS] Fluticasone/Salmeterol [Advair 1 puff IH BID #1 disk.w.dev 01/28/20 Unknown Rx Diskus 250-50 mcg] Albuterol Mdi (or & Nicu Only) 2 puff IH QID PRN #1 inhalation 06/18/20 07/10/20 18:00 Rx [ProAir HFA Inhaler] Cetirizine HCl [ZyrTEC 10mg cap] 10 mg PO DAILY #30 capsule 09/01/20 Unknown Rx Fluticasone [Flonase] 1 spray NS QDAY #1 bottle 09/01/20 Unknown Rx Tiotropium [Spiriva] 18 mcg IH QDAY 30 Days cap 09/01/20 Unknown Rx Azithromycin [Zithromax TAB] 500 mg PO Q24H #3 tablet 09/10/20 Unknown Rx Prednisone [predniSONE 5 mg (6-Day 5 mg PO .TAPER #1 tab.ds.pk 09/10/20 Unknown Rx Pack, 21 Tabs)] ALBUTEROL NEB's [Proventil 0.083% 5 - 7.5 mg IH TID PRN #30 neb 11/26/20 Unknown Rx NEBS] Fluticasone [Flonase] 1 spray NS QDAY #1 bottle 11/26/20 Unknown Rx predniSONE [Deltasone] 20 mg PO QDAY #5 tab 11/26/20 Unknown Rx Albuterol Mdi (or & Nicu Only) 2 puff IH QID PRN #1 inhalation 11/29/20 Unknown Rx [ProAir HFA Inhaler] Montelukast [Singulair] 10 mg PO QPM #14 tablet 11/29/20 Unknown Rx predniSONE [Deltasone] 50 mg PO QDAY #5 tab 11/29/20 Unknown Rx Allergies Allergy/AdvReac Type Severity Reaction Status Date / Time seafood Allergy Shortness Uncoded 11/26/20 18:33 of Breath shrimp Allergy Shortness Uncoded 11/26/20 18:33 of Breath ED Review of Systems ROS: Stated complaint: ASTHMA Other details as noted in HPI Comment: All other systems reviewed and negative ED Past Medical Hx - Past Medical History Previous Medical History?: Yes Hx Hypertension: Yes Hx CVA: No Hx Heart Attack/AMI: No Hx Congestive Heart Failure: No Hx Diabetes: Yes Hx Deep Vein Thrombosis: No Hx Pulmonary Embolism: No Hx GERD: No Hx Liver Disease: No Hx Renal Disease: No Hx Sickle Cell Disease: No Hx Arthritis: No Hx Headaches / Migraines: No Hx Seizures: No Hx Kidney Stones: No Hx Psychiatric Treatment: No Hx Asthma: Yes (intubation) Hx COPD: No Hx Tuberculosis: No Hx Dementia: No Hx HIV: No Additional medical history: intabated x 20. bi pap - Surgical History Past Surgical History?: Yes Additional Surgical History: back surgery x4. Hernia repair 04/20 - Social History Smoking Status: Never Smoker Substance Use Type: Alcohol - Medications Home Medications: Home Medications Medication Instructions Recorded Confirmed Last Taken Type metFORMIN [Glucophage] 500 mg PO BID 07/02/14 09/09/20 10/18/14 History Aspirin EC [Ecotrin] 325 mg PO DAILY tablet 10/28/14 09/09/20 Unknown Rx Arformoterol Nebu [Brovana Nebu] 15 mcg IH Q12HRT 30 Days ml 06/25/17 09/09/20 Unknown Rx glipiZIDE [glipiZIDE XL] 5 mg PO QDAY #30 tab.er.24 06/25/17 09/09/20 Unknown Rx Famotidine [Pepcid] 40 mg PO DAILY #10 tablet 09/01/18 09/09/20 Unknown Rx Pantoprazole [Protonix TAB] 40 mg PO QDAY #30 tablet 08/22/19 09/09/20 Unknown Rx ALBUTEROL NEB's [Proventil 0.083% 2.5 mg IH TID PRN #30 neb 01/28/20 09/09/20 Unknown Rx NEBS] Fluticasone/Salmeterol [Advair 1 puff IH BID #1 disk.w.dev 01/28/20 09/09/20 Unknown Rx Diskus 250-50 mcg] Albuterol Mdi (or & Nicu Only) 2 puff IH QID PRN #1 inhalation 06/18/20 09/09/20 07/10/20 18:00 Rx [ProAir HFA Inhaler] Cetirizine HCl [ZyrTEC 10mg cap] 10 mg PO DAILY #30 capsule 09/01/20 09/09/20 Unknown Rx Fluticasone [Flonase] 1 spray NS QDAY #1 bottle 09/01/20 09/09/20 Unknown Rx Tiotropium [Spiriva] 18 mcg IH QDAY 30 Days cap 09/01/20 09/09/20 Unknown Rx Azithromycin [Zithromax TAB] 500 mg PO Q24H #3 tablet 09/10/20 Unknown Rx Prednisone [predniSONE 5 mg (6-Day 5 mg PO .TAPER #1 tab.ds.pk 09/10/20 Unknown Rx Pack, 21 Tabs)] ALBUTEROL NEB's [Proventil 0.083% 5 - 7.5 mg IH TID PRN #30 neb 11/26/20 Unknown Rx NEBS] Fluticasone [Flonase] 1 spray NS QDAY #1 bottle 11/26/20 Unknown Rx predniSONE [Deltasone] 20 mg PO QDAY #5 tab 11/26/20 Unknown Rx Albuterol Mdi (or & Nicu Only) 2 puff IH QID PRN #1 inhalation 11/29/20 Unknown Rx [ProAir HFA Inhaler] Montelukast [Singulair] 10 mg PO QPM #14 tablet 11/29/20 Unknown Rx predniSONE [Deltasone] 50 mg PO QDAY #5 tab 11/29/20 Unknown Rx ED Physical Exam - General Limitations: No Limitations General appearance: alert, in no apparent distress - Head Head exam: Present: atraumatic, normocephalic - Eye Eye exam: Present: normal appearance - ENT ENT exam: Present: mucous membranes moist - Neck Neck exam: Present: normal inspection - Respiratory Respiratory exam: Present: normal lung sounds bilaterally, wheezes. Absent: respiratory distress - Cardiovascular Cardiovascular Exam: Present: regular rate, normal rhythm. Absent: systolic murmur, diastolic murmur, rubs, gallop - GI/Abdominal GI/Abdominal exam: Present: soft, normal bowel sounds - Rectal Rectal exam: Present: deferred - Extremities Exam Extremities exam: Present: normal inspection - Back Exam Back exam: Present: normal inspection - Neurological Exam Neurological exam: Present: alert, oriented X3 - Psychiatric Psychiatric exam: Present: normal affect, normal mood - Skin Skin exam: Present: warm, dry, intact, normal color. Absent: rash ED Course Vital Signs 11/29/20 11/29/20 17:42 17:58 Temperature 97.8 F Pulse Rate 123 H Pulse Rate [ 100 H Anterior Bilateral Throughout] Respiratory 24 Rate Respiratory 26 H Rate [Anterior Bilateral Throughout] O2 Sat by Pulse 94 Oximetry ED Medical Decision Making - Radiology Data Radiology results: report reviewed [address] [place] [id number] XRay Report Signed Patient: JONY PERSAUD MR#: [id number] : 1955 Acct:[id number] Age/Sex: 64 / M ADM Date: 11/29/20 Loc: ED Attending Dr: Ordering Physician: JORI ARVIZU Date of Service: 11/29/20 Procedure(s): XR chest routine 2V Accession Number(s): [id number] cc: JORI ARVIZU Fluoro Time In Minutes: CHEST 2 VIEWS INDICATION / CLINICAL INFORMATION: wheezing and sob. COMPARISON: 09/07/20 FINDINGS: SUPPORT DEVICES: None. HEART / MEDIASTINUM: No significant abnormality. LUNGS / PLEURA: No significant pulmonary or pleural abnormality. No pneumothorax. ADDITIONAL FINDINGS: No significant additional findings. IMPRESSION: 1. No acute findings. No significant change. Signer Name: Miky Tafoya MD Signed: 11/29/2020 6:34 PM Workstation Name: [id number] Transcribed By: DT Dictated By: Manuel Tafoya MD Electronically Authenticated By: Manuel Tafoya MD Signed Date/Time: 11/29/201833 DD/ 32 TD/TT: - Medical Decision Making No altered mental status, saddle respirations, belly breathing or other signs of impending ventilatory failure. No intubations or recent admissions to the hospital for asthma. Unlikely pneumonia, CHF, COPD, GERD Workup Review include a chest x-ray which was normal she also received steroids and albuterol Therapies: Prednisone 50 mg PO. Albuterol nebulizer Reassessment: Patient improved with albuterol and ipratropium in less than 3 hours. Disposition: Discharge home with return precautions. Advised to follow up with primary care physician within next 24-48 hours. Aside from this acute exacerbation patient has been well controlled on baseline home regimen. Rx short steroid course, albuterol, Singulair, Flovent Critical care attestation.: If time is entered above; I have spent that time in minutes in the direct care of this critically ill patient, excluding procedure time. ED Disposition Clinical Impression: Acute asthma exacerbation Disposition: - TO HOME OR SELFCARE Is pt being admited?: No Does the pt Need Aspirin: No Condition: Stable Instructions: Asthma, Adult, Form - Asthma Action Plan, Adult, Asthma, Adult, [id number], Asthma Attack, Cough, Adult Referrals: PRIMARY CARE, [Primary Care Provider] - 3-5 Days MATEO GIRON MD [Staff Physician] - 3-5 Days
--- NOTE | 2020-11-29 18:38 | XRay Report ---
CHEST 2 VIEWS INDICATION / CLINICAL INFORMATION: wheezing and sob. COMPARISON: 09/07/20 FINDINGS: SUPPORT DEVICES: None. HEART / MEDIASTINUM: No significant abnormality. LUNGS / PLEURA: No significant pulmonary or pleural abnormality. No pneumothorax. ADDITIONAL FINDINGS: No significant additional findings. IMPRESSION: 1. No acute findings. No significant change. Signer Name: Miky Tafoya MD Signed: 11/29/2020 6:34 PM Workstation Name: [id number]
== END 2020-11-29 19:30 | disposition home or self-care (01) ==
LOC: ED 17:09
DX: J45.901 Unspecified asthma with (acute) exacerbation (principal); I10 Essential (primary) hypertension; E11.9 Type 2 diabetes mellitus without complications; Z98.890 Other specified postprocedural states; Z79.899 Other long term (current) drug therapy; Z91.013 Allergy to seafood
CPT/HCPCS: 71046; 94640; 99283; J7512; 94644

== ENCOUNTER 2020-11-30 20:42 | Emergency (ER) | payer MEDICARE ==
[2020-11-30] MEDS ORDERED: ALBUTEROL 2.5 MG/3 ML NEBU IH ONE (21:17)
[2020-11-30] MEDS ORDERED: methylPREDNISolone Sod Succinate 125 MG/2 ML INJ IV ONE (21:17)
[2020-11-30] MEDS ORDERED: MAGNESIUM SULFATE 2 GM/50 ML BAG IV ONE (21:18)
[2020-11-30] MEDS ORDERED: IPRATROPIUM 0.02% NEBU 2.5 ML IH ONE (21:18)
[2020-11-30 21:36] LABS: Basophils % (Auto) 0.5 % (0.0-1.8); Eosinophils # (Auto) 0.8 K/mm3 (0.0-0.4); Eosinophils % (Auto) 7.4 % (0.0-4.3); Hematocrit 44.5 % (35.5-45.6); Hemoglobin 14.8 gm/dl (11.8-15.2); Lymphocytes # (Auto) 2.1 K/mm3 (1.2-5.4); Lymphocytes % (Auto) 20.6 % (13.4-35.0); Mean Corpuscular HGB Conc 33 % (32-34); Mean Corpuscular Volume 82 fl (84-94); Monocytes % (Auto) 10.1 % (0.0-7.3); Platelet Count 298 K/mm3 (140-440); Red Cell Distribution Width 13.2 % (13.2-15.2)
--- NOTE | 2020-11-30 21:50 | Emergency Department Report ---
HPI - General Chief Complaint: Dyspnea/Respdistress Time Seen by Provider: 11/30/20 21:14 - HPI HPI: This is a 64-year-old male who presents to the emergency department with complaint of shortness of breath, wheezing and a dry cough that has been going on over the past 2 days. The patient was seen here yesterday and was given a short breathing treatment, a dose of prednisone, and was discharged home. He says that the recent weather change has caused an exacerbation of his asthma and he ran out of his home prednisone and used up his inhaler. He follows with Dr. Mayer for pulmonology but does not have a primary care physician. Patient denies any tobacco or illicit drug use. Patient was found to have a pulse ox of 88% on room air through triage. He does have a history of asthma for which he has been intubated multiple times in the past. He also has a past medical history of diabetes and hypertension. No recent travel or sick contacts at home. He denies any chest pain, fever, lower extremity swelling, nausea, vomiting, back pain or diaphoresis. ED Past Medical Hx - Past Medical History Hx Hypertension: Yes Hx CVA: No Hx Heart Attack/AMI: No Hx Congestive Heart Failure: No Hx Diabetes: Yes Hx Deep Vein Thrombosis: No Hx Pulmonary Embolism: No Hx GERD: No Hx Liver Disease: No Hx Renal Disease: No Hx Sickle Cell Disease: No Hx Arthritis: No Hx Headaches / Migraines: No Hx Seizures: No Hx Kidney Stones: No Hx Psychiatric Treatment: No Hx Asthma: Yes (intubation) Hx COPD: No Hx Tuberculosis: No Hx Dementia: No Hx HIV: No Additional medical history: intabated x 20. bi pap - Surgical History Past Surgical History?: Yes Additional Surgical History: back surgery x4. Hernia repair 04/20 - Social History Smoking Status: Never Smoker Substance Use Type: None - Medications Home Medications: Home Medications Medication Instructions Recorded Confirmed Last Taken Type metFORMIN [Glucophage] 500 mg PO BID 07/02/14 09/09/20 10/18/14 History Aspirin EC [Ecotrin] 325 mg PO DAILY tablet 10/28/14 09/09/20 Unknown Rx Arformoterol Nebu [Brovana Nebu] 15 mcg IH Q12HRT 30 Days ml 06/25/17 09/09/20 Unknown Rx glipiZIDE [glipiZIDE XL] 5 mg PO QDAY #30 tab.er.24 06/25/17 09/09/20 Unknown Rx Famotidine [Pepcid] 40 mg PO DAILY #10 tablet 09/01/18 09/09/20 Unknown Rx Pantoprazole [Protonix TAB] 40 mg PO QDAY #30 tablet 08/22/19 09/09/20 Unknown Rx ALBUTEROL NEB's [Proventil 0.083% 2.5 mg IH TID PRN #30 neb 01/28/20 09/09/20 Unknown Rx NEBS] Fluticasone/Salmeterol [Advair 1 puff IH BID #1 disk.w.dev 01/28/20 09/09/20 Unknown Rx Diskus 250-50 mcg] Cetirizine HCl [ZyrTEC 10mg cap] 10 mg PO DAILY #30 capsule 09/01/20 09/09/20 Unknown Rx Fluticasone [Flonase] 1 spray NS QDAY #1 bottle 09/01/20 09/09/20 Unknown Rx Tiotropium [Spiriva] 18 mcg IH QDAY 30 Days cap 09/01/20 09/09/20 Unknown Rx Azithromycin [Zithromax TAB] 500 mg PO Q24H #3 tablet 09/10/20 Unknown Rx Prednisone [predniSONE 5 mg (6-Day 5 mg PO .TAPER #1 tab.ds.pk 09/10/20 Unknown Rx Pack, 21 Tabs)] ALBUTEROL NEB's [Proventil 0.083% 5 - 7.5 mg IH TID PRN #30 neb 11/26/20 Unknown Rx NEBS] Fluticasone [Flonase] 1 spray NS QDAY #1 bottle 11/26/20 Unknown Rx Albuterol Mdi (or & Nicu Only) 2 puff IH QID PRN #1 inhalation 11/29/20 Unknown Rx [ProAir HFA Inhaler] Montelukast [Singulair] 10 mg PO QPM #14 tablet 11/29/20 Unknown Rx predniSONE [Deltasone] 50 mg PO QDAY #5 tab 11/29/20 Unknown Rx Albuterol Mdi (or & Nicu Only) 2 puff IH QID PRN #1 inhalation 11/30/20 Unknown Rx [ProAir HFA Inhaler] predniSONE [Deltasone] 20 mg PO BID #10 tab 11/30/20 Unknown Rx ED Review of Systems ROS: Stated complaint: SOB/ASTHMA Other details as noted in HPI Comment: All other systems reviewed and negative Constitutional: denies: chills, fever Eyes: denies: eye pain, vision change ENT: denies: ear pain, throat pain Respiratory: cough, shortness of breath, wheezing Cardiovascular: denies: chest pain, palpitations, edema Gastrointestinal: denies: abdominal pain, vomiting Genitourinary: denies: dysuria, discharge Musculoskeletal: denies: back pain, arthralgia Skin: denies: rash, lesions Neurological: denies: headache, weakness Physical Exam - Physical Exam Physical Exam: GENERAL: The patient is well-developed well-nourished. HENT: Normocephalic. Atraumatic. Patient has moist mucous membranes. EYES: Extraocular motions are intact. NECK: Supple. Trachea is midline. CHEST/LUNGS: Moderate wheezing throughout the chest. There is some tachypnea. Dry cough is heard during examination. HEART/CARDIOVASCULAR: Regular. There is mild tachycardia. There is no murmur. ABDOMEN: Abdomen is soft, nontender. Patient has normal bowel sounds. SKIN: Skin is warm and dry. NEURO: The patient is awake, alert, and oriented. The patient is cooperative. The patient has no focal neurologic deficits. Normal speech. MUSCULOSKELETAL: There is no tenderness or deformity. There is no limitation range of motion. - ABG Interpretation Ph: 7.389 PCO2: 41 PO2: 58 Bicarbonate: 24 Interpretation: other (Hypoxemia) ED Medical Decision Making - Lab Data Result diagrams: 11/30/20 21:24 11/30/20 21:24 Lab Results 11/30/20 11/30/20 11/30/20 Range/Units 21:24 21:24 23:11 WBC 10.2 (4.5-11.0) K/mm3 RBC 5.40 H (3.65-5.03) M/mm3 Hgb 14.8 (11.8-15.2) gm/dl Hct 44.5 (35.5-45.6) % MCV 82 L (84-94) fl MCH 27 L (28-32) pg MCHC 33 (32-34) % RDW 13.2 (13.2-15.2) % Plt Count 298 (140-440) K/mm3 Lymph % (Auto) 20.6 (13.4-35.0) % Sal[place] % (Auto) 10.1 H (0.0-7.3) % Eos % (Auto) 7.4 H (0.0-4.3) % Baso % (Auto) 0.5 (0.0-1.8) % Lymph # (Auto) 2.1 (1.2-5.4) K/mm3 Saline # (Auto) 1.0 H (0.0-0.8) K/mm3 Eos # (Auto) 0.8 H (0.0-0.4) K/mm3 Baso # (Auto) 0.0 (0.0-0.1) K/mm3 Seg Neutrophils % 61.4 (40.0-70.0) % Seg Neutrophils # 6.2 (1.8-7.7) K/mm3 ABG pH 7.389 (7.350-7.450) pH Units ABG pCO2 41.6 mm Hg ABG pO2 58.5 L (80.0-90.0) mm Hg ABG HCO3 24.6 (20.0-26.0) mmol/L ABG O2 Saturation 90.7 L (95.0-99.0) % ABG O2 Content 18.7 (0.0-44) ABG Base Excess -0.4 (-2.0-3.0) mmol/L ABG Hemoglobin 14.9 (14.0-18.0) gm/dl ABG Carboxyhemoglobin 1.2 (0.0-5.0) % ABG Methemoglobin 0.5 (0.0-1.5) % Oxyhemoglobin 89.1 L (95.0-99.0) % FiO2 21 % Sodium 139 (137-145) mmol/L Potassium 3.6 (3.6-5.0) mmol/L Chloride 101.5 (98-107) mmol/L Carbon Dioxide 26 (22-30) mmol/L Anion Gap 15 mmol/L BUN 18 (9-20) mg/dL Creatinine 0.9 (0.8-1.3) mg/dL Estimated GFR > 60 ml/min BUN/Creatinine Ratio 20 % Glucose 239 H (75-100) mg/dL Calcium 9.2 (8.4-10.2) mg/dL - Radiology Data Radiology results: image reviewed interpreted by me: Chest x-ray does not show any acute process. There are no pleural effusions, obvious pneumonia and there is no pneumothorax. No significant cardiomegaly. - Medical Decision Making This patient presents to the emergency department with complaint of shortness of breath, wheezing and dry cough. The patient is well-known to myself in this department and has a significant asthma history in which he has been previously intubated multiple times. On examination he has moderate wheezing and/or bronchospasm. Patient initially presents with some tachycardia and tachypnea. He had a room air pulse ox of 88%. An IV was placed and the patient was given Solu-Medrol and magnesium, as well as a continuous breathing treatment with both albuterol and Atrovent. A chest x-ray was done that does not show any pneumonia, pleural effusions, pneumothorax, or any other acute process. After the breathing treatment finished the patient was reevaluated and clinically does look improved. However, the patient was seen with a room air pulse ox of 85%. He was placed on 5 L via nasal cannula by his nurse and the patient went up to 92%. For this reason, the patient had a room air ABG done that shows hypoxemia with a PO2 of 58 and an oxygen saturation of 89 to 90%. No acid-base disturbances. I spoke to the patient about the need for admission to the hospital secondary to the hypoxia/hypoxemia. 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 The patient and I had a very long conversation regarding his vital signs and ABG both showing hypoxia/hypoxemia. I explained that persistent hypoxia can lead to DE, CVA, syncopal episodes, or even cardiac arrest/. The patient is awake, oriented, and has a normal decision-making capacity. Therefore, despite understanding the risks, the patient has decided to leave AGAINST MEDICAL ADVICE and has signed the AMA form. Despite leaving AMA, I still gave the patient a prescription for steroids and a refill of his albuterol inhaler. We also discussed the fact that the patient is welcome to return to the emergency department at any time if he changes his mind about admission and/or further tr eatment, or with any acute distress. Critical Care Time: No Critical care attestation.: If time is entered above; I have spent that time in minutes in the direct care of this critically ill patient, excluding procedure time. ED Disposition Clinical Impression: Hypoxemia Asthma exacerbation Qualifiers: Asthma severity: unspecified severity Asthma persistence: unspecified Qualified Code(s): J45.901 - Unspecified asthma with (acute) exacerbation Hypertension Qualifiers: Hypertension type: essential hypertension Qualified Code(s): I10 - Essential (primary) hypertension Disposition: LEFT AGAINST MED ADVICE Is pt being admited?: No Instructions: Hypertension (ED) Additional Instructions: Please return to the emergency department immediately if you change your mind about admission and further evaluation, with any new or concerning symptoms, or with any acute distress. Despite leaving AMA, I am giving you a prescription for steroids and a refill of your albuterol inhaler. Prescriptions: predniSONE [Deltasone] 20 mg PO BID #10 tab Albuterol Mdi (or & Nicu Only) [ProAir HFA Inhaler] 2 puff IH QID PRN #1 inhalation PRN Reason: Shortness Of Breath Referrals: KORY MAYER MD [Staff Physician] - MICHEL PRIMARY CAREMD [Primary Care Provider] - MICHEL Forms: AMA Form Time of Disposition: 00:33
[2020-11-30 21:55] LABS: BUN/Creatinine Ratio 20; Blood Urea Nitrogen 18 mg/dL (9-20); Calcium 9.2 mg/dL (8.4-10.2); Hemolysis Index 20
--- NOTE | 2020-11-30 22:08 | XRay Report ---
CHEST 1 VIEW 11/30/2020 9:16 PM INDICATION / CLINICAL INFORMATION: SOB. COMPARISON: 11/29/2020 FINDINGS: SUPPORT DEVICES: None. HEART / MEDIASTINUM: No significant abnormality. LUNGS / PLEURA: No significant pulmonary or pleural abnormality. No pneumothorax. ADDITIONAL FINDINGS: No significant additional findings. IMPRESSION: 1. No acute findings. Signer Name: Vinh Roy MD Signed: 11/30/2020 10:03 PM Workstation Name: [id number]
[2020-11-30 23:22] LABS: ABG Base Excess -0.4 mmol/L (-2.0-3.0); ABG HCO3 24.6 mmol/L (20.0-26.0); ABG Methemoglobin 0.5 % (0.0-1.5); ABG Oxygen Saturation 90.7 % (95.0-99.0); ABG PCO2 41.6 mm Hg; ABG PH 7.389 pH Units (7.350-7.450); ABG PO2 58.5 mm Hg (80.0-90.0)
[2020-11-30 23:58] VITALS: BP 107/65
== END 2020-11-30 23:55 | disposition left against medical advice (07) ==
LOC: ED 20:42
DX: J45.901 Unspecified asthma with (acute) exacerbation (principal); R09.02 Hypoxemia; I10 Essential (primary) hypertension; E11.9 Type 2 diabetes mellitus without complications; Z98.890 Other specified postprocedural states; Z79.84 Long term (current) use of oral hypoglycemic drugs; Z79.899 Other long term (current) drug therapy; Z91.013 Allergy to seafood
CPT/HCPCS: 36415; 71045; 80048; 82803; 85025; 94640; 96365; 96375; 99284; J2930; J3475; 94644; 96374

== ENCOUNTER 2021-10-13 03:42 | Emergency (ER) | payer MEDICARE ==
[2021-10-13 04:41] LABS: Basophils # (Auto) 0.1 K/mm3 (0.0-0.1); Basophils % (Auto) 0.6 % (0.0-1.8); Eosinophils # (Auto) 0.3 K/mm3 (0.0-0.4); Eosinophils % (Auto) 3.2 % (0.0-4.3); Hematocrit 42.9 % (35.5-45.6); Hemoglobin 13.8 gm/dl (11.8-15.2); Lymphocytes # (Auto) 2.1 K/mm3 (1.2-5.4); Lymphocytes % (Auto) 23.7 % (13.4-35.0); Mean Corpuscular HGB Conc 32 % (32-34); Mean Corpuscular Volume 83 fl (84-94); Monocytes # (Auto) 0.8 K/mm3 (0.0-0.8); Monocytes % (Auto) 9.5 % (0.0-7.3); Platelet Count 249 K/mm3 (140-440); Red Blood Count 5.18 M/mm3 (3.65-5.03); Red Cell Distribution Width 13.3 % (13.2-15.2)
[2021-10-13 04:47] LABS: WBC,Urine < 1.0 /HPF (0.0-6.0)
[2021-10-13 04:50] LABS: Bilirubin,Urine Negative (Negative); Color,Urine Colorless (Yellow)
[2021-10-13 04:51] LABS: Blood,Urine Negative (Negative); Protein,Urine <15 mg/dL mg/dL (Negative); Urobilinogen,Urine < 2.0 mg/dL (<2.0)
[2021-10-13 05:05] LABS: Alanine Aminotransferase 37 units/L (7-56); Albumin 4.1 g/dL (3.9-5); BUN/Creatinine Ratio 13; Blood Urea Nitrogen 12 mg/dL (9-20); Hemolysis Index 13
[2021-10-13] MEDS ORDERED: KETOROLAC 60 MG/2 ML INJ IM ONE (06:53)
[2021-10-13] MEDS ORDERED: INSULIN REGULAR, HUMAN 100 UNITS/1 ML IV ONE (07:19)
--- NOTE | 2021-10-13 07:21 | Emergency Department Report ---
ED Male HPI - General Chief complaint: Abdominal Pain Stated complaint: BACK PAIN Time Seen by Provider: 10/13/21 06:23 Source: patient Mode of arrival: Ambulatory Limitations: No Limitations - History of Present Illness Initial comments: 65-year-old male with a past medical history of asthma, diabetes, previous back surgery, and hypertension presents to the hospital complaining of urinary frequency and right flank pain for the past 3 days. Patient states he has urinary urgency with difficulty making it to the bathroom at times. He also reports a decreased stream at times. Patient complaining of intermittent right flank stabbing 8/10 flank pain worse with movement. He denies dysuria, hematuria, nausea, vomiting, fever, or known history of prostate issues - Related Data Home Medications Medication Instructions Recorded Confirmed Last Taken metFORMIN [Glucophage] 500 mg PO BID 07/02/14 09/09/20 10/18/14 Previous Rx's Medication Instructions Recorded Last Taken Type Aspirin EC [Ecotrin] 325 mg PO DAILY tablet 10/28/14 Unknown Rx Arformoterol Nebu [Brovana Nebu] 15 mcg IH Q12HRT 30 Days ml 06/25/17 Unknown Rx glipiZIDE [glipiZIDE XL] 5 mg PO QDAY #30 tab.er.24 06/25/17 Unknown Rx Famotidine [Pepcid] 40 mg PO DAILY #10 tablet 09/01/18 Unknown Rx Pantoprazole [Protonix TAB] 40 mg PO QDAY #30 tablet 08/22/19 Unknown Rx ALBUTEROL NEB's [Proventil 0.083% 2.5 mg IH TID PRN #30 neb 01/28/20 Unknown Rx NEBS] Fluticasone/Salmeterol [Advair 1 puff IH BID #1 disk.w.dev 01/28/20 Unknown Rx Diskus 250-50 mcg] Cetirizine HCl [ZyrTEC 10mg cap] 10 mg PO DAILY #30 capsule 09/01/20 Unknown Rx Fluticasone [Flonase] 1 spray NS QDAY #1 bottle 09/01/20 Unknown Rx Tiotropium [Spiriva] 18 mcg IH QDAY 30 Days cap 09/01/20 Unknown Rx Azithromycin [Zithromax TAB] 500 mg PO Q24H #3 tablet 09/10/20 Unknown Rx Prednisone [predniSONE 5 mg (6-Day 5 mg PO .TAPER #1 tab.ds.pk 09/10/20 Unknown Rx Pack, 21 Tabs)] ALBUTEROL NEB's [Proventil 0.083% 5 - 7.5 mg IH TID PRN #30 neb 11/26/20 Unknown Rx NEBS] Fluticasone [Flonase] 1 spray NS QDAY #1 bottle 11/26/20 Unknown Rx Albuterol Mdi (or & Nicu Only) 2 puff IH QID PRN #1 inhalation 11/29/20 Unknown Rx [ProAir HFA Inhaler] Montelukast [Singulair] 10 mg PO QPM #14 tablet 11/29/20 Unknown Rx predniSONE [Deltasone] 50 mg PO QDAY #5 tab 11/29/20 Unknown Rx Albuterol Mdi (or & Nicu Only) 2 puff IH QID PRN #1 inhalation 11/30/20 Unknown Rx [ProAir HFA Inhaler] predniSONE [Deltasone] 20 mg PO BID #10 tab 11/30/20 Unknown Rx Allergies Allergy/AdvReac Type Severity Reaction Status Date / Time seafood Allergy Shortness Uncoded 11/26/20 18:33 of Breath shrimp Allergy Shortness Uncoded 11/26/20 18:33 of Breath ED Review of Systems ROS: Stated complaint: BACK PAIN Other details as noted in HPI Comment: All other systems reviewed and negative ED Past Medical Hx - Past Medical History Previous Medical History?: Yes Hx Hypertension: Yes Hx CVA: No Hx Heart Attack/AMI: No Hx Congestive Heart Failure: No Hx Diabetes: Yes Hx Deep Vein Thrombosis: No Hx Pulmonary Embolism: No Hx GERD: No Hx Liver Disease: No Hx Renal Disease: No Hx Sickle Cell Disease: No Hx Arthritis: No Hx Headaches / Migraines: No Hx Seizures: No Hx Kidney Stones: No Hx Psychiatric Treatment: No Hx Asthma: Yes (intubation) Hx COPD: No Hx Tuberculosis: No Hx Dementia: No Hx HIV: No Additional medical history: intabated x 20. bi pap - Surgical History Past Surgical History?: Yes Additional Surgical History: back surgery x4. Hernia repair 04/20 - Social History Substance Use Type: None - Medications Home Medications: Home Medications Medication Instructions Recorded Confirmed Last Taken Type metFORMIN [Glucophage] 500 mg PO BID 07/02/14 09/09/20 10/18/14 History Aspirin EC [Ecotrin] 325 mg PO DAILY tablet 10/28/14 09/09/20 Unknown Rx Arformoterol Nebu [Brovana Nebu] 15 mcg IH Q12HRT 30 Days ml 06/25/17 09/09/20 Unknown Rx glipiZIDE [glipiZIDE XL] 5 mg PO QDAY #30 tab.er.24 06/25/17 09/09/20 Unknown Rx Famotidine [Pepcid] 40 mg PO DAILY #10 tablet 09/01/18 09/09/20 Unknown Rx Pantoprazole [Protonix TAB] 40 mg PO QDAY #30 tablet 08/22/19 09/09/20 Unknown Rx ALBUTEROL NEB's [Proventil 0.083% 2.5 mg IH TID PRN #30 neb 01/28/20 09/09/20 Unknown Rx NEBS] Fluticasone/Salmeterol [Advair 1 puff IH BID #1 disk.w.dev 01/28/20 09/09/20 Unknown Rx Diskus 250-50 mcg] Cetirizine HCl [ZyrTEC 10mg cap] 10 mg PO DAILY #30 capsule 09/01/20 09/09/20 Unknown Rx Fluticasone [Flonase] 1 spray NS QDAY #1 bottle 09/01/20 09/09/20 Unknown Rx Tiotropium [Spiriva] 18 mcg IH QDAY 30 Days cap 09/01/20 09/09/20 Unknown Rx Azithromycin [Zithromax TAB] 500 mg PO Q24H #3 tablet 09/10/20 Unknown Rx Prednisone [predniSONE 5 mg (6-Day 5 mg PO .TAPER #1 tab.ds.pk 09/10/20 Unknown Rx Pack, 21 Tabs)] ALBUTEROL NEB's [Proventil 0.083% 5 - 7.5 mg IH TID PRN #30 neb 11/26/20 Unknown Rx NEBS] Fluticasone [Flonase] 1 spray NS QDAY #1 bottle 11/26/20 Unknown Rx Albuterol Mdi (or & Nicu Only) 2 puff IH QID PRN #1 inhalation 11/29/20 Unknown Rx [ProAir HFA Inhaler] Montelukast [Singulair] 10 mg PO QPM #14 tablet 11/29/20 Unknown Rx predniSONE [Deltasone] 50 mg PO QDAY #5 tab 11/29/20 Unknown Rx Albuterol Mdi (or & Nicu Only) 2 puff IH QID PRN #1 inhalation 11/30/20 Unknown Rx [ProAir HFA Inhaler] predniSONE [Deltasone] 20 mg PO BID #10 tab 11/30/20 Unknown Rx ED Physical Exam - General Limitations: No Limitations - Other Other exam information: General: No acute distress Head: Atraumatic Eyes: normal appearance ENT: Moist mucous membranes Neck: Normal appearance, no midline tenderness Chest: Clear to auscultation bilaterally CV: Regular rate and rhythm Abdomen: Soft, normal bowel sounds, nontender, nondistended, no rebound or guarding Back: Normal inspection Extremity: Normal inspection, full range of motion Neuro: Alert O x 3, no facial asymmetry, speech clear, no gross motor sensory deficit Psych: Appropriate behavior Skin: No rash ED Course Vital Signs 10/13/21 10/13/21 10/13/21 03:45 05:27 05:28 Temperature 97.5 F L Pulse Rate 83 89 Respiratory 17 16 Rate Blood Pressure 129/86 122/78 [Right] O2 Sat by Pulse 96 98 98 Oximetry ED Medical Decision Making - Lab Data Result diagrams: 10/13/21 04:29 10/13/21 04:29 Lab Results 10/13/21 10/13/21 10/13/21 Range/Units 04:21 04:29 04:29 WBC 8.7 (4.5-11.0) K/mm3 RBC 5.18 H (3.65-5.03) M/mm3 Hgb 13.8 (11.8-15.2) gm/dl Hct 42.9 (35.5-45.6) % MCV 83 L (84-94) fl MCH 27 L (28-32) pg MCHC 32 (32-34) % RDW 13.3 (13.2-15.2) % Plt Count 249 (140-440) K/mm3 Lymph % (Auto) 23.7 (13.4-35.0) % [place] % (Auto) 9.5 H (0.0-7.3) % Eos % (Auto) 3.2 (0.0-4.3) % Baso % (Auto) 0.6 (0.0-1.8) % Lymph # (Auto) 2.1 (1.2-5.4) K/mm3 [place] # (Auto) 0.8 (0.0-0.8) K/mm3 Eos # (Auto) 0.3 (0.0-0.4) K/mm3 Baso # (Auto) 0.1 (0.0-0.1) K/mm3 Seg Neutrophils % 63.0 (40.0-70.0) % Seg Neutrophils # 5.5 (1.8-7.7) K/mm3 Sodium 140 (137-145) mmol/L Potassium 3.7 (3.6-5.0) mmol/L Chloride 101.4 (98-107) mmol/L Carbon Dioxide 27 (22-30) mmol/L Anion Gap 15 mmol/L BUN 12 (9-20) mg/dL Creatinine 0.9 (0.8-1.3) mg/dL Estimated GFR > 60 ml/min BUN/Creatinine Ratio 13 % Glucose 390 H (75-100) mg/dL Calcium 9.0 (8.4-10.2) mg/dL Total Bilirubin 0.30 (0.1-1.2) mg/dL AST 26 (5-40) units/L ALT 37 (7-56) units/L Alkaline Phosphatase 99 (35-129) units/L Total Protein 5.9 L (6.3-8.2) g/dL Albumin 4.1 (3.9-5) g/dL Albumin/Globulin Ratio 2.3 % Urine Color Colorless (Yellow) Urine Turbidity Clear (Clear) Urine pH 6.0 (5.0-7.0) Ur Specific [place] 1.010 (1.003-1.030) Urine Protein <15 mg/dl (Negative) mg/dL Urine Glucose (UA) Trace (Negative) mg/dL Urine Ketones Negative (Negative) mg/dL Urine Blood Negative (Negative) Urine Nitrite Negative (Negative) Ur Reducing Substances Not Reportable Urine Bilirubin Negative (Negative) Urine Ictotest Not Reportable Urine Urobilinogen < 2.0 (<2.0) mg/dL Ur Leukocyte Esterase Negative (Negative) Urine WBC (Auto) < 1.0 (0.0-6.0) /HPF Urine RBC (Auto) 1.0 (0.0-6.0) /HPF - Radiology Data Radiology results: report reviewed CT ABDOMEN AND PELVIS WITHOUT CONTRAST INDICATION / CLINICAL INFORMATION: RIGHT sided flank pain, urinary problems. TECHNIQUE: Axial CT images were obtained through the abdomen and pelvis without IV contras t. Sagittal and coronal reformatted images. All CT scans at this location are performed using CT dose reduction for ALARA by means of automated exposure control. COMPARISON: None available. FINDINGS: LOWER CHEST: No significant abnormality. LIVER: Moderate hepatic steatosis. No enlargement or obvious mass. GALLBLADDER: A solitary 5 mm calcified gallstone is identified. No dilatation, wall thickening or pericholecystic fluid. BILE DUCTS: No significant abnormality. PANCREAS: No significant abnormality. SPLEEN: No significant abnormality. ADRENALS: No significant abnormality. RIGHT KIDNEY and URETER: A punctate calyceal stone is identified at the superio r pole. The right kidney and ureter are otherwise unremarkable. No obvious ureteral stones or hydronephrosis. LEFT KIDNEY and URETER: A few cysts are identified with the largest measuring 5.2 cm at the lower pole. A punctate calyceal stone is also noted near mid pole and the lower pole. No ureteral stones or hydronephrosis. STOMACH and SMALL BOWEL: No significant abnormality. COLON: No significant abnormality. APPENDIX: No significant abnormality. PERITONEUM: No free fluid. No free air. No fluid collection. LYMPH NODES: No significant adenopathy. AORTA and ARTERIES: No significant abnormality. IVC and VEINS: No significant abnormality. URINARY BLADDER: No significant abnormality. REPRODUCTIVE ORGANS: No significant abnormality. ADDITIONAL FINDINGS: Previous ventral wall hernia repair is identified. A small umbilical hernia is identified. SKELETAL SYSTEM: No acute abnormality. Previous posterior fusion from L4-S1 with grade 1 anterolisthesis of L5 with respect to the sacrum IMPRESSION: Nonobstructing bilateral nephrolithiasis as described. Few simple appearing left renal cysts. Hepatic steatosis. Gallstone. - Medical Decision Making Patient with urinary symptoms and right flank pain. Labs and imaging work-up did not reveal any significant abnormality. Incidental punctate nephrolithiasis noted as well as gallstones. Patient does not have any right upper quadrant pain, nausea, vomiting, or elevated LFTs to suggest biliary colic. Patient treated for mild hyperglycemia without DKA. Patient received 1 dose of Toradol in the ED as well as insulin. Will be discharged with outpatient follow-up - Differential Diagnosis UTI, BPH, prostate cancer, renal colic Critical Care Time: No Critical care attestation.: If time is entered above; I have spent that time in minutes in the direct care of this critically ill patient, excluding procedure time. ED Disposition Clinical Impression: Right flank pain, Nephrolithiasis, Gallstones, Diabetes mellitus with hyper glycemia Disposition: 01 HOME / SELF CARE / HOMELESS Is pt being admited?: No Does the pt Need Aspirin: No Condition: Stable Instructions: Diabetes Mellitus Type 2 in Adults (ED), Cholelithiasis, Kidney Stones, [id number], Hyperglycemia, [id number] Additional Instructions: Take Motrin or Tylenol as needed for pain. Follow-up with your doctor or doctor/clinic provided. Return if symptoms worsen as indicated by your discharge instructions. Referrals: PRIMARY CARE, [Primary Care Provider] - 3-5 Days SULEIMAN JOHNSON MD [Staff Physician] - 3-5 Days (manufacturing planner ) DEBBIE CORTES DO [Staff Physician] - 3-5 Days (surgeon) Time of Disposition: 08:43
--- NOTE | 2021-10-13 08:08 | Cat Scan Report ---
CT ABDOMEN AND PELVIS WITHOUT CONTRAST INDICATION / CLINICAL INFORMATION: RIGHT sided flank pain, urinary problems. TECHNIQUE: Axial CT images were obtained through the abdomen and pelvis without IV contrast. Sagittal and carmona l reformatted images. All CT scans at this location are performed using CT dose reduction for ALARA b y means of automated exposure control. COMPARISON: None available. FINDINGS: LOWER CHEST: No significant abnormality. LIVER: Moderate hepatic steatosis. No enlargement or obvious mass. GALLBLADDER: A solitary 5 mm calcified gallstone is identified. No dilatation, wall thickening or per icholecystic fluid. BILE DUCTS: No significant abnormality. PANCREAS: No significant abnormality. SPLEEN: No significant abnormality. ADRENALS: No significant abnormality. RIGHT KIDNEY and URETER: A punctate calyceal stone is identified at the superior pole. The right kidn ey and ureter are otherwise unremarkable. No obvious ureteral stones or hydronephrosis. LEFT KIDNEY and URETER: A few cysts are identified with the largest measuring 5.2 cm at the lower marco e. A punctate calyceal stone is also noted near mid pole and the lower pole. No ureteral stones or hy dronephrosis. STOMACH and SMALL BOWEL: No significant abnormality. COLON: No significant abnormality. APPENDIX: No significant abnormality. PERITONEUM: No free fluid. No free air. No fluid collection. LYMPH NODES: No significant adenopathy. AORTA and ARTERIES: No significant abnormality. IVC and VEINS: No significant abnormality. URINARY BLADDER: No significant abnormality. REPRODUCTIVE ORGANS: No significant abnormality. ADDITIONAL FINDINGS: Previous ventral wall hernia repair is identified. A small umbilical hernia is i dentified. SKELETAL SYSTEM: No acute abnormality. Previous posterior fusion from L4-S1 with grade 1 anterolisthe sis of L5 with respect to the sacrum IMPRESSION: Nonobstructing bilateral nephrolithiasis as described. Few simple appearing left renal cysts. Hepatic steatosis. Gallstone. Signer Name: Aleksey Castillo Jr, MD Signed: 10/13/2021 8:03 AM Workstation Name: [id number]
[2021-10-13 09:39] VITALS: BP 140/90
== END 2021-10-13 09:39 | disposition home or self-care (01) ==
LOC: ED 03:42
DX: N20.0 Calculus of kidney (principal); R10.9 Unspecified abdominal pain; K80.80 Other cholelithiasis without obstruction; E11.65 Type 2 diabetes mellitus with hyperglycemia; I10 Essential (primary) hypertension; J45.909 Unspecified asthma, uncomplicated; Z98.890 Other specified postprocedural states; Z91.013 Allergy to seafood
CPT/HCPCS: 36415; 74176; 80053; 81001; 82962; 85025; 96372; 96374; 99284; J1885; Q9967; J1815